=== PATIENT | male | born 1935 | race Caucasian/White ===

== ENCOUNTER 2016-10-22 10:04 | Emergency (ER) | payer OTHER, MEDICARE ==
[~2016-10-22] VITALS: Ht 177.8 cm; Wt 102.1 kg
[~2016-10-22 10:04] MED LIST: AFRIN NASAL60 SPRAY NAS; ALLOPURINOL100 M1 PO; ALTACE2.5 MG PO; ATORVASTATIN CA40 MG PO; COUMADIN 5 MG TA5 MG PO; K-DUR 20MEQ TA20 MEQ PO; LASIX20 MG PO; LASIX80 MG PO; LOPRESSOR50 MG PO; LOVENOX 8080 MG/0.8 SC
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
[2016-10-22 10:39] LABS: ABSOLUTE BASOPHIL COUNT 0 /CUMM (0.0-0.2); ABSOLUTE EOSINOPHIL COUNT 0 /CUMM (0.0-0.7); ABSOLUTE GRANULOCYTE CT 14.5 /CUMM (1.4-6.5); ABSOLUTE LYMPH COUNT 0.7 /CUMM (1.2-3.4); ABSOLUTE MONOCYTE COUNT 1.7 /CUMM (0.10-0.60); BASOPHIL % 0.2 % (0.0-2.0); EOSINOPHIL % 0.2 % (0-5); GRANULOCYTE % 85.5 % (42.2-75.2); HEMATOCRIT 48.7 % (42-52); MEAN CORPUSCULAR HGB 32.3 PG (27.0-31.0); MEAN CORPUSCULAR HGB CONC 33.5 G/DL (33.0-37.0); MEAN CORPUSCULAR VOLUME 96.4 FL (80.0-94.0); MEAN PLATELET VOLUME 7.7 FL (7.4-10.4); PLATELET COUNT 143 /CUMM (130-400); RBC DISTRIBUTION WIDTH 14.1 % (11.5-14.5); RED BLOOD CELL CT 5.05 /CUMM (4.70-6.10); WHITE BLOOD CELL COUNT 16.9 /CUMM (4.8-10.8)
[2016-10-22 10:45] LABS: PT 30.9 SEC (9.4-12.5); PTT 50 SEC (25-37)
[2016-10-22] MEDS ORDERED: FUROSEMIDE80 M1 PO (11:15)
[2016-10-22] MEDS ORDERED: SPIRONOLACTONE50 M1 PO (11:16)
--- NOTE | 2016-10-22 13:12 | RADIOLOGY REPORT ---
EXAMINATION: XR PORTABLE CHEST CLINICAL INFORMATION: Right-sided chest pain, abdominal pain. COMPARISON: Chest done on 08/26/2015. TECHNIQUE: Portable view of the chest was obtained. FINDINGS: Moderate enlargement of the cardiomediastinal silhouette is noted, similar to prior study. Postop changes of sternotomy is present, unchanged. Both lung castillo are symmetrically expanded and appear clear. Focal contour deformity is noted along the medial aspect of the right hemidiaphragm, appear unchanged. The visualized upper abdomen is unremarkable. IMPRESSION: No significant change since 08/26/2015. Persistent stable moderate enlargement of the cardiomediastinal silhouette.
--- NOTE | 2016-10-22 14:24 | ULTRASOUND REPORT ---
EXAMINATION: US ABDOMEN LIMITED CLINICAL INFORMATION: Right upper quadrant pain for 2 days. Elevated white blood cell count. Elevated bilirubin. COMPARISON: 03/24/2014 TECHNIQUE: Real-time imaging of the right upper quadrant abdominal viscera. Examination is technically limited. FINDINGS: PANCREAS: The pancreas is almost entirely obscured by bowel gas. There may be a prominence of the pancreatic duct on 2 images. LIVER: Liver parenchyma is poorly seen and diffusely increased in echogenicity typically due to hepatic steatosis. Sensitivity for focal lesions is reduced. No definite intrahepatic biliary ductal dilation. 2014 ultrasound reported abdominal ascites. None seen on this exam. GALLBLADDER: No abnormalities demonstrated. The gallbladder is physiologically distended without evidence of stones, sludge, polyps, wall thickening or pericholecystic fluid. COMMON BILE DUCT: The common bile duct is measured at 7 mm, at the upper limits of normal. This is increased in diameter compared with 2013. Given the history of elevated bilirubin further evaluation is recommended. RIGHT KIDNEY: The right kidney is poorly visualized with some diffuse cortical thinning. A 3 cm anechoic cyst with ill-defined borders is noted in the lower pole. A 6.5 cm cyst noted arising from the upper pole. The kidney measures 10.8 cm in maximum dimension. FREE FLUID: None seen on today's exam. IMPRESSION: 1. Technically limited examination. 2. Top normal caliber common bile duct has increased in diameter since 2013. Pancreatic duct also appears slightly prominent. Given the history of elevated bilirubin, further evaluation suggested. 3. Mild renal cortical thinning.
[2016-10-22 15:14] VITALS: BP 114/64
== END 2016-10-22 15:31 | disposition short-term general hospital (02) ==
LOC: ERH 10:04
PROVIDERS: Emergency Medicine
DX: K83.0 Cholangitis (principal); I95.9 Hypotension, unspecified; R07.9 Chest pain, unspecified; I48.91 Unspecified atrial fibrillation; I10 Essential (primary) hypertension; I50.9 Heart failure, unspecified
CPT/HCPCS: 81001; 87040; 93005; 93010; 96374

== ENCOUNTER 2016-12-26 15:47 | Inpatient (IN) | payer OTHER, MEDICARE ==
[~2016-12-26] VITALS: Ht 177.8 cm; Wt 115.2 kg
[~2016-12-26 15:47] MED LIST changes: +FUROSEMIDE80 M1 PO; +SPIRONOLACTONE50 M1 PO
--- NOTE | 2016-12-26 15:55 | ED GENERAL ADULT ---
See Addendum History of Present Illness General Chief Complaint: General Adult Stated Complaint: BIBA FOR DISLODGED FEEDING TUBE Source: patient, EMS Exam Limitations: poor historian Vital Signs & Intake/Output Vital Signs & Intake/Output Vital Signs Date Time Temp Pulse Resp B/P Pulse O2 O2 Flow FiO2 Ox Delivery Rate 12/27 0120 97.4 96 20 118/58 97 Nasal Cannula 12/268 97.3 95 20 128/64 98 Nasal 2.0L Cannula 12/265 94 Nasal 2.0L Cannula 12/26 2126 96.0 84 20 125/78 100 Nasal 3.0L Cannula 12/26 2050 96.0 89 26 105/61 99 Nasal 3.0L Cannula 12/26 1734 95.8 86 28 105/68 100 Nasal 3.0L Cannula 12/26 1608 Nasal 3.0L Cannula 12/26 160 95.5 86 22 102/65 94 Nasal 3.0L Cannula ED Intake and Output 12/27 0000 12/26 1200 Intake Total Output Total Balance Patient 220 lb Weight Allergies Coded Allergies: NO KNOWN ALLERGIES (12/17/12) Triage Nurses Notes Reviewed? yes Onset: Abrupt Duration: unknown duration Timing: recent history HPI: 12/26/16 4 PM 81-year-old male presents to the emergency department for dislodgment of his right cholecystostomy tube. The patient apparently had the tube placed at [place]. He was at the assisted care facility and they noticed that it was out today. He denies fever or abdominal pain at this time The onset of the symptoms were abrupt, the duration of the symptoms was unknown but suspected to be today, the severity was significant as his symptoms required him to come to the emergency department for care. He denies associated abdominal pain or fever. (SAMMY STILES DO) Reconcile Medications Acetaminophen 325 MG CAPSULE 2 CAP PO Q4H PRN PAIN/TEMP>101 (Reported) Allopurinol 100 MG TABLET 1 TAB PO DAILY GOUT (Reported) Aspirin (Ecotrin*) 81 MG TABLET.DR 1 TAB PO DAILY HEART/BLOOD (Reported) Atorvastatin Calcium 40 MG TABLET 1 TAB PO DAILY CHOLESTEROL (Reported) Bisacodyl 10 MG SUPP.RECT 1 SUP RC Q2D PRN CONSTIPATION (Reported) Furosemide (Lasix) 40 MG TABLET 1 TAB PO DAILY DIURETIC (Reported) Magnesium Hydroxide (Milk Of Magnesia) 400 MG/5 ML ORAL.SUSP 30 ML PO DAILY PRN CONSTIPATION (Reported) Metoprolol Tartrate 25 MG TABLET 0.5 TAB PO BID HEART/BP (Reported) Miconazole Nitrate (Inzo Antifungal) 2 % CREAM..G. 1 SALAZAR TOP BID BUTTOCKS ( Reported) Na Phos,M-B/Na Phos,Di-Ba (Fleet Enema) 19 GRAM-7 GRAM/118 ML ENEMA 1 E RC Q2D PRN CONSTIPATION (Reported) Nystatin (Nystop) 100,000 UNIT/GRAM POWDER 1 SALAZAR TOP BID GROIN (Reported) Pantoprazole Sodium 40 MG TABLET.DR 1 TAB PO Q12H GI (Reported) Polyethylene Glycol 3350 (Gavilax) 17 GRAM POWD.PACK 1 PAC PO DAILY GI ( Reported) Potassium Chloride (Klor-Con 10) 10 MEQ TABLET.ER 1 TAB PO DAILY SUPPLEMENT ( Reported) Sennosides (Senna) 8.6 MG TABLET 1 TAB PO QPM GI (Reported) Warfarin Sodium (Coumadin) 5 MG TABLET 1 TAB PO DAILY AFIB (Reported) (AKBAR AGOSTO,KORI) Past History Travel History Traveled to [place] past 21 day No Medical History Any Pertinent Medical History? see below for history Neurological: NONE EENT: epistaxis Cardiovascular: AFIB, CAD, diastolic CHF, hypertension, hyperlipidemia, prosthetic aortic valve replacement in 1994 in 1994 Respiratory: NONE Gastrointestinal: colon cancer s/p subtotal colectomy Hepatic: NONE Renal: NONE Musculoskeletal: gout Psychiatric: NONE Endocrine: NONE Blood Disorders: NONE Cancer(s): colon/rectal cancer Other Medical Hx: Past medical history includes colonoscopy with subtotal colectomy for cancer in 1989, dyslipidemia status post repair of ventral hernia coronary artery disease status post bypass surgery prostatic aortic valve replacement 1994 for bicuspid aortic valve atrial fibrillation cellulitis severe hypertension and shortness of breath. History of MRSA: No History of VRE: No History of CDIFF: No Surgical History Surgical History: unobtainable Psychosocial History Who do you live with Patient/Self Services at Home None What is your primary language German Family History Family History, If Any: MOTHER (family medical history is unknown as the patient is adopted). . FATHER (unknown). . Hx Contributory? No (SAMMY STILES DO) Review of Systems Review of Systems Constitutional: Denies: fever. EENTM: Reports: no symptoms. Respiratory: Denies: short of breath. Cardiovascular: Reports: no symptoms. GI: Denies: abdominal pain. Genitourinary: Reports: no symptoms. Musculoskeletal: Reports: no symptoms. Skin: Reports: no symptoms. Neurological/Psychological: Reports: no symptoms. Hematologic/Endocrine: Reports: no symptoms. Immunologic/Allergic: Reports: no symptoms. (SAMMY STILES DO) Physical Exam Physical Exam General Appearance: alert, awake, anxious, moderate distress Head: atraumatic, normal appearance Eyes: Bilateral: normal appearance, PERRL, EOMI. Ears, Nose, Throat: normal pharynx, normal ENT inspection Neck: normal inspection, supple Respiratory: decreased breath sounds Cardiovascular: irregularly irregular Peripheral Pulses: 4+ radial (R), 4+ radial (L) Gastrointestinal: non-tender, no organomegaly Back: decreased range of motion Extremities: pedal edema Neurologic/Psych: no motor/sensory deficits, awake, alert, oriented x 3 Skin: intact, normal color, rash, stasis dermatitis Core Measures ACS in differential dx? No CVA/TIA Diagnosis: No Severe Sepsis Present: No Septic Shock Present: No (SAMMY STILES DO) Progress Differential Diagnoses I considered the following diagnoses in my evaluation of the patient: [ Congestive heart failure, cholecystitis, sepsis, pneumonia, pulmonary embolism] Plan of Care: Orders Procedure Date/time Status Nothing by Mouth 12/27 B Active TROPONIN LEVEL 12/27 0700 Active PROTHROMBIN TIME 12/27 0700 Active HEPATIC FUNCTION PANEL 12/27 0700 Active CBC WITHOUT DIFFERENTIAL 12/27 0700 Active BASIC ELECTROLYTES PLUS BUN&CR 12/27 0700 Active EKG 12/27 0700 Active Pathway - chart 12/27 0122 Active House Staff 12/27 0122 Active Code Status 12/27 0122 Active CULTURE,URINE 12/27 0106 Active TROPONIN LEVEL 12/27 0052 Complete PROTHROMBIN TIME 12/27 0052 Complete EKG 12/27 0052 Active Lab Add-on Test 12/27 UNK Active Weight 12/27 UNK Active VTE Mechanical Prophylaxis 12/27 UNK Active Starr, Insertion/Removal/Asses 12/27 UNK Active PERCUT BILIARY DRAINANGE 12/27 UNK Active Turn and Reposition 12/26 2308 Active Skin Integrity Protocol 12/26 230 Active Teach/Educate 12/26 2257 Active Pain Treatment and Response 12/26 2257 Active Nutritional Intake, Monitor 12/26 2257 Active Isolation 12/26 2257 Active Patient Care Conference 12/26 2257 Active Activity/Ambulation 12/26 2257 Active Patient Data 12/26 2026 Active Admit to inpatient 12/27 2015 Active Vital Signs 12/27 2015 Active Code Status 12/27 2015 Complete Admit to inpatient 12/27 2003 Active TROPONIN LEVEL 12/26 171 Complete MAGNESIUM 12/26 171 Complete Intake & Output 12/26 1611 Active EKG 12/26 160 Active COMPREHENSIVE METABOLIC PANEL 12/26 160 Complete CBC WITHOUT DIFFERENTIAL 12/26 160 Complete Current Medications Sig/Salud Start time Last Medication Dose Stop Time Status Admin Allopurinol 100 MG DAILY 12/27 1000 AC (Zyloprim) Clotrimazole 1 SALAZAR BID 12/27 1000 AC (Lotrimin) Furosemide 40 MG DAILY 12/27 1000 AC (Lasix) Metoprolol Tartrate 12.5 MG BID 12/27 1000 AC (Lopressor) Nystatin 1 SALAZAR BID 12/27 1000 AC (Mycostatin) Omeprazole 40 MG BID 12/27 1000 UNVr (Prilosec) Polyethylene Glycol 17 GM DAILY 12/27 1000 AC (Miralax) Potassium Chloride 10 MEQ DAILY 12/27 1000 AC (K-Dur) Heparin Sodium 25,000 UNIT Q24H 12/27 0400 UNVr (Porcine) (Heparin) Sodium Chloride 500 ML Senna/Docusate Sodium 1 TAB Q12P PRN 12/27 0130 AC (Senokot S) Acetaminophen 650 MG Q6P PRN 12/27 0115 AC (Tylenol) Laboratory Tests 12/27/16 0155: Troponin I < 0.01, PT 31.1 H, INR 2.99 H 12/26/16 171: Anion Gap 9, Estimated GFR > 60, BUN/Creatinine Ratio 14.0, Glucose 106 H, Calcium 9.4, Magnesium 1.8, Total Bilirubin 1.6 H, AST 50, ALT 47, Alkaline Phosphatase 195 H, Troponin I < 0.01, Total Protein 7.5, Albumin 3.1 L, Globulin 4.4 H, Albumin/Globulin Ratio 0.7 L, CBC w Diff NO MAN DIFF REQ, RBC 3.66 L, MCV 94.6 H, MCH 31.1 H, RDW 18.2 H, MPV 7.9, Gran % 69.8, Lymphocytes % 12.1 L, Monocytes % 12.6 H, Eosinophils % 5.0, Basophils % 0.5, Absolute Granulocytes 5.3, Absolute Lymphocytes 0.9 L, Absolute Monocytes 1.0 H, Absolute Eosinophils 0.4, Absolute Basophils 0, PUBS MCHC 32.8 L Microbiology 12/27 0106 URINE ROUT: Urine Culture - ORD D/W DR DAVISON who feels patient should stay to have IR placed cholecystostomy tube tomorrow. Recent E.coli sepsis complicated by staph infection. At the same time patient with respiratory distress, b/l effusions requiring diuresis. D/W hospitalist for admission. (KORI SEGUNDO MD) Initial ED EKG: atrial fibrillation Prior EKG: unchanged (SAMMY STILES DO) Differential Diagnoses I considered the following diagnoses in my evaluation of the patient: (KORI SEGUNDO MD) Departure Departure Condition: Stable Referrals: ARIADNA DAVISON MD (PCP/Family) Departure Forms: Customer Survey General Discharge Information Comments 12/26/16 7 pm The patient was observed in the ED. He did complain of difficulty breathing. He was placed on oxygen. CT scan and chest x-ray show bilateral pleural effusions. He was admitted to the hospital for congestive heart failure. The patient was signed out to Dr. Segundo at 7 PM. PATIENT: MIKE WHITING PRESENT AGE: 81 PATIENT ACCOUNT NO: [id number] : 35 LOCATION: [facility] ORDERING PHYSICIAN: SAMMY STILES DO SERVICE DATE: 12/26/16 EXAM TYPE: CAT - CT ABD & PELVIS W/O IV CONTRAS EXAMINATION: CT ABDOMEN AND PELVIS WITHOUT CONTRAST CLINICAL INFORMATION: Dislodged cholecystotomy tube. Assess for collection. COMPARISON: Ultrasound of abdomen 10/22/2016 TECHNIQUE: Multidetector volumetric imaging was performed from the superior aspect of the liver through the pubic symphysis. Sagittal and coronal reformatted images were obtained on the technologist's workstation. No oral or intravenous contrast. DLP: 1180.15 mGy-cm FINDINGS: LUNG BASES: Calcifications of the pericardium. Calcification of the mitral valve annulus. Moderate volume bilateral pleural effusions. Bibasilar atelectasis at lung bases. LIVER, GALLBLADDER, AND BILIARY TREE: The liver is normal in size, shape, and attenuation. No focal hepatic lesion or biliary ductal dilatation is present. Multiple small gallstones are present in the gallbladder layering dependently . No bile duct dilatation. There is subtle stranding around the gallbladder due to a small amount of fluid but there is no large collection of fluid. No biloma. PANCREAS: Unremarkable. SPLEEN: Unremarkable. ADRENAL GLANDS: Unremarkable. KIDNEYS AND URETERS: Pedunculated cortical cyst at upper pole of right kidney measuring 7 cm and 1 cm. There is a pedunculated cyst at the mid lower pole measuring 3.3 cm. No renal or ureteral calculi. No hydronephrosis. BLADDER: Unremarkable. GASTROINTESTINAL TRACT: Surgical sutures at the sigmoid. Anastomosis intact. No acute change of the bowel. No bowel obstruction. No bowel wall thickening or edema. Moderate volume of stool in colon. The appendix is normal. Small bowel loops are unremarkable. ABDOMINAL WALL: Surgical clips at the anterior abdominal wall with associated mild thickening. Stranding extends into the subcutaneous tissue of the incision. No focal fluid collection or abscess. LYMPH NODES: Normal. VASCULAR: Atherosclerotic vascular wall calcifications of the vasculature throughout the abdomen and pelvis. 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 PELVIC VISCERA: Coarse calcifications in the prostate. Prostate measures 4 cm transverse. OSSEOUS STRUCTURES: Multilevel degenerative change of the spine with disc height narrowing and endplate spurs and facet joint arthrosis. There is near complete anterior wedge compression deformity of the L2 vertebrae which is chronic. IMPRESSION: 1. Bilateral pleural effusions. Bibasilar atelectasis at lung bases. 2. Gallstones in gallbladder. Small amount of stranding fluid around the gallbladder but no large fluid collection or biloma. No bile duct dilatation. 3. Postsurgical changes anterior abdominal wall. 4. Status post partial colectomy with anastomosis at the sigmoid. No acute change of the bowel. 5. Diffuse atherosclerotic vascular calcifications in abdomen. 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 DICTATED BY: RELL MUNOZ MD DATE/TIME DICTATED:12/26/161811 HAND CLERICAL VERIFIER:DENY DATE/TIME TRANSCRIBED:12/26/161811 CONFIDENTIAL, DO NOT COPY WITHOUT APPROPRIATE AUTHORIZATION. <Electronically signed in Other Vendor System> SIGNED BY: RELL MUNOZ MD 12/26/16 4409 (SAMMY STILES DO) Departure Time of Disposition: 2016 Disposition: STILL A PATIENT Clinical Impression Primary Impression: CHF (congestive heart failure) Admission Note Spoke With: ARACLEY VERONICA MD (AKBAR AGOSTO,KORI) Critical Care Note Critical Care Note Critical Care Time: non-applicable (SAMMY STILES DO)
--- NOTE | 2016-12-26 16:07 | NUR ---
KRIS FROM [facility] DUE TO ACCIDENTAL DISLODGEMENT OF BILIARY DRAIN. PT STATES HE WAS AT [place] AND HAD DRAIN PLACED ABOUT A WEEK AGO AND THEN WENT TO [place]. PT AWAKE, ALERT AND ORIENTED. PT SOB WITH CONVERSATION. ARRIVED ON 3 LITERS OF 02. DENIES PAIN OR SOB. BLE EDEMA WITH TENDERNESS ON PALPATION.
--- NOTE | 2016-12-26 16:07 | NUR ---
PT TO ROOM 7. DR STILES IN TO SEE PT
--- NOTE | 2016-12-26 16:41 | NUR ---
PT DIFFICULT VEIN STICK. 22 GUAGE IV PLACED IN RIGHT WRIST. UNSUCCESSFUL ATTEMPT TO DRAW LABS
--- NOTE | 2016-12-26 17:08 | NUR ---
EKG DONE. DR STILES NOTIFIED OF PT WITH LABORED BREATHING
--- NOTE | 2016-12-26 17:32 | NUR ---
PORTABLE CXR DONE
--- NOTE | 2016-12-26 17:45 | NUR ---
PT ON MONITOR , IN AFIB
[2016-12-26 17:49] LABS: ABSOLUTE BASOPHIL COUNT 0 /CUMM (0.0-0.2); ABSOLUTE EOSINOPHIL COUNT 0.4 /CUMM (0.0-0.7); ABSOLUTE GRANULOCYTE CT 5.3 /CUMM (1.4-6.5); ABSOLUTE LYMPH COUNT 0.9 /CUMM (1.2-3.4); BASOPHIL % 0.5 % (0.0-2.0); GRANULOCYTE % 69.8 % (42.2-75.2); HEMATOCRIT 34.7 % (42-52); MEAN CORPUSCULAR HGB 31.1 PG (27.0-31.0); MEAN CORPUSCULAR HGB CONC 32.8 G/DL (33.0-37.0); MEAN CORPUSCULAR VOLUME 94.6 FL (80.0-94.0); MEAN PLATELET VOLUME 7.9 FL (7.4-10.4); PLATELET COUNT 124 /CUMM (130-400); RBC DISTRIBUTION WIDTH 18.2 % (11.5-14.5); RED BLOOD CELL CT 3.66 /CUMM (4.70-6.10); WHITE BLOOD CELL COUNT 7.7 /CUMM (4.8-10.8)
--- NOTE | 2016-12-26 17:55 | RADIOLOGY REPORT ---
EXAMINATION: XR PORTABLE CHEST CLINICAL INFORMATION: 81-year-old male patient with shortness of breath. COMPARISON: Precocious x-ray on 10/22/2016. (Cardiomegaly). TECHNIQUE: Portable AP semierect view of the chest was obtained. FINDINGS: Reexamination now shows cardiomegaly associated with bilateral pleural effusions. As a result, lung volumes are low. The sternotomy wires are intact. IMPRESSION: Bilateral pleural effusions.
--- NOTE | 2016-12-26 18:06 | NUR ---
PT WENT AND RETURNED FROM CT SCAN
--- NOTE | 2016-12-26 18:26 | CT SCAN REPORT ---
EXAMINATION: CT ABDOMEN AND PELVIS WITHOUT CONTRAST CLINICAL INFORMATION: Dislodged cholecystotomy tube. Assess for collection. COMPARISON: Ultrasound of abdomen 10/22/2016 TECHNIQUE: Multidetector volumetric imaging was performed from the superior aspect of the liver through the pubic symphysis. Sagittal and coronal reformatted images were obtained on the technologist's workstation. No oral or intravenous contrast. DLP: 1180.15 mGy-cm FINDINGS: LUNG BASES: Calcifications of the pericardium. Calcification of the mitral valve annulus. Moderate volume bilateral pleural effusions. Bibasilar atelectasis at lung bases. LIVER, GALLBLADDER, AND BILIARY TREE: The liver is normal in size, shape, and attenuation. No focal hepatic lesion or biliary ductal dilatation is present. Multiple small gallstones are present in the gallbladder layering dependently . No bile duct dilatation. There is subtle stranding around the gallbladder due to a small amount of fluid but there is no large collection of fluid. No biloma. PANCREAS: Unremarkable. SPLEEN: Unremarkable. ADRENAL GLANDS: Unremarkable. KIDNEYS AND URETERS: Pedunculated cortical cyst at upper pole of right kidney measuring 7 cm and 1 cm. There is a pedunculated cyst at the mid lower pole measuring 3.3 cm. No renal or ureteral calculi. No hydronephrosis. BLADDER: Unremarkable. GASTROINTESTINAL TRACT: Surgical sutures at the sigmoid. Anastomosis intact. No acute change of the bowel. No bowel obstruction. No bowel wall thickening or edema. Moderate volume of stool in colon. The appendix is normal. Small bowel loops are unremarkable. ABDOMINAL WALL: Surgical clips at the anterior abdominal wall with associated mild thickening. Stranding extends into the subcutaneous tissue of the incision. No focal fluid collection or abscess. LYMPH NODES: Normal. VASCULAR: Atherosclerotic vascular wall calcifications of the vasculature throughout the abdomen and pelvis. 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 PELVIC VISCERA: Coarse calcifications in the prostate. Prostate measures 4 cm transverse. OSSEOUS STRUCTURES: Multilevel degenerative change of the spine with disc height narrowing and endplate spurs and facet joint arthrosis. There is near complete anterior wedge compression deformity of the L2 vertebrae which is chronic. IMPRESSION: 1. Bilateral pleural effusions. Bibasilar atelectasis at lung bases. 2. Gallstones in gallbladder. Small amount of stranding fluid around the gallbladder but no large fluid collection or biloma. No bile duct dilatation. 3. Postsurgical changes anterior abdominal wall. 4. Status post partial colectomy with anastomosis at the sigmoid. No acute change of the bowel. 5. Diffuse atherosclerotic vascular calcifications in abdomen. 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
[2016-12-26] MEDS ORDERED: ASPIRIN EC81 M1 PO (19:27)
[2016-12-26] MEDS ORDERED: LASIX40 M1 PO (19:28)
[2016-12-26] MEDS ORDERED: METOPROLOL TART25 M1 PO (19:30)
[2016-12-26] MEDS ORDERED: TOPROL XL25 M1 PO (19:30)
[2016-12-26] MEDS ORDERED: MILK OF MA400 MG/52 PO (19:31)
[2016-12-26] MEDS ORDERED: FLEET ENEMA133 ML RC (19:32)
[2016-12-26] MEDS ORDERED: BISACODYL10 M1 RC (19:32)
[2016-12-26] MEDS ORDERED: ACETAMINOPHEN325 M3 PO (19:33)
[2016-12-26] MEDS ORDERED: PANTOPRAZOLE SO40 M1 PO (19:34)
[2016-12-26] MEDS ORDERED: GAVILAX17 GM PO (19:35)
[2016-12-26] MEDS ORDERED: KLOR-CON 1010 ME1 PO (19:35)
[2016-12-26] MEDS ORDERED: NYSTOP60 GM TOP (19:36)
[2016-12-26] MEDS ORDERED: SENNA8.6 M3 PO (19:36)
[2016-12-26] MEDS ORDERED: [UNRECOGNIZED DRUG - OTHER] TOP (19:37)
[2016-12-26] MEDS ORDERED: ATORVASTATIN CA40 M1 PO (19:38)
--- NOTE | 2016-12-26 20:01 | NUR ---
DR WEBBER IN TO SEE PT. DR WEBBER AWARE PT IS SOB AND HAD EDEMA
--- NOTE | 2016-12-26 20:55 | NUR ---
PT GOING TO ROOM 189-2.
--- NOTE | 2016-12-26 21:25 | NUR ---
REPORT CALLED TO [place] ON TELE. BED NOT READY YET ON UNIT.
--- NOTE | 2016-12-26 21:28 | NUR ---
HOUSE STAFF AT BEDSIDE TO SEE PT. HOUSE STAFF NOTIFIED THAT BLUE TOP TUBE IN LAB IN CASE THEY WANT TO ORDER PT INR DUE TO PT BEING ON COUMADIN
--- NOTE | 2016-12-26 22:20 | NUR ---
ONE NAKIA CALLED, BED IS CLEAN AND READY
--- NOTE | 2016-12-26 22:34 | History & Physical ---
CRESCENCIO AGOSTO,[facility] 12/26/16 2233: General Information and HPI MD Statement: I have seen and personally examined MIKE WHITING and documented this H&P. The patient is a 81 year old M who presented with a patient stated chief complaint of dislodged percutaneous tube. Source of Information: patient Exam Limitations: no limitations History of Present Illness: This is a 79-year-old gentleman with a past medical history is CAD status post CABG in 1994 and stent placement in 1999, aortic stenosis status post [facility] Misael valve placement in 1994, A. fib, hypertension, CHF, and recent acute cholecystitis status post percutaneous cholecystostomy tube presents is BIBA by nursing facility for evaluation of a dislodged percutaneous choley tube. Patient reports that earlier today he realized that his cholecystostomy tube was no longer attached. He denies deliberately removing it. Of note, patient's percutaneous: Tube was initially placed in October after he had presented a [facility] with acute cholecystitis and was deemed not suitable for cholecystectomy procedure due to his cardiac risk and presentation with sepsis. Patient reports multiple episodes of dislodged tube since initial placement which resulted in going back to [facility] for reinsertion. Around December 23, patient underwent an IR reinsertion of his tube after he was reevaluated for possible cholecystectomy and it was decided that he should continue with the cholecystostomy tube instead. Patient reports that his [facility] has been going well and is currently regaining his strength to ambulate with a walking aid. Patient does not endorse any current acute complaints including dizziness, lightheadedness, focal neurological deficit, fever, chills, nausea, vomiting, cough, recent infection, sick contacts, abdominal pain, muscle pain or dysuria. Allergies/Medications Allergies: Coded Allergies: NO KNOWN ALLERGIES (12/17/12) Past History Travel History Traveled to [place] past 21 day No Medical History Neurological: NONE EENT: epistaxis Cardiovascular: AFIB, CAD, diastolic CHF, hypertension, hyperlipidemia, prosthetic aortic valve replacement in 1994 in 1994 Respiratory: NONE Gastrointestinal: colon cancer s/p subtotal colectomy BILIARY DRAIN Hepatic: NONE Renal: NONE Musculoskeletal: gout Psychiatric: NONE Endocrine: NONE Blood Disorders: NONE Cancer(s): colon/rectal cancer Other Medical Hx: Past medical history includes colonoscopy with subtotal colectomy for cancer in 1989, dyslipidemia status post repair of ventral hernia coronary artery disease status post bypass surgery prostatic aortic valve replacement 1994 for bicuspid aortic valve atrial fibrillation cellulitis severe hypertension and shortness of breath. History of MRSA: No History of VRE: No History of CDIFF: No Surgical History Surgical History: unobtainable Past Family/Social History Family History Relations & Conditions if any MOTHER (family medical history is unknown as the patient is adopted). . FATHER (unknown). . Psychosocial History Services at Home: None ETOH Use: occasional use Illicit Drug Use: denies illicit drug use Review of Systems Review of Systems Constitutional: Reports: no symptoms. EENTM: Reports: no symptoms. Cardiovascular: Reports: no symptoms. Respiratory: Reports: no symptoms. GI: Reports: no symptoms. Genitourinary: Reports: no symptoms. Musculoskeletal: Reports: no symptoms. Skin: Reports: no symptoms. Neurological/Psychological: Reports: no symptoms. Hematologic/Endocrine: Reports: no symptoms. Immunologic/Allergic: Reports: no symptoms. Exam & Diagnostic Data Last 24 Hrs of Vital Signs/I&O Vital Signs Date Time Temp Pulse Resp B/P Pulse O2 O2 Flow FiO2 Ox Delivery Rate 12/27 0120 97.4 96 20 118/58 97 Nasal Cannula 12/26 2248 97.3 95 20 128/64 98 Nasal 2.0L Cannula 12/26 2245 94 Nasal 2.0L Cannula 12/26 2127 96.0 84 20 125/78 100 Nasal 3.0L Cannula 12/26 2050 96.0 89 26 105/61 99 Nasal 3.0L Cannula 12/26 1734 95.8 86 28 105/68 100 Nasal 3.0L Cannula 12/26 1608 Nasal 3.0L Cannula 12/26 1607 95.5 86 22 102/65 94 Nasal 3.0L Cannula Intake & Output 12/27 0800 12/27 0000 12/26 1600 Intake Total Output Total Balance Patient 99.79 kg Weight Physical Exam General Appearance Alert, Oriented X3, Cooperative Skin eythematous venous skin changes b/l on lower extremities HEENT Atraumatic, PERRLA Neck Supple, No JVD, No thryomegaly Lymphatic Cervical nl Cardiovascular Normal S1, Normal S2, irregular rate Lungs mild rhonchi on lung bases b/l Abdomen Normal Bowel Sounds, Soft Neurological Normal Speech, Strength at 5/5 X4 Ext, Sensation Intact Extremities pitting edema +3 b/l LE upto thigh Assessment/Plan Assessment: This is a 81-year-old gentleman with a past medical history of CAD with CABG and stent placement, and a recent hospitalization a [facility] for acute cholecystitis with sepsis resulting in placement of percutaneous cholecystostomy tube presents to [place] ED for evaluation of a dislodged choley tube. Assessment and plan #Dislodged percutaneous cholecystostomy tube Skin/stoma area is devoid of any drainage, erythema or pus and does not look infected. Plan Will admit to general medicine floor Will contact IR for placement of tube Will hold Coumadin for now #Lower extremity swelling Possible etiology include venous insufficiency and acute decompensation of heart failure. Patient complained of shortness of breath while at the ED and chest x- ray are was remarkable for bilateral pleural effusion. These findings could be suggestive of acute decompensated heart failure as the most likely etiology of patient's lower extremity swelling. Plan Continue furosemide Hold off on echo as a recent one was done a [facility] and general. Will obtain cardiology consult #Hyponatremia Chronic. Plan Will trend BEP tomorrow morning #Status post aortic [facility] Misael valve In anticipation of IR procedure tomorrow we'll hold off Coumadin and start patient on heparin. #Intertrigo Around inguinal area and lateral abdominal folds. Plan Clotrimazole cream #History of CAD Continue metoprolol 12.5 mg #History of gout Continue allopurinol #Aortic aneurysm Less than 5 cm. Patient is hemodynamically stable. Will need outpatient serial CT follow-ups. As Ranked By This Provider Problem List: 1. Cholecystostomy tube dysfunction Core Measures/Miscellaneous Acute Coronary Syndrome ACS Diagnosis: No Cerebrovascular Accident CVA/TIA Diagnosis: No Congestive Heart Failure CHF Diagnosis: No Venous Thromboembolism VTE Risk Factors: Age > 40 No [facility] VTE prophylaxis d/t: No contraindications No VTE Pharm Prophylaxis d/t: No contraindications VTE Diagnosis: No VTE Type: NONE VTE Confirmed by (Test): NONE Severe Sepsis Severe Sepsis Present: No Septic Shock Septic Shock Present: No Miscellaneous Documentation Attending Case Discussed With: ARACELY VERONICA MD Primary Care Physician: ARIADNA DAVISON MD Patient sees these Specialists GI CARDIOLOGY Level of Patient Care: General Medicine KARIN DON 12/27/16 0210: General Information and HPI Allergies/Medications Home Med list Acetaminophen 325 MG CAPSULE 2 CAP PO Q4H PRN PAIN/TEMP>101 (Reported) Allopurinol 100 MG TABLET 1 TAB PO DAILY GOUT (Reported) Aspirin (Ecotrin*) 81 MG TABLET.DR 1 TAB PO DAILY HEART/BLOOD (Reported) Atorvastatin Calcium 40 MG TABLET 1 TAB PO DAILY CHOLESTEROL (Reported) Bisacodyl 10 MG SUPP.RECT 1 SUP RC Q2D PRN CONSTIPATION (Reported) Furosemide (Lasix) 40 MG TABLET 1 TAB PO DAILY DIURETIC (Reported) Magnesium Hydroxide (Milk Of Magnesia) 400 MG/5 ML ORAL.SUSP 30 ML PO DAILY PRN CONSTIPATION (Reported) Metoprolol Tartrate 25 MG TABLET 0.5 TAB PO BID HEART/BP (Reported) Miconazole Nitrate (Inzo Antifungal) 2 % CREAM..G. 1 SALAZAR TOP BID BUTTOCKS ( Reported) Na Phos,M-B/Na Phos,Di-Ba (Fleet Enema) 19 GRAM-7 GRAM/118 ML ENEMA 1 E RC Q2D PRN CONSTIPATION (Reported) Nystatin (Nystop) 100,000 UNIT/GRAM POWDER 1 SALAZAR TOP BID GROIN (Reported) Pantoprazole Sodium 40 MG TABLET.DR 1 TAB PO Q12H GI (Reported) Polyethylene Glycol 3350 (Gavilax) 17 GRAM POWD.PACK 1 PAC PO DAILY GI ( Reported) Potassium Chloride (Klor-Con 10) 10 MEQ TABLET.ER 1 TAB PO DAILY SUPPLEMENT ( Reported) Sennosides (Senna) 8.6 MG TABLET 1 TAB PO QPM GI (Reported) Warfarin Sodium (Coumadin) 5 MG TABLET 1 TAB PO DAILY AFIB (Reported) Resident Review Statement Resident Statement: examined this patient, discussed with tax services intern, agreed with tax services intern, amended to note Other Findings: 79-year-old man with past medical history of CAD, CABG, [facility] valve, A. fib, hypertension,CHF, with recent hospitalization 3 times at [facility] for acute cholecystitis(1 time with septic shock) and percutanesou cholecystostomy came to the [facility] for dislodged colecystostomy tube. According to the records patient colecystostomy tube was placed less than a week ago and he was [facility]. However before coming to the hospital it was discovered that the tube was dislodged. Patient also reports that he has been put on oxygen in the penitentiary however he does not report any shortness of breath, cough, nausea, abdominal pain, dizziness, fevers, chills. Patient does report of leg swelling which is chronic since October 2016. last echo at [facility] in Oct showed ef of 55%.. Vital signs on admission were stable. O2 saturation of 99% on 3 L,mild tachypnea. Physical exam was notable for bilateral basilar crackles and decreased breath sounds, severe bilateral leg edema up to the knees with chronic ischemic changes. Notable labs INR 2.99, hemoglobin 11.4, platelet 124, sodium 133, chloride 93, bili 1.6 CXR IMPRESSION: Bilateral pleural effusions. CT scan of the abdomen IMPRESSION: 1. Bilateral pleural effusions. Bibasilar atelectasis at lung bases. 2. Gallstones in gallbladder. Small amount of stranding fluid around the gallbladder but no large fluid collection or biloma. No bile duct dilatation. 3. Postsurgical changes anterior abdominal wall. 4. Status post partial colectomy with anastomosis at the sigmoid. No acute change of the bowel. 5. Diffuse atherosclerotic vascular calcifications in abdomen. 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 Assessment and plan CHF exacerbation * Admit to telemetry for 24 hours monitoring * Rule out any cardiac injury with serial troponins and EKGs x 3 * IV Lasix 40 mg daily * Daily weights,strict I's and O's and CHF diet * hold off echocardiogram * Cardiology consult wt #Dislodged cholecystotomy tube -Hold aspirin -Hold warfarin and put the patient on IV heparin -IR order for replacing the tube was already ordered please call IR for confirmation. -NPO for now #Fungal infection -Continue clotrimazole and nystatin #CAD,HTN -continue metoprolol 12.5 #gout -Continue allopurinol Full code, NPO, DVT prophylaxis is IV heparin and Alps ARACELY VERONICA 12/27/16 0621: Attending MD Review Statement Attending Statement Attending MD Statement: examined this patient, discuss w/resident/PA/CORPORATE STRATEGIST, agreed w/resident/PA/CORPORATE STRATEGIST, reviewed EMR data (avail), reviewed images, amended to note Attending Assessment/Plan: CC: Displaced percutaneous cholecystostomy tube PMH: Colon cancer S/P colectomy, HTN, HLD, CAD S/P CABG, stent, aortic wall replacement with St. Misael's wall, A. fib, HFpEF Patient was in ER October 22 for acute cholecystitis with suspected cholangitis, was sent to [facility], for ERCP, ended up having percutaneous cholecystostomy tube, symptomatically improved, but later on had to go to ER 3 times again since October for dislodgment of this percutaneous cholecystostomy tube. Patient comes here again today for dislodged tube, happened today. Vitals: Afebrile, HR 66, tachypneic, blood pressure at presentation 102/65 improved to 125/78, saturating 94% on 3 L on examination a O 2, mild respiratory distress, cannot complete sentences without SOB, neck supple, elevated JVD, mucosa moist, multiple bruises on arms, CVS: S1-S2, irregular, RS: Decreased air entry bilaterally, bibasilar crackles, abdomen: Soft, NT, ND, bowel sounds present, pitting edema bilateral lower extremity. No focal neurological deficits. Labs: Hemoglobin 11.4, WBC 7.7, sodium 133, bicarbonate 31, bilirubin 1.6, alkaline phosphatase 195, AST/ALT 50/47, INR 2.99 CXR: Bilateral pleural effusion CT abdomen and pelvis without IV contrast: 1. Bilateral pleural effusions. Bibasilar atelectasis at lung bases. 2. Gallstones in gallbladder. Small amount of stranding fluid around the gallbladder but no large fluid collection or biloma. No bile duct dilatation. 3. Postsurgical changes anterior abdominal wall. 4. Status post partial colectomy with anastomosis at the sigmoid. No acute change of the bowel. 5. Diffuse atherosclerotic vascular calcifications in abdomen. 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 A and P #1 dislodged percutaneous cholecystostomy tube: Consult IR for placement, patient does not have large fluid retention in gallbladder but does have small amount of stranding. DC warfarin, start on heparin drip for expected procedure. #2 acute on chronic diastolic heart failure: Bilateral pitting edema, elevated JVD, crackles on examination, and bilateral pleural effusion all goes in favor of worsening of heart failure. Patient may have received fluids on multiple occasions with his recent hospitalization for sepsis. Patient received 40 of IV Lasix, still dyspneic, repeat 40 mg IV in a.m. , check mag and phosphorus, serial EKG, trend cardiac enzymes, for demand ischemia with a history of extensive CAD, consult cardiology in morning, patient 's recent 2-D echo was in October at [facility] reports in the chart continue, Starr catheter, strict I's and O's, daily weights #3 continue rest of his home medications, allopurinol, aspirin, atorvastatin, metoprolol, Aldactone for HTN, HLD, CAD, A. fib #4 bowel regimen for constipation #5 outpatient follow-up for aortic aneurysm
[2016-12-26 22:48] VITALS: BP 128/64
[2016-12-27 01:20] VITALS: BP 118/58
[2016-12-27] MEDS ORDERED: COUMADIN5 M2 PO (01:22)
[2016-12-27 03:03] LABS: PT 31.1 SEC (9.4-12.5)
--- NOTE | 2016-12-27 03:34 | NUR ---
APPX 0025, PT HAD A SIX BEAT RUN OF V-TACH. MD WAS IN ROOM WITH PT AT TIME AND MADE AWARE. PT SHOWED NO S/S OF DISTRESS AND DENIED ANY CHEST PAIN. WILL CONTINUE TO MONITOR
--- NOTE | 2016-12-27 06:24 | Admission Certification ---
Admission Certification Certification Statement - As attending physician, I certify that at the time of - admission, based on clinical presentation, severity of - symptoms, need for further diagnostic testing and - therapeutic interventions, and risk of adverse outcomes - without in-hospital treatment, in my clinical assessment, - this patient requires an acute hospital stay for a minimum - of two nights or longer. I have also considered psychsocial - factors such as support system, advanced age, financial - issues, cognitive issues, and failed out-patient treatments, - past re-admission history, safety of patient, and lack of - compliance as applicable. Specific rationale supporting this admission is: Acute on chronic heart failure, dislodgment of percutaneous cholecystostomy tube
--- NOTE | 2016-12-27 06:31 | NUR ---
Physical Therapy. PT consult received and chart reviewed. Pt from [facility], reports he is assistx2 or ismael to w/c at baseline. Not appropriate for acute PT. Please d/c back to [facility] when appropriate.
--- NOTE | 2016-12-27 07:22 | PN- Housestaff ---
KACIE AGOSTO,KRISTINE 12/27/16 0722: Subjective Follow-up For: Dislodgment of cholecystostomy tube Hematuria Complaints: no complaints Tele-Events Since Last Visit: Atrial fibrillation, PVCs, 6 beat runs of VT, heart rate between 82 -95 Subjective: Patient is seen and examined at the bedside. He was not complaining of any pain in right upper quadrant. Denies nausea, vomiting, respiratory distress, constipation, diarrhea. He is having blood in the Starr catheter, but denies of any dysuria. Review of Systems Constitutional: Denies: no symptoms, see HPI, chills, diaphoresis, fever, malaise, weakness, unexplained weight loss. EENTM: Denies: no symptoms. Cardiovascular: Denies: no symptoms. Respiratory: Denies: no symptoms. Gastrointestinal: Denies: no symptoms. Genitourinary: Denies: no symptoms. Musculoskeletal: Denies: no symptoms. Skin: Denies: no symptoms. Neurological/Psychological: Denies: no symptoms. Objective Last 24 Hrs of Vital Signs/I&O Vital Signs Date Time Temp Pulse Resp B/P Pulse O2 O2 Flow FiO2 Ox Delivery Rate 12/27 1117 92/50 12/27 0938 90/50 12/27 0845 97.8 98 18 90/50 98 Nasal Cannula 12/27 0120 97.4 96 20 118/58 97 Nasal Cannula 12/27 0000 Nasal 2.0L Cannula 12/26 2248 97.3 95 20 128/64 98 Nasal 2.0L Cannula 12/26 2245 94 Nasal 2.0L Cannula 12/26 2127 96.0 84 20 125/78 100 Nasal 3.0L Cannula 12/26 2050 96.0 89 26 105/61 99 Nasal 3.0L Cannula 12/26 1734 95.8 86 28 105/68 100 Nasal 3.0L Cannula 12/26 1608 Nasal 3.0L Cannula 12/26 1607 95.5 86 22 102/65 94 Nasal 3.0L Cannula Intake & Output 12/27 1600 12/27 0800 12/27 0000 Intake Total 78 Output Total 200 Balance -122 Intake, IV 78 Output, Urine 200 Patient 99.79 kg Weight Physical Exam General Appearance: Alert, Oriented X3, Cooperative, No Acute Distress Skin: generalized ecchymosis, area of skin abrasion leading to oozing of blood HEENT: Atraumatic, PERRLA, EOMI Neck: Supple, No JVD Cardiovascular: irregular, valvular click is clear Lungs: mild bilateral basal crackles Abdomen: Soft, No Tenderness, scar of CABG in the center of the chest Neurological: Normal Speech, walk with a walker Extremities: bilateral redness and thickening of the skin on the lower legs Vascular: weak peripheral pulses Current Medications: Current Medications Sig/Salud Start time Last Medication Dose Route Stop Time Status Admin Acetaminophen 650 MG Q6P PRN 12/27 0115 AC PO Allopurinol 100 MG DAILY 12/27 1000 AC 12/27 PO 0938 Ceftriaxone Sodium 0 .STK-MED ONE 12/26 1740 DC .ROUTE Clotrimazole 1 SALAZAR BID 12/27 1000 AC 12/27 TOP 0937 Finasteride 5 MG DAILY 12/27 1015 AC 12/27 PO 1224 Furosemide 40 MG DAILY 12/27 1000 AC 12/27 IV 0937 Furosemide 0 .STK-MED ONE 12/26 2101 DC IV Furosemide 40 MG ONCE ONE 12/26 2014 DC 12/26 IV 12/26 2016 2110 Heparin Sodium 25,000 UNIT Q24H 12/27 0400 DC 12/27 (Porcine) IV 0432 Sodium Chloride 500 ML Metoprolol Tartrate 12.5 MG BID 12/27 1000 AC PO Miconazole Nitrate 1 SALAZAR BID 12/27 1000 DC VAG Nystatin 1 SALAZAR BID 12/27 1000 AC 12/27 TOP 0937 Omeprazole 40 MG DAILY AC 12/27 0700 DC PO Omeprazole 40 MG 0700,1600 12/27 0700 AC PO Polyethylene Glycol 17 GM DAILY 12/27 1000 AC PO Potassium Chloride 10 MEQ DAILY 12/27 1000 AC 12/27 PO 0938 Senna/Docusate Sodium 1 TAB Q12P PRN 12/27 0130 AC PO Warfarin Sodium 5 MG COUMADIN 1700 ONE 12/27 1700 AC PO 12/27 1701 Last 24 Hrs of Lab/Esequiel Results Last 24 Hrs of Labs/Mics: Laboratory Tests 12/27/16 1144: APTT 59 H 12/27/16 0630: Anion Gap 10, Estimated GFR > 60, BUN/Creatinine Ratio 12.0, Total Bilirubin 1.9 H, Direct Bilirubin 1.0 H, AST 45, ALT 45, Alkaline Phosphatase 167 H, Troponin I < 0.01, Total Protein 7.0, Albumin 2.7 L, PT 30.7 H, INR 2.96 H, CBC w Diff NO MAN DIFF REQ, RBC 3.61 L, MCV 94.7 H, MCH 31.0, RDW 18.1 H, MPV 8.0, Gran % 69.7, Lymphocytes % 14.7 L, Monocytes % 10.9 H, Eosinophils % 4.0, Basophils % 0.7, Absolute Granulocytes 4.0, Absolute Lymphocytes 0.9 L, Absolute Monocytes 0.6, Absolute Eosinophils 0.2, Absolute Basophils 0, PUBS MCHC 32.8 L 12/27/16 0155: Troponin I < 0.01, PT 31.1 H, INR 2.99 H 12/26/16 1717: Anion Gap 9, Estimated GFR > 60, BUN/Creatinine Ratio 14.0, Glucose 106 H, Calcium 9.4, Magnesium 1.8, Total Bilirubin 1.6 H, AST 50, ALT 47, Alkaline Phosphatase 195 H, Troponin I < 0.01, Total Protein 7.5, Albumin 3.1 L, Globulin 4.4 H, Albumin/Globulin Ratio 0.7 L, CBC w Diff NO MAN DIFF REQ, RBC 3.66 L, MCV 94.6 H, MCH 31.1 H, RDW 18.2 H, MPV 7.9, Gran % 69.8, Lymphocytes % 12.1 L, Monocytes % 12.6 H, Eosinophils % 5.0, Basophils % 0.5, Absolute Granulocytes 5.3, Absolute Lymphocytes 0.9 L, Absolute Monocytes 1.0 H, Absolute Eosinophils 0.4, Absolute Basophils 0, PUBS MCHC 32.8 L Microbiology 12/27 0106 URINE ROUT: Urine Culture - COLB Orders EKG Findings: 6 beats of V. tach Atrial fibrillation Heart rate between 80-95 Premature ventricular complex Lines/Diet/Fluids Starr Still Needed? Yes Assessment/Plan Assessment: Patient is an 81-year-old male with significant past medical history of coronary artery disease status post CABG(RCA, LCx), bicuspid aortic valve status post [facility] wall replacement(1994), status post stent in LAD(1999), atrial fibrillation on vomiting, CHF, hypertension, recent acute cholecystitis status post percutaneous cholecystostomy tube, BIBA by nursing facility for evaluation of a dislodged percutaneous choley tube. Vital signs-97.4, pulse 96, respiratory rate 20, blood pressure 118/58, SPO2 97% Plan - Hematuria secondary to traumatic insertion of the Starr catheter - Discussed with Dr. Handy Advise to continue Starr even on discharge, and continued anticoagulation Watch for bleeding flush Starr catheter with a sterile water 30 mL every 4 hourly and as needed Start the patient on tablet finasteride 5 milligrams daily Strick intake output charting CBC daily Watch for PT/INR Coronary artery disease, CABG, status post stenting, AF with controlled ventricular rate on, warfarin, bicuspid aortic wall status post replacement with [facility] valve Discussed with Dr. Davis Advised to stop the heparin drip and continue patient on warfarin 5 milligrams for today Regular monitoring of PT/INR Watch for bleeding History of cholecystitis status post cholecystostomy presented with fall of cholecystostomy tube Discussed with Dr. Regalado and according to him. CT abdomen and pelvis shows no any acute inflammation in CBD dilatation Advised to watch conservatively If patient started getting right upper quadrant pain, then we will to right upper quadrant ultrasound Multiple skin abrasion with oozing of blood Probably secondary to high PT/INR. We advised for compression Diet-started on clear liquid diet and advised if tolerated can be advanced to full liquid diet and later on heart healthy diet DVT prophylaxis-ALP S/warfarin CODE STATUS-full code Problem List: 1. Cholecystostomy tube dysfunction 2. Afib 3. Chronic diastolic CHF (congestive heart failure) 4. Bilateral cellulitis of lower leg 5. Mechanical prosthetic aortic valve replacement 6. Hyperlipidemia 7. Gout 8. CAD S/P BYPASS Pain Ratin Pain Location: Right upper quadrant Pain Goal: Remain pain free Pain Plan: Kwdy-go-xjiemnec Tomorrow's Labs & Rationales: CBC, BEP, LFT, PT, INR DVT/Prophylaxis: mechanical, pharmacological KERRIE ALVARENGA MD 12/27/16 1038: Attending Review Statement Attending Statement Attending MD Statement: examined this patient, discuss w/resident/PA/NOCTURNIST, agreed w/resident/PA/NOCTURNIST, reviewed EMR data (avail) Attending Assessment/Plan: CAD status post CABG in 1994 and stent placement in 1999, aortic stenosis status post St. Misael valve placement in 1994, A. fib, hypertension, CHF, and recent acute cholecystitis status post percutaneous cholecystostomy tube admitted for dislodging of cholecystostomy tube. Patient also with worsening bilateral LE edema with chronic venous stasis changes bilaterally R>L, +orthopnea. Feels comfortable only sitting in a chair. Vitals stable, labs reviewed. Had an episode of cate hematuria this morning. Starr catheter is in place Plan - IR for cholecystostomy tube repositioning - Check LFTs tomorrow - IV Lasix - I/O, daily weights - Cardiology consult - Continue heparin for now, will discuss with cardiology - Urology consult tomorrow - Recheck CBC tomorrow - Continue home medications
[2016-12-27 08:28] LABS: PT 30.7 SEC (9.4-12.5)
[2016-12-27 08:37] LABS: ABSOLUTE BASOPHIL COUNT 0 /CUMM (0.0-0.2); ABSOLUTE EOSINOPHIL COUNT 0.2 /CUMM (0.0-0.7); ABSOLUTE LYMPH COUNT 0.9 /CUMM (1.2-3.4); ABSOLUTE MONOCYTE COUNT 0.6 /CUMM (0.10-0.60); BASOPHIL % 0.7 % (0.0-2.0); GRANULOCYTE % 69.7 % (42.2-75.2); HEMATOCRIT 34.2 % (42-52); MEAN CORPUSCULAR HGB CONC 32.8 G/DL (33.0-37.0); MEAN CORPUSCULAR VOLUME 94.7 FL (80.0-94.0); PLATELET COUNT 129 /CUMM (130-400); RBC DISTRIBUTION WIDTH 18.1 % (11.5-14.5); RED BLOOD CELL CT 3.61 /CUMM (4.70-6.10); WHITE BLOOD CELL COUNT 5.8 /CUMM (4.8-10.8)
[2016-12-27 08:45] VITALS: BP 90/50
--- NOTE | 2016-12-27 09:36 | Event Note ---
Event Note Event Note: Discussed with Dr. Regalado about the cholecystostomy tube placement. According to him. CT abdomen and pelvis does not show any signs of acute cholecystitis or CBD dilatation, so it is better to watch for symptoms. If patient remains asymptomatic, we can send him home. If he again developed right upper quadrant pain, then he may need ultrasound and we will rethink for cholecystostomy tube.
--- NOTE | 2016-12-27 10:13 | Event Note ---
Event Note Event Note: Discussed with Dr. erickson over the phone, he advised to continue the anticoagulation, warfarin, send urine for cytology and start patient on tablet Finasteride 5mg Daily. He also advised to irrigate the bladder with 30 mL of sterile water every 4 hourly/when necessary.
--- NOTE | 2016-12-27 10:59 | Cons- Cardiology ---
General Information and HPI Consulting Request Date of Consult: 12/27/16 Requested By: ARACELY VERONICA MD Reason for Consult: Anticoagulation management. Source of Information: family, old records Exam Limitations: poor historian History of Present Illness: Mr. Bandar Lowery is an 81-year-old male with a history of hypertension, dyslipidemia, "borderline" diabetes mellitus, peripheral vascular disease, gout, and coronary/valvular/dysrhythmic heart disease who presented after being unable to find his cholecystotomy tube for at least the second time since it was initially placed at [facility] for acute cholecystitis in October of this year. He presented to the ED on 10/22/2016 with right sided chest discomfort that radiated to his epigastric region and had an elevated WBC count with left shift, elevated bilirubin, and upper normal limits for size biliary duct by abdominal ultrasound that prompted transfer to [facility] where a cholecystotomy tube was ultimately placed for what was felt to be acute cholecystitis in an unstable ("septic") patient. He has been at [facility] and had IR (interventional radiology) replace the cholecystotomy tube at least once prior to this admission. Initially, Mr. Lowery developed progressive shortness of breath and was discovered to have a bicuspid aortic valve and multivessel coronary artery disease and underwent aortic valve replacement with a St[employer] Misael mechanical prosthesis and CABG 2 with SVGs to his LCx and RCA in 1994. Anginal symptoms led to repeat cardiac catheterization and PCI/stenting of his LAD in 1999. Further cardiac symptoms led to repeat cardiac catheterization in 07/2004 that revealed the following: LM-patent, LAD-50-60% ostial stenosis followed by 3 tandem 80% mid vessel area of stenosis, large Dx with long proximal 70% stenosis , LCx-with 95% stenosis in the AV groove followed by a second 95% stenosis that received competitive flow via a patent SVG to the OM, RCA-95% ostial stenosis and probable 100% mid stenosis with occluded SVG. Allergies/Medications Allergies: Coded Allergies: NO KNOWN ALLERGIES (12/17/12) Home Med List: Acetaminophen 325 MG CAPSULE 2 CAP PO Q4H PRN PAIN/TEMP>101 (Reported) Allopurinol 100 MG TABLET 1 TAB PO DAILY GOUT (Reported) Aspirin (Ecotrin*) 81 MG TABLET.DR 1 TAB PO DAILY HEART/BLOOD (Reported) Atorvastatin Calcium 40 MG TABLET 1 TAB PO DAILY CHOLESTEROL (Reported) Bisacodyl 10 MG SUPP.RECT 1 SUP RC Q2D PRN CONSTIPATION (Reported) Furosemide (Lasix) 40 MG TABLET 1 TAB PO DAILY DIURETIC (Reported) Magnesium Hydroxide (Milk Of Magnesia) 400 MG/5 ML ORAL.SUSP 30 ML PO DAILY PRN CONSTIPATION (Reported) Metoprolol Tartrate 25 MG TABLET 0.5 TAB PO BID HEART/BP (Reported) Miconazole Nitrate (Inzo Antifungal) 2 % CREAM..G. 1 SALAZAR TOP BID BUTTOCKS ( Reported) Na Phos,M-B/Na Phos,Di-Ba (Fleet Enema) 19 GRAM-7 GRAM/118 ML ENEMA 1 E RC Q2D PRN CONSTIPATION (Reported) Nystatin (Nystop) 100,000 UNIT/GRAM POWDER 1 SALAZAR TOP BID GROIN (Reported) Pantoprazole Sodium 40 MG TABLET.DR 1 TAB PO Q12H GI (Reported) Polyethylene Glycol 3350 (Gavilax) 17 GRAM POWD.PACK 1 PAC PO DAILY GI ( Reported) Potassium Chloride (Klor-Con 10) 10 MEQ TABLET.ER 1 TAB PO DAILY SUPPLEMENT ( Reported) Sennosides (Senna) 8.6 MG TABLET 1 TAB PO QPM GI (Reported) Warfarin Sodium (Coumadin) 5 MG TABLET 1 TAB PO DAILY AFIB (Reported) Review of Systems Review of Systems: A 14 point system review was obtained and was not contributory, other than as above. Past History Travel History Traveled to [place] past 21 day No Medical History Blood Transfusion Hx: No Neurological: NONE EENT: epistaxis Cardiovascular: AFIB, CAD, diastolic CHF, hypertension, hyperlipidemia, prosthetic aortic valve replacement in 1994 in 1994 Respiratory: NONE Gastrointestinal: colon cancer s/p subtotal colectomy BILIARY DRAIN, ventral hernia s/p repair 1995. post repair Hepatic: NONE Renal: NONE Musculoskeletal: gout Psychiatric: NONE Endocrine: NONE Blood Disorders: NONE Cancer(s): colon/rectal cancer Other Medical Hx: Past medical history includes colonoscopy with subtotal colectomy for cancer in 1989, dyslipidemia status post repair of ventral hernia coronary artery disease status post bypass surgery prostatic aortic valve replacement 1994 for bicuspid aortic valve atrial fibrillation cellulitis severe hypertension and shortness of breath. Surgical History Surgical History: unobtainable Family History Relations & Conditions If Any: MOTHER (family medical history is unknown as the patient is adopted). . FATHER (unknown). . Psychosocial History Where Do You Live? Extended Care Facility Services at Home: None Smoking Status: Former Smoker ETOH Use: occasional use Illicit Drug Use: denies illicit drug use Exam & Diagnostic Data Vital Signs and I&O Vital Signs Date Time Temp Pulse Resp B/P Pulse O2 O2 Flow FiO2 Ox Delivery Rate 12/27 0938 90/50 12/27 0845 97.8 98 18 90/50 98 Nasal Cannula 12/27 0120 97.4 96 20 118/58 97 Nasal Cannula 12/27 0000 Nasal 2.0L Cannula 12/26 2248 97.3 95 20 128/64 98 Nasal 2.0L Cannula 12/26 2245 94 Nasal 2.0L Cannula 12/26 2127 96.0 84 20 125/78 100 Nasal 3.0L Cannula 12/26 2050 96.0 89 26 105/61 99 Nasal 3.0L Cannula 12/26 1734 95.8 86 28 105/68 100 Nasal 3.0L Cannula 12/26 1608 Nasal 3.0L Cannula 12/26 1607 95.5 86 22 102/65 94 Nasal 3.0L Cannula Intake & Output 12/27 1600 12/27 0800 12/27 0000 12/26 1600 12/26 0800 12/26 0000 Intake Total 78 Output Total 200 Balance -122 Intake, IV 78 Output, Urine 200 Patient 220 lb Weight Physical Exam: Chronically ill-appearing elderly male in no acute distress with nasal oxygen in place. Vital signs: See above. HEENT: Normocephalic, atraumatic, EOMI, moist mucous membranes. Neck: No JVD, no bruits. Lungs: Decreased breath sounds bilaterally. Heart: S1, S2 appropriate metallic A2 any grade 1-2/6 systolic ejection type murmur best heard near the base. No gallop or rub appreciated. PMI fifth ICS at [facility]. Abdomen: Soft, nontender, positive bowel sounds. Extremities: Trace bilateral lower extremity edema, chronic stasis changes. Labs/Esequiel Results: Laboratory Tests 12/27 12/27 0630 0155 Chemistry Sodium (137 - 145 mmol/L) 134 L Potassium (3.5 - 5.1 mmol/L) 3.9 Chloride (98 - 107 mmol/L) 95 L Carbon Dioxide (22 - 30 mmol/L) 29 Anion Gap (5 - 16) 10 BUN (9 - 20 mg/dL) 12 Creatinine (0.7 - 1.2 mg/dL) 1.0 Estimated GFR (>60 ml/min) > 60 BUN/Creatinine Ratio (7 - 25 %) 12.0 Total Bilirubin (0.2 - 1.3 mg/dL) 1.9 H Direct Bilirubin (< 0.4 mg/dL) 1.0 H AST (17 - 59 U/L) 45 ALT (21 - 72 U/L) 45 Alkaline Phosphatase (< 127 U/L) 167 H Troponin I (<0.11 ng/ml) < 0.01 < 0.01 Total Protein (6.3 - 8.2 g/dL) 7.0 Albumin (3.5 - 5.0 g/dL) 2.7 L Coagulation PT (9.4 - 12.5 SEC) 30.7 H 31.1 H INR (0.90 - 1.17) 2.96 H 2.99 H Hematology CBC w Diff NO MAN DIFF REQ WBC (4.8 - 10.8 /CUMM) 5.8 RBC (4.70 - 6.10 /CUMM) 3.61 L Hgb (14.0 - 18.0 G/DL) 11.2 L Hct (42 - 52 %) 34.2 L MCV (80.0 - 94.0 FL) 94.7 H MCH (27.0 - 31.0 PG) 31.0 RDW (11.5 - 14.5 %) 18.1 H Plt Count (130 - 400 /CUMM) 129 L MPV (7.4 - 10.4 FL) 8.0 Gran % (42.2 - 75.2 %) 69.7 Lymphocytes % (20.5 - 51.1 %) 14.7 L Monocytes % (1.7 - 9.3 %) 10.9 H Eosinophils % (0 - 5 %) 4.0 Basophils % (0.0 - 2.0 %) 0.7 Absolute Granulocytes (1.4 - 6.5 /CUMM) 4.0 Absolute Lymphocytes (1.2 - 3.4 /CUMM) 0.9 L Absolute Monocytes (0.10 - 0.60 /CUMM) 0.6 Absolute Eosinophils (0.0 - 0.7 /CUMM) 0.2 Absolute Basophils (0.0 - 0.2 /CUMM) 0 PUBS MCHC (33.0 - 37.0 G/DL) 32.8 L 12/26 1717 Chemistry Sodium (137 - 145 mmol/L) 133 L Potassium (3.5 - 5.1 mmol/L) 3.8 Chloride (98 - 107 mmol/L) 93 L Carbon Dioxide (22 - 30 mmol/L) 31 H Anion Gap (5 - 16) 9 BUN (9 - 20 mg/dL) 14 Creatinine (0.7 - 1.2 mg/dL) 1.0 Estimated GFR (>60 ml/min) > 60 BUN/Creatinine Ratio (7 - 25 %) 14.0 Glucose (65 - 99 mg/dL) 106 H Calcium (8.4 - 10.2 mg/dL) 9.4 Magnesium (1.6 - 2.3 mg/dL) 1.8 Total Bilirubin (0.2 - 1.3 mg/dL) 1.6 H AST (17 - 59 U/L) 50 ALT (21 - 72 U/L) 47 Alkaline Phosphatase (< 127 U/L) 195 H Troponin I (<0.11 ng/ml) < 0.01 Total Protein (6.3 - 8.2 g/dL) 7.5 Albumin (3.5 - 5.0 g/dL) 3.1 L Globulin (1.9 - 4.2 gm/dL) 4.4 H Albumin/Globulin Ratio (1.1 - 2.2 %) 0.7 L Hematology CBC w Diff NO MAN DIFF REQ WBC (4.8 - 10.8 /CUMM) 7.7 RBC (4.70 - 6.10 /CUMM) 3.66 L Hgb (14.0 - 18.0 G/DL) 11.4 L Hct (42 - 52 %) 34.7 L MCV (80.0 - 94.0 FL) 94.6 H MCH (27.0 - 31.0 PG) 31.1 H RDW (11.5 - 14.5 %) 18.2 H Plt Count (130 - 400 /CUMM) 124 L MPV (7.4 - 10.4 FL) 7.9 Gran % (42.2 - 75.2 %) 69.8 Lymphocytes % (20.5 - 51.1 %) 12.1 L Monocytes % (1.7 - 9.3 %) 12.6 H Eosinophils % (0 - 5 %) 5.0 Basophils % (0.0 - 2.0 %) 0.5 Absolute Granulocytes (1.4 - 6.5 /CUMM) 5.3 Absolute Lymphocytes (1.2 - 3.4 /CUMM) 0.9 L Absolute Monocytes (0.10 - 0.60 /CUMM) 1.0 H Absolute Eosinophils (0.0 - 0.7 /CUMM) 0.4 Absolute Basophils (0.0 - 0.2 /CUMM) 0 PUBS MCHC (33.0 - 37.0 G/DL) 32.8 L Diagnostic Data EKG Results (12/27/2016):Atrial fibrillation with a moderate ventricular response, LAFB, old ASMI, and nondiagnostic ST-T wave abnormalities. No acute changes when compared to previous tracing performed on 12/26/2016. CXR Results (12/26/2016): Reexamination now shows cardiomegaly associated with bilateral pleural effusions. As a result, lung volumes are low. The sternotomy wires are intact. Other Results CT abdomen/pelvis (12/26/2016): 1. Bilateral pleural effusions. Bibasilar atelectasis at lung bases. 2. Gallstones in gallbladder. Small amount of stranding fluid around the gallbladder but no large fluid collection or biloma. No bile duct dilatation. 3. Postsurgical changes anterior abdominal wall. 4. Status post partial colectomy with anastomosis at the sigmoid. No acute change of the bowel. 5. Diffuse atherosclerotic vascular calcifications in abdomen. 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 Assessment/Plan Assessment/Plan Mr. Lowery is an elderly male with a history of hypertension, dyslipidemia, "borderline" diabetes mellitus, peripheral vascular disease, gout, and coronary/valvular/dysrhythmic heart disease who presented after being unable to find his cholecystotomy tube for at least the second time since it was initially placed at [facility] for acute cholecystitis in October of this year, who we are asked to evaluate and help manage in regard to his anticoagulation. Given the fact that he has a [employer] Misael mechanical aortic valve prosthesis and chronic atrial fibrillation, his goal INR should be 3.0 with a range of 2.5-3.5. Initially, his warfarin was held given concerns he might need to have IR place yet another cholecystotomy catheter and IV heparin was initiated as a "bridge". IR does not feel the need to replace the cholecystotomy catheter at this time, but unfortunately Mr. Lowery has developed hematuria. Recommendations: * Continue on telemetry for today. * Check a PTT and hold IV heparin if level supratherapeutic for the short-term. * Consult urology regarding the hematuria and determine if bladder irrigation is indicated and whether they feel we can safely continue with anticoagulation. * Continue the rest of his cardiac medications (statin, antiplatelet, beta berna, diuretic, etc.). * Determine if he would be a suitable candidate for an JUANY inhibitor or angiotensin receptor berna. * Check glycosylated hemoglobin A1c. * Consider repeat echocardiogram since it does not appear as though he has had one performed here since 05/14/2014. * Obtain old records from [facility] regarding his recent hospitalizations there. * DVT prophylaxis being addressed by warfarin anticoagulation for his St. Misael aortic valve prosthesis and chronic atrial fibrillation. Consult Acknowledgment - Thank you for your consult request.
[2016-12-27 11:17] VITALS: BP 92/50
[2016-12-27 13:06] LABS: PTT 59 SEC (25-37)
[2016-12-27 16:00] VITALS: BP 100/64
--- NOTE | 2016-12-27 18:11 | ECHOCARDIOGRAM REPORT ---
MIKE WHITING Age: 81 : 1935 Gender: M Exam Date: 12/27/2016 14:00 Exam Location: [address] Ht (in): 70 Wt (lb): 219 BSA: 2.24 BP: 92 / 50 Ordering Physician: STEFFEN HESTER M Referring Physician: STEFFEN HESTER MD Technologist: Obed العلي [facility] Room Number: 189-2 Indications: HEART FAILURE Rhythm: Atrial fibrillation Technical Quality: Fair, Technically difficult study FINDINGS Left Ventricle Normal size left ventricle. Mild concentric left ventricular hypertrophy. No obvious regional wall motion abnormalities. Normal left ventricular ejection fraction visually estimated at 55%. Right Ventricle Normal right ventricular size and function. Right Atrium Mild to moderate right atrial dilatation. Left Atrium Mild to moderate left atrial dilatation Mitral Valve Mild mitral annular calcification. Mitral valve mildly thickened. Trace mitral regurgitation. Aortic Valve Mechanical prosthetic aortic valve, tilting disk type. Gradient recorded across the prosthetic aortic valve within the expected range. No aortic regurgitation. Tricuspid Valve Structurally normal tricuspid valve. [id number] tricuspid regurgitation. Right ventricular systolic pressure estimated to be elevated at 61 mmHg. Pulmonic Valve Pulmonic valve not well visualized, grossly normal. Trace pulmonic regurgitation. Pericardium No pericardial effusion. Great Vessels Normal size aortic root. Dilated inferior vena cava. CONCLUSIONS Normal size left ventricle. Mild concentric left ventricular hypertrophy. No obvious regional wall motion abnormalities. Normal left ventricular ejection fraction visually estimated at 55%. Normal right ventricular size and function. Mild to moderate right atrial dilatation. Mild to moderate left atrial dilatation. Trace mitral regurgitation. Gradient recorded across the prosthetic aortic valve within the expected range. [id number] tricuspid regurgitation. Right ventricular systolic pressure estimated to be elevated at 61 mmHg. Trace pulmonic regurgitation. Dilated inferior vena cava. Bennett Davis M.D. (Electronically Signed) Final Date: 27 December 2016 18:10 MEASUREMENTS (Male / Female) Normal Values 2D ECHO LV Diastolic Diameter PLAX 4.3 cm 4.2 - 5.9 / 3.9 - 5.3 cm LV Systolic Diameter PLAX 3.2 cm 2.1 - 4.0 cm LV Fractional Shortening PLAX 25.6 % 25 - 46 % LV Ejection Fraction 2D Teich 50.7 % IVS Diastolic Thickness 1.3 cm LVPW Diastolic Thickness 1.3 cm LV Relative Wall Thickness 0.6 RV Internal Dim ED PLAX 3.1 cm 1.9 - 3.8 cm LVOT Diameter 1.7 cm LA Systolic Diameter LX 4.7 cm 3.0 - 4.0 / 2.7 - 3.8 cm Ascending Aorta Diameter 3.1 cm DOPPLER AV Peak Velocity 196.0 cm/s AV Peak Gradient 15.4 mmHg AV Mean Velocity 132.0 cm/s AV Mean Gradient 8.0 mmHg AV Velocity Time Integral 31.4 cm LVOT Peak Velocity 80.8 cm/s LVOT Peak Gradient 2.6 mmHg LVOT Mean Velocity 53.3 cm/s LVOT Mean Gradient 1.0 mmHg LVOT Velocity Time Integral 16.3 cm LVOT Stroke Volume 37.0 cm AV Area Cont Eq vti 1.2 cm AV Area Cont Eq pk 0.9 cm MV Peak Velocity 168.0 cm/s MV Peak Gradient 11.3 mmHg MV Mean Velocity 92.3 cm/s MV Mean Gradient 4.0 mmHg Mitral E Point Velocity 154.0 cm/s Mitral A Point Velocity 46.1 cm/s Mitral E to A Ratio 3.3 MV PHT Velocity 182.0 cm/s MV Deceleration [place] 654.0 cm/s MV Pressure Half Time 83.5 ms MV Area PHT 2.6 cm MV Deceleration Time 225.0 ms MR Peak Velocity 433.0 cm/s MR Peak Gradient 75.0 mmHg TR Peak Velocity 357.0 cm/s TR Peak Gradient 51.0 mmHg Right Atrial Pressure 10.0 mmHg Pulmonary Artery Systolic Pressu 61.0 mmHg Right Ventricular Systolic Press 61.0 mmHg PV Peak Velocity 89.6 cm/s PV Peak Gradient 3.2 mmHg PV Mean Velocity 54.5 cm/s PV Mean Gradient 2.0 mmHg PV Velocity Time Integral 9.8 cm
--- NOTE | 2016-12-27 18:17 | NUR ---
RODAS IRRIAGTED AT THIS TIME. DARK-REGGIE RED BLOOD WITH MULTIPLE CLOTS FOUND UPON IRRIGATION. DR CHARLEEN PLASENCIA AWARE AN VISUALIZED. CBC TO BE ORDERED. WILL CTM
[2016-12-27 22:18] LABS: ABSOLUTE BASOPHIL COUNT 0.1 /CUMM (0.0-0.2); ABSOLUTE EOSINOPHIL COUNT 0.2 /CUMM (0.0-0.7); ABSOLUTE GRANULOCYTE CT 4.7 /CUMM (1.4-6.5); ABSOLUTE LYMPH COUNT 0.9 /CUMM (1.2-3.4); ABSOLUTE MONOCYTE COUNT 0.7 /CUMM (0.10-0.60); BASOPHIL % 0.8 % (0.0-2.0); EOSINOPHIL % 3.4 % (0-5); HEMATOCRIT 35.3 % (42-52); MEAN CORPUSCULAR HGB 30.9 PG (27.0-31.0); MEAN CORPUSCULAR HGB CONC 32.9 G/DL (33.0-37.0); MEAN PLATELET VOLUME 7.8 FL (7.4-10.4); PLATELET COUNT 139 /CUMM (130-400); RBC DISTRIBUTION WIDTH 17.8 % (11.5-14.5); RED BLOOD CELL CT 3.75 /CUMM (4.70-6.10); WHITE BLOOD CELL COUNT 6.6 /CUMM (4.8-10.8)
[2016-12-28 00:45] VITALS: BP 100/60
[2016-12-28 01:20] VITALS: BP 128/00
[2016-12-28 08:00] VITALS: BP 128/56
[2016-12-28 08:28] LABS: ABSOLUTE BASOPHIL COUNT 0 /CUMM (0.0-0.2); ABSOLUTE EOSINOPHIL COUNT 0.2 /CUMM (0.0-0.7); ABSOLUTE GRANULOCYTE CT 5.4 /CUMM (1.4-6.5); ABSOLUTE LYMPH COUNT 0.9 /CUMM (1.2-3.4); ABSOLUTE MONOCYTE COUNT 0.7 /CUMM (0.10-0.60); BASOPHIL % 0.5 % (0.0-2.0); EOSINOPHIL % 2.3 % (0-5); GRANULOCYTE % 75.3 % (42.2-75.2); MEAN CORPUSCULAR HGB 31.1 PG (27.0-31.0); MEAN CORPUSCULAR HGB CONC 33.1 G/DL (33.0-37.0); MEAN CORPUSCULAR VOLUME 93.7 FL (80.0-94.0); MEAN PLATELET VOLUME 7.9 FL (7.4-10.4); PLATELET COUNT 148 /CUMM (130-400); RBC DISTRIBUTION WIDTH 17.7 % (11.5-14.5); RED BLOOD CELL CT 3.73 /CUMM (4.70-6.10); WHITE BLOOD CELL COUNT 7.2 /CUMM (4.8-10.8)
[2016-12-28 08:31] LABS: PT 26.1 SEC (9.4-12.5)
--- NOTE | 2016-12-28 10:40 | PN- Att Addend ---
Attending Addendum Attending Brief Note 81m pmh CAD status post CABG in 1994 and stent placement in 1999, aortic stenosis status post St. Misael valve placement in 1994, A. fib, hypertension, CHF , and recent acute cholecystitis status post percutaneous cholecystostomy tube admitted for dislodging of cholecystostomy tube. Patient also with worsening bilateral LE edema with chronic venous stasis changes bilaterally R>L, + orthopnea. Starr catheter placed on admission, now with cate hematuria. Patient is sleepy today. His legs look much less edematous, and his lungs sound more clear. Still with chronic venous stasis changes in his legs. Hematuria is improving. Labs reviewed. AFVSS NAD, comfortable NCAT Supple RRR, systolic murmur unchanged Mild bibasilar crackles Soft, NTND Trace edema in b/l LE, chronic venous stasis changes Pulses intact A&Ox3 no focal deficits Current Medications Sig/Salud Start time Last Medication Dose Route Stop Time Status Admin Acetaminophen 650 MG Q6P PRN 12/27 0115 AC PO Allopurinol 100 MG DAILY 12/27 1000 AC 12/28 PO 1025 Clotrimazole 1 SALAZAR BID 12/27 1000 AC 12/28 TOP 1026 Finasteride 5 MG DAILY 12/27 1015 AC 12/28 PO 1025 Furosemide 40 MG DAILY 12/27 1000 AC 12/28 IV 1025 Metoprolol Tartrate 12.5 MG BID 12/27 1000 AC 12/28 PO 1025 Nystatin 1 SALAZAR BID 12/27 1000 AC 12/28 TOP 1026 Omeprazole 40 MG 0700,1600 12/27 0700 AC 12/28 PO 0838 Polyethylene Glycol 17 GM DAILY 12/27 1000 AC 12/28 PO 1025 Potassium Chloride 10 MEQ DAILY 12/27 1000 AC 12/28 PO 1025 Senna/Docusate Sodium 1 TAB Q12P PRN 12/27 0130 AC PO Warfarin Sodium 5 MG COUMADIN 1700 ONE 12/28 1700 AC PO 12/28 1701 Warfarin Sodium 5 MG COUMADIN 1700 ONE 12/27 1700 DC 12/27 PO 12/27 1701 1652 Laboratory Tests 12/28 12/27 0735 2141 Chemistry Sodium (137 - 145 mmol/L) 135 L Potassium (3.5 - 5.1 mmol/L) 4.1 Chloride (98 - 107 mmol/L) 94 L Carbon Dioxide (22 - 30 mmol/L) 31 H Anion Gap (5 - 16) 9 BUN (9 - 20 mg/dL) 11 Creatinine (0.7 - 1.2 mg/dL) 0.9 Estimated GFR (>60 ml/min) > 60 BUN/Creatinine Ratio (7 - 25 %) 12.2 Hemoglobin A1c (4.2 - 5.8 %) Pending Total Bilirubin (0.2 - 1.3 mg/dL) 2.2 H Direct Bilirubin (< 0.4 mg/dL) 1.3 H AST (17 - 59 U/L) 50 ALT (21 - 72 U/L) 49 Alkaline Phosphatase (< 127 U/L) 172 H Total Protein (6.3 - 8.2 g/dL) 7.3 Albumin (3.5 - 5.0 g/dL) 2.9 L Coagulation PT (9.4 - 12.5 SEC) 26.1 H INR (0.90 - 1.17) 2.51 H Hematology CBC w Diff NO MAN DIFF REQ NO MAN DIFF REQ WBC (4.8 - 10.8 /CUMM) 7.2 6.6 RBC (4.70 - 6.10 /CUMM) 3.73 L 3.75 L Hgb (14.0 - 18.0 G/DL) 11.6 L 11.6 L Hct (42 - 52 %) 35.0 L 35.3 L MCV (80.0 - 94.0 FL) 93.7 94.0 MCH (27.0 - 31.0 PG) 31.1 H 30.9 RDW (11.5 - 14.5 %) 17.7 H 17.8 H Plt Count (130 - 400 /CUMM) 148 139 MPV (7.4 - 10.4 FL) 7.9 7.8 Gran % (42.2 - 75.2 %) 75.3 H 71.0 Lymphocytes % (20.5 - 51.1 %) 12.1 L 14.0 L Monocytes % (1.7 - 9.3 %) 9.8 H 10.8 H Eosinophils % (0 - 5 %) 2.3 3.4 Basophils % (0.0 - 2.0 %) 0.5 0.8 Absolute Granulocytes (1.4 - 6.5 /CUMM) 5.4 4.7 Absolute Lymphocytes (1.2 - 3.4 /CUMM) 0.9 L 0.9 L Absolute Monocytes (0.10 - 0.60 /CUMM) 0.7 H 0.7 H Absolute Eosinophils (0.0 - 0.7 /CUMM) 0.2 0.2 Absolute Basophils (0.0 - 0.2 /CUMM) 0 0.1 PUBS MCHC (33.0 - 37.0 G/DL) 33.1 32.9 L 12/27 1144 Coagulation APTT (25 - 37 SEC) 59 H Vital Signs Date Time Temp Pulse Resp B/P Pulse O2 O2 Flow FiO2 Ox Delivery Rate 12/28 1025 97.2 111 22 128/56 12/28 0800 97.2 111 22 128/56 97 Nasal 2.0L Cannula 12/28 0120 128/00 12/28 0045 97.3 110 22 100/60 96 Nasal 2.0L Cannula 12/28 0000 Nasal 2.0L Cannula 12/27 1600 Nasal 2.0L Cannula 12/27 1600 96.6 90 24 100/64 94 Nasal 2.0L Cannula 12/27 1117 92/50 Intake & Output 12/28 1600 12/28 0800 12/28 0000 Intake Total 50 360 Output Total 150 300 Balance -100 60 Intake, Oral 50 360 Output, Urine 150 300 Patient 104.326 kg Weight 1. Percutaneous cholecystostomy tube dysfunction 2. Acute on chronic systolic CHF 3. Cate hematuria 4. Orthopnea 5. Chronic atrial fibrillation 6. S/p AVR 7. CAD s/p CABG 8. Cholecystitis (resolved) Plan - Continue on telemetry - Cholecystostomy tube removed, no further indication for it, per IR - Continue IV Lasix - I/O, daily weights - Follow cardiology recommendations - Heparin stopped, will restart Coumadin - Keep Starr in place, continue flushes, will continue with Starr and follow up with urology as an outpatient - Recheck CBC tomorrow to monitor for anemia and BEP to monitor electrolytes with diuresis - Continue home medications - Anticipated discharge tomorrow back to [facility]
--- NOTE | 2016-12-28 11:08 | PN- Cardiology ---
Subjective Subjective: No complaints this morning. On telemetry he remains in atrial fibrillation with a ventricular response rate around 100 bpm. Also had a few ventricular triplets observed. Objective Vital Signs and I&Os Vital Signs Date Time Temp Pulse Resp B/P Pulse O2 O2 Flow FiO2 Ox Delivery Rate 12/28 1025 97.2 111 22 128/56 12/28 0800 97.2 111 22 128/56 97 Nasal 2.0L Cannula 12/28 0120 128/00 12/28 0045 97.3 110 22 100/60 96 Nasal 2.0L Cannula 12/28 0000 Nasal 2.0L Cannula 12/27 1600 Nasal 2.0L Cannula 12/27 1600 96.6 90 24 100/64 94 Nasal 2.0L Cannula 12/27 1117 92/50 Intake & Output 12/28 1600 12/28 0800 12/28 0000 12/27 1600 12/27 0800 12/27 0000 Intake Total 50 360 152 78 Output Total 150 300 620 200 Balance -100 60 -468 -122 Intake, IV 52 78 Intake, Oral 50 360 100 Number 0 Bowel Movements Output, Urine 150 300 620 200 Patient 230 lb 220 lb Weight Physical Exam: Chronically ill-appearing elderly male in no acute distress with nasal oxygen in place. Vital signs: See above. HEENT: Normocephalic, atraumatic, EOMI, moist mucous membranes. Neck: No JVD, no bruits. Lungs: Decreased breath sounds bilaterally. Heart: S1, S2 appropriate metallic A2 any grade 1-2/6 systolic ejection type murmur best heard near the base. No gallop or rub appreciated. PMI fifth ICS at [facility]. Abdomen: Soft, nontender, positive bowel sounds. Extremities: Trace bilateral lower extremity edema, chronic stasis changes. Current Medications: Current Medications Sig/Salud Start time Last Medication Dose Route Stop Time Status Admin Acetaminophen 650 MG Q6P PRN 12/27 0115 AC PO Allopurinol 100 MG DAILY 12/27 1000 AC 12/28 PO 1025 Clotrimazole 1 SALAZAR BID 12/27 1000 AC 12/28 TOP 1026 Finasteride 5 MG DAILY 12/27 1015 AC 12/28 PO 1025 Furosemide 40 MG DAILY 12/27 1000 AC 12/28 IV 1025 Metoprolol Tartrate 12.5 MG BID 12/27 1000 AC 12/28 PO 1025 Nystatin 1 SALAZAR BID 12/27 1000 AC 12/28 TOP 1026 Omeprazole 40 MG 0700,1600 12/27 0700 AC 12/28 PO 0838 Polyethylene Glycol 17 GM DAILY 12/27 1000 AC 12/28 PO 1025 Potassium Chloride 10 MEQ DAILY 12/27 1000 AC 12/28 PO 1025 Senna/Docusate Sodium 1 TAB Q12P PRN 12/27 0130 AC PO Warfarin Sodium 5 MG COUMADIN 1700 ONE 12/28 1700 AC PO 12/28 1701 Warfarin Sodium 5 MG COUMADIN 1700 ONE 12/27 1700 DC 12/27 PO 12/27 1701 1652 Results Last 48 Hrs of Labs/Mics: Laboratory Tests 12/28/16 0735: Anion Gap 9, Estimated GFR > 60, BUN/Creatinine Ratio 12.2, Hemoglobin A1c Pending, Total Bilirubin 2.2 H, Direct Bilirubin 1.3 H, AST 50, ALT 49, Alkaline Phosphatase 172 H, Total Protein 7.3, Albumin 2.9 L, PT 26.1 H, INR 2.51 H, CBC w Diff NO MAN DIFF REQ, RBC 3.73 L, MCV 93.7, MCH 31.1 H, RDW 17.7 H, MPV 7.9, Gran % 75.3 H, Lymphocytes % 12.1 L, Monocytes % 9.8 H, Eosinophils % 2.3, Basophils % 0.5, Absolute Granulocytes 5.4, Absolute Lymphocytes 0.9 L, Absolute Monocytes 0.7 H, Absolute Eosinophils 0.2, Absolute Basophils 0, PUBS MCHC 33.1 12/27/16 2141: CBC w Diff NO MAN DIFF REQ, RBC 3.75 L, MCV 94.0, MCH 30.9, RDW 17.8 H, MPV 7.8, Gran % 71.0, Lymphocytes % 14.0 L, Monocytes % 10.8 H, Eosinophils % 3.4, Basophils % 0.8, Absolute Granulocytes 4.7, Absolute Lymphocytes 0.9 L, Absolute Monocytes 0.7 H, Absolute Eosinophils 0.2, Absolute Basophils 0.1, PUBS MCHC 32.9 L 12/27/16 1144: APTT 59 H 12/27/16 0630: Anion Gap 10, Estimated GFR > 60, BUN/Creatinine Ratio 12.0, Total Bilirubin 1.9 H, Direct Bilirubin 1.0 H, AST 45, ALT 45, Alkaline Phosphatase 167 H, Troponin I < 0.01, Total Protein 7.0, Albumin 2.7 L, PT 30.7 H, INR 2.96 H, CBC w Diff NO MAN DIFF REQ, RBC 3.61 L, MCV 94.7 H, MCH 31.0, RDW 18.1 H, MPV 8.0, Gran % 69.7, Lymphocytes % 14.7 L, Monocytes % 10.9 H, Eosinophils % 4.0, Basophils % 0.7, Absolute Granulocytes 4.0, Absolute Lymphocytes 0.9 L, Absolute Monocytes 0.6, Absolute Eosinophils 0.2, Absolute Basophils 0, PUBS MCHC 32.8 L 12/27/16 0155: Troponin I < 0.01, PT 31.1 H, INR 2.99 H 12/26/16 1717: Anion Gap 9, Estimated GFR > 60, BUN/Creatinine Ratio 14.0, Glucose 106 H, Calcium 9.4, Magnesium 1.8, Total Bilirubin 1.6 H, AST 50, ALT 47, Alkaline Phosphatase 195 H, Troponin I < 0.01, Total Protein 7.5, Albumin 3.1 L, Globulin 4.4 H, Albumin/Globulin Ratio 0.7 L, CBC w Diff NO MAN DIFF REQ, RBC 3.66 L, MCV 94.6 H, MCH 31.1 H, RDW 18.2 H, MPV 7.9, Gran % 69.8, Lymphocytes % 12.1 L, Monocytes % 12.6 H, Eosinophils % 5.0, Basophils % 0.5, Absolute Granulocytes 5.3, Absolute Lymphocytes 0.9 L, Absolute Monocytes 1.0 H, Absolute Eosinophils 0.4, Absolute Basophils 0, PUBS MCHC 32.8 L Recent Imaging Studies: Echocardiogram (12/27/2016): Normal size left ventricle. Mild concentric left ventricular hypertrophy. No obvious regional wall motion abnormalities. Normal left ventricular ejection fraction visually estimated at 55%. Normal right ventricular size and function. Mild to moderate right atrial dilatation. Mild to moderate left atrial dilatation. Trace mitral regurgitation. Gradient recorded across the prosthetic aortic valve within the expected range. [id number]-or-[id number] tricuspid regurgitation. Right ventricular systolic pressure estimated to be elevated at 61 mmHg. Trace pulmonic regurgitation. Dilated inferior vena cava. Assessment/Plan Assessment/Plan Mr. Lowery is an elderly male with a history of hypertension, dyslipidemia, "borderline" diabetes mellitus, peripheral vascular disease, gout, and coronary/valvular/dysrhythmic heart disease who presented after being unable to find his cholecystotomy tube for at least the second time since it was initially placed at [facility] for acute cholecystitis in October of this year, who we are asked to evaluate and help manage in regard to his anticoagulation. Given the fact that he has a [employer] Misael mechanical aortic valve prosthesis and chronic atrial fibrillation, his goal INR should be 3.0 with a range of 2.5-3.5. Initially, his warfarin was held given concerns he might need to have IR place yet another cholecystotomy catheter and IV heparin was initiated as a "bridge". IR did not feel the need to replace the cholecystotomy catheter, but unfortunately Mr. Lowery developed hematuria. Urology (Gabriel Handy M.D.) was contacted by the house staff and the recommendation was to continue antiplatelet and anticoagulation therapy and irrigate the bladder. Today, the urine appears dark, but not frankly bloody. His INR has been therapeutic since admission with today's INR 2.51 and warfarin is being continued with a goal INR of 3.0 and range of 2.5-3.5. The IV heparin was discontinued yesterday (12/27/2016). Recommendations: * Continue on telemetry for today, as the ventricular response to his AF has been rapid. * Continue to follow-up on urology recommendations for hematuria with Starr catheter in place on anticoagulation for mechanical aortic valve/chronic atrial fibrillation. Note H/H stable. * Continue the rest of his cardiac medications (statin, antiplatelet, beta berna, diuretic, etc.). * Determine if he would be a suitable candidate for an JUANY inhibitor or angiotensin receptor berna. * Obtain old records from [facility] regarding his recent hospitalizations there. * DVT prophylaxis being addressed by warfarin anticoagulation. Continue telemetry? Yes (AF with RVR.) DICTATED BY: CARMEN BELLE MD DATE/TIME DICTATED:12/27/16937 PHARMACOVIGILANCE SPECIALIST:STEPHANIE DATE/TIME TRANSCRIBED:12/27/16937 REPORT NUMBER:[id number] CONFIDENTIAL, DO NOT COPY WITHOUT APPROPRIATE AUTHORIZATION. Continue telemetry? Yes (AF with RVR.)
--- NOTE | 2016-12-28 15:15 | PN- Housestaff ---
Subjective Follow-up For: Dislodgment of cholecystostomy tube Hematuria Complaints: no complaints Tele-Events Since Last Visit: Atrial fibrillation, heart rate between 110-106, PVCs Subjective: Patient is seen and examined at the bedside. He was tachypneic and tachycardic. We'll repeat the chest x-ray to know the status of bilateral pleural effusion also increase the dose of IV Lasix to 40 milligrams twice a day. He denies of any pain in the right upper quadrant or lower abdomen. Bladder scan was done which shows a residual of 54 mL. There are clots in the Starr catheter, although urine was much clear than before. Review of Systems Constitutional: Reports: weakness. Denies: no symptoms. Cardiovascular: Reports: edema, orthopena, palpitations, peripheral edema. Respiratory: Reports: orthopnea, short of breath, wheezing. Gastrointestinal: Denies: abdominal pain, bloating, constipation, diarrhea, distention. Genitourinary: Reports: hematuria. Denies: discharge, dysuria, frequency. Musculoskeletal: Denies: no symptoms. Objective Last 24 Hrs of Vital Signs/I&O Vital Signs Date Time Temp Pulse Resp B/P Pulse O2 O2 Flow FiO2 Ox Delivery Rate 12/28 1025 97.2 111 22 128/56 12/28 0800 93 Nasal 2.0L Cannula 12/28 0800 97.2 111 22 128/56 97 Nasal 2.0L Cannula 12/28 0120 128/00 12/28 0045 97.3 110 22 100/60 96 Nasal 2.0L Cannula 12/28 0000 Nasal 2.0L Cannula 12/27 1600 Nasal 2.0L Cannula 12/27 1600 96.6 90 24 100/64 94 Nasal 2.0L Cannula Intake & Output 12/28 1600 12/28 0800 12/28 0000 Intake Total 50 360 Output Total 350 150 300 Balance -350 -100 60 Intake, Oral 50 360 Output, Urine 350 150 300 Patient 104.326 kg Weight Physical Exam General Appearance: Alert, Oriented X3, Cooperative, Mild Distress Skin: multiple ecchymotic patches over the both hands HEENT: Atraumatic, PERRLA, EOMI Cardiovascular: tachycardia, murmur Lungs: bilateral basilar crackles and decreased air entry Abdomen: Soft, distended Neurological: Normal Speech Extremities: bilateral peripheral edema with thickening and redness of the skin Vascular: decrease pulses Assessment/Plan Assessment: Patient is an 81-year-old male with significant past medical history of coronary artery disease status post CABG(RCA, LCx), bicuspid aortic valve status post [employer]ael wall replacement(1994), status post stent in LAD(1999), atrial fibrillation on vomiting, CHF, hypertension, recent acute cholecystitis status post percutaneous cholecystostomy tube, BIBA by nursing facility for evaluation of a dislodged percutaneous choley tube. Vital signs-97.4, pulse 96, respiratory rate 20, blood pressure 118/58, SPO2 97% Plan - Hematuria secondary to traumatic insertion of the Starr catheter - Discussed with Dr. Handy Advise to continue Starr even on discharge, and continued anticoagulation Watch for bleeding flush Starr catheter with a sterile water 30 mL every 4 hourly and as needed Start the patient on tablet finasteride 5 milligrams daily Strick intake output charting CBC daily Watch for PT/INR Coronary artery disease, CABG, status post stenting, AF with controlled ventricular rate on, warfarin, bicuspid aortic wall status post replacement with [employer] valve Discussed with Dr. Davis Advised to stop the heparin drip and continue patient on warfarin 5 milligrams for today Regular monitoring of PT/INR Watch for bleeding History of cholecystitis status post cholecystostomy presented with fall of cholecystostomy tube Discussed with Dr. Regalado and according to him. CT abdomen and pelvis shows no any acute inflammation in CBD dilatation Advised to watch conservatively If patient started getting right upper quadrant pain, then we will to right upper quadrant ultrasound Multiple skin abrasion with oozing of blood Probably secondary to high PT/INR. We advised for compression Diet-started on clear liquid diet and advised if tolerated can be advanced to full liquid diet and later on heart healthy diet DVT prophylaxis-ALP S/warfarin CODE STATUS-full code Problem List: 1. CHF (congestive heart failure) 2. Cholecystostomy tube dysfunction 3. Bilateral pleural effusion 4. Dyspnea Pain Ratin Pain Location: Not applicable Pain Goal: Remain pain free Pain Plan: [id number], avoid NSAIDs Tomorrow's Labs & Rationales: CBC, electrolyte, PT/INR DVT/Prophylaxis: mechanical, pharmacological
[2016-12-28 16:23] VITALS: BP 102/60
--- NOTE | 2016-12-28 17:10 | RADIOLOGY REPORT ---
EXAMINATION: XR CHEST CLINICAL INFORMATION: Shortness of breath. Tachycardia. COMPARISON: Chest x-ray 12/26/2016 TECHNIQUE: 2 views of the chest were obtained. FINDINGS: Exam limited by body habitus with underpenetration. Patient rotated to left. Lung volume low. Status post median sternotomy. Mild central vascular prominence accentuated by low inspiratory effort. This is similar prior chest x-ray. There are bilateral pleural effusions blunting costophrenic angle similar in volume to prior chest x-ray. Underlying basilar infiltrate or atelectasis may be present. IMPRESSION: Low lung volume with mild central pulmonary vascular prominence and bilateral pleural effusions. No change since prior study 12/26/2016.
[2016-12-29 00:17] VITALS: BP 94/66
--- NOTE | 2016-12-29 07:09 | PN- Housestaff ---
KACIE AGOSTO,KRISTINE 12/29/16 0708: Subjective Follow-up For: Dislodgment of cholecystostomy tube Hematuria Dyspnea on exertion Bilateral moderate pleural effusion Complaints: no complaints Tele-Events Since Last Visit: Atrial fibrillation with heart rate between 95-113, PVCs Subjective: Patient is seen and examined at the bedtime. He was sitting on the couch comfortably and denies of any discomfort including dyspnea, chest pain, palpitation, abdomen pain. He denies of any pain after eating the meals in right upper quadrant. He denies of any dysuria. Review of Systems Constitutional: Reports: weakness. Denies: no symptoms. EENTM: Denies: no symptoms. Cardiovascular: Reports: edema, orthopena, peripheral edema. Denies: chest pain, palpitations. Respiratory: Reports: orthopnea, short of breath. Denies: cough, hemoptysis, sputum production, stridor, wheezing. Gastrointestinal: Denies: abdominal pain, bloating, constipation, diarrhea, distention. Genitourinary: Reports: hematuria. Denies: discharge, dysuria, frequency, hesitation, nocturia. Musculoskeletal: Denies: back pain, gout, joint pain, joint swelling, muscle pain, muscle stiffness. Skin: Reports: change in skin color, erythema. Neurological/Psychological: Denies: no symptoms. Objective Last 24 Hrs of Vital Signs/I&O Vital Signs Date Time Temp Pulse Resp B/P Pulse O2 O2 Flow FiO2 Ox Delivery Rate 12/29 0053 97.0 12/29 0017 95.8 95 26 94/66 95 Nasal Cannula 12/29 0000 Nasal 2.0L Cannula 12/28 2331 87 94/72 12/28 1623 97.7 87 20 102/60 94 Nasal 2.0L Cannula 12/28 1600 Nasal 2.0L Cannula 12/28 1552 Nasal 2.0L Cannula 12/28 1025 97.2 111 22 128/56 Intake & Output 12/29 1600 12/29 0800 12/29 0000 Intake Total 480 600 Output Total 325 450 Balance 155 150 Intake, Oral 480 600 Output, Urine 325 450 Patient 104.78 kg Weight Physical Exam General Appearance: Alert, Oriented X3, Cooperative, No Acute Distress Skin: multiple ecchymotic areas, no oozing of blood. HEENT: Atraumatic, PERRLA, EOMI Cardiovascular: irregular Lungs: decrease air entry bilateraly with occasional crepts Abdomen: Soft, No Tenderness, distended Neurological: Normal Speech Extremities: peripheral edema with redness and thickening of skin Vascular: decreased Current Medications: Current Medications Sig/Salud Start time Last Medication Dose Route Stop Time Status Admin Acetaminophen 650 MG Q6P PRN 12/27 0115 AC PO Allopurinol 100 MG DAILY 12/27 1000 AC 12/28 PO 1025 Clotrimazole 1 SALAZAR BID 12/27 1000 AC 12/28 TOP 2209 Finasteride 5 MG DAILY 12/27 1015 AC 12/28 PO 1025 Furosemide 40 MG DAILY 12/29 1000 AC IV Furosemide 40 MG 7:30 AM, & 4:30 PM 12/28 1630 DC 12/28 IV 1830 Furosemide 40 MG DAILY 12/27 1000 DC 12/28 IV 1025 Metoprolol Tartrate 12.5 MG BID 12/27 1000 AC 12/28 PO 1025 Nystatin 1 SALAZAR BID 12/27 1000 AC 12/28 TOP 2209 Omeprazole 40 MG 0700,1600 12/27 0700 AC 12/29 PO 0602 Polyethylene Glycol 17 GM DAILY 12/27 1000 AC 12/28 PO 1025 Potassium Chloride 10 MEQ DAILY 12/27 1000 AC 12/28 PO 1025 Senna/Docusate Sodium 1 TAB Q12P PRN 12/27 0130 AC PO Warfarin Sodium 5 MG COUMADIN 1700 ONE 12/28 1700 DC 12/28 PO 12/28 1701 1830 Last 24 Hrs of Lab/Esequiel Results Last 24 Hrs of Labs/Mics: Laboratory Tests 12/29/16 0655: Sodium Pending, Potassium Pending, Chloride Pending, Carbon Dioxide Pending, Anion Gap Pending, BUN Pending, Creatinine Pending, BUN/Creatinine Ratio Pending , PT Pending, INR Pending, CBC w Diff Pending, WBC Pending, RBC Pending, Hgb Pending, Hct Pending, MCV Pending, MCH Pending, RDW Pending, Plt Count Pending, MPV Pending, PUBS MCHC Pending Assessment/Plan Assessment: Patient is an 81-year-old male with significant past medical history of coronary artery disease status post CABG(RCA, LCx), bicuspid aortic valve status post [employer] wall replacement(1994), status post stent in LAD(1999), atrial fibrillation on vomiting, CHF, hypertension, recent acute cholecystitis status post percutaneous cholecystostomy tube, BIBA by nursing facility for evaluation of a dislodged percutaneous choley tube. Vital signs-97.4, pulse 96, respiratory rate 20, blood pressure 118/58, SPO2 97% Plan - Hematuria secondary to traumatic insertion of the Starr catheter - Improving Discussed with Dr. Handy Advise to continue Starr even on discharge, and continued anticoagulation Watch for bleeding flush Starr catheter with a sterile water 30 mL every 4 hourly and as needed Start the patient on tablet finasteride 5 milligrams daily Strick intake output charting CBC daily Watch for PT/INR Coronary artery disease, CABG, status post stenting, AF with controlled ventricular rate on, warfarin, bicuspid aortic wall status post replacement with [employer] valve Discussed with Dr. Davis Today INR 3.1, we continue to give 5mg Warferin, with target INR 2.5 - 3.5 we will decrease the dose of IV lasix 40 mg BID to OD. Regular monitoring of PT/INR Watch for bleeding Bilateral Pleural effusion - Its probably secondary to CHF,we increased the dose of IV lasix to 40mg IV BID, but patient started to become hypotensive. We will keep him on Lasix IV 40mg OD. History of cholecystitis status post cholecystostomy presented with fall of cholecystostomy tube Discussed with Dr. Regalado and according to him. CT abdomen and pelvis shows no any acute inflammation in CBD dilatation Advised to watch conservatively If patient started getting right upper quadrant pain, then we will to right upper quadrant ultrasound Multiple skin abrasion with oozing of blood - Improved Diet-Heart healthy Diet DVT prophylaxis-ALP S/warfarin CODE STATUS-full code Problem List: 1. Bilateral pleural effusion 2. Cholecystostomy tube dysfunction 3. CHF (congestive heart failure) 4. Afib Pain Ratin Pain Location: right upper quadrant Pain Goal: Remain pain free Pain Plan: mild Tomorrow's Labs & Rationales: cbc, bep, DVT/Prophylaxis: mechanical, pharmacological KERRIE ALVARENGA MD 12/29/16 1105: Attending MD Review Statement Attending Statement Attending MD Statement: examined this patient, discuss w/resident/PA/COOLER MAN, agreed w/resident/PA/COOLER MAN, reviewed EMR data (avail) Attending Assessment/Plan: 81m pmh CAD status post CABG in 1994 and stent placement in 1999, aortic stenosis status post St. Misael valve placement in 1994, A. fib, hypertension, CHF , and recent acute cholecystitis status post percutaneous cholecystostomy tube admitted for dislodging of cholecystostomy tube. Patient also with worsening bilateral LE edema with chronic venous stasis changes bilaterally R>L, + orthopnea. Starr catheter placed on admission, now with isauro hematuria. No complaints. Legs still 1+ edema. Still with chronic venous stasis changes in his legs. Hematuria is stable. Labs reviewed. AFVSS NAD, comfortable NCAT Supple RRR, systolic murmur unchanged Mild bibasilar crackles Soft, NTND Trace edema in b/l LE, chronic venous stasis changes Pulses intact A&Ox3 no focal deficits 1. Percutaneous cholecystostomy tube dysfunction 2. Acute on chronic systolic CHF 3. Isauro hematuria 4. Orthopnea 5. Chronic atrial fibrillation 6. S/p AVR 7. CAD s/p CABG 8. Cholecystitis (resolved) Plan - Continue on telemetry - Cholecystostomy tube removed, no further indication for it, per IR - Continue IV Lasix - I/O, daily weights - Follow cardiology recommendations - Continue Coumadin, goal INR 2.5-3.5 - Keep Starr in place, continue flushes, will continue with Starr and follow up with urology as an outpatient - Recheck CBC tomorrow to monitor for anemia and BEP to monitor electrolytes with diuresis - Continue home medications - Anticipated discharge tomorrow back to SNF
[2016-12-29 08:12] LABS: ABSOLUTE BASOPHIL COUNT 0 /CUMM (0.0-0.2); ABSOLUTE EOSINOPHIL COUNT 0.3 /CUMM (0.0-0.7); ABSOLUTE GRANULOCYTE CT 5.1 /CUMM (1.4-6.5); ABSOLUTE LYMPH COUNT 1.1 /CUMM (1.2-3.4); ABSOLUTE MONOCYTE COUNT 0.8 /CUMM (0.10-0.60); BASOPHIL % 0.4 % (0.0-2.0); EOSINOPHIL % 3.9 % (0-5); GRANULOCYTE % 69.5 % (42.2-75.2); HEMATOCRIT 34.4 % (42-52); MEAN CORPUSCULAR HGB 30.8 PG (27.0-31.0); MEAN CORPUSCULAR HGB CONC 32.8 G/DL (33.0-37.0); MEAN CORPUSCULAR VOLUME 93.8 FL (80.0-94.0); MEAN PLATELET VOLUME 7.9 FL (7.4-10.4); PLATELET COUNT 160 /CUMM (130-400); RBC DISTRIBUTION WIDTH 18.3 % (11.5-14.5); RED BLOOD CELL CT 3.67 /CUMM (4.70-6.10); WHITE BLOOD CELL COUNT 7.4 /CUMM (4.8-10.8)
[2016-12-29 08:35] VITALS: BP 90/68
[2016-12-29 08:44] LABS: PT 32.6 SEC (9.4-12.5)
[2016-12-29 09:34] VITALS: BP 92/70
--- NOTE | 2016-12-29 10:25 | NUR ---
Physical Therapy - Consult received again today, as previously documented this admission, pt requires a Dorothy lift OOB to custom W/C at baseline. Pt is not appropriate for skilled PT intervention at this time. Nursing is lifting pt OOB using Alyson lift, recommend this continues until discharge.
--- NOTE | 2016-12-29 11:04 | NUR ---
PATIENT RODAS DRAINING SMALL AMOUNT OF URINE. ATTEMPTED TO IRRIGATED RODAS ORDERED. PATIENT REFUSED AND STATED NURSE ALREADY IRRIGATE IT THIS MORNING. MD CARMONA AWARE. WILL CONTINUE TO MONITOR URINARY OUTPUT.
[2016-12-29 16:31] VITALS: BP 88/70
[2016-12-30] VITALS: BP 124/68
[2016-12-30 07:54] LABS: ABSOLUTE BASOPHIL COUNT 0 /CUMM (0.0-0.2); ABSOLUTE EOSINOPHIL COUNT 0.4 /CUMM (0.0-0.7); ABSOLUTE LYMPH COUNT 1.1 /CUMM (1.2-3.4); ABSOLUTE MONOCYTE COUNT 0.8 /CUMM (0.10-0.60); BASOPHIL % 0.5 % (0.0-2.0); EOSINOPHIL % 5.9 % (0-5); GRANULOCYTE % 67.8 % (42.2-75.2); HEMATOCRIT 36.9 % (42-52); MEAN CORPUSCULAR HGB 30.9 PG (27.0-31.0); MEAN CORPUSCULAR HGB CONC 32.6 G/DL (33.0-37.0); MEAN CORPUSCULAR VOLUME 94.7 FL (80.0-94.0); MEAN PLATELET VOLUME 7.8 FL (7.4-10.4); PLATELET COUNT 184 /CUMM (130-400); WHITE BLOOD CELL COUNT 7.4 /CUMM (4.8-10.8)
[2016-12-30 08:38] LABS: PT 51.1 SEC (9.4-12.5)
--- NOTE | 2016-12-30 09:30 | PN- Housestaff ---
KACIE AGOSTO,KRISTINE 12/30/16 0929: Subjective Follow-up For: Dislodgment of cholecystostomy tube Hematuria Dyspnea on exertion Bilateral moderate pleural effusion Complaints: cough with expectoration Tele-Events Since Last Visit: Atrial fibrillation with heart rate between 77-96, episode of isolated idioventricular rhythm, episode of V. tach in the afternoon Subjective: Patient was seen and examined at the bedside. He was not having any subjective complaints. But he was dyspneic at the baseline. He also complaining of cough with expectoration. I saw the sputum which was froathy nature, probably secondary to CHF. Review of Systems Constitutional: Denies: no symptoms. Cardiovascular: Reports: orthopena, peripheral edema. Denies: chest pain, edema, palpitations. Respiratory: Reports: cough, short of breath, sputum production. Gastrointestinal: Denies: abdominal pain, bloating, constipation, diarrhea, distention. Genitourinary: Reports: hematuria. Denies: discharge, dysuria, frequency, hesitation. Musculoskeletal: Denies: no symptoms. Skin: Reports: erythema. Objective Last 24 Hrs of Vital Signs/I&O Vital Signs Date Time Temp Pulse Resp B/P Pulse O2 O2 Flow FiO2 Ox Delivery Rate 12/30 1937 19 96 Room Air 12/30 1905 18 97 Nasal 0.5L Cannula 12/30 1629 98.3 82 20 114/62 94 Nasal 1.0L Cannula 12/30 1406 Nasal 2.0L Cannula 12/30 1100 94 120/68 12/30 1059 94 120/68 12/30 0804 98.4 101 20 92 Room Air 12/30 0000 Nasal 2.0L Cannula 12/30 0000 97.3 90 22 124/68 94 Nasal 2.0L Cannula 12/29 2129 101 124/68 Intake & Output 12/30 1600 12/30 0800 12/30 0000 Intake Total 200 300 Output Total 750 250 Balance -750 200 50 Intake, IV 0 0 Intake, Oral 200 300 Number 2 Bowel Movements Output, Urine 750 250 Patient 105.971 kg Weight Physical Exam General Appearance: Alert, Oriented X3, Cooperative, Mild Distress Skin: bilateral thickening and erythema of the lower legs HEENT: Atraumatic, PERRLA, EOMI Neck: JVD is positive Lungs: bilateral decreased air entry on the basis with mild crepitus in the middle of the lung Abdomen: Soft, No Tenderness, distended Neurological: Normal Speech, he walks with a walker Extremities: edema with redness and thickening of the skin Vascular: Pulses Symmetrical Assessment/Plan Assessment: Patient is an 81-year-old male with significant past medical history of coronary artery disease status post CABG(RCA, LCx), bicuspid aortic valve status post [place] Misael wall replacement(1994), status post stent in LAD(1999), atrial fibrillation on vomiting, CHF, hypertension, recent acute cholecystitis status post percutaneous cholecystostomy tube, BIBA by nursing facility for evaluation of a dislodged percutaneous choley tube. Vital signs-temperature 98.3, pulse 82, respiratory rate 20, blood pressure 114/ 62, SPO2 94% on room air Plan - Hematuria secondary to traumatic insertion of the Starr catheter - Improving * Discussed with Dr. Handy * Advise to continue Starr even on discharge, and continued anticoagulation * Watch for bleeding * flush Starr catheter with a sterile water 30 mL every 4 hourly and as needed * We will continue tablet finasteride 5 milligrams daily * Strick intake output charting * CBC daily * Watch for PT/INR Coronary artery disease, CABG, status post stenting, AF with controlled ventricular rate on, warfarin, bicuspid aortic wall status post replacement with [place] Misael valve * We'll continue to follow cardiology recommendation * Target INR 2.5 - 3.5, as the patient is having Saint Misael valve. * Today INR is 4.94, we will withhold the warfarin for today and repeat the PT/ INR tomorrow and if it will be back in the therapeutic range, then we will add warfarin 4 milligrams * We'll continue patient on Lasix 40 milligrams IV twice a day. * Regular monitoring of PT/INR * Watch for bleeding Bilateral Pleural effusion - * Discussed with commercial lines underwriter, according to them. We will continue patient on Lasix 40 milliamp IV twice a day Hyponatremia * Na -132 * Probably secondary to use of Lasix * We'll regularly monitor it Hypomagnesemia- * Mg -1.8 * We added Tab magnesium 400 milligrams twice a day History of cholecystitis status post cholecystostomy presented with fall of cholecystostomy tube * Discussed with Dr. Regalado and according to him. CT abdomen and pelvis shows no any acute inflammation in CBD dilatation * Advised to watch conservatively * If patient started getting right upper quadrant pain, then we will to right upper quadrant ultrasound Multiple skin abrasion with oozing of blood - Improved Diet-Heart healthy Diet DVT prophylaxis-ALP S/warfarin CODE STATUS-full code Problem List: 1. Bilateral pleural effusion 2. Dyspnea 3. Cholecystostomy tube dysfunction 4. CHF (congestive heart failure) 5. Edema extremities 6. Hyperlipidemia Pain Ratin Pain Location: Not applicable Pain Goal: Remain pain free Pain Plan: Mild to moderate Tomorrow's Labs & Rationales: PT/INR/BEP/CBC/magnesium/phosphorus KERRIE ALVARENGA MD 12/30/16 1055: Attending MD Review Statement Attending Statement Attending MD Statement: examined this patient, discuss w/resident/PA/ASSISTANT RESEARCH SCIENTIST, agreed w/resident/PA/ASSISTANT RESEARCH SCIENTIST, reviewed EMR data (avail) Attending Assessment/Plan: 81m pmh CAD status post CABG in 1994 and stent placement in 1999, aortic stenosis status post St. Misael valve placement in 1994, A. fib, hypertension, CHF , and recent acute cholecystitis status post percutaneous cholecystostomy tube admitted for dislodging of cholecystostomy tube, now removed, complicated by acute on chronic systolic CHF. Patient remains dyspneic with exertion and with orthopnea. His legs are improving but not at goal. Inadequate urine output yesterday. Labs reviewed. AFVSS NAD, comfortable NCAT Supple RRR, systolic murmur unchanged Mild bibasilar crackles Soft, NTND Trace edema in b/l LE, chronic venous stasis changes Pulses intact A&Ox3 no focal deficits 1. Percutaneous cholecystostomy tube dysfunction 2. Acute on chronic systolic CHF 3. Isauro hematuria 4. Orthopnea 5. Chronic atrial fibrillation 6. S/p AVR 7. CAD s/p CABG 8. Cholecystitis (resolved) Plan - Continue on telemetry - Cholecystostomy tube removed, no further indication for it, per IR - Continue IV Lasix, increase to 60mg, monitor urine output, give second dose later today if tolerated well - I/O, daily weights - Follow cardiology recommendations - Continue Coumadin, goal INR 2.5-3.5 - Keep Starr in place, continue flushes, will continue with Starr and follow up with urology as an outpatient - Monitor electrolytes - Continue home medications
--- NOTE | 2016-12-30 09:44 | PN- Cardiology ---
Subjective Subjective: * No complaints of chest discomfort or shortness of breath. No lightheadedness or abdominal pain. * atrial fibrillation with good rate control * bilirubin is slowly rising * Normal creatinine * INR is suprtherapeutic at 4.94 Objective Vital Signs and I&Os Vital Signs Date Time Temp Pulse Resp B/P Pulse O2 O2 Flow FiO2 Ox Delivery Rate 12/30 0804 98.4 101 20 92 Room Air 12/30 0000 Nasal 2.0L Cannula 12/30 0000 97.3 90 22 124/68 94 Nasal 2.0L Cannula 12/29 2129 101 124/68 12/29 1631 97.8 90 20 88/70 96 Nasal 1.0L Cannula 12/29 1600 96 Nasal 1.0L Cannula 12/29 1144 Nasal 2.0L Cannula 12/29 0940 110 92/70 Intake & Output 12/30 1600 12/30 0800 12/30 0000 12/29 1600 12/29 0800 12/29 0000 Intake Total 200 300 480 480 600 Output Total 250 300 325 450 Balance 200 50 180 155 150 Intake, IV 0 0 Intake, Oral 200 300 480 480 600 Number 2 Bowel Movements Output, Urine 250 300 325 450 Patient 234 lb 231 lb 231 lb Weight Physical Exam: General: WD/ overweight male in NAD; alert and oriented x 3 Neck: no JVD Heart: irregularly irregular with crisp valve sounds Lungs: no crackles or wheezing Abdomen: soft, obese, NT, +ve bowel sounds : scrotal edema Extremities: 2+ bilateral leg edema Assessment/Plan Assessment/Plan * This patient appears fluid overloaded with normal creatinine. Increase lasix to 40mg IV BID and follow BUN, creatinine and potassium * INR is supratherapeutic. Hold coumadin for today and recheck tomorrow. If in the normal range tomorrow (2.5-3.0) then restart at 4mg daily. Continue telemetry? Yes
[2016-12-30 10:59] VITALS: BP 120/68
--- NOTE | 2016-12-30 12:17 | NUR ---
PT HAD A 7 SECOND RUN OF V TACH, PT ASYMPTOMATIC,A&OX3, EATING IN CHAIR. MD BOURNE NOTIFIED.
[2016-12-30 16:29] VITALS: BP 114/62
[2016-12-31 00:25] VITALS: BP 118/78
--- NOTE | 2016-12-31 08:41 | PN- Housestaff ---
HEYDI AGOSTO,SOCORRO 12/31/16 0840: Subjective Follow-up For: Dislodgment of cholecystostomy tube Hematuria Dyspnea on exertion Bilateral moderate pleural effusion Tele-Events Since Last Visit: Afib, HR 78-95, some PVCs Subjective: Patient seen and examined at bedside. No events reported and afebrile overnight. He offers no new complaints. Still coughing with sputum production but it's under control. Denies any dyspnea, chest pain, palpitations, f/c, headache, dizziness, lightheadedness, n/v/c/d. Feeling well overall. Review of Systems Constitutional: Reports: see HPI. Objective Last 24 Hrs of Vital Signs/I&O Vital Signs Date Time Temp Pulse Resp B/P Pulse O2 O2 Flow FiO2 Ox Delivery Rate 12/31 0833 98.3 100 18 90 Room Air 12/31 0025 97.8 82 18 118/78 97 Nasal Cannula 12/31 0000 Room Air 12/30 2111 89 12/30 1937 19 96 Room Air 12/30 1905 18 97 Nasal 0.5L Cannula 12/30 1629 98.3 82 20 114/62 94 Nasal 1.0L Cannula 12/30 1600 95 Nasal 1.0L Cannula 12/30 1406 Nasal 2.0L Cannula 12/30 1100 94 120/68 12/30 1059 94 120/68 Intake & Output 12/31 1600 12/31 0800 12/31 0000 Intake Total 130 250 Output Total 250 550 Balance -120 -300 Intake, IV 10 10 Intake, Oral 120 240 Number 1 1 Bowel Movements Output, Urine 250 550 Patient 106.594 kg Weight Physical Exam General Appearance: Alert, Oriented X3, Cooperative Other Physical Findings: Skin: bilateral thickening and erythema of the lower legs HEENT: Atraumatic, PERRLA, EOMI Neck: JVD is positive Lungs: bilateral decreased air entry on the basis with mild crepitus in the middle of the lung Abdomen: Soft, No Tenderness, distended Neurological: Normal Speech, he walks with a walker Extremities: edema with redness and thickening of the skin Vascular: Pulses Symmetrical Current Medications: Current Medications Sig/Salud Start time Last Medication Dose Route Stop Time Status Admin Acetaminophen 650 MG Q6P PRN 12/27 0115 AC PO Allopurinol 100 MG DAILY 12/27 1000 AC 12/30 PO 1100 Benzonatate 100 MG TID PRN 12/30 2030 AC PO Clotrimazole 1 SALAZAR BID 12/27 1000 AC 12/30 TOP 2111 Finasteride 5 MG DAILY 12/27 1015 AC 12/30 PO 1100 Furosemide 40 MG 7:30 AM, & 4:30 PM 12/30 1630 AC 12/30 IV 1658 Furosemide 60 MG DAILY 12/30 1000 DC IV Furosemide 40 MG DAILY 12/29 1000 DC 12/30 IV 0943 Magnesium Oxide 400 MG BID 12/30 2200 AC 12/30 PO 2111 Metoprolol Tartrate 12.5 MG BID 12/27 1000 AC 12/30 PO 2111 Nystatin 1 SALAZAR BID 12/27 1000 AC 12/30 TOP 2111 Omeprazole 40 MG 0700,1600 12/27 0700 AC 12/31 PO 0618 Polyethylene Glycol 17 GM DAILY 12/27 1000 AC 12/30 PO 0943 Potassium Chloride 10 MEQ DAILY 12/27 1000 AC 12/30 PO 1115 Senna/Docusate Sodium 1 TAB Q12P PRN 12/27 0130 AC PO Last 24 Hrs of Lab/Esequiel Results Last 24 Hrs of Labs/Mics: Laboratory Tests 12/31/16 0706: Anion Gap 9, Estimated GFR > 60, BUN/Creatinine Ratio 11.1, Phosphorus 2.9, Magnesium 1.8 Assessment/Plan Assessment: Patient is an 81-year-old male with significant past medical history of coronary artery disease status post CABG(RCA, LCx), bicuspid aortic valve status post Saint Misael wall replacement(1994), status post stent in LAD(1999), atrial fibrillation on vomiting, CHF, hypertension, recent acute cholecystitis status post percutaneous cholecystostomy tube, BIBA by nursing facility for evaluation of a dislodged percutaneous choley tube. Vital signs-temperature 98.3, pulse 82, respiratory rate 20, blood pressure 114/ 62, SPO2 94% on room air Plan - Hematuria secondary to traumatic insertion of the Starr catheter - Improving * Discussed with Dr. Handy * Advise to continue Starr even on discharge, and continued anticoagulation * Watch for bleeding * flush Starr catheter with a sterile water 30 mL every 4 hourly and as needed * We will continue tablet finasteride 5 milligrams daily * Strick intake output charting * CBC daily * Watch for PT/INR Coronary artery disease, CABG, status post stenting, AF with controlled ventricular rate on, warfarin, bicuspid aortic wall status post replacement with [place] Misael valve * We'll continue to follow cardiology recommendation * Target INR 2.5 - 3.5, as the patient is having Saint Misael valve. * INR continues to be supratherapuetic at 5.51 today, we will withhold the warfarin for today and repeat the PT/INR tomorrow and if it will be back in the therapeutic range, then we will add warfarin 4 milligrams * We'll continue patient on Lasix 40 milligrams IV twice a day. * Regular monitoring of PT/INR * Watch for bleeding Bilateral Pleural effusion - * Discussed with cofferdam construction supervisor, according to them. We will continue patient on Lasix 40 milliamp IV twice a day Hyponatremia * Na -131 today * Probably secondary to use of Lasix * We'll regularly monitor it Hypomagnesemia- * Mg -1.8 today * Cont magnesium 400 milligrams twice a day History of cholecystitis status post cholecystostomy presented with fall of cholecystostomy tube * Discussed with Dr. Regalado and according to him. CT abdomen and pelvis shows no any acute inflammation in CBD dilatation * Advised to watch conservatively * If patient started getting right upper quadrant pain, then we will to right upper quadrant ultrasound Multiple skin abrasion with oozing of blood - Improved Diet-Heart healthy Diet DVT prophylaxis-ALP S/warfarin Problem List: 1. Benign hypertension 2. Bicuspid aortic valve 3. CAD S/P BYPASS 4. Carcinoma of colon 5. EXACERBATION OF CHF 6. Gout 7. Hyperlipidemia 8. Mechanical prosthetic aortic valve replacement 9. Repair of ventral hernia 10. SUBTOTAL COLECTOMY 11. Cellulitis 12. Edema extremities 13. Chronic passive congestion of liver 14. Coagulopathy 15. Bilateral cellulitis of lower leg 16. DVT prophylaxis 17. Chronic diastolic CHF (congestive heart failure) 18. Afib 19. Epistaxis 20. Risk for falls 21. Hypotension 22. Cholangitis 23. CHF (congestive heart failure) 24. Cholecystostomy tube dysfunction 25. Dyspnea 26. Bilateral pleural effusion Pain Ratin Pain Location: N/A Pain Goal: Remain pain free Pain Plan: Mild to moderate Tomorrow's Labs & Rationales: PT/INR/BEP/CBC/magnesium/phosphorus MIGNON AGOSTO,[facility] 12/31/16 1246: Attending MD Review Statement Attending Statement Attending MD Statement: examined this patient, discuss w/resident/PA/DOGGER, agreed w/resident/PA/DOGGER, reviewed EMR data (avail), discussed with nursing, discussed with case mgmt, reviewed images, amended to note Attending Assessment/Plan: 81-year-old gentleman with past medical history significant for coronary artery disease status post CABG in 1994 and stent placement in 1999, aortic stenosis status post valve replacement in 1994, A. fib, hypertension, CHF and recent acute cholecystitis status post percutaneous cholecystostomy tube is being admitted on the floor for dislodging cholecystotomy tube. Patient was seen and examined on the bedside and does not complain of any shortness of breath. Labs noted. Currently he is being treated for fluid overload. Cardiology is on board. Creatinine remained stable and currently he is on Lasix 40 mg IV twice a day. Given his supratherapeutic INR Coumadin is on hold. We will continue to hold, Ghanshyam today and will recheck INR tomorrow and will do accordingly.
[2016-12-31 11:21] LABS: PT 56.9 SEC (9.4-12.5)
--- NOTE | 2016-12-31 12:48 | PN- Cardiology ---
Subjective Subjective: * No complaints. * Atrial fibrillation with good rate control. * hematuria persists with improved H/H * INR is supratherapeutic at greater than 5 Objective Vital Signs and I&Os Vital Signs Date Time Temp Pulse Resp B/P Pulse O2 O2 Flow FiO2 Ox Delivery Rate 12/31 0934 98.3 100 18 118/78 12/31 0833 98.3 100 18 90 Room Air 12/31 0025 97.8 82 18 118/78 97 Nasal Cannula 12/31 0000 Room Air 12/30 2111 89 12/30 1937 19 96 Room Air 12/30 1905 18 97 Nasal 0.5L Cannula 12/30 1629 98.3 82 20 114/62 94 Nasal 1.0L Cannula 12/30 1600 95 Nasal 1.0L Cannula 12/30 1406 Nasal 2.0L Cannula Intake & Output 12/31 1600 12/31 0800 12/31 0000 12/30 1600 12/30 0800 12/30 0000 Intake Total 130 250 200 300 Output Total 250 550 750 250 Balance -120 -300 -750 200 50 Intake, IV 10 10 0 0 Intake, Oral 120 240 200 300 Number 1 1 2 Bowel Movements Output, Urine 250 550 750 250 Patient 235 lb 234 lb Weight Physical Exam: General: WD/ overweight male in NAD; alert and oriented x 3 Neck: no JVD Heart: irregularly irregular with crisp valve sounds Lungs: no crackles or wheezing Abdomen: soft, obese, NT, +ve bowel sounds : scrotal edema Extremities: 1-2+ bilateral leg edema Assessment/Plan Assessment/Plan * This patient is still mildly fluid overloaded. Continue lasix at 40mg IV BID and follow BUN, creatinine and potassium * INR is supratherapeutic. Hold coumadin for today and and tomorrow. Recheck on Monday. If in the normal range on Monday (2.5-3.0) then restart at 4mg daily. Continue telemetry? Yes
[2016-12-31 17:23] VITALS: BP 100/60
[2017-01-01 00:14] VITALS: BP 98/62
--- NOTE | 2017-01-01 06:35 | PN- Housestaff ---
KACIE AGOSTO,KRISTINE 01/01/17 0634: Subjective Follow-up For: Acute on chronic CHF Dislodgment of cholecystostomy tube Hematuria Dyspnea on exertion Bilateral moderate pleural effusion Complaints: dry cough Tele-Events Since Last Visit: Atrial fibrillation with heart rate between 80-90, no any overnight events Subjective: Patient is seen and examined at the bedside. He was tachypneic. But, on asking, he was saying he is in the same status as he was before. He was denying of any breathing trouble. He denies chest pain, abdominal pain. He is also saying that he is having cough and bringing up some whitish sputum. Review of Systems Constitutional: Reports: malaise, weakness. Denies: no symptoms. Cardiovascular: Reports: edema, orthopena, palpitations, peripheral edema. Denies: chest pain. Respiratory: Reports: cough, short of breath, sputum production. Gastrointestinal: Denies: abdominal pain, bloating, constipation, diarrhea, distention. Genitourinary: Reports: hematuria. Neurological/Psychological: Denies: no symptoms. Objective Last 24 Hrs of Vital Signs/I&O Vital Signs Date Time Temp Pulse Resp B/P Pulse O2 O2 Flow FiO2 Ox Delivery Rate 01/01 1632 97.6 71 20 102/60 93 Room Air 01/01 1600 93 Room Air 01/01 0956 90 92/62 01/01 0851 97.6 90 20 92 Room Air 01/01 0800 95 Room Air 01/01 0014 97.9 73 16 98/62 92 Room Air 01/01 0000 96 12/31 2123 80 116/64 Intake & Output 01/01 1600 01/01 0800 01/01 0000 Intake Total 720 980 480 Output Total 450 400 Balance 270 580 480 Intake, Oral 720 980 480 Output, Urine 450 400 Patient 105.687 kg Weight Physical Exam General Appearance: Alert, Oriented X3, Cooperative, Moderate Distress Skin: areas of ecchymotic patches Cardiovascular: irregularly irregular with murmur Lungs: bilateral decreased air entry on the bases with mild crackles in the Middle of the Lung Abdomen: Soft, No Tenderness, distended Extremities: bilateral leg edema, erythema, thickening of the skin Assessment/Plan Assessment: Patient is an 81-year-old male with significant past medical history of coronary artery disease status post CABG(RCA, LCx), bicuspid aortic valve status post Saint Misael wall replacement(1994), status post stent in LAD(1999), atrial fibrillation on vomiting, CHF, hypertension, recent acute cholecystitis status post percutaneous cholecystostomy tube, BIBA by nursing facility for evaluation of a dislodged percutaneous choley tube. Vital signs-temperature 98.3, pulse 82, respiratory rate 20, blood pressure 114/ 62, SPO2 94% on room air Plan - Hematuria secondary to traumatic insertion of the Starr catheter - Improving * Discussed with Dr. Handy * Advise to continue Starr even on discharge, and continued anticoagulation * Watch for bleeding * flush Starr catheter with a sterile water 30 mL every 4 hourly and as needed * We will continue tablet finasteride 5 milligrams daily * Strick intake output charting * CBC daily * Watch for PT/INR * We will discuss with Dr. Handy tomorrow about discontinuing the foleys. Coronary artery disease, CABG, status post stenting, AF with controlled ventricular rate on, warfarin, bicuspid aortic wall status post replacement with [place] Misael valve * We'll continue to follow cardiology recommendation * Target INR 2.5 - 3.5, as the patient is having Saint Misael valve. * INR continues to be supratherapuetic at 3.71 today, we will withhold the warfarin for today and repeat the PT/INR tomorrow and if it will be back in the therapeutic range, then we will add warfarin 4 milligrams * We'll increase Lasix 60 milligrams IV twice a day. * Regular monitoring of PT/INR * Watch for bleeding Bilateral Pleural effusion - * Discussed with tugboat engineer, according to them. We will increase Lasix 60 mg IV twice a day Hyponatremia * Na -131 today * Probably secondary to use of Lasix * We'll regularly monitor it Hypomagnesemia-recovered * Mg -2 today * Cont magnesium 400 milligrams twice a day History of cholecystitis status post cholecystostomy presented with fall of cholecystostomy tube * Discussed with Dr. Regalado and according to him. CT abdomen and pelvis shows no any acute inflammation in CBD dilatation * Advised to watch conservatively * If patient started getting right upper quadrant pain, then we will to right upper quadrant ultrasound Multiple skin abrasion with oozing of blood - Improved Diet-Heart healthy Diet DVT prophylaxis-ALP S/warfarin Problem List: 1. Bilateral pleural effusion 2. Dyspnea 3. Cholecystostomy tube dysfunction 4. CHF (congestive heart failure) 5. Afib 6. Hyperlipidemia 7. Gout 8. EXACERBATION OF CHF Pain Ratin Pain Location: Not applicable Pain Goal: Remain pain free Pain Plan: Avoid NSAIDs Tomorrow's Labs & Rationales: BEP, PT/INR DVT/Prophylaxis: mechanical, pharmacological MIGNON AGOSTO,CAIN 01/01/17 1237: Attending MD Review Statement Attending Statement Attending MD Statement: examined this patient, discuss w/resident/PA/FUNDRAISING OFFICER, agreed w/resident/PA/FUNDRAISING OFFICER, reviewed EMR data (avail), discussed with nursing, discussed with case mgmt, reviewed images, amended to note Attending Assessment/Plan: 81-year-old gentleman with past medical history significant for coronary artery disease status post CABG in 1994 and stent placement in 1999, aortic stenosis status post valve replacement in 1994, A. fib ( Coumadin on hold due to elevated INR), hypertension, CHF and recent acute cholecystitis status post percutaneous cholecystostomy tube is being admitted on the floor for dislodging cholecystotomy tube. Patient was seen and examined on the bedside and does not complain of any shortness of breath. Labs noted. Currently he is being treated for fluid overload. Cardiology is on board. Creatinine remained stable and currently he is on Lasix 40 mg IV twice a day. His INR came down today but still more than 3, would continue to hold Coumadin for today, and we'll recheck it tomorrow with the goal of 2.5-3.
[2017-01-01 08:27] LABS: PT 38.5 SEC (9.4-12.5)
--- NOTE | 2017-01-01 10:29 | NUR ---
DR. VELARDE NOTFIED THAT PATIENT IS HYPOTENSIVE AND THAT METOPROLOL WAS HELD; WILL MONITOR
[2017-01-01 12:24] LABS: ABSOLUTE BASOPHIL COUNT 0 /CUMM (0.0-0.2); ABSOLUTE EOSINOPHIL COUNT 0.4 /CUMM (0.0-0.7); ABSOLUTE GRANULOCYTE CT 4.3 /CUMM (1.4-6.5); ABSOLUTE LYMPH COUNT 0.9 /CUMM (1.2-3.4); ABSOLUTE MONOCYTE COUNT 0.7 /CUMM (0.10-0.60); BASOPHIL % 0.6 % (0.0-2.0); EOSINOPHIL % 6.5 % (0-5); GRANULOCYTE % 67.1 % (42.2-75.2); HEMATOCRIT 34.4 % (42-52); MEAN CORPUSCULAR HGB 30.8 PG (27.0-31.0); MEAN CORPUSCULAR HGB CONC 32.6 G/DL (33.0-37.0); MEAN CORPUSCULAR VOLUME 94.3 FL (80.0-94.0); MEAN PLATELET VOLUME 7.6 FL (7.4-10.4); PLATELET COUNT 182 /CUMM (130-400); RBC DISTRIBUTION WIDTH 18.6 % (11.5-14.5); RED BLOOD CELL CT 3.65 /CUMM (4.70-6.10); WHITE BLOOD CELL COUNT 6.4 /CUMM (4.8-10.8)
--- NOTE | 2017-01-01 12:57 | PN- Cardiology ---
Subjective Subjective: * No complaints. * Urine has cleared. * Atrial fibrillation with good rate control. * INR is supratherapeutic at 3.71 Objective Vital Signs and I&Os Vital Signs Date Time Temp Pulse Resp B/P Pulse O2 O2 Flow FiO2 Ox Delivery Rate 01/01 0956 90 92/62 01/01 0851 97.6 90 20 92 Room Air 01/01 0800 95 Room Air 01/01 0014 97.9 73 16 98/62 92 Room Air 01/01 0000 96 12/31 2123 80 116/64 12/31 1723 88 100/60 12/31 1612 97.6 72 17 96 Room Air Intake & Output 01/01 1600 01/01 0800 01/01 0000 12/31 1600 12/31 0800 12/31 0000 Intake Total 980 480 600 130 250 Output Total 400 250 550 Balance 580 480 600 -120 -300 Intake, IV 10 10 Intake, Oral 980 480 600 120 240 Number 1 1 Bowel Movements Output, Urine 400 250 550 Patient 233 lb 235 lb Weight Physical Exam: General: WD/ overweight male in NAD; alert and oriented x 3 Heart: irregularly irregular with crisp valve sounds Lungs: no crackles or wheezing Extremities: 2+ bilateral leg edema Assessment/Plan Assessment/Plan * This patient remains fluid overloaded. Increase Lasix to 60mg IV BID and follow BUN, creatinine and potassium * INR is supratherapeutic. Hold coumadin for today. Restart coumadin tomorrow at 4mg daily. Continue telemetry? Yes
--- NOTE | 2017-01-01 16:05 | NUR ---
PT DUE 60MG IV LASIX, CURRENT BP 102/[address] BOURNE, OK TO GIVE
[2017-01-01 16:32] VITALS: BP 102/60
[2017-01-02 00:38] VITALS: BP 100/70
--- NOTE | 2017-01-02 07:56 | PN- Housestaff ---
KACIE AGOSTO,KRISTINE 01/02/17 0755: Subjective Follow-up For: Acute on chronic CHF Dislodgment of cholecystostomy tube Hematuria Dyspnea on exertion Bilateral moderate pleural effusion Complaints: no complaints Tele-Events Since Last Visit: Atrial fibrillation with heart rate between 70-80, PVCs Subjective: Patient is seen and examined at the bedside. He was not having any active complaints. Although he was seems in respiratory distress. He is still having cough, but less in the amount. Denies of any nausea, vomiting, diarrhea, constipation. Review of Systems Constitutional: Reports: weakness. Cardiovascular: Reports: edema, orthopena, palpitations, peripheral edema. Denies: chest pain. Respiratory: Reports: cough, hemoptysis, orthopnea, short of breath, sputum production. Gastrointestinal: Denies: abdominal pain, bloating, constipation, diarrhea. Genitourinary: Denies: discharge, dysuria, frequency, hematuria, hesitation. Musculoskeletal: Reports: joint pain, joint swelling. Denies: back pain, gout, muscle pain, muscle stiffness. Skin: Reports: erythema. Neurological/Psychological: Reports: anxiety. Objective Last 24 Hrs of Vital Signs/I&O Vital Signs Date Time Temp Pulse Resp B/P Pulse O2 O2 Flow FiO2 Ox Delivery Rate 01/02 1622 97.4 68 20 98/54 92 Room Air 01/02 1006 83 108/60 01/02 0815 98.1 83 20 108/60 91 Room Air 01/02 0038 97.7 90 20 100/70 93 Room Air 01/01 2200 83 100/70 Intake & Output 01/02 1600 01/02 0800 01/02 0000 Intake Total 400 100 580 Output Total 417 527 0953 Balance -400 -150 -520 Intake, Oral 400 100 580 Number 0 1 Bowel Movements Output, Urine 308 044 5175 Patient 105.233 kg Weight Physical Exam General Appearance: Alert, Oriented X3, Mild Distress Skin: multiple ecchymotic areas, thikening and pitting dependent edema, thining and erythema of both lower legs Cardiovascular: irregularly irregular Lungs: bilateral basal crepts and decrease air entry in both lower lobe of lungs Abdomen: Soft, No Tenderness, distended Neurological: Normal Speech Extremities: bilateral pedal edema, decreased edema in both upper limbs Vascular: cannt asses to thickening and edema in legs Assessment/Plan Assessment: Patient is an 81-year-old male with significant past medical history of coronary artery disease status post CABG(RCA, LCx), bicuspid aortic valve status post Saint Misael wall replacement(1994), status post stent in LAD(1999), atrial fibrillation on vomiting, CHF, hypertension, recent acute cholecystitis status post percutaneous cholecystostomy tube, BIBA by nursing facility for evaluation of a dislodged percutaneous choley tube. Vital iszjo-pxltztkrrkj-ktnbznsronb 97.4, pulse 68, respiratory rate 20, blood pressure 98/54, SPO2 92% on room air Plan - Possible Discharge tmr Hematuria secondary to traumatic insertion of the Starr catheter - Improving * Discussed with Dr. Handy * Advised to remove the Starr and watch for urination. * Patient is able to urinate by himself with in 8 hrs than, he can go home without Starr catheter. Otherwise reinsert the Starr * We will continue tablet finasteride 5 mgs daily * Strick intake output charting * CBC daily * Watch for PT/INR * We will discuss with Dr. Handy tomorrow about discontinuing the foleys. Coronary artery disease, CABG, status post stenting, AF with controlled ventricular rate on, warfarin, bicuspid aortic wall status post replacement with [place] Misael valve * We'll continue to follow cardiology recommendation * Target INR 2.5 - 3.5, as the patient is having Saint Misael valve. * INR is 3.06 today, we will give 3 milligrams of warfarin today and repeat the PT/INR tomorrow. * We'll continue Lasix 60 milligrams IV twice a day. * Regular monitoring of PT/INR * Watch for bleeding Bilateral Pleural effusion - * Discussed with blast furnace keeper helper, according to them. We will increase Lasix 60 mg IV twice a day * We also added tablet Metolazone 2.5mg PO OD * , As patient was little bit drowsy Dr. Martinez advised to do ABG, to r/o contraction alkalosis Hyponatremia * Na -132 today * Probably secondary to use of Lasix * We'll regularly monitor it Hypomagnesemia-recovered * Cont magnesium 400 milligrams twice a day History of cholecystitis status post cholecystostomy presented with fall of cholecystostomy tube * Discussed with Dr. Regalado and according to him. CT abdomen and pelvis shows no any acute inflammation in CBD dilatation * Advised to watch conservatively * If patient started getting right upper quadrant pain, then we will to right upper quadrant ultrasound Multiple skin abrasion with oozing of blood - Improved Diet-Heart healthy Diet DVT prophylaxis-ALP S/warfarin Problem List: 1. Bilateral pleural effusion 2. Dyspnea 3. Cholecystostomy tube dysfunction 4. CHF (congestive heart failure) 5. Hypotension 6. Afib 7. Mechanical prosthetic aortic valve replacement Pain Ratin Pain Location: RUQ abd Pain Goal: Remain pain free Pain Plan: mild, avoid NSAIDs Tomorrow's Labs & Rationales: bep,pt/inr KERRIE ALVARENGA MD 01/02/17 1110: Attending MD Review Statement Attending Statement Attending MD Statement: examined this patient, discuss w/resident/PA/WASHERY ENGINEER, agreed w/resident/PA/WASHERY ENGINEER, reviewed EMR data (avail) Attending Assessment/Plan: 81m pmh CAD status post CABG in 1994 and stent placement in 1999, aortic stenosis status post St. Misael valve placement in 1994, A. fib, hypertension, CHF , and recent acute cholecystitis status post percutaneous cholecystostomy tube admitted for dislodging of cholecystostomy tube, now removed, complicated by acute on chronic systolic CHF. Still with lower extremity edema. Breathing is comfortable. Inadequate diuresis over the weekend despite steadily increasing Lasix dose. Urine is now clear, hematuria has resolved. AFVSS NAD, comfortable NCAT Supple RRR, systolic murmur unchanged Mild bibasilar crackles Soft, NTND Trace edema in b/l LE, chronic venous stasis changes Pulses intact A&Ox3 no focal deficits 1. Percutaneous cholecystostomy tube dysfunction 2. Acute on chronic systolic CHF 3. Isauro hematuria 4. Orthopnea 5. Chronic atrial fibrillation 6. S/p AVR 7. CAD s/p CABG 8. Cholecystitis (resolved) Plan - Continue on telemetry - Cholecystostomy tube removed, no further indication for it, per IR - Continue Lasix 60mg IV BID. Will consider starting Metolazone, but will discuss with cardiology first - I/O, daily weights - Follow cardiology recommendations - Continue Coumadin, goal INR 2.5-3.5 - Will keep Starr catheter in place for monitoring of urine output. Will remove with voiding trial prior to discharge - Monitor electrolytes - Continue home medications
[2017-01-02 08:15] VITALS: BP 108/60
[2017-01-02 08:24] LABS: PT 31.8 SEC (9.4-12.5)
--- NOTE | 2017-01-02 08:45 | Patient Discharge Instructions ---
Discharge Instructions General Discharge Information You were seen/treated for: You wrere here for dislodgment of PEG tube, and it was not replaced as you are CT abdomen and pelvis was not showing any signs of cholecystitis, common bile duct dilatation. Secondary to the Starr insertion, you started having hematuria, which we treated by observation. You also had exacerbation of congestive heart failure. Special Instructions: Please follow-up with your PCP within a week of discharge. Please follow-up with your maintenance fitter within a week of discharge Please restrict the fluid intake to 1 to 1.5 liters in a day. Please take the medication as advised. Diet Continue normal diet: No Recommended Diet: Heart Healthy Activity Full Activity/No Limits: No Activity Self Limited: Yes Acute Coronary Syndrome Inclusion Criteria At DC or during hospital stay patient has or had the following: ACS DIAGNOSIS No Discharge Core Measures Meds if any: Prescribed or Continued at Discharge Meds if any: NOT Prescribed or Continued at Discharge Congestive Heart Failure Inclusion Criteria At DC or during hospital stay patient has or had the following: CHF DIAGNOSIS Yes Discharge Core Measures Meds if any: Prescribed or Continued at Discharge Meds if any: NOT Prescribed or Continued at Discharge Cerebrovascular accident Inclusion Criteria At DC or during hospital stay patient has or had the following: CVA/TIA Diagnosis No Discharge Core Measures Meds if any: Prescribed or Continued at Discharge Meds if any: NOT Prescribed or Continued at Discharge Venous thromboembolism Inclusion Criteria VTE Diagnosis No VTE Type NONE VTE Confirmed by (Test) NONE Discharge Core Measures - Per Current guidelines, there needs to be overlap - treatment for the first 5 days of Warfarin therapy. - If discharged on Warfarin prior to 5 days of - overlap therapy, the patient will need to be - assessed for post discharge needs including - *Post discharge parental anticoagulation - *Warfarin and/or parental anticoagulation education - *Follow up date to check INR post discharge At least 5 days overlap therapy as Inpatient No Meds if any: Prescribed or Continued at Discharge Note: Overlap Therapy is Warfarin and Anticoagulant Meds if any: NOT Prescribed or Continued at Discharge
[2017-01-02 16:22] VITALS: BP 98/54
--- NOTE | 2017-01-02 17:23 | PN- Cardiology ---
Subjective Subjective: * No complaints although patient appears more worn out today. * INR is 3.06 * urine has cleared * atrial fibrillation with controlled heart rate Objective Vital Signs and I&Os Vital Signs Date Time Temp Pulse Resp B/P Pulse O2 O2 Flow FiO2 Ox Delivery Rate 01/02 1622 97.4 68 20 98/54 92 Room Air 01/02 1006 83 108/60 01/02 0815 98.1 83 20 108/60 91 Room Air 01/02 0038 97.7 90 20 100/70 93 Room Air 01/01 2200 83 100/70 Intake & Output 01/02 1600 01/02 0800 01/02 0000 01/01 1600 01/01 0800 01/01 0000 Intake Total 100 580 720 980 480 Output Total 297 323 7020 450 400 Balance -800 -150 -520 270 580 480 Intake, Oral 100 580 720 980 480 Number 1 Bowel Movements Output, Urine 843 365 4786 450 400 Patient 232 lb 233 lb Weight Physical Exam: General: WD/ overweight male in NAD; alert and oriented x 3 Heart: irregularly irregular with crisp valve sounds Lungs: no crackles or wheezing Extremities: 2+ bilateral leg edema Assessment/Plan Assessment/Plan * This patient has some improvement in leg edema although some swelling remains. Continue Lasix at 60mg IV BID and follow BUN, creatinine and potassium. Check an ABG to assess for a contraction alkylosis. Patient seems less alert today. * Restart coumadin tomorrow at 4mg daily. Continue telemetry? Yes
--- NOTE | 2017-01-02 19:48 | NUR ---
1830 - RODAS REMOVED AT THIS TIME. PT DUE TO VOID 6-8 HRS. REPORT GIVEN TO TANJA PATEL.
[2017-01-03] VITALS (10 sets, daily range): BP systolic 86–92; BP diastolic 52–60
--- NOTE | 2017-01-03 07:43 | PN- Housestaff ---
See Addendum Subjective Follow-up For: Acute on chronic CHF Dislodgment of cholecystostomy tube Hematuria Dyspnea on exertion Bilateral moderate pleural effusio Complaints: unable to complete a sentence Tele-Events Since Last Visit: Atrial fibrillation with heart rate of 68-70, multiple PVCs. Around 10 o'clock, he had an episode of long pauses, which was 2.3 seconds. we advised to get an EKG state, stop metoprolol, keep atropine at the bedside, but the poacer pads on patient. We also advised for chest x-ray to rule out pulmonary edema and any new onset of pneumonia. Subjective: Patient is seen and examined at the bedside. He was complaining of unable to complete a sentence. He seems to be in mild respiratory distress. But according to him, this is the same as before. He denies of any nausea, vomiting, chest pain, palpitation, abdominal pain, decreased urine output, dysuria, hematuria Review of Systems Constitutional: Denies: no symptoms. Cardiovascular: Reports: edema, orthopena, peripheral edema. Denies: chest pain. Respiratory: Reports: cough, orthopnea, short of breath, sputum production. Gastrointestinal: Denies: abdominal pain, bloating, constipation, diarrhea, distention. Genitourinary: Reports: frequency. Denies: hematuria. Musculoskeletal: Denies: back pain, gout, joint swelling. Skin: Reports: erythema. Neurological/Psychological: Denies: no symptoms. Objective Last 24 Hrs of Vital Signs/I&O Vital Signs Date Time Temp Pulse Resp B/P Pulse O2 O2 Flow FiO2 Ox Delivery Rate 01/03 0931 80 90/58 01/03 0847 86/57 01/03 0800 97.6 90 22 96 Nasal 1.0L Cannula 01/03 0000 Nasal 2.0L Cannula 01/02 2333 81 124/70 01/02 1622 97.4 68 20 98/54 92 Room Air Intake & Output 01/03 1600 01/03 0800 01/03 0000 Intake Total 120 240 Output Total Balance 120 240 Intake, Oral 120 240 Number 1 2 Bowel Movements Patient 103.986 kg Weight Physical Exam General Appearance: Oriented X3, Cooperative, Mild Distress Skin: REDNESS AND THICKENING OF BILATERAL LOWER LEG SKIN, ERYTHEMA AND DRYNESS OF UPPER HAND Cardiovascular: IRREGULAR WITH MURMUR Current Medications: Current Medications Sig/Salud Start time Last Medication Dose Route Stop Time Status Admin Acetaminophen 650 MG Q6P PRN 12/27 0115 AC PO Allopurinol 100 MG DAILY 12/27 1000 AC 01/02 PO 1006 Atropine Sulfate 1 MG ONE ONE 01/03 0930 DC IV 01/03 0931 Benzonatate 100 MG TID PRN 12/30 2030 AC 01/02 PO 1006 Finasteride 5 MG DAILY 12/27 1015 AC 01/02 PO 1006 Furosemide 60 MG 7:30 AM, & 4:30 PM 01/01 1630 DC 01/03 IV 0838 Magnesium Oxide 400 MG BID 12/30 2200 AC 01/02 PO 2334 Metolazone 2.5 MG DAILY 01/02 1400 DC 01/02 PO 1813 Metoprolol Tartrate 12.5 MG BID 12/27 1000 DC 01/02 PO 2333 Omeprazole 40 MG 0700,1600 12/27 0700 AC 01/02 PO 1813 Polyethylene Glycol 17 GM DAILY 12/27 1000 AC 01/02 PO 1009 Potassium Chloride 20 MEQ ONCE ONE 01/02 1615 DC 01/02 PO 01/02 1616 1814 Potassium Chloride 10 MEQ DAILY 12/27 1000 AC 01/02 PO 1006 Senna/Docusate Sodium 1 TAB Q12P PRN 12/27 0130 AC PO Warfarin Sodium 4 MG COUMADIN 1700 ONE 01/03 1700 AC PO 01/03 1701 Warfarin Sodium 3 MG COUMADIN 1700 ONE 01/02 1700 DC 01/02 PO 01/02 1701 1814 Last 24 Hrs of Lab/Esequiel Results Last 24 Hrs of Labs/Mics: Laboratory Tests 01/03/17 0655: Anion Gap 6, Estimated GFR 34 L, BUN/Creatinine Ratio 27.4 H, Magnesium 2.0, PT 27.3 H, INR 2.62 H 01/02/17 2030: pH 7.38, pCO2 49 H, pO2 77 L, HCO3 29 H, ABG O2 Sat (Measured) 93.0 L, P-50 (Temp Corrected) N, Carboxyhemoglobin 0.6 L, O2 Concentration % 1L, Temperature 97.4, O2 Delivery Method N/C, Phlebotomy Draw Site RIGHT RADIAL Assessment/Plan Assessment: Patient is an 81-year-old male with significant past medical history of coronary artery disease status post CABG(RCA, LCx), bicuspid aortic valve status post Saint Misael wall replacement(1994), status post stent in LAD(1999), atrial fibrillation on vomiting, CHF, hypertension, recent acute cholecystitis status post percutaneous cholecystostomy tube, BIBA by nursing facility for evaluation of a dislodged percutaneous choley tube. Vital sexbw-tsrvpojcgsm-knvhnhxgwnn 97.4, pulse 68, respiratory rate 20, blood pressure 90/50, SPO2 92% on 2 liters of oxygen by nasal cannula. Plan - * Confectionery Laboratory Manager Remy, talked to the daughter, she is sick, so cannot come today. She will call tomorrow on 01/04/2017 at 12 o'clock to discussed about the goals of care. * Around 10 o'clock, he had an episode of long pauses, which was 2.3 seconds. we advised to get an EKG state, stop metoprolol, keep atropine at the bedside, but the poacer pads on patient.We also advised for chest x-ray to rule out pulmonary edema and any new onset of pneumonia. * Discussed Dr. Martinez over the phone, he suggested that it may be due to over diuresis and that's why his creatinine goes up to 1.9 from 0.8. We will stop diuresis for a while and hold metolazone/furosemide, but together. Hematuria secondary to traumatic insertion of the Starr catheter - Improving * Discussed with Dr. Handy * We removed Starr on 01/02/2017 * We will continue tablet finasteride 5 mgs daily * Strict intake output charting * CBC, BEP, magnesium, PT/INR daily Coronary artery disease, CABG, status post stenting, AF with controlled ventricular rate on, warfarin, bicuspid aortic wall status post replacement with [place] Misael valve * We'll continue to follow cardiology recommendation * Target INR 2.5 - 3.5, as the patient is having Saint Misael valve. * INR is 2.62 today, we will give 4 milligrams of warfarin today and repeat the PT/INR tomorrow. * We'll hold Lasix 60 milligrams IV twice a day and metolazone * Regular monitoring of PT/INR * Watch for bleeding Bilateral Pleural effusion - * As patient was little bit drowsy Dr. Martinez advised to do ABG, to r/o contraction alkalosis * ABG showed pH 7.38, PCO2 49, PO2 77, bicarbonate 29 * Withhold the Lasix/metolazone as his creatinine bumped up to 1.9 Hyponatremia -recovered * Na -138 today * We'll regularly monitor it Hypomagnesemia-recovered * Cont magnesium 400 milligrams twice a day History of cholecystitis status post cholecystostomy presented with fall of cholecystostomy tube * Discussed with Dr. Regalado and according to him. CT abdomen and pelvis shows no any acute inflammation in CBD dilatation * Advised to watch conservatively * If patient started getting right upper quadrant pain, then we will to right upper quadrant ultrasound Multiple skin abrasion with oozing of blood - Improved Diet-Heart healthy Diet DVT prophylaxis-ALP S/warfarin Problem List: 1. Bilateral pleural effusion 2. Dyspnea 3. Cholecystostomy tube dysfunction 4. CHF (congestive heart failure) 5. Hypotension Pain Ratin Pain Location: Not applicable Pain Goal: Remain pain free Pain Plan: mild Tomorrow's Labs & Rationales: bep,Magnesium DVT/Prophylaxis: mechanical, pharmacological
[2017-01-03 08:20] LABS: PT 27.3 SEC (9.4-12.5)
--- NOTE | 2017-01-03 10:37 | PN- Cardiology ---
Subjective Subjective: * Patient is lethargic without specific complaints. * atrial fibrillation with5 beat run of NSVT and 2.5 second pause * creatinine has acutely risen to 1.9 Objective Vital Signs and I&Os Vital Signs Date Time Temp Pulse Resp B/P Pulse O2 O2 Flow FiO2 Ox Delivery Rate 01/03 0931 80 90/58 01/03 0847 86/57 01/03 0800 97.6 90 22 96 Nasal 1.0L Cannula 01/03 0000 Nasal 2.0L Cannula 01/02 2333 81 124/70 01/02 1622 97.4 68 20 98/54 92 Room Air Intake & Output 01/03 1600 01/03 0800 01/03 0000 01/02 1600 01/02 0800 01/02 0000 Intake Total 120 240 400 100 580 Output Total 238 678 1696 Balance 120 240 -400 -150 -520 Intake, Oral 120 240 400 100 580 Number 1 2 0 1 Bowel Movements Output, Urine [phone] Patient 229 lb 232 lb Weight Physical Exam: General: WD/ overweight male in NAD; alert and oriented x 3 Heart: irregularly irregular with crisp valve sounds Lungs: no crackles or wheezing Extremities: 1-2+ bilateral leg edema Assessment/Plan Assessment/Plan * This patient has had some improvement in his leg edema although it has not completely resolved. At this point in time the patient is pre-renal from overdiuresis with an elevated creatinine and borderline blood pressure. Stop all diuretics for the time being. Continue the small dose of Metoprolol especially considering his run of NSVT. The 2.5 second pause is not significant in the setting of atrial fibrillation. * Restart coumadin today at 4mg daily. * Will review chest X-ray. Continue telemetry? Yes
--- NOTE | 2017-01-03 10:53 | RADIOLOGY REPORT ---
EXAMINATION: XR PORTABLE CHEST CLINICAL INFORMATION: Shortness of breath. COMPARISON: Chest done on 12/28/2016. TECHNIQUE: Portable AP view of the chest was obtained. FINDINGS: Low lung volume is present bilaterally. The cardiomediastinal silhouette is moderately enlarged. There is evidence of pulmonary venous congestion present. Bilateral perihilar and lower lobar airspace opacities are noted, likely represent CHF and less likely to be pneumonia. Bilateral small pleural effusions are present (right greater than left). Compared to prior study, the airspace opacities seen at both libby and lower lobes appear worsened. IMPRESSION: Findings most consistent with CHF, and less likely pneumonia, shows interval progression since 12/28/2016.
--- NOTE | 2017-01-03 16:00 | NUR ---
LATE ENTRY - PATIENT WAS VERY DROWSEY/LETHARGIC THIS AM. BP WAS RUNNING LOW 86-92/50'S, DR. HESTER AWARE. TELE REPORTED TO THIS RN THAT PATIENT HAD A 2.3 SECOND PAUSE @ 0911, BP CONTINUING TO RUN LOW 90'S/50'S, OTHERWISE PATIENT ASYMPTOMATIC. REPORTED TO DR. LARKIN & DR. HESTER. PT PLACED BACK INTO BED, PACER PADS PLACED ON PT, ATROPINE ORDERED AT BEDSIDE. LATER @ 0953 & 1123 PT HAD A 4 BEAT & A 10 BEAT RUN OF VTACH RESPECTIVELY, DR. LARKIN & DR. HESTER MADE AWARE. DIURETICS D/C'D AT THIS TIME, METROPROLOL CANCELED UNTIL HS, ELECTROLYTES WNL. CONTINUING TO MONITR PATIENT.
--- NOTE | 2017-01-03 22:18 | NUR ---
NURSING NOTE; PT STARTED ON DOBUTAMINE GTT AT 1645. INFUSING AT 31.2ML/HR. (5MCG/KG/MIN) TOLERATING WELL. AFIB 90-100. BP REMAINS LOW. 88/56-90/58. MD AWARE. EVENING DOSE LOPRESSOR WITHHELD.
--- NOTE | 2017-01-04 01:51 | RADIOLOGY REPORT ---
EXAMINATION: XR PORTABLE CHEST CLINICAL INFORMATION: Cardiac arrest. COMPARISON: Chest x-ray 01/03/2017 TECHNIQUE: Portable AP portable view of the chest was obtained. 1:05 AM FINDINGS: Endotracheal catheter measuring 8.7 cm above the karan projecting over the lower neck. This could be advanced 3 cm. Status post median sternotomy. Heart size enlarged. There is pulmonary vascular congestion with bilateral airspace disease of pulmonary edema. Likely bilateral pleural effusions as well. IMPRESSION: Pulmonary edema with congestive heart failure, bilateral pleural effusions and cardiomegaly. This critical result was discussed with Dr. Roger on 01/04/2017, 1:45 AM and it was ascertained that the content and urgency of the report was understood at the time of direct communication.
--- NOTE | 2017-01-04 01:57 | Event Note ---
Event Note Event Note: Code 3 called for Bandar Lowery at 1239 AM. Patient was being moved in bed and nurses witnessed him become unresponsive. Initial rhythm prior to arrival was ventricular tachycardia without a pulse that quickly went into ventricular fibrillation. On arrival to see patient, no pulse was appreciated and CPR was initiated. Attending physician Dr. Hannon present and ran the code. Rhythm showed ventricular fibrillation and patient was defibrillated once. Epinephrine was given at 1226. Subsequent rhythms were non-shockable and patient received epinephrine was again given at 1230. Patient was then intubated by anesthesia. NaHCO3 given at 1231 along with amiodarone. 1233 right femoral pulse appreciatd and monitor suggestive of afib with PVCs. Central line was attempted, however at 1241 again patient had no pulse. Repeat epi given at 1242. CPR continued intul 1245 when pulse was again appreciated. Due to spontaneous circulation, he was transferred to ICU for further management. Patient given 2 gm IV mag as tele monitor showed Vtac initially. Levophed hung peripherally as he was hypotensive to a MAP of 59. Patient became slightly more alert and was noted to bite the tube, thus fentanyl drip was ordered and midazolam 2mg IV once given. Starr catheter placed. Central line unable to be placed by housestaff. Surgical PA notified and attempted placement. Along with fentanyl drip, propofol drip ordered as patient was moving and continued to bite the tube. Dr. Bartlett, ore bridge operator, aware of patient's transfer to ICU. Suggested CXR, ABG, ICU bundle, CBC, coags, mag, phos , all of which are pending and to be followed. Patient discussed with Dr. Toro Martinez MD who suggested IV amiodarone drip (as amiodarone bolus given during code) along with IVF as patient may have been overdiuresed. Above plan and events discussed and agreed upon with Dr. Parvez MD. Above events discussed with AM team who will follow.
--- NOTE | 2017-01-04 03:06 | RADIOLOGY REPORT ---
EXAMINATION: XR PORTABLE CHEST CLINICAL INFORMATION: ET tube repositioning COMPARISON: Chest x-ray 01/04/2017 1:05 AM TECHNIQUE: Portable AP view of the chest was obtained. 2:40 AM FINDINGS: Endotracheal tube has been repositioned.] Position approximately 4 cm above the karan. Patient rotated to left. There is diffuse bilateral airspace disease or pulmonary edema with bilateral pleural effusions similar prior chest. Status post median sternotomy. Heart size enlarged. IMPRESSION: Endotracheal tube has been repositioned. Catheter now approximately 4 cm above the karan in good position.
--- NOTE | 2017-01-04 03:24 | NUR ---
PT INTUBTED AND ON LEVOPHED GTT. PT REMAINS RESTLESS, FENTANYL GTT STARTED AT 10MCG. PROPOFOL GTT STARTED AT 10MCG. PT REMAINS RESTLESS, UP ON THE FENTANYL AND PROPOFOL GTT. ATIVAN 2MG IV GIVEN WELL , WITH POOR RESULTS. SURGICAL KOLBY MOORE IN TO START A CENTRAL LINE.
--- NOTE | 2017-01-04 04:48 | NUR ---
LATE ENTRY AT 0022 CODE 3 CALLED ON PT. PRIOR TO CODE THIS RN AND MST WERE AT PT'S BEDSIDE CHANGING PT HE WAS INCONTINENT OF URINE, PT WAS A/O AND CONVERSING ON 1L NC, TACHYPNIC BUT DENIED FEELING SOB. PT WAS ROLLED ONTO BACK AND BEING REPOSITIONED WHEN HE BECAME UNRESPONSIVE WITH NO PULSE. CODE 3 WAS CALLED AND CHEST COMPRESSIONS STARTED BY THIS RN AT 0022. AT 0026 SHOCK DELIVERED AND 1 DOSE OF EPI ADMINISTERED. 0030 2ND DOSE OF EPI ADMINISTERED AND PT SUCCESSFULLY INTUBATED BY ANESTHESIA. 0031 SODIUM BICARB AND AMNIODARONE ADMINSTERED. 0033 FEMORAL PULSE WAS PALPATED, HR 144 ON MONITOR IN AFIB WITH PVCs. BP WAS 102/DOPPLER. CENTRAL LINE ATTEMPTED BUT UNSUCCESSFUL. AT 0041 PT FOUND TO BE PULSELESS AND CPR RESUMED. 0042 3RD DOSE OF EPI ADMINISTERED. 0045 CAROTID PULSE WAS PALPATED. 0046 PT TRANSFERED TO ICU ON [facility] TO ROOM 106. REPORT GIVEN TO TANJA YING. PT'S FAMILY WAS CONTACTED DURING THE CODE AND IT WAS CONFIRMED THAT EVERYTHING WAS TO BE DONE.
--- NOTE | 2017-01-04 04:54 | Event Note ---
See Addendum Event Note Event Note: Procedure Note Date: 01/04/17 Name of procedure: Femoral central line placement Reason: Patient is hypotensive requiring pressors General surgery was consulted by Critical Care team for need of central line placment. Patient was admitted for cholecystostomy tube falling out at home but in the interim developed congestive heart failure and has been in house for the past 9 days. Patient was stable until shortly after midnight when patient coded. After rescusitative efforts patient's pulses returned and he was transferred to the ICU. He had been hypotensive requiring pressors at which point general surgery was consulted for central line placement. Consent was obtained from family by critical care team. It was noted that the patient's INR was 2.6. After a several discussions it was determined that a central line was necessary. I called and confirmed with Dr. Ed See that he was ok with me attempting a femoral central line and he agreed to it. Procedure: Patient was laid flat in supine position. Patient was agitated and moving constantly. With his legs being held he was still too agitated and moving quite too much to attempt. After 2 doses of ativan failed to sedate adequeately a propofol gtt was started by critical care team. Patient remained aggitated but restrained by soft restraints and with someone holding his legs throughout the procedure. Patient was prepped and draped in normal sterile fashion. Using ultrasound guidance the left femoral artery was visualized but left femoral vein was not well identified. Using a needle guidance the left femoral vein was accessed but guide wire would not advance. Patient continued to flex his hips and legs and attempt to role onto his side but given his current state of health further sedation was not given. A second attempt to access the left femoral vein yielded similar results. At this point it was decided to attempt the right side. Right side groin was prepped and draped in normal sterile fashion. Using ultrasound the right femoral artery was visualized but again the right femoral vein was not well visualized. Using a needle and aspirating medial to the artery there was good blood return. A guide wire was then inserted easily. A small incision was made and introducer sheath easily penetrated into the groin. The 3-lumen catheter was attempted to be be placed over the guidewire. While holding onto the guidewire with the left hand and pushing the catheter with the right hand the patient again moved and flexed his hips. After pulling back the catheter to see where the guide wire was there was no visualization of the guidewire and was not seen sticking out of the right groin incision. At this time the procedure was stopped and Dr. Ed See was called immediately. Pressure was held over the right groin until hemostasis was obtained. Patients vital signs remained stable and there was no evidence of on the heart monitor of new arrythmias. A chest and an abdomen/pelvis xrays were ordered stat. Will follow the plan closely with Dr. Ed See.
--- NOTE | 2017-01-04 05:03 | RADIOLOGY REPORT ---
EXAMINATION: XR PORTABLE CHEST , ABDOMEN CLINICAL INFORMATION: To visualized guidewire COMPARISON: Chest x-ray 01/04/2017 TECHNIQUE: Portable AP portable view of the chest was obtained. 4:33 AM Abdomen supine FINDINGS: CHEST: EKG leads overlie the chest. There is a wire projecting over the right side the chest from the right side of neck extending vertically across the chest into the upper abdomen. Presumably this represents the guidewire within the vena cava. Status post median sternotomy. Heart size enlarged. Calcification over the left cardiac heart border. This is pericardial calcification is seen on CT abdomen pelvis 12/26/2016. There is mild pulmonary vascular prominence. Bilateral pleural effusions, right larger in volume than left. ABDOMEN: The vertically oriented guidewire extends down to the level of the right sacrum presumably in the vena cava. Multiple surgical clips and sutures over the abdomen and pelvis. No dilated bowel loop. Nonobstructive bowel pattern. There is vascular wall calcifications of the aorta and iliac arteries. IMPRESSION: There is a wire extending across the chest vertically presumably representing the guidewire extending from the neck to the lower abdomen in the vena cava. Clinically correlate.
[2017-01-04 05:10] LABS: ABSOLUTE BASOPHIL COUNT 0 /CUMM (0.0-0.2); ABSOLUTE EOSINOPHIL COUNT 0 /CUMM (0.0-0.7); ABSOLUTE GRANULOCYTE CT 12.6 /CUMM (1.4-6.5); ABSOLUTE LYMPH COUNT 0.6 /CUMM (1.2-3.4); ABSOLUTE MONOCYTE COUNT 1.1 /CUMM (0.10-0.60); BASOPHIL % 0.1 % (0.0-2.0); EOSINOPHIL % 0.2 % (0-5); HEMATOCRIT 30.7 % (42-52); MEAN CORPUSCULAR HGB 30.8 PG (27.0-31.0); MEAN CORPUSCULAR HGB CONC 31.5 G/DL (33.0-37.0); MEAN CORPUSCULAR VOLUME 97.6 FL (80.0-94.0); MEAN PLATELET VOLUME 7.7 FL (7.4-10.4); PLATELET COUNT 153 /CUMM (130-400); RBC DISTRIBUTION WIDTH 18.7 % (11.5-14.5); RED BLOOD CELL CT 3.15 /CUMM (4.70-6.10)
[2017-01-04 05:20] LABS: PT 35.7 SEC (9.4-12.5); PTT 45 SEC (25-37)
[2017-01-04 05:29] LABS: WHITE BLOOD CELL COUNT 14.3 /CUMM (4.8-10.8)
--- NOTE | 2017-01-04 06:24 | Event Note ---
Event Note Event Note: IR attending notified me this AM at 6:20 that patient will be taken as the first case of the day. Patient should have his INR corrected to <2 and IR is requesting FFP, which we have ordered. Patient's next of kin, his veronika Laboy, was notified in regards to these events. She consented to the IR procedure as well as blood products over the phone. This was verified by my resident Dr. Jamal MD.
[2017-01-04 07:05] LABS: ABSOLUTE BASOPHIL COUNT 0 /CUMM (0.0-0.2); ABSOLUTE EOSINOPHIL COUNT 0 /CUMM (0.0-0.7); ABSOLUTE GRANULOCYTE CT 16.9 /CUMM (1.4-6.5); ABSOLUTE LYMPH COUNT 0.7 /CUMM (1.2-3.4); ABSOLUTE MONOCYTE COUNT 1.4 /CUMM (0.10-0.60); BASOPHIL % 0.1 % (0.0-2.0); EOSINOPHIL % 0.3 % (0-5); GRANULOCYTE % 88.6 % (42.2-75.2); HEMATOCRIT 34.8 % (42-52); MEAN CORPUSCULAR HGB 30.9 PG (27.0-31.0); MEAN CORPUSCULAR HGB CONC 32.6 G/DL (33.0-37.0); MEAN CORPUSCULAR VOLUME 94.9 FL (80.0-94.0); MEAN PLATELET VOLUME 7.5 FL (7.4-10.4); PLATELET COUNT 192 /CUMM (130-400); RBC DISTRIBUTION WIDTH 18.4 % (11.5-14.5); RED BLOOD CELL CT 3.67 /CUMM (4.70-6.10); WHITE BLOOD CELL COUNT 19.1 /CUMM (4.8-10.8)
--- NOTE | 2017-01-04 07:19 | Cons- CRCU ---
EULAABRAM 01/04/17 0718: General Information and HPI Consulting Request Date of Consult: 01/04/17 Requested By: sptic shock NSTEMI Reason for Consult: Critical care assessment Post-cardiac arrest Source of Information: old records Exam Limitations: clinical condition History of Present Illness: 81-year-old man was BIBA from [facility] after losing his cholecystotomy tube. Patient has multiple comorbid conditions significant for hypertension, dyslipidemia, "borderline" diabetes mellitus, peripheral vascular disease, gout, and CAD and Valvular disease S/P Aortic valve replacement w/ [place] valve and CABG 2 with SVGs to his LCx and RCA in 1994. On 10/22/2016 he was diagnosed with cholecyctitis. In [facility], cholecystotomy tube was ultimately placed for what was felt to be acute cholecystitis. He had prior episode of tube dislodgement that and had IR (interventional radiology) replace the cholecystotomy tube at least once prior to this admission. His initial labs and Vital signs in the ED, 95.5, 86, 22, 102/65,94% nasal cannula 3 L. Physical exam in the emergency room was unremarkable. WBC 7.7, model been 11.4 hematocrit 34.7 platelet counts 124, sodium 133, potassium 3.8, chloride 93, bicarbonate 31, U and 14, creatinine 1 total bilirubin 1.6 AST 50, ALT 47, alkaline phosphatase 195. Ultrasound of the abdomen was obtained: Moderate volume bilateral pleural effusion, bibasilar atelectasis and lung bases. Ultrasonic examination of the liver gallbladder showed multiple small gallstones without cholecystitis or choledocholithiasis. 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 In the emergency room patient started complaining of shortness of breathing he was placed on oxygen CT scan and chest x-ray showed bilateral pleural effusion. During this admission, from December 26 to January 03, patient remained relatively stable. CT scan of the abdominal pelvis was repeated which did not show any new inflammation and considering his high risk interventional radiologist opted towards not replacing the cholecystostomy. Meanwhile patient did not showed any symptoms of aggravated infection( from - no leukocytosis) and no fever was detected. There is no lab available for and , and a January 04 patient had a white BC count of 14.3 and is 2 hours later 19.1. However patient at all times remained afebrile. Since admission to December 31 patient tends to have a stable blood pressure. Since December 31 patient's blood pressure slowly but progressively dropped. During this is a patient was seen and evaluated by cardiology on a daily basis considering his significance history of hernia artery disease and atrial fibrillation. Repeat echo was obtained which showed left ventricular ejection fraction of more than 50% without abnormal wall motion but mild to moderate RV elevated pressure (61 mmhg) and tricuspid regurgitation. Patient has significant peripheral edema. Initially he was diuresed with IV Lasix and due to increase in his creatinine to IV diuresis was stopped. On January 03 , overnight patient's had 5 beat run of NSVT and 2.5 second positive on personnel monitor. Due to his peripheral edema/fluid overload and unavailability of IV diuresis (due to increased creatinine) patient was started on dobutamine drip on January 03. On January 04 midnight, rapid response was called for Mr. Lowery after he was found unresponsive by nursing staff. His cardiac specialist initially recorded ventricular tachycardia without pulse which quickly converted to ventricular fibrillation and pulseless electrical activity. After CPR for 25 minutes (defibrillation multiple rounds of epinephrine and bicarbonate and amiodarone) his heart rates eventually converted back to atrial fibrillation and patient was transferred to ICU (estimates length of CPR 25 minutes. Patient remained hypotensive and due to his clinical condition medical team was not able to place central IV access, thus, levo fed was is started from a peripheral rounds. In the ICU chest x-ray and ABG and basic ICU labs were repeated. ABG showed pH of 7.50/PCO2 40/bicarbonate 30/and PaO2 95 intubated on 100% oxygen. Chest x- ray showed guidewire which was extending within the inferior vena cava down to the level of sacrum and mild pulmonary vascular prominence with bilateral pleural effusion (right> left). Repeat labs in the ICU showed WBC of 19.1 with 7 bands. Sodium 130, potassium 3.4, anion gap 9 Carbon dioxide 33, creatinine 1 BUN 12, total bilirubin 1.9 AST ALT normal, alkaline phosphatase 163, troponin 0.69. INR 2.69 Allergies/Medications Allergies: Coded Allergies: No Known Allergies (01/04/17) Home Med List: Acetaminophen 325 MG CAPSULE 2 CAP PO Q4H PRN PAIN/TEMP>101 (Reported) Allopurinol 100 MG TABLET 1 TAB PO DAILY GOUT (Reported) Aspirin (Ecotrin*) 81 MG TABLET.DR 1 TAB PO DAILY HEART/BLOOD (Reported) Atorvastatin Calcium 40 MG TABLET 1 TAB PO DAILY CHOLESTEROL (Reported) Bisacodyl 10 MG SUPP.RECT 1 SUP RC Q2D PRN CONSTIPATION (Reported) Furosemide (Lasix) 40 MG TABLET 1 TAB PO DAILY DIURETIC (Reported) Magnesium Hydroxide (Milk Of Magnesia) 400 MG/5 ML ORAL.SUSP 30 ML PO DAILY PRN CONSTIPATION (Reported) Metoprolol Tartrate 25 MG TABLET 0.5 TAB PO BID HEART/BP (Reported) Miconazole Nitrate (Inzo Antifungal) 2 % CREAM..G. 1 ASLAZAR TOP BID BUTTOCKS ( Reported) Na Phos,M-B/Na Phos,Di-Ba (Fleet Enema) 19 GRAM-7 GRAM/118 ML ENEMA 1 E RC Q2D PRN CONSTIPATION (Reported) Nystatin (Nystop) 100,000 UNIT/GRAM POWDER 1 SALAZAR TOP BID GROIN (Reported) Pantoprazole Sodium 40 MG TABLET.DR 1 TAB PO Q12H GI (Reported) Polyethylene Glycol 3350 (Gavilax) 17 GRAM POWD.PACK 1 PAC PO DAILY GI ( Reported) Potassium Chloride (Klor-Con 10) 10 MEQ TABLET.ER 1 TAB PO DAILY SUPPLEMENT ( Reported) Sennosides (Senna) 8.6 MG TABLET 1 TAB PO QPM GI (Reported) Warfarin Sodium (Coumadin) 5 MG TABLET 1 TAB PO DAILY AFIB (Reported) Current Medications: Current Medications Sig/Salud Start time Last Medication Dose Route Stop Time Status Admin Acetaminophen 650 MG Q6P PRN 12/27 0115 AC PO Allopurinol 100 MG DAILY 12/27 1000 AC 01/03 PO 1133 Amiodarone HCl/ 360 MG Q12H 01/04 0345 AC 01/04 Dextrose IV 1324 N/A 1 UNIT Benzonatate 100 MG TID PRN 12/30 2030 AC 01/03 PO 1133 Ceftazidime 1,000 MG Q8H 01/04 1000 DC 01/04 IV 0953 Dobutamine HCl 250 MG Q8H 01/03 1445 DC 01/03 Dextrose/Water 250 ML IV 1645 Fentanyl Citrate 1,000 MCG Q13H 01/04 1245 AC Dextrose/Water 250 ML IV Fentanyl Citrate 1,000 MCG Q24H 01/04 0115 DC 01/04 Dextrose/Water 250 ML IV 0152 Finasteride 5 MG DAILY 12/27 1015 AC 01/03 PO 1133 Heparin Sodium 0 .STK-MED ONE 01/04 0958 DC (Porcine) IV Lidocaine 0 .STK-MED ONE 01/04 0958 DC .ROUTE Lorazepam 2 MG ONCE ONE 01/04 1045 DC 01/04 IV 01/04 1046 1045 Lorazepam 0 .STK-MED ONE 01/04 1042 DC .ROUTE Lorazepam 2 MG ONCE ONE 01/04 1000 DC 01/04 IV 01/04 1001 0958 Lorazepam 1 MG ONCE ONE 01/04 0830 DC 01/04 IV 01/04 0831 0835 Lorazepam 2 MG ONCE ONE 01/04 0300 DC 01/04 IV 01/04 0301 0256 Magnesium Oxide 400 MG BID 12/30 2200 AC 01/03 PO 2119 Magnesium Sulfate 1 GM Q2H 01/04 0100 DC Dextrose/Water 100 ML IV 01/04 0459 Metoprolol Tartrate 12.5 MG BID 01/03 2200 AC PO Midazolam HCl 2 MG ONCE ONE 01/04 0130 DC 01/04 IV 01/04 0131 0126 Non-Formulary 0 SEE ADMIN CRITERIA 01/04 0300 CAN Medication ANY Norepinephrine 4 MG Q3H 01/04 1245 AC Sodium Chloride 250 ML IV Norepinephrine 4 MG Q24H 01/04 0100 DC 01/04 Sodium Chloride 250 ML IV 1003 Norepinephrine 4 MG .STK-MED ONE 01/04 0053 DC IV 01/04 0054 Omeprazole 40 MG 0700,1600 12/27 0700 DC 01/03 PO 1622 Pantoprazole Sodium 40 MG DAILY 01/04 1000 AC 01/04 IV 1322 Polyethylene Glycol 17 GM DAILY 12/27 1000 AC 01/02 PO 1009 Potassium Chloride 20 MEQ ONCE ONE 01/04 1215 DC 01/04 IV 01/04 1216 1221 Potassium Chloride 10 MEQ DAILY 12/27 1000 AC 01/03 PO 1133 Propofol 1,000 MG Q24H 01/04 0315 AC 01/04 N/A 100 ML IV 0330 Propofol 1,000 MG .STK-MED ONE 01/04 0259 DC IV 01/04 0300 Senna/Docusate Sodium 1 TAB Q12P PRN 12/27 0130 AC PO Sodium Chloride 1,000 ML ONCE ONE 01/04 1000 AC 01/04 IV 01/04 1759 1000 Sodium Chloride 500 ML ONCE ONE 01/04 0900 DC 01/04 IV 01/04 0959 0900 Sodium Chloride 500 ML BOLUS ONE 01/04 0900 DC IV 01/04 0959 Sodium Chloride 1,000 ML Q13H 01/04 0345 AC IV Vancomycin HCl 1,500 MG ONCE ONE 01/04 1215 DC 01/04 Dextrose/Water 250 ML IV 01/04 1314 1322 Vancomycin HCl 1,500 MG Q12H 01/04 1000 DC Dextrose/Water 250 ML IV Vasopressin 40 UNITS Q16H 01/04 0800 AC 01/04 Sodium Chloride 100 ML IV 0807 Warfarin Sodium 4 MG COUMADIN 1700 ONE 01/03 1700 DC 01/03 PO 01/03 1701 1622 Review of Systems Review of Systems Constitutional: Reports: see HPI. EENTM: Reports: see HPI. Cardiovascular: Reports: edema. Respiratory: Reports: see HPI. Comments Patient is intubated Volume-controlled assist mode Breathing over the vent machine and slightly agitated and biting down to He is on levo fed and vasopressin for blood pressure Fentanyl and propofol drip for sedation Past History Travel History Traveled to [place] past 21 day No Medical History Blood Transfusion Hx: No Neurological: NONE EENT: epistaxis Cardiovascular: AFIB, CAD, diastolic CHF, hypertension, hyperlipidemia, prosthetic aortic valve replacement in 1994 in 1994 Respiratory: NONE Gastrointestinal: colon cancer s/p subtotal colectomy BILIARY DRAIN ventral hernia s/p repair 1995. post repair Hepatic: NONE Renal: NONE Musculoskeletal: gout Psychiatric: NONE Endocrine: NONE Blood Disorders: NONE Cancer(s): colon/rectal cancer Other Medical Hx: Past medical history includes colonoscopy with subtotal colectomy for cancer in 1989, dyslipidemia status post repair of ventral hernia coronary artery disease status post bypass surgery prostatic aortic valve replacement 1994 for bicuspid aortic valve atrial fibrillation cellulitis severe hypertension and shortness of breath. Surgical History Surgical History: CABG, colon resection, knee replacement Family History Relations & Conditions If Any: MOTHER (family medical history is unknown as the patient is adopted). . FATHER (unknown). . Psychosocial History Where Do You Live? Extended Care Facility Services at Home: None Smoking Status: Former Smoker ETOH Use: occasional use Illicit Drug Use: denies illicit drug use Functional Ability ADLs Unknown: dressing, eating, toileting, bathing. IADLs Unknown: shopping, housework, finances, food prep, telephone, transportation, medication admin. ECHO Results (as available) Date of last Echo 12/27/16 EF% 50 Exam & Diagnostic Data Last 24 Hrs of Vital Signs/I&O Vital Signs Date Time Temp Pulse Resp B/P Pulse O2 O2 Flow FiO2 Ox Delivery Rate 01/04 1324 89 98/66 01/04 1207 100 01/04 1003 98 118/81 01/04 0835 100 01/04 0800 98.9 104 19 98/0 91 Ventilator 100% 01/04 0749 94 98/0 01/04 0644 103 18 90/64 01/04 0624 100 01/04 0428 100 01/04 0400 95 Ventilator 100% 01/04 0221 111 19 108/80 01/04 0115 100 01/04 0000 93 Nasal 1.0L Cannula 01/03 2252 97.7 103 18 92/56 90 Nasal Cannula 01/03 2120 88 90/58 01/03 2031 97 90/58 01/03 1935 97 88/56 01/03 1811 106 88/56 01/03 1736 98 88/52 01/03 1710 92/52 01/03 1645 81 88/52 01/03 1645 85 88/52 01/03 1600 93 Nasal 1.0L Cannula 01/03 1551 97.9 74 18 88/60 93 Nasal Cannula Intake & Output 01/04 1600 01/04 0800 01/04 0000 Intake Total 293 707 Output Total 0 175 Balance 293 532 Intake, IV 293 187 Intake, Oral 520 Number 0 Bowel Movements Output, Urine 0 175 Patient 245 lb 330 lb Weight Physical Exam General Appearance: sedated, intubated, severe distress, obese Head: intubated, no JVD Eyes: Bilateral: PERRL. Ears, Nose, Throat: normal pharynx, normal ENT inspection Neck: normal inspection Respiratory: decreased breath sounds, rhonchi Cardiovascular: edema, irregularly irregular Peripheral Pulses: 2+ brachial (R), 2+ brachial (L), 2+ radial (R), 2+ radial (L), 2+ femoral (R), 2+ femoral (L), 2+ popliteal (R), 2+ popliteal (L) Gastrointestinal: soft, non-tender, No cholecyctostomy Rectal: deferred Back: normal inspection Extremities: pedal edema Neurologic/Psych: sedated Reflexes: 2+: knee (R), knee (L). Skin: intact, normal color Last 48 Hrs of Labs/Esequiel: Laboratory Tests 01/04/17 1300: Troponin I 0.72 *H 01/04/17 0939: PT 28.0 H, INR 2.69 H 01/04/17 0630: Anion Gap 9, Estimated GFR > 60, Glucose 141 H, Calcium 8.6, Phosphorus 3.0, Magnesium 1.9, Total Bilirubin 1.9 H, Direct Bilirubin 1.2 H, AST 57, ALT 47, Alkaline Phosphatase 163 H, Troponin I 0.69 *H, Total Protein 6.3, Albumin 2.4 L, CBC w Diff MAN DIFF ORDERED, RBC 3.67 L, MCV 94.9 H, MCH 30.9, RDW 18.4 H, MPV 7.5, Gran % 88.6 H, Lymphocytes % 3.9 L, Monocytes % 7.1, Eosinophils % 0.3, Basophils % 0.1, Absolute Granulocytes 16.9 H, Segmented Neutrophils 87 H , Band Neutrophils 7 H, Absolute Lymphocytes 0.7 L, Lymphocytes 3 L, Monocytes 3, Absolute Monocytes 1.4 H, Absolute Eosinophils 0, Absolute Basophils 0, Platelet Estimate ADEQUATE, Hypochromic-Microcytic 1+, Anisocytosis 1+, PUBS MCHC 32.6 L 01/04/17 0600: Sodium Cancelled, Potassium Cancelled, Chloride Cancelled, Carbon Dioxide Cancelled, Anion Gap Cancelled, BUN Cancelled, Creatinine Cancelled, BUN/ Creatinine Ratio Cancelled, Magnesium Cancelled 01/04/17 0420: Sodium Cancelled, Potassium Cancelled, Chloride Cancelled, Carbon Dioxide Cancelled, Anion Gap Cancelled, BUN Cancelled, Creatinine Cancelled, Estimated GFR Cancelled, BUN/Creatinine Ratio Cancelled, Lactic Acid Cancelled, Calcium Cancelled, Phosphorus Cancelled, Magnesium Cancelled, Total Bilirubin Cancelled, Direct Bilirubin Cancelled, AST Cancelled, ALT Cancelled, Alkaline Phosphatase Cancelled, Troponin I Cancelled, Total Protein Cancelled, Albumin Cancelled, PT 35.7 H, INR 3.44 H, APTT 45 H, CBC w Diff NO MAN DIFF REQ, RBC 3.15 L, MCV 97.6 H, MCH 30.8, RDW 18.7 H, MPV 7.7, Gran % 88.0 H, Lymphocytes % 3.9 L, Monocytes % 7.8, Eosinophils % 0.2, Basophils % 0.1, Absolute Granulocytes 12.6 H, Absolute Lymphocytes 0.6 L, Absolute Monocytes 1.1 H, Absolute Eosinophils 0, Absolute Basophils 0, PUBS MCHC 31.5 L, Hepatitis A IgM Ab Cancelled, Hep Bs Antigen Cancelled, Hep B Core IgM Ab Conf Cancelled, Hepatitis C Antibody Cancelled, HIV 1&2 Antibody Cancelled 01/04/17 0305: pH 7.50 H, pCO2 40, pO2 95, HCO3 30 H, ABG O2 Sat (Measured) 97.0, P-50 (Temp Corrected) Y, Carboxyhemoglobin 0.6 L, O2 Concentration % 100%, Temperature 97.3, Respiration Rate 18, O2 Delivery Method ESPRIT, Vent Mode AC, Expiratory Pressure 5, Tidal Volume 550, Phlebotomy Draw Site RIGHT RADIAL 01/04/17 0303: PT Cancelled, INR Cancelled, APTT Cancelled 01/03/17 0655: Anion Gap 6, Estimated GFR 34 L, BUN/Creatinine Ratio 27.4 H, Magnesium 2.0, PT 27.3 H, INR 2.62 H 01/02/17 2030: pH 7.38, pCO2 49 H, pO2 77 L, HCO3 29 H, ABG O2 Sat (Measured) 93.0 L, P-50 (Temp Corrected) N, Carboxyhemoglobin 0.6 L, O2 Concentration % 1L, Temperature 97.4, O2 Delivery Method N/C, Phlebotomy Draw Site RIGHT RADIAL Diagnostic Data CXR Results There is mild pulmonary vascular prominence. Bilateral pleural effusions, right larger in volume than left. ABDOMEN: The vertically oriented guidewire extends down to the level of the right sacrum presumably in the vena cava. Assessment/Plan Impression/Plan: Assessment 81-year-old gentleman with multiple comorbidities was admitted for septic shock. Data SOFA 12 Total bili 1.9 LFT normal alkaline phosphatase elevated 163 WBC: 19.1 List of active problems Respiratory: Post cardiac arrest intubated sedated;VCAC. Recent chest x-ray showed mild pulmonary vascular congestion. Due to his low blood pressure and low urine output patient received multiple doses of IV boluses and patient seems to be agitated and and biting the ET tube. However latest ABG from this morning was relatively normal with pH of 7.50 and bicarbonate of 30 and PCO2 of 40. * Mild respiratory alkalosis possibly due to agitation and overventilation * Repeat ABG and and adjust ventilator settings * Aspiration percausion * IV protonix * Head elevation * Obtain daily chest x-ray Infectious disease #1 septic shock with possible source of gallbladder. However repeat CT scan at these admissions did not show any inflammation of the gallbladder. Ultrasound documented gallstones without cholecystitis and choledocholithiasis. Elevated total bili and alkaline phosphatase which was a slightly increased compared to initial presentation. Patient have low blood pressure and needs vasopressor and levo fed for maintain blood pressure. Another cause to consider is worsening congestive heart failure, for which patient already started on dobutamine drip prior to his transfer to ICU. Patient has elevated troponin sequence of low blood pressure due to cardiac arrest or as a consequence of septic shock or NSTEMI. * Admit to ICU * Restrict ins and outs * Place central IV access and is started levophed and vasopressin; titrate for MAP>65mmhg * Send blood culture; urine culture * With consideration of cholecystitis and healthcare contact patient was given 1 dose of vancomycin and ceftazidime. However GI consult and was not impressed by the presentation and did not believe that this is an obvious septic shock. Patient went through a considerable amount of stress, cardiac arrest and multiple injection of epinephrine, which could have triggered the sudden increase in his WBC count. Total bilirubin was initially elevated at 1.6. Elevation in troponin is justifiable in the setting of recent pulseless electrical activity and cardiac arrest and severe hypotension vs NSTEMI. * If patient spikes fever start vancomycin 1000 mg every 12 hours * The patient spikes fever start ceftazidime 1000 mg every 8 hours * Continue IV hydration with normal saline 125 MR per hour * Titrate fluids for CVP has 10-12 * In case of worsening respiratory status obtained ABG and chest x-ray Cardiac Elevated troponin: First troponin 0.69 and second troponin 0.72 . Possibly secondary to prolonged cardiac arrest and CPRand low blood pressure vs NSTEMI Vs end organ damage in the setting of se[tic shock (hypotension). * Rule out acute coronary syndrome; trending troponin * Patient is not a candidate for cardiac catheterization. IV heparin ?? * Metoprolol 12.5 mg by mouth twice a day * Preload dependent; maintain MAP above 65 History of A. fib: Warfarin was held and INR was corrected with fresh frozen plasma for INR procedure. * No anticoagulation at the moment * Amiodarone drip * Metoprolol 12.5 mg 3 times a day for rate control Post cardiac arrest secondary to V. tach * CODE STATUS was changed to DNR/DNI * Amiodarone drip for ventricular tachycardia * Recent echo on December 27 no need for repeat echo * Cardiology daily recommendations is appreciated Elevated RV pressure of 61 mmhg * possibly in the setting of CHF and COPD and OHS/FRANCIE overlap syndrome. Hematology Leukocytosis: Significant leukocytosis and bands of 7 most considerable diagnosis is sepsis and septic shock. however, other reasonable causes for this finding could be acute distress and multiple doses of epinephrine injection. * Follow panculture results * Patient received 1 dose of ceftazidime and vancomycin * For now follow off antibiotics * If patient spikes fever restart ceftaz and Vanco with the aforementioned regimen Normochromic normocytic anemia-no source of blood loss. Stable Metabolic Mild respiratory acidosis possibly due to insufficient sedation and agitation. * Repeat ABG and adjust ventilator Anuria: Prerenal versus renal versus post renal. Latest abdominopelvic CT scan did not show any hydronephrosis or obstruction. Age and had pulseless electrical activity with severe profound hypotension which requires 2 pressors, either of which potentially could have caused ATN. * Urine analysis * Urine Lyte and FeNA%>>> Pre vs renal causes * Maintain IV hydration with normal saline 125 in the upper outer * Considering maintaining CVP of 10-12 IV bolus fluids to reach the goal of 0.5 mL per KG per hour urine output * In case of persistence anuria-oligoria consider nephrology consult Alimantory- NPO; consider tube feeds after 24 hours of hospitalization; and TPN after 7 days of ICU admission Neurology-patient is sedated and intubated; on fentanyl drip; in case of overbreathing the ventilator due to agitation/pain. Please consider Ativan drip for further sedation due to propofol [employer] lowering effect. DNR/DNI DVT prophylaxis: alps Pain-Fentanyl drip Problem List: 1. Mechanical prosthetic aortic valve replacement 2. CAD S/P BYPASS 3. Bicuspid aortic valve 4. CHF (congestive heart failure) 5. Coagulopathy 6. Septic shock 7. Bilateral pleural effusion 8. Hypotension 9. Afib Consult Acknowledgment - Thank you for your consult request. MONO CHURCHILL MD 01/04/17 1863: Assessment/Plan Other Findings/Comments: Mono Shea M.D. have examined this patient, reviewed available EMR data, personally reviewed images, discussed with resident/PA/INDEPENDENT FREIGHT AGENT, discussed management plan with housestaff and nursing staff, discussed managment plan all of healthcare providers, discussed management plan with patient and/or family, agreed with resident/PA/IN[employer]ENDENT [employer]IGHT AGENT. The past history and parts of the chart have been autopopulated. Imprssion 81 year old man * s/p cardiac arrest - vtach as underlying rhythm * shock - septic vs cardiogenic * hx AVR on coumadin * hx cholecystitis * s/p retrieval of guidewire (central line) Plan - vasopressors to maintain MAP >65 - s/p retrieval of guidwire by IR - ID consultation is appreciated, will follow recommendations - f/u cardiology input - monitor hemodynamics - monitor ins/outs, electrolytes Extensive discussion held with family. DNR/DNI status at this time. If patient does not show signs of improvement, consideration for comfort measures will be entertained (we discussed this as an option). DVT prophylaxis at all times (elevated INR on coumadin, now held for procedure and retrieval of guidewire) TTS 60 min Consult Acknowledgment - Thank you for your consult request.
--- NOTE | 2017-01-04 07:22 | PN- Cardiology ---
Subjective Subjective: * Patient is intubated following a cardiac arrest last evening with VT and V. Fib arrest in the setting of a low potassium level. * Guidewire lost in IVC during attempt to place a central line * Increased WBC Objective Vital Signs and I&Os Vital Signs Date Time Temp Pulse Resp B/P Pulse O2 O2 Flow FiO2 Ox Delivery Rate 01/04 0644 103 18 90/64 01/04 0624 100 01/04 0428 100 01/04 0400 95 Ventilator 100% 01/04 0221 111 19 108/80 01/04 0115 100 01/04 0000 93 Nasal 1.0L Cannula 01/03 2252 97.7 103 18 92/56 90 Nasal Cannula 01/03 2120 88 90/58 01/03 2031 97 90/58 01/03 1935 97 88/56 01/03 1811 106 88/56 01/03 1736 98 88/52 01/03 1710 92/52 01/03 1645 81 88/52 01/03 1645 85 88/52 01/03 1600 93 Nasal 1.0L Cannula 01/03 1551 97.9 74 18 88/60 93 Nasal Cannula 01/03 0931 80 90/58 01/03 0847 86/57 01/03 0800 96 Nasal 2.0L Cannula 01/03 0800 97.6 90 22 96 Nasal 1.0L Cannula Intake & Output 01/04 0800 01/04 0000 01/03 1600 01/03 0800 01/03 0000 01/02 1600 Intake Total 293 707 800 120 240 400 Output Total 0 175 800 Balance 293 532 800 120 240 -400 Intake, IV 293 187 Intake, Oral 520 800 120 240 400 Number 0 1 1 2 0 Bowel Movements Output, Urine 0 175 800 Patient 330 lb 229 lb Weight Physical Exam: General: WD/ overweight male in NAD; alert and oriented x 3 Heart: irregularly irregular with crisp valve sounds Lungs: no crackles or wheezing Extremities: 1+ bilateral leg edema Assessment/Plan Assessment/Plan * This patient has had some improvement in his leg edema. Stop diuresis. * Reverse anticoagulation with FFP in anticipation of guidewire retreval by interventional radiology. * Begin Amiodarone at 400mg PO BID; if necessary down an NG tube * Replete potassium to 4.0 * NS at 125cc/hr to maintain a systolic BP of 100mmHg. * Increased WBC. Begin Ceftriaxone. Continue telemetry? Yes
[2017-01-04 08:00] VITALS: BP 98/0
--- NOTE | 2017-01-04 08:00 | NUR ---
Patient is sedated on a fentanyl gtt that has been increased to 25mcg, and propofol has been titrated to off due to hypotension. SAS-3, Patient is able to move all extremities however not to command. Soft restraints x's [address]. Pupils are reactive however left appears slightly sluggish. Afib on tele monitor with PVC's, HR= 90-100's. Amio gtt has been started per order and is infusing at 33.3mls/hr or 1mg/min. SBP: 90-100's, 98/0 with doppler. Levo gtt is maxed at 20mcg and a vasopressin drip was started at 6mls/hr. Pulses are + with doppler. Pt is intubated with a #8 to the left at 22cm, scant blood tinged secretions are noted orally and to the ETT r/t trauma from intubation. Lungs are clear and diminished. Current vent settings: AC 18/550/100/5. Abdomen is distended and soft with + bowel sounds. NPO. Starr in place with dark francisco output approx 5mls/hr. Skin is fragile, thin, and dry with multiple skin tears to the BUE- dressings were changed. A pressure bag remains in place to the left groin r/t attempts to place a TLC. INR remains elevated and pt is due to receive FFP. Plan is for IR procedure to remove guidewire and place an TLC which is scheduled around 1000. Dr. Lozoya made aware of low urine output and ? if pt to receive any IVF. No s/s of pain are currently noted. Call placed to family and they were updated on POC. Georgie to be in to speak with housestaff to discuss goals of care around 1200. Will continue to closely monitor patient.
--- NOTE | 2017-01-04 08:29 | Transfer of Care Summary ---
Hospital Course Course Hospital Course: Patient is an 81-year-old male with significant past medical history of coronary artery disease status post CABG(RCA, LCx), bicuspid aortic valve status post Saint Misael wall replacement(1994), status post stent in LAD(1999), atrial fibrillation on vomiting, CHF, hypertension, recent acute cholecystitis status post percutaneous cholecystostomy tube, BIBA by nursing facility for evaluation of a dislodged percutaneous choley tube. Discussed with Dr. Regalado and according to him. CT abdomen and pelvis shows no any acute inflammation in CBD dilatation. Advised to watch conservatively.If patient started getting right upper quadrant pain, then we will to right upper quadrant ultrasound. He had hematuria secondary to traumatic insertion of the Orantes catheter - Improving, we removed orantes on 01/02/2017. We are regularly monitoring I/O and watching for hematuria. He is having Complications: Coded on 01/04/2017 and transfered to ICU. Assessment/Plan: Plan - * On 01/03/2017 he was complaining of unable to complete a sentence. He seems to be in mild respiratory distress. But according to him, this is the same as before. He denies of any nausea, vomiting, chest pain, palpitation, abdominal pain, decreased urine output, dysuria, hematuria. * [employer] Remy, talked to the daughter, She will come on 01/04/2017 at 12 o' clock to discussed about the goals of care. * Around 10 o'clock,01/03/2017, he had an episode of long pauses, which was 2.3 seconds. we advised to get an EKG state, stop metoprolol, keep atropine at the bedside, put pacer pads on patient.We also advised for chest x-ray which showed increased amount of plu edema. * Discussed Dr. Martinez over the phone, he suggested that it may be due to over diuresis and that's why his creatinine goes up to 1.9 from 0.8. We stopped diuresis for a while and hold metolazone/furosemide. We continued metoprolol and started patient on Dobutamine drip. Hematuria secondary to traumatic insertion of the Orantes catheter - Improving * Strict intake output charting * Watch for hematuria * Orantes catheter removed on 01/03/2017 * continue tablet finasteride 5 mgs daily * CBC, BEP, magnesium, PT/INR daily Coronary artery disease, CABG, status post stenting, AF with controlled ventricular rate on, warfarin, bicuspid aortic wall status post replacement with [employer] Misael valve * We'll continue to follow cardiology recommendation * Target INR 2.5 - 3.5, as the patient is having Saint Misael valve. * INR is 2.62 on 01/03/2017, we gave 4 milligrams of warfarin and repeat the PT/ INR regularly. * Regular monitoring of PT/INR * Watch for bleeding Bilateral Pleural effusion - * As patient was little bit drowsy Dr. Martinez advised to do ABG, to r/o contraction alkalosis on 01/02/2017 * ABG showed pH 7.38, PCO2 49, PO2 77, bicarbonate 29 * Withhold the Lasix/metolazone as his creatinine bumped up to 1.9 Hyponatremia -recovered * Na -138 on 01/03/2017 * We'll regularly monitor it Hypomagnesemia-recovered * Cont magnesium 400 milligrams twice a day History of cholecystitis status post cholecystostomy presented with fall of cholecystostomy tube * Discussed with Dr. Regalado and according to him. CT abdomen and pelvis shows no any acute inflammation in CBD dilatation * Advised to watch conservatively * If patient started getting right upper quadrant pain, then we will to right upper quadrant ultrasound Multiple skin abrasion with oozing of blood - Improved Diet - Heart healthy diet Dvt PPX- warfarin Code status -full code Code status -full code
--- NOTE | 2017-01-04 12:00 | NUR ---
Patient was transferred to IR for a guidewire removal and TLC placement at approx 1000 accompanied by this RN, and Dr. Lozoya. He was transported on the ventilator by respiratory. Vitals remained stable during procedure- He was given ativan per order for increased restlessness and fentanyl gtt was increased per order to 75mcg. A L. groin TLC was placed by the radiologist and a pressure dressing was applied followed by a sand bag due to increased bleeding- last INR 2.69. Vitals remained stable during procedure and amio, vasopressin, and levo continue to infuse. Patient was started on NS @ 125 and recived a 500mls bolus. Dr. Bartlett was in to assess patient prior to IR procedure and POC was discussed. Pt was transported back to ICU and placed on a specialty mattress. Will continue to closely monitor patient.
--- NOTE | 2017-01-04 12:31 | Cons- Infect Disease ---
General Information and HPI Consulting Request Date of Consult: 01/04/17 Requested By: ARACELY VERONICA MD Reason for Consult: Status post cardiac arrest/rule out sepsis Exam Limitations: clinical condition History of Present Illness: This is an 81-year-old man with a history of coronary artery disease, status post CABG and stent placement, aortic stenosis, status post aortic valve replacement over 20 years prior to admission, atrial fibrillation, maintained on Coumadin, hypertension and CHF, status post cholecystostomy tube placement at [place] 2 months prior to admission for cholecystitis after not felt to be a surgical candidate, requiring several replacements of the tube because of dislodgment, admitted on December 26 after he was sent to the emergency room because the tube had again become dislodged. On admission he was afebrile. Laboratory data revealed a white blood cell count of 8000, BUN/creatinine 14 and 1.0, bilirubin 1.6, alk phosphatase 195, INR 2.99. Chest x-ray revealed bilateral pleural effusions. CT of the abdomen and pelvis revealed gallstones with a small amount of stranding fluid around the gallbladder, with no biliary ductal dilatation. He was given a dose of Ceftriaxone in the emergency room and was then followed off antibiotics. Since admission he has been mildly dyspneic, for which he was given increasing doses of Lasix, and was noted to have hematuria from the Starr catheter, which was recently removed. On January 03 he was noted to be more lethargic, with several runs of V. tach and 2.5 sec pauses, with an acute increase in his creatinine to 1.9. Overnight he sustained a cardiac arrest, requiring CPR, intubation and transfer to the ICU, with initiation of pressors for hypotension. A right femoral triple lumen catheter was attempted but unsuccessful, and the guidewire was unable to be retrieved. He was brought down to IR this morning for removal of the guidewire and placement of a triple-lumen catheter in the right groin. He has remained afebrile since admission. His white blood cell count has been normal until this morning, prompting concern for sepsis. Allergies/Medications Allergies: Coded Allergies: NO KNOWN ALLERGIES (12/17/12) Home Med List: Acetaminophen 325 MG CAPSULE 2 CAP PO Q4H PRN PAIN/TEMP>101 (Reported) Allopurinol 100 MG TABLET 1 TAB PO DAILY GOUT (Reported) Aspirin (Ecotrin*) 81 MG TABLET.DR 1 TAB PO DAILY HEART/BLOOD (Reported) Atorvastatin Calcium 40 MG TABLET 1 TAB PO DAILY CHOLESTEROL (Reported) Bisacodyl 10 MG SUPP.RECT 1 SUP RC Q2D PRN CONSTIPATION (Reported) Furosemide (Lasix) 40 MG TABLET 1 TAB PO DAILY DIURETIC (Reported) Magnesium Hydroxide (Milk Of Magnesia) 400 MG/5 ML ORAL.SUSP 30 ML PO DAILY PRN CONSTIPATION (Reported) Metoprolol Tartrate 25 MG TABLET 0.5 TAB PO BID HEART/BP (Reported) Miconazole Nitrate (Inzo Antifungal) 2 % CREAM..G. 1 SALAZAR TOP BID BUTTOCKS ( Reported) Na Phos,M-B/Na Phos,Di-Ba (Fleet Enema) 19 GRAM-7 GRAM/118 ML ENEMA 1 E RC Q2D PRN CONSTIPATION (Reported) Nystatin (Nystop) 100,000 UNIT/GRAM POWDER 1 SALAZAR TOP BID GROIN (Reported) Pantoprazole Sodium 40 MG TABLET.DR 1 TAB PO Q12H GI (Reported) Polyethylene Glycol 3350 (Gavilax) 17 GRAM POWD.PACK 1 PAC PO DAILY GI ( Reported) Potassium Chloride (Klor-Con 10) 10 MEQ TABLET.ER 1 TAB PO DAILY SUPPLEMENT ( Reported) Sennosides (Senna) 8.6 MG TABLET 1 TAB PO QPM GI (Reported) Warfarin Sodium (Coumadin) 5 MG TABLET 1 TAB PO DAILY AFIB (Reported) Past History Travel History Traveled to [place] past 21 day No Medical History Blood Transfusion Hx: No Neurological: NONE EENT: epistaxis Cardiovascular: AFIB, CAD, diastolic CHF, hypertension, hyperlipidemia, prosthetic aortic valve replacement in 1994 in 1994 Respiratory: NONE Hepatic: cholecystitis (s/p cholecystostomy tube) Renal: NONE Musculoskeletal: gout Psychiatric: NONE Endocrine: NONE Blood Disorders: NONE Cancer(s): colon/rectal cancer History of MRSA: No History of VRE: No History of CDIFF: No Isolation History: Standard Surgical History Surgical History: CABG, colon resection (subtotal colectomy), hernia repair- ventral, St. Misael's aortic valve replacement for bicuspid aortic valve Family History Relations & Conditions If Any: MOTHER (family medical history is unknown as the patient is adopted). . FATHER (unknown). . Psychosocial History Where Do You Live? Extended Care Facility Services at Home: None Smoking Status: Former Smoker ETOH Use: occasional use Illicit Drug Use: denies illicit drug use Review of Systems Comments Unobtainable Exam & Diagnostic Data Last 24 Hrs of Vital Signs/I&O Vital Signs Date Time Temp Pulse Resp B/P Pulse O2 O2 Flow FiO2 Ox Delivery Rate 01/04 1207 100 01/04 1003 98 118/81 01/04 0835 100 01/04 0800 98.9 104 19 98/0 91 Ventilator 100% 01/04 0749 94 98/0 01/04 0644 103 18 90/64 01/04 0624 100 01/04 0428 100 01/04 0400 95 Ventilator 100% 01/04 0221 111 19 108/80 01/04 0115 100 01/04 0000 93 Nasal 1.0L Cannula 01/03 2252 97.7 103 18 92/56 90 Nasal Cannula 01/03 2120 88 90/58 01/03 2031 97 90/58 01/03 1935 97 88/56 01/03 1811 106 88/56 01/03 1736 98 88/52 01/03 1710 92/52 01/03 1645 81 88/52 01/03 1645 85 88/52 01/03 1600 93 Nasal 1.0L Cannula 01/03 1551 97.9 74 18 88/60 93 Nasal Cannula Intake & Output 01/04 1600 01/04 0800 01/04 0000 Intake Total 293 707 Output Total 0 175 Balance 293 532 Intake, IV 293 187 Intake, Oral 520 Number 0 Bowel Movements Output, Urine 0 175 Patient 330 lb Weight Physical Exam Other Physical Findings: He is unresponsive on the ventilator, on 2 pressors. He is afebrile. Skin reveals multiple ecchymoses with skin discoloration and scattered lesions. HEENT exam is negative. Neck is supple with no adenopathy. Lungs bilateral rhonchi. Heart irregular rhythm with no murmur. Abdomen is soft, nontender with positive bowel sounds. Back no CVA tenderness. Extremities venous stasis changes both lower extremities; right femoral triple-lumen catheter in place. Neuro unable to evaluate. Starr catheter in place with scant hematuria Last 24 Hours of Lab Results: Laboratory Tests 01/04 01/04 0939 0630 Chemistry Sodium (137 - 145 mmol/L) 130 L Potassium (3.5 - 5.1 mmol/L) 3.4 L Chloride (98 - 107 mmol/L) 88 L Carbon Dioxide (22 - 30 mmol/L) 33 H Anion Gap (5 - 16) 9 BUN (9 - 20 mg/dL) 12 Creatinine (0.7 - 1.2 mg/dL) 1.0 Estimated GFR (>60 ml/min) > 60 Glucose (65 - 99 mg/dL) 141 H Calcium (8.4 - 10.2 mg/dL) 8.6 Phosphorus (2.5 - 4.5 mg/dL) 3.0 Magnesium (1.6 - 2.3 mg/dL) 1.9 Total Bilirubin (0.2 - 1.3 mg/dL) 1.9 H Direct Bilirubin (< 0.4 mg/dL) 1.2 H AST (17 - 59 U/L) 57 ALT (21 - 72 U/L) 47 Alkaline Phosphatase (< 127 U/L) 163 H Troponin I (<0.11 ng/ml) 0.69 *H Total Protein (6.3 - 8.2 g/dL) 6.3 Albumin (3.5 - 5.0 g/dL) 2.4 L Coagulation PT (9.4 - 12.5 SEC) 28.0 H INR (0.90 - 1.17) 2.69 H Hematology CBC w Diff MAN DIFF ORDERED WBC (4.8 - 10.8 /CUMM) 19.1 H RBC (4.70 - 6.10 /CUMM) 3.67 L Hgb (14.0 - 18.0 G/DL) 11.3 L Hct (42 - 52 %) 34.8 L MCV (80.0 - 94.0 FL) 94.9 H MCH (27.0 - 31.0 PG) 30.9 RDW (11.5 - 14.5 %) 18.4 H Plt Count (130 - 400 /CUMM) 192 MPV (7.4 - 10.4 FL) 7.5 Gran % (42.2 - 75.2 %) 88.6 H Lymphocytes % (20.5 - 51.1 %) 3.9 L Monocytes % (1.7 - 9.3 %) 7.1 Eosinophils % (0 - 5 %) 0.3 Basophils % (0.0 - 2.0 %) 0.1 Absolute Granulocytes (1.4 - 6.5 /CUMM) 16.9 H Segmented Neutrophils (42.2 - 75.2 %) 87 H Band Neutrophils (0.0 - 5.0 %) 7 H Absolute Lymphocytes (1.2 - 3.4 /CUMM) 0.7 L Lymphocytes (20.5 - 51.1 %) 3 L Monocytes (1.7 - 9.3 %) 3 Absolute Monocytes (0.10 - 0.60 /CUMM) 1.4 H Absolute Eosinophils (0.0 - 0.7 /CUMM) 0 Absolute Basophils (0.0 - 0.2 /CUMM) 0 Platelet Estimate (ADEQUATE) ADEQUATE Hypochromic-Microcytic 1+ Anisocytosis 1+ PUBS MCHC (33.0 - 37.0 G/DL) 32.6 L 01/04 01/04 0420 0305 Blood Gas pH (7.35 - 7.45 PH) 7.50 H pCO2 (35 - 45 TORR) 40 pO2 (80 - 100 TORR) 95 HCO3 (21 - 28 MEQ/L) 30 H ABG O2 Sat (Measured) (>96.0 %) 97.0 P-50 (Temp Corrected) Y Carboxyhemoglobin (1.5 - 5.0 %) 0.6 L O2 Concentration % 100% Temperature (97.0 - 100.0 FARH) 97.3 Respiration Rate (BPM) 18 O2 Delivery Method ESPRIT Vent Mode AC Expiratory Pressure (CMH2O/P) 5 Tidal Volume (CC) 550 Chemistry Sodium Cancelled Potassium Cancelled Chloride Cancelled Carbon Dioxide Cancelled Anion Gap Cancelled BUN Cancelled Creatinine Cancelled Estimated GFR Cancelled BUN/Creatinine Ratio Cancelled Lactic Acid Cancelled Calcium Cancelled Phosphorus Cancelled Magnesium Cancelled Total Bilirubin Cancelled Direct Bilirubin Cancelled AST Cancelled ALT Cancelled Alkaline Phosphatase Cancelled Troponin I Cancelled Total Protein Cancelled Albumin Cancelled Coagulation PT (9.4 - 12.5 SEC) 35.7 H INR (0.90 - 1.17) 3.44 H APTT (25 - 37 SEC) 45 H Hematology CBC w Diff NO MAN DIFF REQ WBC (4.8 - 10.8 /CUMM) 14.3 H RBC (4.70 - 6.10 /CUMM) 3.15 L Hgb (14.0 - 18.0 G/DL) 9.7 L Hct (42 - 52 %) 30.7 L MCV (80.0 - 94.0 FL) 97.6 H MCH (27.0 - 31.0 PG) 30.8 RDW (11.5 - 14.5 %) 18.7 H Plt Count (130 - 400 /CUMM) 153 MPV (7.4 - 10.4 FL) 7.7 Gran % (42.2 - 75.2 %) 88.0 H Lymphocytes % (20.5 - 51.1 %) 3.9 L Monocytes % (1.7 - 9.3 %) 7.8 Eosinophils % (0 - 5 %) 0.2 Basophils % (0.0 - 2.0 %) 0.1 Absolute Granulocytes (1.4 - 6.5 /CUMM) 12.6 H Absolute Lymphocytes (1.2 - 3.4 /CUMM) 0.6 L Absolute Monocytes (0.10 - 0.60 /CUMM) 1.1 H Absolute Eosinophils (0.0 - 0.7 /CUMM) 0 Absolute Basophils (0.0 - 0.2 /CUMM) 0 PUBS MCHC (33.0 - 37.0 G/DL) 31.5 L Miscellaneous Phlebotomy Draw Site RIGHT RADIAL Serology Hepatitis A IgM Ab Cancelled Hep Bs Antigen Cancelled Hep B Core IgM Ab Conf Cancelled Hepatitis C Antibody Cancelled HIV 1&2 Antibody Cancelled 01/04 0303 Coagulation PT Cancelled INR Cancelled APTT Cancelled Last 24 Hours of Esequiel Results: Blood cultures January 04 pending Diagnostic Data Recent Imaging Findings: Abdominal x-ray January 04 reveals a wire extending across the chest vertically extending from the neck to the lower abdomen in the vena cava; no dilated bowel loops Chest x-ray January 04 reveals mild pulmonary vascular prominence with bilateral pleural effusions; wire projecting over the right side of the chest into the upper abdomen as noted on the abdominal film CT of the abdomen and pelvis December 26 revealed gallstones with a small amount of stranding fluid around the gallbladder, with no biliary ductal dilatation. Assessment/Plan Assessment/Plan Impression: This is an 81-year-old man with an extensive cardiac history, including coronary artery disease, status post CABG, atrial fibrillation, for which he is on Coumadin and status post aortic valve replacement, status post placement of a cholecystostomy tube 2 months prior to admission for cholecystitis, with frequent dislodgments, the most recent leading to his current admission on December 26, found on admission to be afebrile with a normal white blood cell count but with mildly elevated liver enzymes, with the decision made not to replace the cholecystostomy, treated for CHF over the past week now status post cardiac arrest with hypotension, requiring pressors, and an increased white blood cell count. I suspect a cardiac etiology to his cardiac arrest, with sepsis possible but appearing less likely. Possible sources of sepsis include a the biliary tree, with the persistently elevated bilirubin and alkaline phosphatase, pneumonia, secondary to his cardiac arrest, and the urinary tract, with the recent Starr catheter, which was removed 2 days ago, and has now been replaced. His prognosis is poor and may affect decisions regarding further evaluation. Suggestion: 1. Would obtain sputum and urine cultures 2. Could obtain a right upper quadrant ultrasound 3. Will need to replace the right femoral line in the next few days if aggressive care is to be continued 4. Vancomycin 1.5 g IV 1 and Ceftazidime 1 g IV 1 pending cultures Consult Acknowledgment - Thank you for your consult request.
--- NOTE | 2017-01-04 13:14 | Event Note ---
Event Note Event Note: Patient underwent an uneventful removal of disloged guide wire followed by placement of right femoral line. Guidewire sent to lab. Will closely monitor the patient for any bleeding.
--- NOTE | 2017-01-04 15:11 | ULTRASOUND REPORT ---
EXAMINATION: US ABDOMEN COMPLETE CLINICAL INFORMATION: Possible septic shock. Assess for cholecystitis. COMPARISON: Abdominal x-ray earlier 01/04/[address] scan of the abdomen and pelvis 12/26/2016. TECHNIQUE: Real-time imaging of the abdominal viscera. Imaging is suboptimal due to technical factors. The patient was unable to cooperate with positioning. FINDINGS: PANCREAS: The visualized pancreatic head and body are normal in appearance. The remainder of the pancreas is obscured from visualization by the overlying bowel gas. ABDOMINAL AORTA: Poorly visualized. INFERIOR VENA CAVA: Poorly visualized. LIVER: The liver is not enlarged. It has a lobular contour. There is a small amount of ascites around the liver. The intrahepatic ducts are not dilated. GALLBLADDER: The gallbladder is moderately well distended. No dependent or mobile echogenic calculi are demonstrated. The gallbladder wall measures 0.3 cm, which may be related to the ascites. COMMON BILE DUCT: Normal in caliber measuring 0.3 cm in diameter. RIGHT KIDNEY: There is no hydronephrosis. There are no renal calculi. There is an exophytic cyst at the upper pole of the right kidney which measures 6.8 x 7.3 x 5.4 cm. The kidney measures 11.3 cm in maximum dimension. LEFT KIDNEY AND SPLEEN: Not visualized, due to inability to move the patient. FREE FLUID: There is mild ascites. IMPRESSION: 1. There is no ultrasonic evidence for acute cholecystitis, but the study is suboptimal as described above. 2. The liver has a nodular contour and there is trace ascites. 3. There is a large cyst at the upper pole of the right kidney.
[2017-01-04 16:00] VITALS: BP 102/0
[2017-01-04 16:45] LABS: ABSOLUTE BASOPHIL COUNT 0 /CUMM (0.0-0.2); ABSOLUTE EOSINOPHIL COUNT 0 /CUMM (0.0-0.7); ABSOLUTE GRANULOCYTE CT 13.6 /CUMM (1.4-6.5); ABSOLUTE LYMPH COUNT 0.9 /CUMM (1.2-3.4); ABSOLUTE MONOCYTE COUNT 1.2 /CUMM (0.10-0.60); BASOPHIL % 0 % (0.0-2.0); EOSINOPHIL % 0 % (0-5); HEMATOCRIT 32.2 % (42-52); MEAN CORPUSCULAR HGB 30.8 PG (27.0-31.0); MEAN CORPUSCULAR HGB CONC 32.8 G/DL (33.0-37.0); MEAN PLATELET VOLUME 7.5 FL (7.4-10.4); PLATELET COUNT 132 /CUMM (130-400); RBC DISTRIBUTION WIDTH 18.2 % (11.5-14.5); RED BLOOD CELL CT 3.43 /CUMM (4.70-6.10); WHITE BLOOD CELL COUNT 15.7 /CUMM (4.8-10.8)
[2017-01-04 16:50] LABS: GRANULOCYTE % 86.8 % (42.2-75.2)
--- NOTE | 2017-01-04 17:00 | NUR ---
Patient remains sedated on a fentanyl gtt at 75mcg. He is able to move all extremties but not to command. Pupils are 3mm and reactive- left slightly sluggish. Soft bilateral wrist restraints in place. SAS-3. Afib w/ PVC's on tele monitor, HR= 80-90's. amio gtt now infusing at 0.5mg/min or 16.7mls. Levo continues to infuse at a max rate of 20mcg and vasopressin at 6mls/hr. SBP: 90-100 by autocuff and is slightly higher with the doppler- see flow sheet. Pulses are positive with the doppler. Remains intubated with a #8 to the left at 22cm, Vent settings currently AC 18/550/60/5. O2 sats stable at 100% Lungs clear and diminished at the bases with scant amounts of blood tinged secretions noted orally and to the ETT. OGT was placed and a CXR was done- awaiting results for confirmation. Scant amounts of greenout is now noted. Abdomen is distended and soft with + bowel sounds. He was INC of stool earlier this AM which was noted to be Guiac positive however it was unclear if this was related to some bloody drainage that may have leaked on the pad from the TLC attempts. Dr. Lozoya aware. Starr in place draining dark francisco urine approx 10mls/hr. Normal saline boluses have been given and Dr. Hernández is aware of the low urine output. SKin remains thin and fragile with multiple skin tears to the BUE. Denuded areas noted to the abd folds. Pressure dressing in place to the TLC site- sand bags have been removed. NS infusing at 125mls/hr. No s/s of pain are currently noted and vitals remain stable at this time. Pts niece in to speak with family this afternoon and code status was changed to a DNR/DNI. Repeat labs drawn and pending. Will continue to closely monitor patient.
--- NOTE | 2017-01-04 17:02 | ULTRASOUND REPORT ---
EXAMINATION: INTRAVASCULAR FOREIGN BODY RETRIEVAL (GUIDEWIRE) UNDER SONOGRAPHIC AND FLUOROSCOPIC GUIDANCE, CENTRAL LINE PLACEMENT UNDER FLUOROSCOPIC GUIDANCE CLINICAL INFORMATION: 81-year-old male status post cardiac arrest with loss of guidewire into the venous system. Poor peripheral venous access. COMPARISON: Portable chest x-ray and abdomen films obtained earlier today at 04:10. BEAUTY COUNSELOR: El Davison M.D. ACCESS: Right common femoral vein DESCRIPTION: Informed consent was obtained from the patient's niece, Cayla Reed (MANNY) prior to the procedure. During this process, which occurred via telephone, the procedure and potential alternatives were explained along with the intended outcome and benefits. The risks of the procedure including the possibility of an unsuccessful procedure, as well as the risk of not doing the procedure were discussed. The patient's niece was given the opportunity to ask questions regarding the procedure and appeared competent to make medical decisions. A signed consent form which documented this discussion was placed in the medical record. The patient's prior imaging studies were reviewed. The patient was brought to the interventional radiology suite and a final timeout procedure was performed. The patient was placed on the procedure table in the supine position. The patient is was monitored by his ICU team. IV fentanyl and Ativan were administered during the procedure for patient agitation. Spot films were obtained demonstrating the presence of a guidewire in the venous system from the upper right internal jugular vein at the level of the mastoid tip extending through the superior vena cava, right heart, and IVC with its tip in the mid right common iliac vein. A sonographic survey was performed for assessment of venous access. The right common femoral vein was confirmed to be patent. A sonographic image was sent to PACS for documentation. . The right groin was sterilely prepped and draped. Maximum sterile barrier technique was maintained throughout the procedure. Following administration of local anesthesia with 1% lidocaine, a puncture was performed of the right common femoral vein vein under direct sonographic visualization using a micro-stick system. A 0.035 inch Glidewire was introduced into the inferior vena cava. Serial dilatations were performed over the wire. A 9 [place] Bright tip sheath was introduced into the right common iliac vein under fluoroscopic guidance. An Ensnare 18-30 mm diameter complex helical snare was then introduced through the sheath. The snare was opened and utilized to capture the inferior straight end of the guidewire which was then pulled through the sheath in toto. The guidewire was inspected and confirmed to be intact measuring 60 cm in length with a 1 cm J floppy tip on the superior tip and and a straight floppy tip inferiorly. The guidewire was submitted to pathology for documentation. The sheath was removed over a Glidewire and exchanged for a 7 [place], 15 cm length triple-lumen catheter which was positioned with its tip in the right common femoral vein. This catheter hub was secured to the skin with 2-0 silk suture. Claves were placed on the catheter ports and flushed with normal saline. A sterile pressure dressing was applied. A Biopatch will be placed around the catheter in the ICU at a later time to allow maintenance of hemostatic pressure. The patient tolerated the procedure well. There was no evidence of complications. FLUOROSCOPY TIME: 6.3minutes IMPRESSION: 1. Successful snare capture and removal of the 60 cm length guidewire from the patient's venous system via the right common femoral vein. 2. Placement of a 7 [place] triple-lumen via the right common femoral vein.
--- NOTE | 2017-01-04 17:15 | RADIOLOGY REPORT ---
EXAMINATION: XR PORTABLE CHEST CLINICAL INFORMATION: Post orogastric tube placement. Confirm position COMPARISON: Earlier same day TECHNIQUE: Portable frontal view of the chest was obtained. FINDINGS: The study is markedly limited. Multiple devices overlie the patient. The endotracheal tube tip is approximately 5 cm above the karan. There is an enteric tube present. I cannot confirm tube position. There is rotation to the left. The mediastinum libby and vasculature are obscured. There is aeration of the upper lungs. The lungs are overpenetrated. Bone detail is obscured. IMPRESSION: Nondiagnostic study. There is an enteric tube present but the tip is not well demonstrated. There is hypoinflation and there is abnormal density in the lower chest. Consider a repeat study
--- NOTE | 2017-01-04 19:19 | RADIOLOGY REPORT ---
EXAMINATION: XR PORTABLE CHEST CLINICAL INFORMATION: Tube placement. Confirm OG tube placement COMPARISON: Film earlier the same day TECHNIQUE: Portable AP view of the chest was obtained. FINDINGS: The study is markedly limited. The study is centered over the region of the diaphragm. There is rotation and multiple devices overlie the patient. There is a portion of the endotracheal tube demonstrated. Multiple devices overlie the patient. Evidence of sternotomy. The enteric tube is demonstrated into the proximal stomach. The port is likely just beyond the GE junction. Bibasilar pleural and parenchymal disease. IMPRESSION: Limited study. The OG tube extends into the proximal stomach
[2017-01-05] VITALS: BP 102/59
[2017-01-05 05:36] LABS: ABSOLUTE BASOPHIL COUNT 0.1 /CUMM (0.0-0.2); ABSOLUTE EOSINOPHIL COUNT 0 /CUMM (0.0-0.7); ABSOLUTE GRANULOCYTE CT 12.1 /CUMM (1.4-6.5); ABSOLUTE MONOCYTE COUNT 1.1 /CUMM (0.10-0.60); BASOPHIL % 0.4 % (0.0-2.0); EOSINOPHIL % 0.3 % (0-5); GRANULOCYTE % 84.2 % (42.2-75.2); HEMATOCRIT 31.5 % (42-52); MEAN CORPUSCULAR HGB 30.6 PG (27.0-31.0); MEAN CORPUSCULAR HGB CONC 32.7 G/DL (33.0-37.0); MEAN CORPUSCULAR VOLUME 93.5 FL (80.0-94.0); MEAN PLATELET VOLUME 7.7 FL (7.4-10.4); PLATELET COUNT 128 /CUMM (130-400); RBC DISTRIBUTION WIDTH 18.5 % (11.5-14.5); RED BLOOD CELL CT 3.37 /CUMM (4.70-6.10); WHITE BLOOD CELL COUNT 14.3 /CUMM (4.8-10.8)
--- NOTE | 2017-01-05 07:01 | RADIOLOGY REPORT ---
EXAMINATION: XR PORTABLE CHEST CLINICAL INFORMATION: ET tube placement. COMPARISON: Chest x-ray 01/04/2017 TECHNIQUE: Portable AP portable view of the chest was obtained. 6:33 AM FINDINGS: Endotracheal tube catheter about 5 cm above the karan good position. There is a nasogastric tube present but cannot see the tip due to body habitus and underpenetration over the lower chest upper abdomen. Status post median sternotomy. There is persistent pulmonary vascular congestion and haziness at lung bases bilateral pleural effusions and likely underlying consolidation atelectasis IMPRESSION: 1. Endotracheal tube catheter tip in good position about 5 cm above karan. 2. Nasogastric tube tip cannot be confirmed. Overpenetrated radiograph of the lower chest upper abdomen would be helpful for further assessment. 3. Congestive heart failure with bilateral pleural effusions and likely bibasilar infiltrate/atelectasis.
--- NOTE | 2017-01-05 07:30 | NUR ---
REC'D PT IN BED @1999. INTUBATED & VENTED ON AC MODE RT FELICE <FIO2 TO 40%. PT'S POX HOOVING IN THE LOW 90-94%, LS DIMINISHED THROUGHOUT THE LOBES. AFIB W/PVC ON THE MONITOR W/HR 90-100'S. SBP 90-100'S CORRALTING TO BOTH CUFFS. ON LEVO @20MCG/MIN, AMIO GTT 0.5MG/MIN & VASOPRESSIN @0.04U/HR. SEDATED ON FENT GTT @100MCG. SAS 2-3. FC INSITU BUT POOR U/O ZEKE COLOR DR. BECKER & DR. CHO AWARE OF THE POOR U/O , NO CHANGES ON THE IVF NS @125ML/HR. OGT CONFIRMED BY 2ND XRAY & CAN USE IT. PER DR. BECKER TO GIVE LOPRESSOR & MAG OXIDE PO THRU THE OGT, HELD FOR 1HR & AFTERWARDS TO LWS OF GREENISH BILE. ON TOTAL CARE BED. BUE BRUISED & SWOLLEN ELEVATED ON PILLOWS. DOPPLER PEDAL PULSES PRESENT. DURING T&P OR ANY STIMULUS PT GETS RESTELSS, HR >100'S, RR> 30'S & DESATS IN MID 80'S. USED 100% TEMP X3. CHANGED DRSG TO R TLC STILL OOZING BLOOD. CONT TO MONITOR THROUGHOUT THE NIGHT. 0730 [facility].
--- NOTE | 2017-01-05 09:12 | PN- Resident CRCU ---
Subjective HPI/CRCU Issues: Patient seen and examined this morning. He is lying in bed in no acute distress. Remains intubated . Responsive to painful stimuli. Remains on Vasopressin drip with goal map of about 65 mm mercury, fentanyl, Levophed and amiodarone drip, low urine output. Will discuss with cardiology, on stopping amiodarone drip. Has remained afebrile, will follow ABGs. CXR done this AM, Endotracheal tube catheter tip in good position about 5 cm above karan. Potassium and phosphate low, replaced. 24 Hour Events: no Acute overnight events. Objective Vital Signs & I&O Last 8 Hrs of Vitals and I&O: Laboratory Tests 01/05/17 0515: Anion Gap 5, Estimated GFR 53 L, Glucose 156 H, Calcium 8.4, Phosphorus 2.3 L , Magnesium 2.0, Total Bilirubin 2.3 H, AST 51, ALT 44, Troponin I 0.38 *H, Albumin 2.3 L, CBC w Diff NO MAN DIFF REQ, RBC 3.37 L, MCV 93.5, MCH 30.6, RDW 18.5 H, MPV 7.7, Gran % 84.2 H, Lymphocytes % 7.2 L, Monocytes % 7.9, Eosinophils % 0.3, Basophils % 0.4, Absolute Granulocytes 12.1 H, Absolute Lymphocytes 1.0 L, Absolute Monocytes 1.1 H, Absolute Eosinophils 0, Absolute Basophils 0.1, PUBS MCHC 32.7 L 01/04/17 1840: Troponin I 0.60 *H 01/04/17 1815: Ur Random Creatinine 128.3, Ur Random Sodium 16 L, Ur Random Potassium 100.4, Fraction Sodium Excret 0.1 01/04/17 1615: Anion Gap 11, Estimated GFR 58 L, Glucose 188 H, Calcium 8.1 L, Phosphorus 2.7, Magnesium 2.0, Total Bilirubin 2.1 H, AST 55, ALT 44, Albumin 2.4 L, CBC w Diff NO MAN DIFF REQ, RBC 3.43 L, MCV 94.0, MCH 30.8, RDW 18.2 H, MPV 7.5, Gran % 86.8 H, Lymphocytes % 5.6 L, Monocytes % 7.6, Eosinophils % 0, Basophils % 0 L, Absolute Granulocytes 13.6 H, Absolute Lymphocytes 0.9 L, Absolute Monocytes 1.2 H, Absolute Eosinophils 0, Absolute Basophils 0, PUBS MCHC 32.8 L 01/04/17 1300: Troponin I 0.72 *H Vital Signs Date Time Temp Pulse Resp B/P Pulse O2 O2 Flow FiO2 Ox Delivery Rate 01/05 0916 96 115/78 01/05 0745 50 01/05 0619 50 01/05 0615 40 01/05 0540 89 100/73 01/05 0400 92 Ventilator 40% 01/05 0317 40 01/05 0200 89 97/62 01/05 0046 40 01/05 0045 104 119/75 01/05 0000 98.7 96 18 102/59 93 Ventilator 40% 01/05 0000 93 Ventilator 40% 01/04 2357 81 102/59 01/04 2330 96 103/62 01/04 2230 94 102/64 01/04 2151 40 01/04 2000 93 Ventilator 40% 01/04 1836 40 01/04 1709 60 01/04 1615 80 01/04 1600 97.9 86 18 102/0 100 Ventilator 80% 01/04 1600 100 Ventilator 80% 01/04 1515 80 106/69 01/04 1450 80 01/04 1324 89 98/66 01/04 1207 100 01/04 1200 100 Ventilator 100% Intake & Output 01/05 1600 01/05 0800 01/05 0000 Intake Total 1748 2320 Output Total 100 125 Balance 1648 2195 Intake, IV 1748 2290 Intake, Other 30 Number 0 0 Bowel Movements Output, 0 50 Gastric Drainage Output, Urine 100 75 Patient 105.489 kg 105.489 kg Weight Intake & Output 01/05 1600 Intake Total Output Total Balance Patient 105.489 kg Weight Exam General Appearance: well developed/nourished, sedated, intubated Head: atraumatic Respiratory: normal breath sounds Cardiovascular: regular rate/rhythm Gastrointestinal: normal bowel sounds Extremities: normal inspection, no edema Current Medications: Current Medications Sig/Salud Start time Last Medication Dose Route Stop Time Status Admin Acetaminophen 650 MG Q6P PRN 12/27 0115 AC PO Allopurinol 100 MG DAILY 12/27 1000 AC 01/03 PO 1133 Amiodarone HCl/ 360 MG Q12H 01/04 0345 AC 01/04 Dextrose IV 2357 N/A 1 UNIT Benzonatate 100 MG TID PRN 12/30 2030 AC 01/03 PO 1133 Ceftazidime 1,000 MG Q8H 01/04 1000 DC 01/04 IV 0953 Fentanyl Citrate 1,000 MCG Q13H 01/04 1245 AC 01/05 Dextrose/Water 250 ML IV 0258 Fentanyl Citrate 1,000 MCG Q24H 01/04 0115 DC 01/04 Dextrose/Water 250 ML IV 0152 Finasteride 5 MG DAILY 12/27 1015 AC 01/03 PO 1133 Lorazepam 2 MG ONCE ONE 01/04 1045 DC 01/04 IV 01/04 1046 1045 Lorazepam 0 .STK-MED ONE 01/04 1042 DC .ROUTE Magnesium Oxide 400 MG BID 12/30 2200 AC 01/04 PO 2330 Metoprolol Tartrate 12.5 MG BID 01/03 2200 AC 01/04 PO 2330 Norepinephrine 4 MG Q3H 01/04 1245 AC 01/05 Sodium Chloride 250 ML IV 0916 Norepinephrine 4 MG .STK-MED ONE 01/04 1138 DC IV 01/04 1139 Norepinephrine 4 MG Q24H 01/04 0100 DC 01/04 Sodium Chloride 250 ML IV 1003 Pantoprazole Sodium 40 MG DAILY 01/04 1000 AC 01/05 IV 0919 Polyethylene Glycol 17 GM DAILY 12/27 1000 AC 01/02 PO 1009 Potassium Chloride 20 MEQ ONCE ONE 01/04 1900 DC 01/04 IV 01/04 1901 1909 Potassium Chloride 20 MEQ ONCE ONE 01/04 1215 DC 01/04 IV 01/04 1216 1221 Potassium Chloride 10 MEQ DAILY 12/27 1000 AC 01/03 PO 1133 Potassium Phosphate 15 mMol ONE ONE 01/05 1030 AC Dextrose/Water 250 ML IV 01/05 1433 Propofol 1,000 MG Q24H 01/04 0315 DC 01/04 N/A 100 ML IV 0330 Senna/Docusate Sodium 1 TAB Q12P PRN 12/27 0130 AC PO Sodium Chloride 1,000 ML BOLUS ONE 01/04 1445 CAN IV 01/04 1544 Sodium Chloride 500 ML BOLUS ONE 01/04 1445 DC 01/04 IV 01/04 1544 1444 Sodium Chloride 1,000 ML ONCE ONE 01/04 1445 CAN IV 01/05 0404 Sodium Chloride 1,000 ML Q13H 01/04 1445 AC 01/05 IV 0919 Sodium Chloride 1,000 ML ONCE ONE 01/04 1000 DC 01/04 IV 01/04 1759 1000 Sodium Chloride 1,000 ML Q13H 01/04 0345 DC IV Vancomycin HCl 1,500 MG ONCE ONE 01/04 1215 DC 01/04 Dextrose/Water 250 ML IV 01/04 1314 1322 Vancomycin HCl 1,500 MG Q12H 01/04 1000 DC Dextrose/Water 250 ML IV Vasopressin 40 UNITS Q16H 01/04 0800 AC 01/04 Sodium Chloride 100 ML IV 2357 Vecuronium [place] 10 MG .STK-MED ONE 01/04 1051 DC IV 01/04 1052 Antibiotics Antibiotics? none CXR Findings: 1. Endotracheal tube catheter tip in good position about 5 cm above karan. 2. Nasogastric tube tip cannot be confirmed. Overpenetrated radiograph of the lower chest upper abdomen would be helpful for further assessment. 3. Congestive heart failure with bilateral pleural effusions and likely bibasilar infiltrate/atelectasis. US Findings: Abdominal ultrasound IMPRESSION: 1. There is no ultrasonic evidence for acute cholecystitis, but the study is suboptimal as described above. 2. The liver has a nodular contour and there is trace ascites. 3. There is a large cyst at the upper pole of the right kidney. Impression/Plan Impression/Problem List Impression: Assessment 81-year-old gentleman with multiple comorbidities was admitted for septic shock. Data SOFA 12 Total bili 1.9 LFT normal alkaline phosphatase elevated 163 WBC: 19.1 List of active problems Respiratory: Post cardiac arrest intubated sedated;VCAC. Recent chest x-ray showed mild pulmonary vascular congestion. Due to his low blood pressure and low urine output patient received multiple doses of IV boluses and patient seems to be agitated and and biting the ET tube. However latest ABG from this morning was relatively normal with pH of 7.50 and bicarbonate of 30 and PCO2 of 40. * Mild respiratory alkalosis possibly due to agitation and overventilation * Repeat ABG and and adjust ventilator settings * Aspiration percausion * IV protonix * Head elevation * Obtain daily chest x-ray Infectious disease #1 septic shock with possible source of gallbladder. However repeat CT scan at these admissions did not show any inflammation of the gallbladder. Ultrasound documented gallstones without cholecystitis and choledocholithiasis. Elevated total bili and alkaline phosphatase which was a slightly increased compared to initial presentation. Patient have low blood pressure and needs vasopressor and levo fed for maintain blood pressure. Another cause to consider is worsening congestive heart failure, for which patient already started on dobutamine drip prior to his transfer to ICU. Patient has elevated troponin sequence of low blood pressure due to cardiac arrest or as a consequence of septic shock or NSTEMI. * Admit to ICU * Restrict ins and outs * Place central IV access and is started levophed and vasopressin; titrate for MAP>65mmhg * Send blood culture; urine culture * With consideration of cholecystitis and healthcare contact patient was given 1 dose of vancomycin and ceftazidime. However GI consult and was not impressed by the presentation and did not believe that this is an obvious septic shock. Patient went through a considerable amount of stress, cardiac arrest and multiple injection of epinephrine, which could have triggered the sudden increase in his WBC count. Total bilirubin was initially elevated at 1.6. Elevation in troponin is justifiable in the setting of recent pulseless electrical activity and cardiac arrest and severe hypotension vs NSTEMI. * If patient spikes fever start vancomycin 1000 mg every 12 hours * The patient spikes fever start ceftazidime 1000 mg every 8 hours * Continue IV hydration with normal saline 125 MR per hour * Titrate fluids for CVP has 10-12 * In case of worsening respiratory status obtained ABG and chest x-ray Cardiac Elevated troponin: First troponin 0.69 and second troponin 0.72 . Possibly secondary to prolonged cardiac arrest and CPRand low blood pressure vs NSTEMI Vs end organ damage in the setting of se[tic shock (hypotension). * Rule out acute coronary syndrome; trending troponin * Patient is not a candidate for cardiac catheterization. IV heparin ?? * Metoprolol 12.5 mg by mouth twice a day * Preload dependent; maintain MAP above 65 History of A. fib: Warfarin was held and INR was corrected with fresh frozen plasma for INR procedure. * No anticoagulation at the moment * Amiodarone drip * Metoprolol 12.5 mg 3 times a day for rate control Post cardiac arrest secondary to V. tach * CODE STATUS was changed to DNR/DNI * Amiodarone drip for ventricular tachycardia * Recent echo on December 27 no need for repeat echo * Cardiology daily recommendations is appreciated Elevated RV pressure of 61 mmhg * possibly in the setting of CHF and COPD and OHS/FRANCIE overlap syndrome. Hematology Leukocytosis: Significant leukocytosis and bands of 7 most considerable diagnosis is sepsis and septic shock. however, other reasonable causes for this finding could be acute distress and multiple doses of epinephrine injection. * Follow panculture results * Patient received 1 dose of ceftazidime and vancomycin * For now follow off antibiotics * If patient spikes fever restart ceftaz and Vanco with the aforementioned regimen Normochromic normocytic anemia-no source of blood loss. Stable Metabolic Mild respiratory acidosis possibly due to insufficient sedation and agitation. * Repeat ABG and adjust ventilator Anuria: Prerenal versus renal versus post renal. Latest abdominopelvic CT scan did not show any hydronephrosis or obstruction. Age and had pulseless electrical activity with severe profound hypotension which requires 2 pressors, either of which potentially could have caused ATN. * Urine analysis * Urine Lyte and FeNA%>>> Pre vs renal causes * Maintain IV hydration with normal saline 125 in the upper outer * Considering maintaining CVP of 10-12 IV bolus fluids to reach the goal of 0.5 mL per KG per hour urine output * In case of persistence anuria-oligoria consider nephrology consult Alimantory- NPO; consider tube feeds after 24 hours of hospitalization; and TPN after 7 days of ICU admission Neurology-patient is sedated and intubated; on fentanyl drip; in case of overbreathing the ventilator due to agitation/pain. Please consider Ativan drip for further sedation due to propofol [employer] lowering effect. DNR/DNI DVT prophylaxis: alps Pain-Fentanyl drip Problem List: 1. Bilateral pleural effusion 2. History of cardiac arrest Pain Ratin Tomorrow's Labs & Rationales: icu bundle cbc Plan DVT/Prophylaxis: mechanical, pharmacological
--- NOTE | 2017-01-05 10:00 | NUR ---
Patient is sedated on a fentanyl gtt infusing at 100mcg/hr, SAS-3, is easily arousable to verbal stimuli and will respond to his name. Can move all extremities but does not follow commands. Pupils are 3mm and reactive. Soft bilateral wrist restraints are in place. Afib on tele monitor, HR= 80-100's. SBP: 100-110's and pedal pulses + with doppler, Left radial is diminished. Levo is infusing at a max rate of 20mcg, vasopressin at 6mls/hr and Amio @ 0.5mg/min. Remains intubated with a #8 which was retaped to the right at 22cm, Vent settings currently AC: 18/550/50/5. Lungs clear and diminished at the bases. Scant amounts of nolen blood tinged sputum is noted. OGT in place and was flushed and then clamped- scant blood tinged outout noted. Abdomen is soft and non tender with + bowel sounds. Starr in place draining dark francisco colored urine approx 10-20mls/hr. Skin is thin, fragile, and eccymotic. BUE are weeping with mulptiple skin tears and dressings were changed. +1 generalized edema. ELIZABETH +2 red, and warm. House staff made aware. L groin TLC in place and the dressing was changed this morning due to increased bleeding to site. A pressure dressing was applied. NS infusing at 125mls/hr. No s/s of pain are currently noted. Will continue to closely monitor order.
--- NOTE | 2017-01-05 10:25 | PN- Infect Dx ---
Subjective Subjective: He remains afebrile. His blood pressure has improved on Levophed and Vasopressin Objective Last 24 Hrs of Vital Signs/I&O Vital Signs Date Time Temp Pulse Resp B/P Pulse O2 O2 Flow FiO2 Ox Delivery Rate 01/05 0916 96 115/78 01/05 0745 50 01/05 0619 50 01/05 0615 40 01/05 0540 89 100/73 01/05 0400 92 Ventilator 40% 01/05 0317 40 01/05 0200 89 97/62 01/05 0046 40 01/05 0045 104 119/75 01/05 0000 98.7 96 18 102/59 93 Ventilator 40% 01/05 0000 93 Ventilator 40% 01/04 2357 81 102/59 01/04 2330 96 103/62 01/04 2230 94 102/64 01/04 2151 40 01/04 2000 93 Ventilator 40% 01/04 1836 40 01/04 1709 60 01/04 1615 80 01/04 1600 97.9 86 18 102/0 100 Ventilator 80% 01/04 1600 100 Ventilator 80% 01/04 1515 80 106/69 01/04 1450 80 01/04 1324 89 98/66 01/04 1207 100 01/04 1200 100 Ventilator 100% Intake & Output 01/05 1600 01/05 0800 01/05 0000 Intake Total 1748 2320 Output Total 100 125 Balance 1648 2195 Intake, IV 1748 2290 Intake, Other 30 Number 0 0 Bowel Movements Output, 0 50 Gastric Drainage Output, Urine 100 75 Patient 233 lb 233 lb Weight Physical Exam Other Physical Findings: He is a sedated but responsive on the ventilator Lungs are clear Heart regular rhythm with no murmur Abdomen soft, questionable tenderness on palpation of the right upper quadrant, with positive bowel sounds in place Extremities right femoral triple-lumen catheter with no inflammation at the site Starr catheter in place with poor urine output Results Last 24 Hours of Lab Results: Laboratory Tests 01/05 01/04 01/04 0515 1840 1815 Chemistry Sodium (137 - 145 mmol/L) 130 L Potassium (3.5 - 5.1 mmol/L) 3.6 Chloride (98 - 107 mmol/L) 94 L Carbon Dioxide (22 - 30 mmol/L) 31 H Anion Gap (5 - 16) 5 BUN (9 - 20 mg/dL) 14 Creatinine (0.7 - 1.2 mg/dL) 1.3 H Estimated GFR (>60 ml/min) 53 L Glucose (65 - 99 mg/dL) 156 H Calcium (8.4 - 10.2 mg/dL) 8.4 Phosphorus (2.5 - 4.5 mg/dL) 2.3 L Magnesium (1.6 - 2.3 mg/dL) 2.0 Total Bilirubin (0.2 - 1.3 mg/dL) 2.3 H AST (17 - 59 U/L) 51 ALT (21 - 72 U/L) 44 Troponin I (<0.11 ng/ml) 0.38 *H 0.60 *H Albumin (3.5 - 5.0 g/dL) 2.3 L Hematology CBC w Diff NO MAN DIFF REQ WBC (4.8 - 10.8 /CUMM) 14.3 H RBC (4.70 - 6.10 /CUMM) 3.37 L Hgb (14.0 - 18.0 G/DL) 10.3 L Hct (42 - 52 %) 31.5 L MCV (80.0 - 94.0 FL) 93.5 MCH (27.0 - 31.0 PG) 30.6 RDW (11.5 - 14.5 %) 18.5 H Plt Count (130 - 400 /CUMM) 128 L MPV (7.4 - 10.4 FL) 7.7 Gran % (42.2 - 75.2 %) 84.2 H Lymphocytes % (20.5 - 51.1 %) 7.2 L Monocytes % (1.7 - 9.3 %) 7.9 Eosinophils % (0 - 5 %) 0.3 Basophils % (0.0 - 2.0 %) 0.4 Absolute Granulocytes (1.4 - 6.5 /CUMM) 12.1 H Absolute Lymphocytes (1.2 - 3.4 /CUMM) 1.0 L Absolute Monocytes (0.10 - 0.60 /CUMM) 1.1 H Absolute Eosinophils (0.0 - 0.7 /CUMM) 0 Absolute Basophils (0.0 - 0.2 /CUMM) 0.1 PUBS MCHC (33.0 - 37.0 G/DL) 32.7 L Urines Ur Random Creatinine (mg/dL) 128.3 Ur Random Sodium (30 - 90 mmol/L) 16 L Ur Random Potassium (mmol/L) 100.4 Fraction Sodium Excret (<1% %) 0.1 01/04 01/04 1615 1300 Chemistry Sodium (137 - 145 mmol/L) 130 L Potassium (3.5 - 5.1 mmol/L) 3.7 Chloride (98 - 107 mmol/L) 90 L Carbon Dioxide (22 - 30 mmol/L) 28 Anion Gap (5 - 16) 11 BUN (9 - 20 mg/dL) 12 Creatinine (0.7 - 1.2 mg/dL) 1.2 Estimated GFR (>60 ml/min) 58 L Glucose (65 - 99 mg/dL) 188 H Calcium (8.4 - 10.2 mg/dL) 8.1 L Phosphorus (2.5 - 4.5 mg/dL) 2.7 Magnesium (1.6 - 2.3 mg/dL) 2.0 Total Bilirubin (0.2 - 1.3 mg/dL) 2.1 H AST (17 - 59 U/L) 55 ALT (21 - 72 U/L) 44 Troponin I (<0.11 ng/ml) 0.72 *H Albumin (3.5 - 5.0 g/dL) 2.4 L Hematology CBC w Diff NO MAN DIFF REQ WBC (4.8 - 10.8 /CUMM) 15.7 H RBC (4.70 - 6.10 /CUMM) 3.43 L Hgb (14.0 - 18.0 G/DL) 10.6 L Hct (42 - 52 %) 32.2 L MCV (80.0 - 94.0 FL) 94.0 MCH (27.0 - 31.0 PG) 30.8 RDW (11.5 - 14.5 %) 18.2 H Plt Count (130 - 400 /CUMM) 132 MPV (7.4 - 10.4 FL) 7.5 Gran % (42.2 - 75.2 %) 86.8 H Lymphocytes % (20.5 - 51.1 %) 5.6 L Monocytes % (1.7 - 9.3 %) 7.6 Eosinophils % (0 - 5 %) 0 Basophils % (0.0 - 2.0 %) 0 L Absolute Granulocytes (1.4 - 6.5 /CUMM) 13.6 H Absolute Lymphocytes (1.2 - 3.4 /CUMM) 0.9 L Absolute Monocytes (0.10 - 0.60 /CUMM) 1.2 H Absolute Eosinophils (0.0 - 0.7 /CUMM) 0 Absolute Basophils (0.0 - 0.2 /CUMM) 0 PUBS MCHC (33.0 - 37.0 G/DL) 32.8 L Last 24 Hours of Esequiel Results: Blood cultures January 04 negative Recent Imaging Studies: Chest x-ray January 05 persistent pulmonary vascular congestion and haziness at the lung bases Right upper quadrant ultrasound January 04 reveals a moderately well distended gallbladder with no calculi demonstrated and with no ultrasonic evidence for acute cholecystitis Assessment/Plan Impression: Condition has improved with blood pressure increased, on pressors, with oxygenation improved and with patient more responsive. He remains afebrile with white blood cell count decreasing status post 1 dose each of Vancomycin and Ceftazidime yesterday with blood cultures negative and with no sputum or urine culture obtained. The right upper quadrant ultrasound shows no evidence for biliary inflammation status post an episode of cholecystitis 2 months prior to admission with cholecystostomy tube placement until this admission. As he has no obvious focus of infection feel that he can be followed off antibiotics at this time. His troponin was mildly elevated yesterday but is decreasing. Suggestion: 1. Would pursue placement of a PICC or IJ/subclavian triple-lumen catheter so that the right femoral triple lumen catheter can be removed 2. Follow off antibiotics
--- NOTE | 2017-01-05 11:35 | PN- CRCU ---
Subjective HPI/Critical Care Issues: pt seen and examined arousable on fentanyl ros unobtainble intubated levophed, vasopressin Objective Current Medications: Current Medications Sig/Salud Start time Last Medication Dose Route Stop Time Status Admin Acetaminophen 650 MG Q6P PRN 12/27 0115 AC PO Allopurinol 100 MG DAILY 12/27 1000 AC 01/05 PO 1040 Amiodarone HCl/ 360 MG Q12H 01/04 0345 AC 01/04 Dextrose IV 2357 N/A 1 UNIT Benzonatate 100 MG TID PRN 12/30 2030 AC 01/03 PO 1133 Fentanyl Citrate 1,000 MCG Q13H 01/04 1245 AC 01/05 Dextrose/Water 250 ML IV 0258 Fentanyl Citrate 1,000 MCG Q24H 01/04 0115 DC 01/04 Dextrose/Water 250 ML IV 0152 Finasteride 5 MG DAILY 12/27 1015 AC 01/03 PO 1133 Magnesium Oxide 400 MG BID 12/30 2200 AC 01/05 PO 1040 Metoprolol Tartrate 12.5 MG BID 01/03 2200 AC 01/04 PO 2330 Norepinephrine 4 MG Q3H 01/04 1245 AC 01/05 Sodium Chloride 250 ML IV 0916 Norepinephrine 4 MG .STK-MED ONE 01/04 1138 DC IV 01/04 1139 Norepinephrine 4 MG Q24H 01/04 0100 DC 01/04 Sodium Chloride 250 ML IV 1003 Pantoprazole Sodium 40 MG DAILY 01/04 1000 AC 01/05 IV 0919 Polyethylene Glycol 17 GM DAILY 12/27 1000 AC 01/05 PO 1040 Potassium Chloride 10 MEQ ONCE ONE 01/05 1030 DC 01/05 IV 01/05 1031 1033 Potassium Chloride 20 MEQ ONCE ONE 01/04 1900 DC 01/04 IV 01/04 1901 1909 Potassium Chloride 20 MEQ ONCE ONE 01/04 1215 DC 01/04 IV 01/04 1216 1221 Potassium Chloride 10 MEQ DAILY 12/27 1000 AC 01/03 PO 1133 Potassium Phosphate 15 mMol ONE ONE 01/05 1030 AC Dextrose/Water 250 ML IV 01/05 1433 Propofol 1,000 MG Q24H 01/04 0315 DC 01/04 N/A 100 ML IV 0330 Senna/Docusate Sodium 1 TAB Q12P PRN 12/27 0130 AC PO Sodium Chloride 1,000 ML BOLUS ONE 01/04 1445 CAN IV 01/04 1544 Sodium Chloride 500 ML BOLUS ONE 01/04 1445 DC 01/04 IV 01/04 1544 1444 Sodium Chloride 1,000 ML ONCE ONE 01/04 1445 CAN IV 01/05 0404 Sodium Chloride 1,000 ML Q13H 01/04 1445 AC 01/05 IV 0919 Sodium Chloride 1,000 ML ONCE ONE 01/04 1000 DC 01/04 IV 01/04 1759 1000 Sodium Chloride 1,000 ML Q13H 01/04 0345 DC IV Vancomycin HCl 1,500 MG ONCE ONE 01/04 1215 DC 01/04 Dextrose/Water 250 ML IV 01/04 1314 1322 Vasopressin 40 UNITS Q16H 01/04 0800 AC 01/04 Sodium Chloride 100 ML IV 2357 Vital Signs & I&O Last 24 Hrs of Vitals and I&O: Vital Signs Date Time Temp Pulse Resp B/P Pulse O2 O2 Flow FiO2 Ox Delivery Rate 01/05 1050 50 01/05 0916 96 115/78 01/05 0745 50 01/05 0619 50 01/05 0615 40 01/05 0540 89 100/73 01/05 0400 92 Ventilator 40% 01/05 0317 40 01/05 0200 89 97/62 01/05 0046 40 01/05 0045 104 119/75 01/05 0000 98.7 96 18 102/59 93 Ventilator 40% 01/05 0000 93 Ventilator 40% 01/04 2357 81 102/59 01/04 2330 96 103/62 01/04 2230 94 102/64 01/04 2151 40 01/04 2000 93 Ventilator 40% 01/04 1836 40 01/04 1709 60 01/04 1615 80 01/04 1600 97.9 86 18 102/0 100 Ventilator 80% 01/04 1600 100 Ventilator 80% 01/04 1515 80 106/69 01/04 1450 80 01/04 1324 89 98/66 01/04 1207 100 01/04 1200 100 Ventilator 100% Intake & Output 01/05 1600 01/05 0800 01/05 0000 Intake Total 1748 2320 Output Total 100 125 Balance 1648 2195 Intake, IV 1748 2290 Intake, Other 30 Number 0 0 Bowel Movements Output, 0 50 Gastric Drainage Output, Urine 100 75 Patient 233 lb 233 lb Weight Exam Other Physical Findings: gen arousable, sedated however heent ett cvs s1, s2 lungs transmitted abd soft bs+ ext femoral tlc Results Last 24 Hrs of Lab Results: Laboratory Tests 01/05/17 0515: Anion Gap 5, Estimated GFR 53 L, Glucose 156 H, Calcium 8.4, Phosphorus 2.3 L , Magnesium 2.0, Total Bilirubin 2.3 H, AST 51, ALT 44, Troponin I 0.38 *H, Albumin 2.3 L, CBC w Diff NO MAN DIFF REQ, RBC 3.37 L, MCV 93.5, MCH 30.6, RDW 18.5 H, MPV 7.7, Gran % 84.2 H, Lymphocytes % 7.2 L, Monocytes % 7.9, Eosinophils % 0.3, Basophils % 0.4, Absolute Granulocytes 12.1 H, Absolute Lymphocytes 1.0 L, Absolute Monocytes 1.1 H, Absolute Eosinophils 0, Absolute Basophils 0.1, PUBS MCHC 32.7 L 01/04/17 1840: Troponin I 0.60 *H 01/04/17 1815: Ur Random Creatinine 128.3, Ur Random Sodium 16 L, Ur Random Potassium 100.4, Fraction Sodium Excret 0.1 01/04/17 1615: Anion Gap 11, Estimated GFR 58 L, Glucose 188 H, Calcium 8.1 L, Phosphorus 2.7, Magnesium 2.0, Total Bilirubin 2.1 H, AST 55, ALT 44, Albumin 2.4 L, CBC w Diff NO MAN DIFF REQ, RBC 3.43 L, MCV 94.0, MCH 30.8, RDW 18.2 H, MPV 7.5, Gran % 86.8 H, Lymphocytes % 5.6 L, Monocytes % 7.6, Eosinophils % 0, Basophils % 0 L, Absolute Granulocytes 13.6 H, Absolute Lymphocytes 0.9 L, Absolute Monocytes 1.2 H, Absolute Eosinophils 0, Absolute Basophils 0, PUBS MCHC 32.8 L 01/04/17 1300: Troponin I 0.72 *H Impression/Plan Impression/Plan Impression/Plan: Impression 81 year old man * s/p cardiac arrest - vtach as underlying rhythm * shock - septic vs cardiogenic * hx AVR on coumadin * hx cholecystitis * s/p retrieval of guidewire (central line) Plan - vasopressors to maintain MAP >65, dc vasopressin first - s/p retrieval of guidwire by IR - ID consultation is appreciated, will follow recommendations - f/u cardiology input - monitor hemodynamics - monitor ins/outs, electrolytes Extensive discussion held with family. DNR/DNI status at this time. If patient does not show signs of improvement, consideration for comfort measures will be entertained (we discussed this as an option). DVT prophylaxis at all times (elevated INR on coumadin) TTS 40 min
[2017-01-05 12:00] VITALS: BP 104/60
--- NOTE | 2017-01-05 13:00 | NUR ---
Attempted to d/c vasopressin however BL dropped to the high 70's and heart rate increased to the 100's and oaccasionally up to the 130's. Dr. Lozoya notified and vasopressin was retstarted. Dr. Bartlett also made aware- See flow sheet for details. BP now ranging from 90-100's once vasopressin restarted. Attempted to d/c vasopressin however BP dropped to the high 70's and heart rate increased to 110's and up to the 130's at times. Dr. Lozoya notified and vasopressin was restarted- Please see flow sheet for details. Dr. Bartlett also notified.
--- NOTE | 2017-01-05 14:17 | ULTRASOUND REPORT ---
EXAMINATION: US DUPLEX UPPER EXTREMITY VEINS, LEFT CLINICAL INFORMATION: Left upper extremity edema. Left upper extremity swelling. Left upper extremity discoloration. Clinical concern regarding venous thrombosis COMPARISON: None. TECHNIQUE: Doppler spectral analysis and color mapping was performed of the left upper extremity. Compression and augmentation maneuvers were performed where feasible. The study was performed portably in the intensive care unit. The patient has dressings over the forearm limiting acoustical access FINDINGS: The left brachial, basilic, and cephalic veins from the antecubital region to the shoulder were visualized and compressible. The axillary and subclavian veins were visualized and compressible where feasible. The lower aspect of the jugular vein was visualized and compressible. The central portion of the brachiocephalic vein were examined. There is color saturation of the venous system of the upper extremity. IMPRESSION: No evidence for left upper extremity vein thrombosis.
--- NOTE | 2017-01-05 14:19 | ULTRASOUND REPORT ---
EXAMINATION: US DUPLEX UPPER EXTREMITY ARTERY/GRAFT LIMITED, LEFT CLINICAL INFORMATION: Swelling of the upper extremity with difficulty obtaining pulse. COMPARISON: None TECHNIQUE: A portable duplex ultrasound of the arterial system of the left upper extremity was performed. Peak systolic velocities were measured. FINDINGS: The subclavian, axillary, the brachial arteries are patent. There is a small focus of plaque in the brachial artery. Peak systolic velocities end waveforms are unremarkable. There is no suggestion of a a high-grade stenosis. The radial and ulnar arteries not evaluated. IMPRESSION: Patent subclavian, axillary and brachial arteries. No suggestion of a high-grade inflow arterial stenosis. The arteries of the forearm were not evaluated.
[2017-01-05 14:21] LABS: PT 24.1 SEC (9.4-12.5)
--- NOTE | 2017-01-05 14:53 | PN- Cardiology ---
Subjective Subjective: * Patient is intubated and sedated. * unable to wean pressors at this point in time. 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 Objective Vital Signs and I&Os Vital Signs Date Time Temp Pulse Resp B/P Pulse O2 O2 Flow FiO2 Ox Delivery Rate 01/05 1357 50 01/05 1254 101 103/70 01/05 1213 106 92/64 01/05 1200 94 Ventilator 50% 01/05 1200 99.2 90 18 104/60 94 Ventilator 50% 01/05 1050 50 01/05 0916 96 115/78 01/05 0800 94 Ventilator 50% 01/05 0745 50 01/05 0619 50 01/05 0615 40 01/05 0540 89 100/73 01/05 0400 92 Ventilator 40% 01/05 0317 40 01/05 0200 89 97/62 01/05 0046 40 01/05 0045 104 119/75 01/05 0000 98.7 96 18 102/59 93 Ventilator 40% 01/05 0000 93 Ventilator 40% 01/04 2357 81 102/59 01/04 2330 96 103/62 01/04 2230 94 102/64 01/04 2151 40 01/04 2000 93 Ventilator 40% 01/04 1836 40 01/04 1709 60 01/04 1615 80 01/04 1600 97.9 86 18 102/0 100 Ventilator 80% 01/04 1600 100 Ventilator 80% 01/04 1515 80 106/69 01/04 1450 80 Intake & Output 01/05 1600 01/05 0800 01/05 0000 01/04 1600 01/04 0800 01/04 0000 Intake Total 1748 2320 2710 293 707 Output Total 100 125 50 0 175 Balance 1648 2195 2660 293 532 Intake, IV 1748 2290 2710 293 187 Intake, Oral 520 Intake, Other 30 Number 0 0 1 0 Bowel Movements Output, 0 50 Gastric Drainage Output, Urine 100 75 50 0 175 Patient 233 lb 233 lb 245 lb 330 lb Weight Physical Exam: General: WD/ overweight male in NAD; intubated and sedated Heart: irregularly irregular with crisp valve sounds Lungs: no crackles or wheezing Extremities: 1+ bilateral leg edema Assessment/Plan Assessment/Plan * This patient has had some improvement in his leg edema. There is evidence of pulmonary edema on his chest X-ray. In consideration of his low BP I would not diurese at this time. * Replete potassium to 4-4.5. Continue amiodarone drip. * NS at 125cc/hr to maintain a systolic BP of 100mmHg. Wean off vasopressin as tolerated by BP. * Increased WBC. Antibiotics as per ID's recommendations. * repeat an echocardiogram today to assess his EF and RV pressures. * We will consider a PE despite his anticoagulation since his pO2 is low and his cardiac output it poor if his RV pressures are high on echo. He is already anticoagulated. No further workup for this at this point in time. Continue telemetry? Yes
[2017-01-05 16:00] VITALS: BP 110/82
[2017-01-06] VITALS: BP 100/70
[2017-01-06 04:59] LABS: ABSOLUTE BASOPHIL COUNT 0 /CUMM (0.0-0.2); ABSOLUTE EOSINOPHIL COUNT 0.3 /CUMM (0.0-0.7); ABSOLUTE GRANULOCYTE CT 10.1 /CUMM (1.4-6.5); ABSOLUTE LYMPH COUNT 0.9 /CUMM (1.2-3.4); ABSOLUTE MONOCYTE COUNT 1.3 /CUMM (0.10-0.60); BASOPHIL % 0.4 % (0.0-2.0); EOSINOPHIL % 2.2 % (0-5); HEMATOCRIT 30.5 % (42-52); MEAN CORPUSCULAR HGB 30.8 PG (27.0-31.0); MEAN CORPUSCULAR HGB CONC 32.8 G/DL (33.0-37.0); MEAN CORPUSCULAR VOLUME 94.1 FL (80.0-94.0); MEAN PLATELET VOLUME 7.9 FL (7.4-10.4); PLATELET COUNT 122 /CUMM (130-400); RBC DISTRIBUTION WIDTH 18.4 % (11.5-14.5); RED BLOOD CELL CT 3.24 /CUMM (4.70-6.10); WHITE BLOOD CELL COUNT 12.6 /CUMM (4.8-10.8)
--- NOTE | 2017-01-06 07:04 | RADIOLOGY REPORT ---
EXAMINATION: XR PORTABLE CHEST CLINICAL INFORMATION: ET tube placement COMPARISON: Chest x-ray 01/05/2017, 6:33 AM TECHNIQUE: Portable AP view of the chest was obtained. 6:13 AM FINDINGS: Persistent congestive heart failure with pulmonary vascular congestion pulmonary edema and bilateral pleural effusions. Endotracheal tube catheter in good position about 4.5 cm above the karan. Nasogastric tube in stomach. IMPRESSION: 1. Endotracheal tube in good position about 4.5 cm above karan. 2. Persistent pulmonary edema and congestive heart failure
--- NOTE | 2017-01-06 07:40 | PN- Resident CRCU ---
Subjective HPI/CRCU Issues: Patient seen and examined this morning. He is lying in bed in no acute distress. Remains intubated Responsive to painful stimuli. Off of Vasopressin drip. Remains on fentanyl, Levophed and amiodarone drip, cont to have low urine output. Will discuss with cardiology, on stopping amiodarone drip. Has remained afebrile, will follow ABGs. CXR done this AM, Endotracheal tube catheter tip in good position about 4.5 cm above karan. Potassium and phosphate low, replaced. 24 Hour Events: no acute over night events. Objective Vital Signs & I&O Last 8 Hrs of Vitals and I&O: Laboratory Tests 01/06/17 0836: pH 7.36, pCO2 46 H, pO2 76 L, HCO3 26, ABG O2 Sat (Measured) 93.0 L, P-50 ( Temp Corrected) N, Carboxyhemoglobin 1.3 L, O2 Concentration % 45, Temperature 98.5, Respiration Rate 12, O2 Delivery Method VENT, Vent Mode VC-AC, Expiratory Pressure 5, Tidal Volume 500, Phlebotomy Draw Site RIGHT RADIAL 01/06/17 0415: Anion Gap 4 L, Estimated GFR 53 L, Glucose 132 H, Calcium 8.2 L, Phosphorus 3.3, Magnesium 2.0, Total Bilirubin 2.4 H, AST 42, ALT 40, Albumin 2.1 L, PT 23.0 H, INR 2.21 H, CBC w Diff NO MAN DIFF REQ, RBC 3.24 L, MCV 94.1 H, MCH 30.8, RDW 18.4 H, MPV 7.9, Gran % 80.0 H, Lymphocytes % 7.3 L, Monocytes % 10.1 H, Eosinophils % 2.2, Basophils % 0.4, Absolute Granulocytes 10.1 H, Absolute Lymphocytes 0.9 L, Absolute Monocytes 1.3 H, Absolute Eosinophils 0.3 , Absolute Basophils 0, PUBS MCHC 32.8 L 01/05/17 1705: pH 7.48 H, pCO2 34 L, pO2 82, HCO3 25, ABG O2 Sat (Measured) 95.0 L, P-50 ( Temp Corrected) N, Carboxyhemoglobin 0.7 L, O2 Concentration % 50%, Temperature 98.7, Respiration Rate 12, O2 Delivery Method ESPRIT VENT, Vent Mode AC, Expiratory Pressure 5, Tidal Volume 500, Phlebotomy Draw Site RIGHT RADIAL 01/05/17 1300: PT 24.1 H, INR 2.31 H 01/05/17 1155: pH 7.53 H, pCO2 25 L, pO2 62 L, HCO3 21, ABG O2 Sat (Measured) 95.0 L, P-50 (Temp Corrected) N, O2 Concentration % 50%, Respiration Rate 18, O2 Delivery Method VENT, Vent Mode AC, Expiratory Pressure 5, Tidal Volume 550, Pressure Support 0, Phlebotomy Draw Site LEFT RADIAL Vital Signs Date Time Temp Pulse Resp B/P Pulse O2 O2 Flow FiO2 Ox Delivery Rate 01/06 1034 50 01/06 0800 92 Ventilator 50% 01/06 0800 98.5 99 10 90/60 92 Ventilator 50% 01/06 0747 50 01/06 0530 50 01/06 0504 100 86/58 01/06 0400 94 Ventilator 50% 01/06 0319 50 01/06 0214 114 90/69 01/06 0017 50 01/06 0000 98.8 110 12 100/70 93 Ventilator 50% 01/06 0000 93 Ventilator 50% 01/05 2243 50 01/05 2230 98.8 106 12 110/74 01/05 2226 98.8 106 12 110/74 01/05 2225 98.8 105 12 110/74 01/05 2000 92 Ventilator 50% 01/05 1941 97.8 103 12 107/80 01/05 1930 50 01/05 1635 98.7 110 18 91/63 01/05 1610 50 01/05 1600 93 Ventilator 50% 01/05 1600 98.7 110 18 110/82 93 Ventilator 50% 01/05 1357 50 01/05 1254 101 103/70 01/05 1213 106 92/64 01/05 1200 94 Ventilator 50% 01/05 1200 99.2 90 18 104/60 94 Ventilator 50% 01/05 1050 50 Intake & Output 01/06 1600 01/06 0800 01/06 0000 Intake Total 1662 2030.2 Output Total 180 160 Balance 1482 1871.2 Intake, IV 1662030.2 Intake, Oral 0 Number 0 Bowel Movements Output, 50 Gastric Drainage Output, Urine 130 160 Exam General Appearance: well developed/nourished, sedated, intubated Head: atraumatic, normal appearance Neck: normal inspection Respiratory: no respiratory distress, decreased breath sounds Cardiovascular: regular rate/rhythm Gastrointestinal: normal bowel sounds, soft, non-tender Extremities: normal inspection, b/l upper ext edema and redness Current Medications: Current Medications Sig/Salud Start time Last Medication Dose Route Stop Time Status Admin Acetaminophen 650 MG Q6P PRN 12/27 0115 AC PO Allopurinol 100 MG DAILY 12/27 1000 AC 01/06 PO 0759 Amiodarone HCl/ 360 MG Q12H 01/04 0345 AC 01/05 Dextrose IV 2230 N/A 1 UNIT Benzonatate 100 MG TID PRN 12/30 2030 AC 01/03 PO 1133 Fentanyl Citrate 1,000 MCG Q8H 01/05 1430 AC 01/06 Dextrose/Water 250 ML IV 0838 Fentanyl Citrate 1,000 MCG Q13H 01/04 1245 DC 01/05 Dextrose/Water 250 ML IV 0258 Finasteride 5 MG DAILY 12/27 1015 AC 01/03 PO 1133 Magnesium Oxide 400 MG BID 12/30 2200 AC 01/06 PO 0759 Metoprolol Tartrate 12.5 MG BID 01/03 2200 AC 01/04 PO 2330 Norepinephrine 4 MG .STK-MED ONE 01/05 1246 DC IV 01/05 1247 Norepinephrine 4 MG Q3H 01/04 1245 AC 01/06 Sodium Chloride 250 ML IV 0932 Pantoprazole Sodium 40 MG DAILY 01/04 1000 AC 01/06 IV 0759 Polyethylene Glycol 17 GM DAILY 12/27 1000 AC 01/06 PO 0759 Potassium Chloride 20 MEQ ONCE ONE 01/06 0745 DC 01/06 IV 01/06 0746 0759 Potassium Chloride 10 MEQ DAILY 12/27 1000 AC 01/03 PO 1133 Potassium Phosphate 15 mMol ONE ONE 01/06 0900 AC 01/06 Dextrose/Water 250 ML IV 01/06 1303 0928 Potassium Phosphate 15 mMol ONE ONE 01/05 1030 DC 01/05 Dextrose/Water 250 ML IV 01/05 1433 1200 Senna/Docusate Sodium 1 TAB Q12P PRN 12/27 0130 AC PO Sodium Chloride 1,000 ML Q13H 01/04 1445 AC 01/06 IV 0606 Vasopressin 40 UNITS Q16H 01/04 0800 DC 01/05 Sodium Chloride 100 ML IV 1938 Antibiotics Antibiotics? none Impression/Plan Impression/Problem List Impression: 81-year-old man was BIBA from [facility] after losing his cholecystotomy tube. Patient has multiple comorbid conditions significant for hypertension, dyslipidemia, "borderline" diabetes mellitus, peripheral vascular disease, gout, and CAD and Valvular disease S/P Aortic valve replacement w/ St. Misael valve and CABG 2 with SVGs to his LCx and RCA We are currently monitoring him for following conditions: Respiratory: Post cardiac arrest intubated sedated;VCAC. Recent chest x-ray showed mild pulmonary vascular congestion. Due to his low blood pressure and low urine output patient received multiple doses of IV boluses and patient seems to be agitated and and biting the ET tube. However latest ABG from this morning was relatively normal with pH of 7.50 and bicarbonate of 30 and PCO2 of 40. * Mild respiratory alkalosis possibly due to agitation and overventilation, repeat ABGs improved. * Aspiration percausion * IV protonix * Head elevation * Obtain daily chest x-ray Infectious disease: Upon presentation septic shock with possible source of gallbladder. However repeat CT scan at these admissions did not show any inflammation of the gallbladder. Ultrasound documented gallstones without cholecystitis and choledocholithiasis. Elevated total bili and alkaline phosphatase which was a slightly increased compared to initial presentation. Patient have low blood pressure and needs vasopressor and levo fed for maintain blood pressure. Another cause to consider is worsening congestive heart failure, for which patient already started on dobutamine drip prior to his transfer to ICU. Increased trops inititially, trended down. * Restrict ins and outs * Right femoral in place, Off of Vasopressin drip. Remains on fentanyl, Levophed and amiodarone drip, cont to have low urine output. Will discuss with cardiology, on stopping amiodarone drip. * blood culture NGTD; urine culture NGTD * With consideration of cholecystitis and healthcare contact patient was given 1 dose of vancomycin and ceftazidime initially. Currently watching off of antibiotics as no source of infection identified, patient has been afebrile, white count stable. * Continue IV hydration with normal saline 125 MR per hour Cardiac Elevated troponin: Resolved. First troponin 0.69 and second troponin 0.72>> trended down . Possibly secondary to prolonged cardiac arrest and CPR. History of A. fib/ Post cardiac arrest secondary to V. tach: Warfarin was held and INR was corrected with fresh frozen plasma for removal of lodged guidewire. * No anticoagulation at the moment, * patient remains on Amiodarone drip for vent tach, * Metoprolol 12.5 mg 3 times a day for rate control * ECHO pending * Cardio on board, will follow [facility] Hematology Leukocytosis: elevated WBC upon presentation with bands of 7 most considerable diagnosis is sepsis and septic shock. however, other reasonable causes for this finding could be acute distress and multiple doses of epinephrine injection. * Panculture NGTD * Patient received 1 dose of ceftazidime and vancomycin * For now follow off antibiotics Normochromic normocytic anemia-no source of blood loss. Stable Metabolic Mild respiratory acidosis possibly due to insufficient sedation and agitation. * Improved. * Daily ABG and adjust ventilator Anuria: Prerenal versus renal versus post renal. Latest abdominopelvic CT scan did not show any hydronephrosis or obstruction. Age and had pulseless electrical activity with severe profound hypotension which required 2 pressors, either of which potentially could have caused ATN. * Maintain IV hydration with normal saline 125 in the upper outer * Considering maintaining CVP of 10-12 IV bolus fluids to reach the goal of 0.5 mL per KG per hour urine output * In case of persistence anuria-oligoria consider nephrology consult Alimantory- NPO; consider tube feeds after 24 hours of hospitalization; and TPN after 7 days of ICU admission Neurology-patient is sedated and intubated; on fentanyl drip; in case of overbreathing the ventilator due to agitation/pain. DNR/DNI DVT prophylaxis: alps Pain-Fentanyl drip Problem List: 1. Afib 2. History of cardiac arrest Pain Ratin Tomorrow's Labs & Rationales: ICU bundle for lytes monitoring CBC for H&H monitoring Plan DVT/Prophylaxis: mechanical, pharmacological
[2017-01-06 08:00] VITALS: BP 90/60
--- NOTE | 2017-01-06 11:03 | PN- Infect Dx ---
Subjective Subjective: Afebrile. His blood pressure is improved on decreasing Levophed Objective Last 24 Hrs of Vital Signs/I&O Vital Signs Date Time Temp Pulse Resp B/P Pulse O2 O2 Flow FiO2 Ox Delivery Rate 01/06 1034 50 01/06 0800 92 Ventilator 50% 01/06 0800 98.5 99 10 90/60 92 Ventilator 50% 01/06 0747 50 01/06 0530 50 01/06 0504 100 86/58 01/06 0400 94 Ventilator 50% 01/06 0319 50 01/06 0214 114 90/69 01/06 0017 50 01/06 0000 98.8 110 12 100/70 93 Ventilator 50% 01/06 0000 93 Ventilator 50% 01/05 2243 50 01/05 2230 98.8 106 12 110/74 01/05 2226 98.8 106 12 110/74 01/05 2225 98.8 105 12 110/74 01/05 2000 92 Ventilator 50% 01/05 1941 97.8 103 12 107/80 01/05 1930 50 01/05 1635 98.7 110 18 91/63 01/05 1610 50 01/05 1600 93 Ventilator 50% 01/05 1600 98.7 110 18 110/82 93 Ventilator 50% 01/05 1357 50 01/05 1254 101 103/70 01/05 1213 106 92/64 01/05 1200 94 Ventilator 50% 01/05 1200 99.2 90 18 104/60 94 Ventilator 50% Intake & Output 01/06 1600 01/06 0800 01/06 0000 Intake Total 1662 2031.2 Output Total 180 160 Balance 1482 1871.2 Intake, IV 1662 2031.2 Intake, Oral 0 Number 0 Bowel Movements Output, 50 Gastric Drainage Output, Urine 130 160 Physical Exam Other Physical Findings: He is responsive to his name, though remains sedated on the ventilator Lungs are clear Heart irregular rhythm with no murmur Abdomen is soft, nontender with positive bowel sounds Extremities chronic changes to both lower extremities; right femoral triple- lumen catheter remains in place Starr catheter remains in place Results Last 24 Hours of Lab Results: Laboratory Tests 01/06 01/06 0836 0415 Blood Gas pH (7.35 - 7.45 PH) 7.36 pCO2 (35 - 45 TORR) 46 H pO2 (80 - 100 TORR) 76 L HCO3 (21 - 28 MEQ/L) 26 ABG O2 Sat (Measured) (>96.0 %) 93.0 L P-50 (Temp Corrected) N Carboxyhemoglobin (1.5 - 5.0 %) 1.3 L O2 Concentration % 45 Temperature (97.0 - 100.0 FARH) 98.5 Respiration Rate (BPM) 12 O2 Delivery Method VENT Vent Mode VC-AC Expiratory Pressure (CMH2O/P) 5 Tidal Volume (CC) 500 Chemistry Sodium (137 - 145 mmol/L) 129 L Potassium (3.5 - 5.1 mmol/L) 3.4 L Chloride (98 - 107 mmol/L) 96 L Carbon Dioxide (22 - 30 mmol/L) 29 Anion Gap (5 - 16) 4 L BUN (9 - 20 mg/dL) 16 Creatinine (0.7 - 1.2 mg/dL) 1.3 H Estimated GFR (>60 ml/min) 53 L Glucose (65 - 99 mg/dL) 132 H Calcium (8.4 - 10.2 mg/dL) 8.2 L Phosphorus (2.5 - 4.5 mg/dL) 3.3 Magnesium (1.6 - 2.3 mg/dL) 2.0 Total Bilirubin (0.2 - 1.3 mg/dL) 2.4 H AST (17 - 59 U/L) 42 ALT (21 - 72 U/L) 40 Albumin (3.5 - 5.0 g/dL) 2.1 L Coagulation PT (9.4 - 12.5 SEC) 23.0 H INR (0.90 - 1.17) 2.21 H Hematology CBC w Diff NO MAN DIFF REQ WBC (4.8 - 10.8 /CUMM) 12.6 H RBC (4.70 - 6.10 /CUMM) 3.24 L Hgb (14.0 - 18.0 G/DL) 10.0 L Hct (42 - 52 %) 30.5 L MCV (80.0 - 94.0 FL) 94.1 H MCH (27.0 - 31.0 PG) 30.8 RDW (11.5 - 14.5 %) 18.4 H Plt Count (130 - 400 /CUMM) 122 L MPV (7.4 - 10.4 FL) 7.9 Gran % (42.2 - 75.2 %) 80.0 H Lymphocytes % (20.5 - 51.1 %) 7.3 L Monocytes % (1.7 - 9.3 %) 10.1 H Eosinophils % (0 - 5 %) 2.2 Basophils % (0.0 - 2.0 %) 0.4 Absolute Granulocytes (1.4 - 6.5 /CUMM) 10.1 H Absolute Lymphocytes (1.2 - 3.4 /CUMM) 0.9 L Absolute Monocytes (0.10 - 0.60 /CUMM) 1.3 H Absolute Eosinophils (0.0 - 0.7 /CUMM) 0.3 Absolute Basophils (0.0 - 0.2 /CUMM) 0 PUBS MCHC (33.0 - 37.0 G/DL) 32.8 L Miscellaneous Phlebotomy Draw Site RIGHT RADIAL 01/05 01/05 01/05 1705 1300 1155 Blood Gas pH (7.35 - 7.45 PH) 7.48 H 7.53 H pCO2 (35 - 45 TORR) 34 L 25 L pO2 (80 - 100 TORR) 82 62 L HCO3 (21 - 28 MEQ/L) 25 21 ABG O2 Sat (Measured) (>96.0 %) 95.0 L 95.0 L P-50 (Temp Corrected) N N Carboxyhemoglobin (1.5 - 5.0 %) 0.7 L O2 Concentration % 50% 50% Temperature (97.0 - 100.0 FARH) 98.7 Respiration Rate (BPM) 12 18 O2 Delivery Method ESPRIT VENT VENT Vent Mode AC AC Expiratory Pressure (CMH2O/P) 5 5 Tidal Volume (CC) 500 550 Pressure Support (CMH2O/P) 0 Coagulation PT (9.4 - 12.5 SEC) 24.1 H INR (0.90 - 1.17) 2.31 H Miscellaneous Phlebotomy Draw Site RIGHT RADIAL LEFT RADIAL Last 24 Hours of Esequiel Results: Blood cultures January 04 negative Recent Imaging Studies: Venous Doppler of the left upper extremity negative Arterial Doppler of the left upper extremity no suggestion of a high grade inflow arterial stenosis Chest x-ray January 06 persistent pulmonary edema and congestive heart failure Assessment/Plan Impression: He continues to improve with decreasing need for pressors and continued improvement in his oxygenation and mental status. He remains afebrile with white blood cell count decreasing off antibiotics with blood cultures remaining negative. The right upper quadrant ultrasound shows no evidence for acute cholecystitis status post an episode of cholecystitis 2 months prior to admission with cholecystostomy tube placement until this admission, but it was a suboptimal study. His bilirubin remains elevated and he may warrant further evaluation of his biliary tree if it persists. Suggestion: 1. Would pursue placement of a PICC so that the right femoral line can be removed 2. Consider GI input if bilirubin remains elevated 3. Continue to follow off antibiotics
--- NOTE | 2017-01-06 15:33 | PN- CRCU ---
Subjective HPI/Critical Care Issues: Patient seen and examined this morning. He remains intubated and responsive to painful stimuli. He is sedated and is now on Levothroid. Vasopressin has been stopped. His respiratory alkalosis is corrected with ventilator setting changes as noted. The review of systems otherwise unobtainable due to his intubated status and sedation. Objective Current Medications: Current Medications Sig/Salud Start time Last Medication Dose Route Stop Time Status Admin Acetaminophen 650 MG Q6P PRN 12/27 0115 AC PO Allopurinol 100 MG DAILY 12/27 1000 AC 01/06 PO 0759 Amiodarone HCl/ 360 MG Q12H 01/04 0345 AC 01/06 Dextrose IV 1448 N/A 1 UNIT Benzonatate 100 MG TID PRN 12/30 2030 AC 01/03 PO 1133 Fentanyl Citrate 1,000 MCG Q8H 01/05 1430 AC 01/06 Dextrose/Water 250 ML IV 1447 Finasteride 5 MG DAILY 12/27 1015 AC 01/03 PO 1133 Magnesium Oxide 400 MG BID 12/30 2200 AC 01/06 PO 0759 Metoprolol Tartrate 12.5 MG BID 01/03 2200 AC 01/04 PO 2330 Norepinephrine 4 MG Q3H 01/04 1245 AC 01/06 Sodium Chloride 250 ML IV 1447 Pantoprazole Sodium 40 MG DAILY 01/04 1000 AC 01/06 IV 0759 Polyethylene Glycol 17 GM DAILY 12/27 1000 AC 01/06 PO 0759 Potassium Chloride 20 MEQ ONCE ONE 01/06 0745 DC 01/06 IV 01/06 0746 0759 Potassium Chloride 10 MEQ DAILY 12/27 1000 AC 01/03 PO 1133 Potassium Phosphate 15 mMol ONE ONE 01/06 0900 DC 01/06 Dextrose/Water 250 ML IV 01/06 1303 0928 Senna/Docusate Sodium 1 TAB Q12P PRN 12/27 0130 AC PO Sodium Chloride 1,000 ML Q13H 01/04 1445 AC 01/06 IV 0606 Vasopressin 40 UNITS Q16H 01/04 0800 DC 01/05 Sodium Chloride 100 ML IV 1938 Vital Signs & I&O Last 24 Hrs of Vitals and I&O: Vital Signs Date Time Temp Pulse Resp B/P Pulse O2 O2 Flow FiO2 Ox Delivery Rate 01/06 1311 50 01/06 1200 95 Ventilator 50% 01/06 1034 50 01/06 0800 92 Ventilator 50% 01/06 0800 98.5 99 10 90/60 92 Ventilator 50% 01/06 0747 50 01/06 0530 50 01/06 0504 100 86/58 01/06 0400 94 Ventilator 50% 01/06 0319 50 01/06 0214 114 90/69 01/06 0017 50 01/06 0000 98.8 110 12 100/70 93 Ventilator 50% 01/06 0000 93 Ventilator 50% 01/05 2243 50 01/05 2230 98.8 106 12 110/74 01/05 2226 98.8 106 12 110/74 01/05 2225 98.8 105 12 110/74 01/05 2000 92 Ventilator 50% 01/05 1941 97.8 103 12 107/80 01/05 1930 50 01/05 1635 98.7 110 18 91/63 01/05 1610 50 01/05 1600 93 Ventilator 50% 01/05 1600 98.7 110 18 110/82 93 Ventilator 50% Intake & Output 01/06 1600 01/06 0800 01/06 0000 Intake Total 1336.3 1662 2031.2 Output Total 250 180 160 Balance 1086.3 1482 1871.2 Intake, IV 1236.3 1662 2031.2 Intake, Oral 0 0 Intake, Tube 100 Irrigant Number 0 Bowel Movements Output, 100 50 Gastric Drainage Output, Urine 150 130 160 Exam Other Physical Findings: gen arousable, sedated however heent ett cvs s1, s2 lungs transmitted abd soft bs+ ext femoral tlc Results Last 24 Hrs of Lab Results: Laboratory Tests 01/06/17 0836: pH 7.36, pCO2 46 H, pO2 76 L, HCO3 26, ABG O2 Sat (Measured) 93.0 L, P-50 ( Temp Corrected) N, Carboxyhemoglobin 1.3 L, O2 Concentration % 45, Temperature 98.5, Respiration Rate 12, O2 Delivery Method VENT, Vent Mode VC-AC, Expiratory Pressure 5, Tidal Volume 500, Phlebotomy Draw Site RIGHT RADIAL 01/06/17 0415: Anion Gap 4 L, Estimated GFR 53 L, Glucose 132 H, Calcium 8.2 L, Phosphorus 3.3, Magnesium 2.0, Total Bilirubin 2.4 H, AST 42, ALT 40, Albumin 2.1 L, PT 23.0 H, INR 2.21 H, CBC w Diff NO MAN DIFF REQ, RBC 3.24 L, MCV 94.1 H, MCH 30.8, RDW 18.4 H, MPV 7.9, Gran % 80.0 H, Lymphocytes % 7.3 L, Monocytes % 10.1 H, Eosinophils % 2.2, Basophils % 0.4, Absolute Granulocytes 10.1 H, Absolute Lymphocytes 0.9 L, Absolute Monocytes 1.3 H, Absolute Eosinophils 0.3 , Absolute Basophils 0, PUBS MCHC 32.8 L 01/05/17 1705: pH 7.48 H, pCO2 34 L, pO2 82, HCO3 25, ABG O2 Sat (Measured) 95.0 L, P-50 ( Temp Corrected) N, Carboxyhemoglobin 0.7 L, O2 Concentration % 50%, Temperature 98.7, Respiration Rate 12, O2 Delivery Method ESPRIT VENT, Vent Mode AC, Expiratory Pressure 5, Tidal Volume 500, Phlebotomy Draw Site RIGHT RADIAL Impression/Plan Impression/Plan Impression/Plan: Impression 81 year old man * s/p cardiac arrest - vtach as underlying rhythm * shock - septic vs cardiogenic * hx AVR on coumadin * hx cholecystitis * s/p retrieval of guidewire (central line) Plan - vasopressors to maintain MAP >65, now on levophed, vasopressin stopped - plan for PICC line with removal of femoral catheter - s/p retrieval of guidwire by IR - ID consultation is appreciated, will follow recommendations - f/u cardiology input - monitor hemodynamics - monitor ins/outs, electrolytes - if bilirubin remains elevated, will consider GI input Extensive discussion held with family. DNR/DNI status at this time. If patient does not show signs of improvement, consideration for comfort measures will be entertained (we discussed this as an option). DVT prophylaxis at all times (elevated INR on coumadin) TTS 35 min
--- NOTE | 2017-01-06 15:39 | RADIOLOGY REPORT ---
EXAMINATION: XR PORTABLE CHEST CLINICAL INFORMATION: Status post PICC placement. COMPARISON: Portable chest x-ray performed earlier the same day. TECHNIQUE: Portable portable upright 70 degree view of the chest was obtained. FINDINGS: Right-sided PICC line is identified with its tip likely in the right atrium but difficult to visualize on this radiograph. Endotracheal and enteric tubes are again noted. The tip of the enteric tube is not visualized. Endotracheal tube appears unchanged. Lung volumes are diminished with patchy bilateral opacities largely unchanged right side greater than left. IMPRESSION: Findings as noted, the tip of the PICC line is likely in the right atrium however not well visualized on this exam. Other findings as noted.
[2017-01-06 16:00] VITALS: BP 97/60
--- NOTE | 2017-01-06 17:02 | ECHOCARDIOGRAM REPORT ---
MIKE WHITING Age: 81 : 1935 Gender: M Exam Date: 01/05/2017 17:45 Exam Location: [facility] Ht (in): 70 Wt (lb): 232 BSA: 2.31 BP: 103 / 70 Ordering Physician: DEIDRA REYNA MD Referring Physician: Toro Martinez MD, PhD Technologist: Светлана Joyce [facility] Room Number: 106 Indications: RESPIRATORY FAILURE Rhythm: Atrial fibrillation Technical Quality: technically limited/Definity contrast used FINDINGS Left Ventricle Small left ventricular size with mild left ventricular hypertrophy. Normal systolic function with no obvious regional wall motion abnormalities. The ejection fraction is visually estimated at 60%. Right Ventricle The right ventricle is normal in size and function. Right Atrium The right atrium is mildly enlarged. Left Atrium The left atrium is markedly enlarged. The interatrial septum is intact. Mitral Valve The mitral valve is normal in structure and function. There is no mitral regurgitation. Aortic Valve Tilting disc (St. Misael) aortic valve without significant sclerosis or stenosis. There is no aortic regurgitation. Tricuspid Valve The tricuspid valve is normal in structure and function. There is mild to moderate tricuspid regurgitation. Pulmonary artery systolic pressure is severely elevated to 66mmHg. Pulmonic Valve Structurally normal pulmonic valve. There is no pulmonic regurgitation. Pericardium A pleural verses pericardial effusion with thrombus is noted. Great Vessels Normal aortic root dimension. The aortic arch and great vessels are well seen and are normal. CONCLUSIONS 1. Small and possibly underfilled left ventricle. 2. Normal EF of 60%. 3. Mild right atrial and severe left atrial enlargement. 4. Mild to moderate tricuspid regurgitation. 5. Normally seated and functioning tilting disc aortic valve. 6. Severe pulmonary hypertension. 7. Pleural verses pericardial effusion with suspected thrombus. A SALUD or CT is recommended to discern between a pericardial or pleural effusion. Toro Martinez M.D. (Electronically Signed) Final Date: 06 January 2017 17:01 MEASUREMENTS (Male / Female) Normal Values 2D ECHO LV Diastolic Diameter PLAX 3.2 cm 4.2 - 5.9 / 3.9 - 5.3 cm LV Systolic Diameter PLAX 2.0 cm 2.1 - 4.0 cm LV Fractional Shortening PLAX 37.5 % 25 - 46 % LV Ejection Fraction 2D Teich 68.9 % IVS Diastolic Thickness 1.2 cm LVPW Diastolic Thickness 1.2 cm LV Relative Wall Thickness 0.8 RV Internal Dim ED PLAX 3.0 cm 1.9 - 3.8 cm Aortic Root Diameter 3.2 cm LA Systolic Diameter LX 5.2 cm 3.0 - 4.0 / 2.7 - 3.8 cm LA Volume 56.6 cm 18 - 58 / 22 - 52 cm LA Volume Index 24.5 cm/m 16 - 28 cm/m Ascending Aorta Diameter 2.4 cm DOPPLER AV Peak Velocity 238.0 cm/s AV Peak Gradient 22.7 mmHg AV Mean Velocity 165.0 cm/s AV Mean Gradient 12.0 mmHg AV Velocity Time Integral 36.9 cm LVOT Peak Velocity 94.0 cm/s LVOT Peak Gradient 3.5 mmHg LVOT Mean Velocity 65.6 cm/s LVOT Mean Gradient 2.0 mmHg LVOT Velocity Time Integral 14.2 cm MV Peak Velocity 178.0 cm/s MV Peak Gradient 12.7 mmHg MV Mean Velocity 78.6 cm/s MV Mean Gradient 4.0 mmHg Mitral E Point Velocity 145.0 cm/s MV PHT Velocity 184.0 cm/s MV Deceleration [place] 1056.0 cm/s MV Pressure Half Time 52.3 ms MV Area PHT 4.2 cm MV Deceleration Time 206.0 ms TR Peak Velocity 391.0 cm/s TR Peak Gradient 61.2 mmHg Right Atrial Pressure 5.0 mmHg Pulmonary Artery Systolic Pressu 66.2 mmHg Right Ventricular Systolic Press 66.2 mmHg PV Peak Velocity 91.0 cm/s PV Peak Gradient 3.3 mmHg PV Mean Velocity 55.0 cm/s PV Mean Gradient 2.0 mmHg PV Velocity Time Integral 11.8 cm LV E' Lateral Velocity 9.8 cm/s Mitral E to LV E' Lateral Ratio 14.8 LV E' Septal Velocity 10.3 cm/s Mitral E to LV E' Septal Ratio 14.1
--- NOTE | 2017-01-06 17:37 | RADIOLOGY REPORT ---
EXAMINATION: XR PORTABLE CHEST CLINICAL INFORMATION: Status post PICC placement. Interval retraction of the right upper extremity PICC. COMPARISON: Portable chest x-ray 01/06/2017 at 3:12 PM. TECHNIQUE: Portable AP view of the chest was obtained. FINDINGS: Allowing for differences in technique, patient positioning and aeration of the lungs, single AP view of the chest demonstrates no significant interval changes in the appearance of the chest. The right upper extremity PICC appears to terminate within the right atrium although the tip of the catheter is not well seen on this examination. Remaining support devices including the endotracheal tube as well as the enteric catheter appear unchanged in course and position. Redemonstrated is cardiomegaly. There are persistent patchy and hazy airspace opacities within the bilateral lung bases as well as persistent bilateral pleural effusions, right greater than left. No pneumothoraces are identified. IMPRESSION: No significant interval changes in the appearance of the chest. The right upper extremity PICC appears to lie within the right atrium although the distal tip of the catheter is not well seen on this exam.
--- NOTE | 2017-01-06 17:59 | PN- Cardiology ---
Subjective Subjective: * Patient is intubated and sedated. * unable to wean pressors off at this point in time. * atrial fibrillation with occasional ventricular ectopy * cardiac enzymes trended down * creatinine 1.3 with potassium 3.4 * wbc elevated to 12.6 * INR is therapeutic at 2.21 Objective Vital Signs and I&Os Vital Signs Date Time Temp Pulse Resp B/P Pulse O2 O2 Flow FiO2 Ox Delivery Rate 01/06 1600 94 Ventilator 50% 01/06 1600 97.1 106 12 97/60 94 Ventilator 50% 01/06 1551 50 01/06 1311 50 01/06 1200 95 Ventilator 50% 01/06 1034 50 01/06 0800 92 Ventilator 50% 01/06 0800 98.5 99 10 90/60 92 Ventilator 50% 01/06 0747 50 01/06 0530 50 01/06 0504 100 86/58 01/06 0400 94 Ventilator 50% 01/06 0319 50 01/06 0214 114 90/69 01/06 0017 50 01/06 0000 98.8 110 12 100/70 93 Ventilator 50% 01/06 0000 93 Ventilator 50% 01/05 2243 50 01/05 2230 98.8 106 12 110/74 01/05 2226 98.8 106 12 110/74 01/05 2225 98.8 105 12 110/74 01/05 2000 92 Ventilator 50% 01/05 1941 97.8 103 12 107/80 01/05 1930 50 Intake & Output 01/06 1600 01/06 0800 01/06 0000 01/05 1600 01/05 0800 01/05 0000 Intake Total 1336.3 1662 2031.2 1770 1748 2320 Output Total 250 180 160 110 100 125 Balance 1086.3 1482 1871.2 1660 1648 2195 Intake, IV 1236.3 1662 2031.2 1710 1748 2290 Intake, Oral 0 0 Intake, Other 30 Intake, Tube 100 60 Irrigant Number 0 0 0 Bowel Movements Output, 100 50 10 0 50 Gastric Drainage Output, Urine 150 130 160 100 100 75 Patient 233 lb 233 lb Weight Physical Exam: General: WD/ overweight male in NAD; intubated and sedated Heart: irregularly irregular with crisp valve sounds Lungs: no crackles or wheezing Extremities: 1+ bilateral leg edema Assessment/Plan Assessment/Plan * This patient has had some improvement in his leg edema. There is evidence of pulmonary edema on his chest X-ray along with pleural effusions. In consideration of his low BP and small, possibly underfilled left ventricle, I would not diurese at this time. His echo shows a likely pleural effusion but a pericardial effusion cannot be excluded. There appears to be debris consistent with thrombus in this effusion. Obtain a CT of the chest without contrast to discern between a pericardial verses pleural effusion. * Replete potassium to 4-4.5. * Continue amiodarone. He can receive this orally at 400mg PO BID. * NS at 125cc/hr to maintain a systolic BP of 100mmHg. Wean off Levophed as tolerated by BP. * Increased WBC. Antibiotics as per ID's recommendations. Continue telemetry? Yes
--- NOTE | 2017-01-06 19:37 | CT SCAN REPORT ---
EXAMINATION: CT CHEST WITHOUT CONTRAST CLINICAL INFORMATION: Presumptive diagnosis, evaluate for cardiac vent rupture, question pericardial fluid hematoma. COMPARISON: Multiple prior chest x-rays most recent earlier same day at 5:[address] 12/26/2016 which includes the lower chest. TECHNIQUE: Multidetector volumetric CT imaging of the chest was done. Axial MIP volume rendering provided. Sagittal and coronal reformatted images were obtained. DLP: 866 mGy-cm FINDINGS: LINES AND TUBES: PICC line in SVC. Endotracheal tube present approximately 5 cm above the karan. NG tube in stomach. LUNGS AND PLEURAL SPACES: There are large bilateral pleural effusions with concomitant atelectasis of the lower lobes and a portion of the lingula. This is increased compared with the most recent CT 12/26/2016 and is unchanged compared with the chest x-ray allowing for differences in imaging techniques utilized. Scattered patchy opacities throughout the visualized lungs bilaterally, nonspecific etiology, some of this may reflect subsegmental atelectasis. CARDIOVASCULAR: There are pericardial calcifications and arterial calcifications. Pulmonary vessels unremarkable. Lymph nodes are unremarkable. Esophagus decompressed with NG tube in place. Thoracic Inlet: Unremarkable. Soft Tissues: Generalized edema. OSSEOUS STRUCTURES: Multilevel spondylosis of the dorsal spine sternotomy wires in place. UPPER ABDOMEN: Unremarkable. IMPRESSION: Large bilateral effusion with compressive atelectasis. Patchy bilateral opacities nonspecific. Some or all of this could reflect atelectasis. Pneumonia cannot be excluded. PICC line in SVC.
[2017-01-07] VITALS: BP 92/56
[2017-01-07 05:00] LABS: ABSOLUTE BASOPHIL COUNT 0 /CUMM (0.0-0.2); ABSOLUTE EOSINOPHIL COUNT 0.3 /CUMM (0.0-0.7); ABSOLUTE GRANULOCYTE CT 10.4 /CUMM (1.4-6.5); ABSOLUTE LYMPH COUNT 1.1 /CUMM (1.2-3.4); ABSOLUTE MONOCYTE COUNT 1.4 /CUMM (0.10-0.60); BASOPHIL % 0 % (0.0-2.0); EOSINOPHIL % 2.1 % (0-5); GRANULOCYTE % 79.5 % (42.2-75.2); HEMATOCRIT 31.8 % (42-52); MEAN CORPUSCULAR HGB 30.6 PG (27.0-31.0); MEAN CORPUSCULAR HGB CONC 32.6 G/DL (33.0-37.0); MEAN CORPUSCULAR VOLUME 93.8 FL (80.0-94.0); MEAN PLATELET VOLUME 8.1 FL (7.4-10.4); PLATELET COUNT 135 /CUMM (130-400); RBC DISTRIBUTION WIDTH 18.2 % (11.5-14.5); RED BLOOD CELL CT 3.39 /CUMM (4.70-6.10); WHITE BLOOD CELL COUNT 13.1 /CUMM (4.8-10.8)
[2017-01-07 05:02] LABS: PT 25.9 SEC (9.4-12.5)
--- NOTE | 2017-01-07 07:24 | RADIOLOGY REPORT ---
EXAMINATION: XR PORTABLE CHEST CLINICAL INFORMATION: ET tube placement on mechanical ventilation. COMPARISON: 01/06/2017. TECHNIQUE: Portable AP 90 degrees upright view of the chest was obtained. FINDINGS: The study is technically limited. The right costophrenic angle is not included and penetration is limited likely secondary to technical factors and body habitus. ET tube tip terminates just below the thoracic inlet without change. The right extremity PICC is not well evaluated. The lung volumes are markedly decreased with bilateral pleural effusions. There is worsening consolidation in the mid and lower right lung and persistent consolidation in the mid and lower left lung. Median sternotomy wires are demonstrated. The heart remains enlarged. Pericardial calcification or ventricular calcification is identified. IMPRESSION: Bilateral pleural effusions and edema and consolidation. There has been apparent worsening compared to prior although some of these changes may relate to the shallow inspiration and technical factors. Limited evaluation of tubes and lines as above.
[2017-01-07 08:00] VITALS: BP 102/70
--- NOTE | 2017-01-07 08:00 | NUR ---
Patient is sedated on a fentanyl gtt infusing at 50mcg/hr. He is easily arousable to verbal stimuli, SAS-3, can follow commands and move all extremities. Pupils 3mm and brisk. He can shake head yes and no appropriately to questions. Soft bilateral wrist restraints in place. Afib on tele monitor with pvc's, HR= 80-110's. SBP: 90-110's levo gtt infusing at 10mcg/min. pulses +. Remains intubated with a #8 to the right at 22cm. Lungs clear and diminished at the bases. Scant amounts of blood tinged secretions are noted when suctioning through the ETT. Vent settings currently: AC 12/500/55/5. O[address] and is clamped at this time, ? starting tube feeds. Abdomen is distended and soft with + bowel sounds. Starr is draining clear francisco colored urine with approx 10-150mls/hr. Skin tears noted to BUE and are weeping. +2 edema is noted, +3-4 scrotal edema and scromtum was elevated- +1 generalized. No areas of pressure injury are currently noted. Dressing to right groin from previous TLC sight was changed- folds are excorated and denuded. OPAL PICC line in place and is WNL. NS infusing at 125mls/hr. Patient is able to deny pain and vitals are stable. Will continue to closely monitor patient.
--- NOTE | 2017-01-07 08:35 | PN- Resident CRCU ---
Subjective HPI/CRCU Issues: Patient was visited and examined today. intubated and sedated. Nonverbal but communicative. Following verbal command. does not express pain or discomfort. MAP 71, on one pressor (Levo). Afib with controlled rate . Levophed for BP support. Fentanyl drip for sedation. Fluid balance pat 24h: luid balance in total: worsening leukocytosis 13.1 from 12.9. Na 132 and K is 4. INR is therapeutic at 2.49. Objective Vital Signs & I&O Last 8 Hrs of Vitals and I&O: reviwed MAP 71 BP 96/61 Exam General Appearance: awake, sedated, intubated, obese Head: atraumatic, lips and face were examined for pressure ulcer: negative Ears, Nose, Throat: normal pharynx Neck: normal inspection, supple, full range of motion Respiratory: normal breath sounds, chest non-tender Cardiovascular: edema, irregularly irregular Gastrointestinal: soft, non-tender Extremities: pedal edema Skin: intact Back: normal inspection PICC Site: right arm Date In: 01/06/17 Need for Catheter pressors, poor access Starr Site: uretheral Date In: 01/06/17 Still Needed? Yes IV Drips IV Drips: levophed and fentanyl Current Medications: Current Medications Sig/Salud Start time Last Medication Dose Route Stop Time Status Admin Acetaminophen 650 MG Q6P PRN 12/27 0115 AC PO Allopurinol 100 MG DAILY 12/27 1000 AC 01/06 PO 0759 Amiodarone HCl 400 MG Q12H 01/06 1900 AC 01/07 PO 0644 Amiodarone HCl/ 360 MG Q12H 01/04 0345 DC 01/06 Dextrose IV 1448 N/A 1 UNIT Benzonatate 100 MG TID PRN 12/30 2030 AC 01/03 PO 1133 Fentanyl Citrate 1,000 MCG Q8H 01/05 1430 AC 01/07 Dextrose/Water 250 ML IV 0541 Finasteride 5 MG DAILY 12/27 1015 AC 01/03 PO 1133 Hydrocortisone 100 MG ONCE ONE 01/06 1615 CAN Sodium Succinate IV 01/06 1616 Magnesium Oxide 400 MG BID 12/30 2200 AC 01/06 PO 2114 Metoprolol Tartrate 12.5 MG BID 01/03 2200 AC 01/06 PO 2116 Norepinephrine 4 MG Q3H 01/04 1245 AC 01/07 Sodium Chloride 250 ML IV 0645 Pantoprazole Sodium 40 MG DAILY 01/04 1000 AC 01/06 IV 0759 Polyethylene Glycol 17 GM DAILY 12/27 1000 AC 01/06 PO 0759 Potassium Chloride 10 MEQ DAILY 12/27 1000 AC 01/03 PO 1133 Potassium Phosphate 15 mMol ONE ONE 01/06 0900 DC 01/06 Dextrose/Water 250 ML IV 01/06 1303 0928 Senna/Docusate Sodium 1 TAB Q12P PRN 12/27 0130 AC PO Sodium Chloride 250 ML BOLUS ONE 01/06 1615 CAN IV 01/06 1714 Sodium Chloride 1,000 ML Q13H 01/04 1445 AC 01/07 IV 0645 Vasopressin 40 UNITS Q16H 01/06 1615 DC Sodium Chloride 100 ML IV Vasopressin 40 UNITS Q16H 01/04 0800 DC 01/05 Sodium Chloride 100 ML IV 1938 Antibiotics Antibiotics? none CXR Findings: Bilateral pleural effusions and edema and consolidation. There has been apparent worsening compared to prior although some of these changes may relate to the shallow inspiration and technical factors. Impression/Plan Impression/Problem List Impression: 81 years old was admitted for hypotensio and shock possibly cadigenic and cardiac arrest post-prolonged cardiac arrest and traumatic/long resccusitation. Plan Cardiogenic shock intubated and sedated:MAP of 71 on levophed. Improved mentation. Patient seems to be ready for weaning trial. * Continue Levophed and titrate for MAP of 65mmhg * Titrate fentanyl down * remaiend vented; CXR was new for consolidation and stable B/L pleural effuison * ABG is pending Inefctious disease- worseinng leukocytosis with out evidence/ source of infection. New/ worsening consolidation on CXR. There is possibility of VAC. * Watch off Abx and repear CXR in the am * In case spikked fever, send blood Cx and Sputum Cx * In case became febrile start vanco nd ceftaz Cardio- Afib. INR is therapeutic and HR is controled. Was started on Amiodarone PO. * Continue amio Metabolic- Na and k and Mg and phosphorus are in normal range. * Maybe starting tube feeding within 1 week of admission to ICU * Fluid balance: 5463 I/450 Os Neuro-alert, follows verbal command. Problem List: 1. Bilateral pleural effusion 2. History of cardiac arrest 3. CHF (congestive heart failure) 4. Afib Pain Ratin Tomorrow's Labs & Rationales: icu bundle CBC Plan DVT/Prophylaxis: mechanical, pharmacological
--- NOTE | 2017-01-07 10:12 | PN- CRCU ---
Subjective HPI/Critical Care Issues: Doing better today more awake. On 50 mics of fentanyl. Intubated and sedated. Review of symptoms could not be obtained Afebrile Blood pressure is relatively improved on atrial fibrillation with levo fed On assist control of 12 555% FiO2 Fentanyl has been down to 50 mics now adequately sedated His amiodarone has been stopped Continues to be on normal saline at 1 75 mL an hour Urine output is improving Other significant data Levo fed on 20 mics Patanol 50 other drips reviewed Was significant data creatinine is improved to 1.2 BUN is now 16 White count 13.1 hemoglobin 10.4 INR was 2.49 ABG done yesterday 7.36/46/ on 45% Other blood work reviewed as noted in the computer bilirubin is up to 3.3 which has been chronically elevated Chest x-ray bilateral pleural effusion consolidation edema slight worsening on both sides tubes in place CT of the chest reviewed which showed large bilateral pleural effusion with compressive atelectasis patchy bilateral opacities which appears to be nonspecific PICC line in place Echocardiogram done on the showed normal ejection fraction small left ventricle St. Misael's aortic valve noted severe pulmonary hypertension CT scan of the chest did not reveal any pericardial effusion Objective Current Medications: Current Medications Sig/Salud Start time Last Medication Dose Route Stop Time Status Admin Acetaminophen 650 MG Q6P PRN 12/27 0115 AC PO Allopurinol 100 MG DAILY 12/27 1000 AC 01/06 PO 0759 Amiodarone HCl 400 MG Q12H 01/06 1900 AC 01/07 PO 0644 Amiodarone HCl/ 360 MG Q12H 01/04 0345 DC 01/06 Dextrose IV 1448 N/A 1 UNIT Benzonatate 100 MG TID PRN 12/30 2030 AC 01/03 PO 1133 Fentanyl Citrate 1,000 MCG Q8H 01/05 1430 AC 01/07 Dextrose/Water 250 ML IV 0541 Finasteride 5 MG DAILY 12/27 1015 AC 01/03 PO 1133 Hydrocortisone 100 MG ONCE ONE 01/06 1615 CAN Sodium Succinate IV 01/06 1616 Magnesium Oxide 400 MG BID 12/30 2200 AC 01/06 PO 2114 Metoprolol Tartrate 12.5 MG BID 01/03 2200 AC 01/06 PO 2116 Norepinephrine 4 MG Q3H 01/04 1245 AC 01/07 Sodium Chloride 250 ML IV 0645 Pantoprazole Sodium 40 MG DAILY 01/04 1000 AC 01/06 IV 0759 Polyethylene Glycol 17 GM DAILY 12/27 1000 AC 01/06 PO 0759 Potassium Chloride 10 MEQ DAILY 12/27 1000 AC 01/03 PO 1133 Potassium Phosphate 15 mMol ONE ONE 01/06 0900 DC 01/06 Dextrose/Water 250 ML IV 01/06 1303 0928 Senna/Docusate Sodium 1 TAB Q12P PRN 12/27 0130 AC PO Sodium Chloride 250 ML BOLUS ONE 01/06 1615 CAN IV 01/06 1714 Sodium Chloride 1,000 ML Q13H 01/04 1445 AC 01/07 IV 0645 Vasopressin 40 UNITS Q16H 01/06 1615 DC Sodium Chloride 100 ML IV Vasopressin 40 UNITS Q16H 01/04 0800 DC 01/05 Sodium Chloride 100 ML IV 1938 Laboratory Tests 01/07 01/06 0405 0836 Blood Gas pH (7.35 - 7.45 PH) 7.36 pCO2 (35 - 45 TORR) 46 H pO2 (80 - 100 TORR) 76 L HCO3 (21 - 28 MEQ/L) 26 ABG O2 Sat (Measured) (>96.0 %) 93.0 L P-50 (Temp Corrected) N Carboxyhemoglobin (1.5 - 5.0 %) 1.3 L O2 Concentration % 45 Temperature (97.0 - 100.0 FARH) 98.5 Respiration Rate (BPM) 12 O2 Delivery Method VENT Vent Mode VC-AC Expiratory Pressure (CMH2O/P) 5 Tidal Volume (CC) 500 Chemistry Sodium (137 - 145 mmol/L) 132 L Potassium (3.5 - 5.1 mmol/L) 4.0 Chloride (98 - 107 mmol/L) 98 Carbon Dioxide (22 - 30 mmol/L) 27 Anion Gap (5 - 16) 6 BUN (9 - 20 mg/dL) 16 Creatinine (0.7 - 1.2 mg/dL) 1.2 Estimated GFR (>60 ml/min) 58 L Glucose (65 - 99 mg/dL) 116 H Calcium (8.4 - 10.2 mg/dL) 8.4 Phosphorus (2.5 - 4.5 mg/dL) 4.0 Magnesium (1.6 - 2.3 mg/dL) 2.0 Total Bilirubin (0.2 - 1.3 mg/dL) 3.3 H AST (17 - 59 U/L) 51 ALT (21 - 72 U/L) 51 Albumin (3.5 - 5.0 g/dL) 2.3 L Coagulation PT (9.4 - 12.5 SEC) 25.9 H INR (0.90 - 1.17) 2.49 H Hematology CBC w Diff NO MAN DIFF REQ WBC (4.8 - 10.8 /CUMM) 13.1 H RBC (4.70 - 6.10 /CUMM) 3.39 L Hgb (14.0 - 18.0 G/DL) 10.4 L Hct (42 - 52 %) 31.8 L MCV (80.0 - 94.0 FL) 93.8 MCH (27.0 - 31.0 PG) 30.6 RDW (11.5 - 14.5 %) 18.2 H Plt Count (130 - 400 /CUMM) 135 MPV (7.4 - 10.4 FL) 8.1 Gran % (42.2 - 75.2 %) 79.5 H Lymphocytes % (20.5 - 51.1 %) 8.1 L Monocytes % (1.7 - 9.3 %) 10.3 H Eosinophils % (0 - 5 %) 2.1 Basophils % (0.0 - 2.0 %) 0 L Absolute Granulocytes (1.4 - 6.5 /CUMM) 10.4 H Absolute Lymphocytes (1.2 - 3.4 /CUMM) 1.1 L Absolute Monocytes (0.10 - 0.60 /CUMM) 1.4 H Absolute Eosinophils (0.0 - 0.7 /CUMM) 0.3 Absolute Basophils (0.0 - 0.2 /CUMM) 0 PUBS MCHC (33.0 - 37.0 G/DL) 32.6 L Miscellaneous Phlebotomy Draw Site RIGHT RADIAL 01/06 01/05 8842 0886 Blood Gas pH (7.35 - 7.45 PH) 7.48 H pCO2 (35 - 45 TORR) 34 L pO2 (80 - 100 TORR) 82 HCO3 (21 - 28 MEQ/L) 25 ABG O2 Sat (Measured) (>96.0 %) 95.0 L P-50 (Temp Corrected) N Carboxyhemoglobin (1.5 - 5.0 %) 0.7 L O2 Concentration % 50% Temperature (97.0 - 100.0 FARH) 98.7 Respiration Rate (BPM) 12 O2 Delivery Method ESPRIT VENT Vent Mode AC Expiratory Pressure (CMH2O/P) 5 Tidal Volume (CC) 500 Chemistry Sodium (137 - 145 mmol/L) 129 L Potassium (3.5 - 5.1 mmol/L) 3.4 L Chloride (98 - 107 mmol/L) 96 L Carbon Dioxide (22 - 30 mmol/L) 29 Anion Gap (5 - 16) 4 L BUN (9 - 20 mg/dL) 16 Creatinine (0.7 - 1.2 mg/dL) 1.3 H Estimated GFR (>60 ml/min) 53 L Glucose (65 - 99 mg/dL) 132 H Calcium (8.4 - 10.2 mg/dL) 8.2 L Phosphorus (2.5 - 4.5 mg/dL) 3.3 Magnesium (1.6 - 2.3 mg/dL) 2.0 Total Bilirubin (0.2 - 1.3 mg/dL) 2.4 H AST (17 - 59 U/L) 42 ALT (21 - 72 U/L) 40 Albumin (3.5 - 5.0 g/dL) 2.1 L Coagulation PT (9.4 - 12.5 SEC) 23.0 H INR (0.90 - 1.17) 2.21 H Hematology CBC w Diff NO MAN DIFF REQ WBC (4.8 - 10.8 /CUMM) 12.6 H RBC (4.70 - 6.10 /CUMM) 3.24 L Hgb (14.0 - 18.0 G/DL) 10.0 L Hct (42 - 52 %) 30.5 L MCV (80.0 - 94.0 FL) 94.1 H MCH (27.0 - 31.0 PG) 30.8 RDW (11.5 - 14.5 %) 18.4 H Plt Count (130 - 400 /CUMM) 122 L MPV (7.4 - 10.4 FL) 7.9 Gran % (42.2 - 75.2 %) 80.0 H Lymphocytes % (20.5 - 51.1 %) 7.3 L Monocytes % (1.7 - 9.3 %) 10.1 H Eosinophils % (0 - 5 %) 2.2 Basophils % (0.0 - 2.0 %) 0.4 Absolute Granulocytes (1.4 - 6.5 /CUMM) 10.1 H Absolute Lymphocytes (1.2 - 3.4 /CUMM) 0.9 L Absolute Monocytes (0.10 - 0.60 /CUMM) 1.3 H Absolute Eosinophils (0.0 - 0.7 /CUMM) 0.3 Absolute Basophils (0.0 - 0.2 /CUMM) 0 PUBS MCHC (33.0 - 37.0 G/DL) 32.8 L Miscellaneous Phlebotomy Draw Site RIGHT RADIAL 01/05 01/05 1300 1155 Blood Gas pH (7.35 - 7.45 PH) 7.53 H pCO2 (35 - 45 TORR) 25 L pO2 (80 - 100 TORR) 62 L HCO3 (21 - 28 MEQ/L) 21 ABG O2 Sat (Measured) (>96.0 %) 95.0 L P-50 (Temp Corrected) N O2 Concentration % 50% Respiration Rate (BPM) 18 O2 Delivery Method VENT Vent Mode AC Expiratory Pressure (CMH2O/P) 5 Tidal Volume (CC) 550 Pressure Support (CMH2O/P) 0 Coagulation PT (9.4 - 12.5 SEC) 24.1 H INR (0.90 - 1.17) 2.31 H Miscellaneous Phlebotomy Draw Site LEFT RADIAL Vital Signs & I&O Last 24 Hrs of Vitals and I&O: Vital Signs Date Time Temp Pulse Resp B/P Pulse O2 O2 Flow FiO2 Ox Delivery Rate 01/07 0800 97.3 99 13 102/70 96 Ventilator 55% 01/07 0800 96 Ventilator 55% 01/07 0645 107 126/72 01/07 0644 99 111/69 01/07 0544 55 01/07 0400 91 Ventilator 55% 01/07 0310 85 90/64 01/07 0309 55 01/07 0123 55 01/07 0000 97.9 98 12 92/56 95 Ventilator 55% 01/07 0000 95 Ventilator 55% 01/06 2312 55 01/066 107 100/67 01/06 2114 93 85/69 01/06 2103 97 92/60 01/07 2000 96 Ventilator 55% 01/06 1955 107 96/57 01/06 1900 55 01/06 1600 94 Ventilator 50% 01/06 1600 97.1 106 12 97/60 94 Ventilator 50% 01/06 1551 50 01/06 1311 50 01/06 1200 95 Ventilator 50% 01/06 1034 50 Intake & Output 01/07 1600 01/07 0800 01/07 0000 Intake Total 1380 1884 Output Total 140 160 Balance 1240 1724 Intake, IV 1380 1764 Intake, Oral 0 0 Intake, Tube 120 Irrigant Number 0 0 Bowel Movements Output, 0 50 Gastric Drainage Output, Urine 140 110 Impression/Plan Impression/Plan Impression/Plan: General Appearance: awake, sedated, intubated, obese Head: atraumatic, lips and face were examined for pressure ulcer: negative Ears, Nose, Throat: normal pharynx Neck: normal inspection, supple, full range of motion Respiratory: normal breath sounds, chest non-tender Cardiovascular: edema, irregularly irregular Gastrointestinal: soft, non-tender Extremities: pedal edema Skin: intact Back: normal inspection PICC Starr IMPRESSION This is an elderly gentleman who had had a cholecystotomy tube with multiple comorbidities with hypertension dyslipidemia diabetes peripheral vascular disease gout coronary artery disease 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 tach * Significant anemia * Patient now off all antibiotics per infectious disease RECOMMENDATION * Continue mechanical ventilator * Change intravenous fluids to D5 normal saline at 60 mL an hour * Wean levo fed * Reduce fentanyl * Pressure support trial for half hour twice a day * Continue amiodarone and other medications * Continue his magnesium and probably his dose can be reduced to 400 mg daily from tomorrow * Start low-dose tube feeding at 20 mL an hour with Jevity discontinue benzonatate, finasteride and other unnecessary medications continue stool softeners * If he stable in the future attempt to diurese him gently with 40 mg Lasix 1 * Repeat chest x-ray later and if his effusions persist he may need to be tapped * Continue anticoagulation ask cardiology to see what his INR should be Patient continues to be critically ill total time spent 40 minutes
--- NOTE | 2017-01-07 12:11 | PN- Infect Dx ---
Subjective Subjective: Afebrile. His blood pressureis stable on Levophed. Objective Last 24 Hrs of Vital Signs/I&O Vital Signs Date Time Temp Pulse Resp B/P Pulse O2 O2 Flow FiO2 Ox Delivery Rate 01/07 0855 55 01/07 0800 97.3 99 13 102/70 96 Ventilator 55% 01/07 0800 96 Ventilator 55% 01/07 0645 107 126/72 01/07 0644 99 111/69 01/07 0544 55 01/07 0400 91 Ventilator 55% 01/07 0310 85 90/64 01/07 0309 55 01/07 0123 55 01/07 0000 97.9 98 12 92/56 95 Ventilator 55% 01/07 0000 95 Ventilator 55% 01/06 2312 55 01/06 2116 107 100/67 01/06 2114 93 85/69 01/06 2103 97 92/60 01/06 2000 96 Ventilator 55% 01/06 1955 107 96/57 01/06 1900 55 01/06 1600 94 Ventilator 50% 01/06 1600 97.1 106 12 97/60 94 Ventilator 50% 01/06 1551 50 01/06 1311 50 01/06 1200 95 Ventilator 50% Intake & Output 01/07 1600 01/07 0800 01/07 0000 Intake Total 1380 1884 Output Total 140 160 Balance 1240 1724 Intake, IV 1380 1764 Intake, Oral 0 0 Intake, Tube 120 Irrigant Number 0 0 Bowel Movements Output, 0 50 Gastric Drainage Output, Urine 140 110 Physical Exam Other Physical Findings: He responds to voice and pain but does not follow commands on sedation Lungs are clear Heart irregular rhythm with no murmur Abdomen is distended, nontender with positive bowel sounds Extremities diffuse ecchymoses with chronic changes to both lower extremities, with 1+ edema; PICC in the right upper extremity in place Starr catheter remains in place Results Last 24 Hours of Lab Results: Laboratory Tests 01/07 01/07 0920 0405 Blood Gas pH (7.35 - 7.45 PH) 7.31 L pCO2 (35 - 45 TORR) 48 H pO2 (80 - 100 TORR) 90 HCO3 (21 - 28 MEQ/L) 23 ABG O2 Sat (Measured) (>96.0 %) 95.0 L Carboxyhemoglobin (1.5 - 5.0 %) 1.4 L O2 Concentration % 55% Respiration Rate (BPM) 12 O2 Delivery Method VENT Vent Mode AC Expiratory Pressure (CMH2O/P) 5 Tidal Volume (CC) 550 Chemistry Sodium (137 - 145 mmol/L) 132 L Potassium (3.5 - 5.1 mmol/L) 4.0 Chloride (98 - 107 mmol/L) 98 Carbon Dioxide (22 - 30 mmol/L) 27 Anion Gap (5 - 16) 6 BUN (9 - 20 mg/dL) 16 Creatinine (0.7 - 1.2 mg/dL) 1.2 Estimated GFR (>60 ml/min) 58 L Glucose (65 - 99 mg/dL) 116 H Calcium (8.4 - 10.2 mg/dL) 8.4 Phosphorus (2.5 - 4.5 mg/dL) 4.0 Magnesium (1.6 - 2.3 mg/dL) 2.0 Total Bilirubin (0.2 - 1.3 mg/dL) 3.3 H AST (17 - 59 U/L) 51 ALT (21 - 72 U/L) 51 Albumin (3.5 - 5.0 g/dL) 2.3 L Coagulation PT (9.4 - 12.5 SEC) 25.9 H INR (0.90 - 1.17) 2.49 H Hematology CBC w Diff NO MAN DIFF REQ WBC (4.8 - 10.8 /CUMM) 13.1 H RBC (4.70 - 6.10 /CUMM) 3.39 L Hgb (14.0 - 18.0 G/DL) 10.4 L Hct (42 - 52 %) 31.8 L MCV (80.0 - 94.0 FL) 93.8 MCH (27.0 - 31.0 PG) 30.6 RDW (11.5 - 14.5 %) 18.2 H Plt Count (130 - 400 /CUMM) 135 MPV (7.4 - 10.4 FL) 8.1 Gran % (42.2 - 75.2 %) 79.5 H Lymphocytes % (20.5 - 51.1 %) 8.1 L Monocytes % (1.7 - 9.3 %) 10.3 H Eosinophils % (0 - 5 %) 2.1 Basophils % (0.0 - 2.0 %) 0 L Absolute Granulocytes (1.4 - 6.5 /CUMM) 10.4 H Absolute Lymphocytes (1.2 - 3.4 /CUMM) 1.1 L Absolute Monocytes (0.10 - 0.60 /CUMM) 1.4 H Absolute Eosinophils (0.0 - 0.7 /CUMM) 0.3 Absolute Basophils (0.0 - 0.2 /CUMM) 0 PUBS MCHC (33.0 - 37.0 G/DL) 32.6 L Miscellaneous Phlebotomy Draw Site LEFT RADIAL Last 24 Hours of Esequiel Results: Blood cultures 2 January 04 remain negative Recent Imaging Studies: CT of the chest January 06 reveals large bilateral pleural effusions with concomitant atelectasis of the lower lobes and a portion of the lingula, with scattered patchy opacities throughout both lungs possibly reflecting subsegmental atelectasis Assessment/Plan Impression: Stable though still requiring pressors and with increasing oxygen requirements, possibly secondary to fluid overload, suggested by his significant input compared to his output and his recent CT scan findings. He remains afebrile with mild leukocytosis off antibiotics with blood cultures remaining negative. His bilirubin is increased from yesterday, suggesting the possibility of an ongoing biliary process status post inadvertent removal prior to this admission of his cholecystostomy tube, placed 2 months prior to admission for cholecystitis. Of note a recent right upper quadrant ultrasound did not suggest acute cholecystitis. Suggestion: 1. Consider GI input regarding need for further evaluation of the biliary tree 2. Continue to follow off antibiotics
--- NOTE | 2017-01-07 13:57 | RADIOLOGY REPORT ---
EXAMINATION: XR PORTABLE CHEST CLINICAL INFORMATION: Pleural effusion and consolidation. COMPARISON: Chest portable 01/08/2016 at 6:54 AM. TECHNIQUE: Portable AP semierect view of the chest was obtained. FINDINGS: Consistently the right lateral chest has been out the [id number]. There is bilateral decreased lung volume. There is haziness throughout the right lung suggestive of effusion. Mild haziness throughout the left lung base is noted. Pulmonary vascularity is bilaterally increased probably from CHF. There is cardiomegaly present. Endotracheal tube terminates 3 cm above the karan. A right PICC line tip is in mid SVC. There appears to be a enteric tube which is below the karan. The distal tip is not seen. No gross bony abnormality. IMPRESSION: Suboptimal exam. Suspect bibasilar pleural effusions slightly greater on the right. There is cardiomegaly with CHF as well. The PICC line and endotracheal tube are in good position. The tip of enteric tube lies in the mid chest. The distal end is not visualized.
--- NOTE | 2017-01-07 15:11 | PN- Cardiology ---
Subjective Subjective: The patient remains intubated. Blood pressure is under control on levodopa. Amiodarone has been changed to be oral. He is not currently having any significant arrhythmias. Urine output is improving. Objective Vital Signs and I&Os Vital Signs Date Time Temp Pulse Resp B/P Pulse O2 O2 Flow FiO2 Ox Delivery Rate 01/07 1429 55 01/07 1200 94 Ventilator 55% 01/07 1156 55 01/07 0855 55 01/07 0800 97.3 99 13 102/70 96 Ventilator 55% 01/07 0800 96 Ventilator 55% 01/07 0645 107 126/72 01/07 0644 99 111/69 01/07 0544 55 01/07 0400 91 Ventilator 55% 01/07 0310 85 90/64 01/07 0309 55 01/07 0123 55 01/07 0000 97.9 98 12 92/56 95 Ventilator 55% 01/07 0000 95 Ventilator 55% 01/06 2312 55 01/06 2116 107 100/67 01/06 2114 93 85/69 01/06 2103 97 92/60 01/06 2000 96 Ventilator 55% 01/06 1955 107 96/57 01/06 1900 55 01/06 1600 94 Ventilator 50% 01/06 1600 97.1 106 12 97/60 94 Ventilator 50% 01/06 1551 50 Intake & Output 01/07 1600 01/07 0800 01/07 0000 01/06 1600 01/06 0800 01/06 0000 Intake Total 1350 1380 1884 1336.3 1662 3915.2 Output Total 150 140 160 250 180 320 Balance 1200 1240 1724 1086.3 1482 3595.2 Intake, IV 1230 1380 1764 1236.3 1662 3795.2 Intake, Oral 0 0 0 0 0 Intake, Tube 120 120 100 120 Irrigant Number 0 0 0 0 Bowel Movements Output, 0 50 100 50 50 Gastric Drainage Output, Urine 150 140 110 150 130 270 Patient 233 lb Weight Physical Exam: Gen: NAD HEENT: normal Lungs: clear to auscultation, normal resp. effort Heart: Irregular, crisp valve sounds, 1/6 systolic murmur Abdomen: Soft, nontender, no masses Extremities: No clubbing, cyanosis, or edema. Neuro: Alert and oriented x 3, cranial nerves intact Current Medications: Current Medications Sig/Salud Start time Last Medication Dose Route Stop Time Status Admin Acetaminophen 650 MG Q6P PRN 12/27 0115 AC PO Allopurinol 100 MG DAILY 12/27 1000 AC 01/07 PO 1056 Amiodarone HCl 400 MG Q12H 01/06 1900 AC 01/07 PO 0644 Amiodarone HCl/ 360 MG Q12H 01/04 0345 DC 01/06 Dextrose IV 1448 N/A 1 UNIT Benzonatate 100 MG TID PRN 12/30 2030 DC 01/03 PO 1133 Dextrose/Sodium 1,000 ML Q16H 01/07 1100 AC 01/07 Chloride IV 1145 Fentanyl Citrate 1,000 MCG Q8H 01/05 1430 AC 01/07 Dextrose/Water 250 ML IV 0541 Finasteride 5 MG DAILY 12/27 1015 AC 01/03 PO 1133 Hydrocortisone 100 MG ONCE ONE 01/06 1615 CAN Sodium Succinate IV 01/06 1616 Magnesium Oxide 400 MG BID 12/30 2200 DC 01/07 PO 1056 Metoprolol Tartrate 12.5 MG BID 01/03 2200 [place] 01/06 PO 2116 Norepinephrine 4 MG Q8H 01/07 1430 AC Sodium Chloride 250 ML IV Norepinephrine 4 MG Q3H 01/04 1245 [place] 01/07 Sodium Chloride 250 ML IV 0645 Pantoprazole Sodium 40 MG DAILY 01/04 1000 AC 01/07 IV 1056 Polyethylene Glycol 17 GM DAILY 12/27 1000 AC 01/07 PO 1055 Potassium Chloride 10 MEQ DAILY 12/27 1000 AC 01/03 PO 1133 Senna/Docusate Sodium 1 TAB Q12P PRN 12/27 0130 AC PO Sodium Chloride 250 ML BOLUS ONE 01/06 1615 CAN IV 01/06 1714 Sodium Chloride 1,000 ML Q13H 01/04 1445 [place] 01/07 IV 0645 Vasopressin 40 UNITS Q16H 01/06 1615 DC Sodium Chloride 100 ML IV Results Last 48 Hrs of Labs/Mics: Laboratory Tests 01/07/17 0920: pH 7.31 L, pCO2 48 H, pO2 90, HCO3 23, ABG O2 Sat (Measured) 95.0 L, Carboxyhemoglobin 1.4 L, O2 Concentration % 55%, Respiration Rate 12, O2 Delivery Method VENT, Vent Mode AC, Expiratory Pressure 5, Tidal Volume 550, Phlebotomy Draw Site LEFT RADIAL 01/07/17 0405: Anion Gap 6, Estimated GFR 58 L, Glucose 116 H, Calcium 8.4, Phosphorus 4.0, Magnesium 2.0, Total Bilirubin 3.3 H, AST 51, ALT 51, Albumin 2.3 L, PT 25.9 H, INR 2.49 H, CBC w Diff NO MAN DIFF REQ, RBC 3.39 L, MCV 93.8, MCH 30.6, RDW 18.2 H, MPV 8.1, Gran % 79.5 H, Lymphocytes % 8.1 L, Monocytes % 10.3 H, Eosinophils % 2.1, Basophils % 0 L, Absolute Granulocytes 10.4 H, Absolute Lymphocytes 1.1 L, Absolute Monocytes 1.4 H, Absolute Eosinophils 0.3, Absolute Basophils 0, PUBS MCHC 32.6 L 01/06/17 0836: pH 7.36, pCO2 46 H, pO2 76 L, HCO3 26, ABG O2 Sat (Measured) 93.0 L, P-50 ( Temp Corrected) N, Carboxyhemoglobin 1.3 L, O2 Concentration % 45, Temperature 98.5, Respiration Rate 12, O2 Delivery Method VENT, Vent Mode VC-AC, Expiratory Pressure 5, Tidal Volume 500, Phlebotomy Draw Site RIGHT RADIAL 01/06/17 0415: Anion Gap 4 L, Estimated GFR 53 L, Glucose 132 H, Calcium 8.2 L, Phosphorus 3.3, Magnesium 2.0, Total Bilirubin 2.4 H, AST 42, ALT 40, Albumin 2.1 L, PT 23.0 H, INR 2.21 H, CBC w Diff NO MAN DIFF REQ, RBC 3.24 L, MCV 94.1 H, MCH 30.8, RDW 18.4 H, MPV 7.9, Gran % 80.0 H, Lymphocytes % 7.3 L, Monocytes % 10.1 H, Eosinophils % 2.2, Basophils % 0.4, Absolute Granulocytes 10.1 H, Absolute Lymphocytes 0.9 L, Absolute Monocytes 1.3 H, Absolute Eosinophils 0.3 , Absolute Basophils 0, PUBS MCHC 32.8 L 01/05/17 1705: pH 7.48 H, pCO2 34 L, pO2 82, HCO3 25, ABG O2 Sat (Measured) 95.0 L, P-50 ( Temp Corrected) N, Carboxyhemoglobin 0.7 L, O2 Concentration % 50%, Temperature 98.7, Respiration Rate 12, O2 Delivery Method ESPRIT VENT, Vent Mode AC, Expiratory Pressure 5, Tidal Volume 500, Phlebotomy Draw Site RIGHT RADIAL Recent Imaging Studies: Chest x-ray: Suspect bibasilar pleural effusions slightly greater on the right. There is cardiomegaly with CHF as well. The PICC line and endotracheal tube are in good position. The tip of enteric tube lies in the mid chest. The distal end is not visualized. CT scan of the chest: Large bilateral effusion with compressive atelectasis. Patchy bilateral opacities nonspecific. Some or all of this could reflect atelectasis. Pneumonia cannot be excluded. PICC line in SVC. Assessment/Plan Assessment/Plan Assessment: 1. Diabetes mellitus 2. Hypertension 3. Coronary artery disease, status post CABG 4. Mechanical aortic valve 5. Status post cardiac arrest Plan: * Wean levophed if possible, maintaining adequate blood pressure * Continue amiodarone via NG tube * Agree with giving Lasix 40 mg IV times one if blood pressure is adequate * Ventilatory support as per pulmonary Continue telemetry? Yes
[2017-01-07 16:00] VITALS: BP 98/0
--- NOTE | 2017-01-07 19:00 | NUR ---
Patient remains sedated on a fentanyl gtt now infusing at 75mcg/hr, able to follow commands and shake head yes and no appropriately. Afib on tele monitor, HR= 90-110's, SBP: 80-90's and levo gtt now infusing at 12mcg- BP dropped to as low at 78 systolically once IVF were changed from NS to DNS @ 60. Dr. Diggs made aware. See flow sheet for titration. Tube feeds have been started per order and Jevity 1.5 is infusing at 10mls/hr for eight hours with 150ml water flushes every 8 hours. Pt received a dose of IV lasix per order and per Dr. Troy dose to be given despite BP being borderline. Pt continues to deny pain. Will continue to closely monitor patient.
--- NOTE | 2017-01-07 20:35 | NUR ---
PT AWAKE ON RESPIRATOR, [place] TO COMMAND, WEEPING EDEMA ON ARMS, SCROTUM EDEMATOUS ELEVATED, SOFT RESTRAINTS TO WRISTS TUBE FEEDING VIA OGT
[2017-01-08] VITALS: BP 113/73
[2017-01-08 05:23] LABS: ABSOLUTE BASOPHIL COUNT 0 /CUMM (0.0-0.2); ABSOLUTE EOSINOPHIL COUNT 0.1 /CUMM (0.0-0.7); ABSOLUTE GRANULOCYTE CT 9.3 /CUMM (1.4-6.5); ABSOLUTE LYMPH COUNT 0.8 /CUMM (1.2-3.4); ABSOLUTE MONOCYTE COUNT 1.5 /CUMM (0.10-0.60); BASOPHIL % 0.3 % (0.0-2.0); EOSINOPHIL % 1.1 % (0-5); GRANULOCYTE % 79.1 % (42.2-75.2); HEMATOCRIT 30.1 % (42-52); MEAN CORPUSCULAR HGB 30.5 PG (27.0-31.0); MEAN CORPUSCULAR HGB CONC 32.7 G/DL (33.0-37.0); MEAN CORPUSCULAR VOLUME 93.4 FL (80.0-94.0); MEAN PLATELET VOLUME 7.8 FL (7.4-10.4); PLATELET COUNT 163 /CUMM (130-400); RED BLOOD CELL CT 3.23 /CUMM (4.70-6.10); WHITE BLOOD CELL COUNT 11.7 /CUMM (4.8-10.8)
[2017-01-08 05:29] LABS: PT 28.1 SEC (9.4-12.5)
[2017-01-08 08:00] VITALS: BP 100/68
--- NOTE | 2017-01-08 08:18 | PN- Resident CRCU ---
Subjective HPI/CRCU Issues: Patient seen and examined this morning. Remains intubated, sedated, on fentanyl drip and levophed via PICC line. Right femoral line was removed yesterday orantes in place. Continues to be in A. fib, currently on amiodarone 400 mg twice a day Received dose of Lasix again today, far. Patient, patient would need thoracentesis once INR improves. Afebrile, systolic blood pressure 90-100. 24 Hour Events: Afib Objective Vital Signs & I&O Last 8 Hrs of Vitals and I&O: Laboratory Tests 01/08/17 0615: pH 7.41, pCO2 35, pO2 68 L, HCO3 21, ABG O2 Sat (Measured) 93.0 L, P-50 (Temp Corrected) N, Carboxyhemoglobin 1.7, O2 Concentration % .45, Respiration Rate 16 , O2 Delivery Method VENT, Vent Mode A/C, Expiratory Pressure 5, Tidal Volume 500, Phlebotomy Draw Site LEFT RADIAL 01/08/17 0430: Anion Gap 6, Estimated GFR > 60, Glucose 147 H, Calcium 8.1 L, Phosphorus 2.7, Magnesium 1.9, Total Bilirubin 4.6 H, AST 38, ALT 40, Albumin 2.0 L, PT 28.1 H, INR 2.70 H, CBC w Diff NO MAN DIFF REQ, RBC 3.23 L, MCV 93.4, MCH 30.5, RDW 18.0 H, MPV 7.8, Gran % 79.1 H, Lymphocytes % 6.6 L, Monocytes % 12.9 H, Eosinophils % 1.1, Basophils % 0.3, Absolute Granulocytes 9.3 H, Absolute Lymphocytes 0.8 L, Absolute Monocytes 1.5 H, Absolute Eosinophils 0.1, Absolute Basophils 0, PUBS MCHC 32.7 L Microbiology 01/07 1900 LOWER RESP: Respiratory Culture - RES STAPH AUREUS 01/07 1900 LOWER RESP: Gram Stain - RES Vital Signs Date Time Temp Pulse Resp B/P Pulse O2 O2 Flow FiO2 Ox Delivery Rate 01/08 1605 40 01/08 1600 97.6 98 20 96/62 96 Ventilator 45% 01/08 1428 103 103/71 01/08 1417 45 01/08 1214 45 01/08 1000 108 110/70 01/08 0829 45 01/08 0800 93 Ventilator 45% 01/08 0800 97.0 110 16 100/68 92 Ventilator 01/08 0707 105 91/62 01/08 0707 102 92/60 01/08 0622 45 01/08 0400 92 Ventilator 45% 01/08 0301 45 01/08 0033 45 01/08 0000 90 Ventilator 45% 01/08 0000 98.7 115 16 113/73 90 Ventilator 45% 01/07 2245 45 01/07 2131 103 96/71 01/07 2000 93 Ventilator 45% 01/07 1915 45 01/07 1849 107 90/65 Intake & Output 01/08 1600 01/08 0800 01/08 0000 Intake Total 1565 1460 1217 Output Total 600 200 455 Balance 965 1260 762 Intake, IV 1195 1110 1012 Intake, Tube 120 200 85 Feeding Intake, Tube 250 150 120 Irrigant Output, Urine 600 200 455 Intake & Output 01/08 1600 Intake Total 1565 Output Total 600 Balance 965 Intake, IV 1195 Intake, Tube 120 Feeding Intake, Tube 250 Irrigant Output, Urine 600 Exam General Appearance: well developed/nourished, sedated, intubated Respiratory: decreased breath sounds b/l Cardiovascular: regular rate/rhythm Gastrointestinal: normal bowel sounds, soft, non-tender Extremities: normal inspection Current Medications: Current Medications Sig/Salud Start time Last Medication Dose Route Stop Time Status Admin Acetaminophen 650 MG Q6P PRN 12/27 0115 AC PO Allopurinol 100 MG DAILY 12/27 1000 AC 01/08 PO 1008 Amiodarone HCl 400 MG Q12H 01/06 1900 AC 01/08 PO 0707 Dextrose/Sodium 1,000 ML Q16H 01/07 1100 AC 01/08 Chloride IV 0702 Fentanyl Citrate 1,000 MCG Q13H 01/08 1600 AC Dextrose/Water 250 ML IV Fentanyl Citrate 1,000 MCG Q8H 01/05 1430 DC 01/07 Dextrose/Water 250 ML IV 2132 Finasteride 5 MG DAILY 12/27 1015 AC 01/08 PO 1008 Furosemide 40 MG ONCE ONE 01/08 1145 DC 01/08 IV 01/08 1146 1227 Furosemide 40 MG ONCE ONE 01/07 1800 DC 01/07 IV 01/07 1801 1853 Norepinephrine 4 MG Q4H 01/08 0500 AC 01/08 Sodium Chloride 250 ML IV 1428 Norepinephrine 4 MG Q8H 01/07 1430 DC 01/07 Sodium Chloride 250 ML IV 2131 Pantoprazole Sodium 40 MG DAILY 01/04 1000 AC 01/08 IV 1008 Polyethylene Glycol 17 GM DAILY 12/27 1000 AC 01/08 PO 1008 Potassium Chloride 20 MEQ ONCE ONE 01/08 0700 DC 01/08 IV 01/08 0701 0926 Potassium Chloride 10 MEQ DAILY 12/27 1000 DC 01/03 PO 1133 Potassium Phosphate 15 mMol ONE ONE 01/08 0830 DC 01/08 Dextrose/Water 250 ML IV 01/08 1233 1011 Senna/Docusate Sodium 1 TAB Q12P PRN 12/27 0130 AC PO Impression/Plan Impression/Problem List Impression: 81-year-old man was BIBA from [facility] after losing his cholecystotomy tube. Patient has multiple comorbid conditions significant for hypertension, dyslipidemia, "borderline" diabetes mellitus, peripheral vascular disease, gout, and CAD and Valvular disease S/P Aortic valve replacement w/ [place] valve and CABG 2 with SVGs to his LCx and RCA We are currently monitoring him for following conditions: Respiratory: Post cardiac arrest intubated sedated;VCAC. Recent chest x-ray showed mild pulmonary vascular congestion. Due to his low blood pressure and low urine output patient received multiple doses of IV boluses and patient seems to be agitated and and biting the ET tube. However latest ABG from this morning was relatively normal with pH of 7.50 and bicarbonate of 30 and PCO2 of 40. * Mild respiratory alkalosis possibly due to agitation and overventilation, repeat ABGs improved. * Aspiration percausion * IV protonix * Head elevation * Obtain daily chest x-ray Infectious disease: Upon presentation septic shock with possible source of gallbladder. However repeat CT scan at these admissions did not show any inflammation of the gallbladder. Ultrasound documented gallstones without cholecystitis and choledocholithiasis. Elevated total bili and alkaline phosphatase which was a slightly increased compared to initial presentation. Patient have low blood pressure and needs vasopressor and levo fed for maintain blood pressure. Another cause to consider is worsening congestive heart failure, for which patient already started on dobutamine drip prior to his transfer to ICU. Increased trops inititially, trended down. * Restrict ins and outs * PICC line in place , Right femoral removed, Off of Vasopressin,and amiodarone drip drip. Remains on fentanyl and Levophed , cont to have low urine output. * blood culture NGTD; urine culture NGTD * With consideration of cholecystitis and healthcare contact patient was given 1 dose of vancomycin and ceftazidime initially. Currently watching off of antibiotics as no source of infection identified, patient has been afebrile, white count stable. * Continue IV hydration with normal saline 125 MR per hour Cardiac Elevated troponin: Resolved. First troponin 0.69 and second troponin 0.72>> trended down . Possibly secondary to prolonged cardiac arrest and CPR. History of A. fib/ Post cardiac arrest secondary to V. tach: Warfarin was held and INR was corrected with fresh frozen plasma for removal of lodged guidewire. * No anticoagulation at the moment, * Amiodarone 400mg BID * Metoprolol 12.5 mg 3 times a day for rate control * ECHO-EF>60% * Cardio on board, will follow [facility] Hematology Leukocytosis: elevated WBC upon presentation with bands of 7 most considerable diagnosis is sepsis and septic shock. however, other reasonable causes for this finding could be acute distress and multiple doses of epinephrine injection. * Panculture NGTD * Patient received 1 dose of ceftazidime and vancomycin * For now follow off antibiotics Normochromic normocytic anemia-no source of blood loss. Stable Metabolic Mild respiratory acidosis possibly due to insufficient sedation and agitation. * Improved. * Daily ABG and adjust ventilator Anuria: Prerenal versus renal versus post renal. Latest abdominopelvic CT scan did not show any hydronephrosis or obstruction. Age and had pulseless electrical activity with severe profound hypotension which required 2 pressors, either of which potentially could have caused ATN. * Maintain IV hydration with normal saline 125 in the upper outer * Considering maintaining CVP of 10-12 IV bolus fluids to reach the goal of 0.5 mL per KG per hour urine output * In case of persistence anuria-oligoria consider nephrology consult Alimantory- NPO; consider tube feeds after 24 hours of hospitalization; and TPN after 7 days of ICU admission Neurology-patient is sedated and intubated; on fentanyl drip; in case of overbreathing the ventilator due to agitation/pain. DNR/DNI DVT prophylaxis: alps, Hold warfarin. Start IV heparin once INR is less than 2.5. Pain-Fentanyl drip Problem List: 1. History of cardiac arrest 2. Septic shock 3. Bilateral pleural effusion Pain Ratin Tomorrow's Labs & Rationales: icu bundle cbc Plan DVT/Prophylaxis: mechanical, pharmacological
--- NOTE | 2017-01-08 08:52 | RADIOLOGY REPORT ---
EXAMINATION: XR PORTABLE CHEST CLINICAL INFORMATION: Pleural effusion, intubated. COMPARISON: Multiple prior studies most recently 01/07/2017 TECHNIQUE: Portable AP view of the chest was obtained. Study is limited by shallow inspiration and the body habitus. FINDINGS: ET tube tip terminates 4.8 cm above the karan. Median sternotomy wires are demonstrated. Enteric tube tip is not clearly seen. The right PICC tip is also not clearly seen. The cardiac silhouette is enlarged. The lung volumes are significantly decreased. The right upper lobe airspace opacity is similar to prior. Right pleural effusion is seen slightly smaller than prior. The diffuse haziness in the mid to lower right lung is slightly improved which may in part relate to change in position of the patient's known pleural effusion. Improving aeration is seen in the left upper lung. Left retrocardiac consolidation persists. IMPRESSION: Low lung volumes. Slight improved aeration of the bilateral lungs since prior. Multifocal consolidation and pleural effusions persist.
--- NOTE | 2017-01-08 10:30 | NUR ---
OGT NOTED TO HAVE BEEN PULLED SLIGHTLY OUT. TUBE FEED PUT ON HOLD. OGT REPLACED. DR CROW NOTIFIED. STAT CXRY ORDERED. NO S/S OF RESPIRATORY DISTRESS AT THIS TIME.
--- NOTE | 2017-01-08 10:46 | PN- CRCU ---
Subjective HPI/Critical Care Issues: Continues to be intubated and sedated Afebrile Continues to be in atrial fibrillation On assist control 500 with FiO2 50% Continues to be on low-dose levo fed fentanyl D5 normal saline via PICC line. Patient has become persistently more hypotensive overnight requiring slightly increased dose of norepinephrine No other history could be obtained as he is intubated and sedated SIGNIFICANT DATA patient continues on amiodarone chest x-ray done this morning showed low lung volumes with his multifocal consolidation and bilateral pleural effusions other data include creatinine improving to 1.1 potassium down to 3.4 anion gap was normal his total bilirubin continues to be elevated at 4.6 alkaline phosphatase is elevated white count 11.7 hemoglobin 9.9 which is lower than yesterday INR was 2.70 on anticoagulation ABG done this morning 741/35/[address] which was done 2 days ago showed bilateral significant effusions abdominal CT scan done on the showed gallstones in the gallbladder small amount of stranding postsurgical changes. Objective Current Medications: Current Medications Sig/Salud Start time Last Medication Dose Route Stop Time Status Admin Acetaminophen 650 MG Q6P PRN 12/27 0115 AC PO Allopurinol 100 MG DAILY 12/27 1000 AC 01/08 PO 1008 Amiodarone HCl 400 MG Q12H 01/06 1900 AC 01/08 PO 0707 Benzonatate 100 MG TID PRN 12/30 2030 DC 01/03 PO 1133 Dextrose/Sodium 1,000 ML Q16H 01/07 1100 AC 01/08 Chloride IV 0702 Fentanyl Citrate 1,000 MCG Q8H 01/05 1430 AC 01/07 Dextrose/Water 250 ML IV 2132 Finasteride 5 MG DAILY 12/27 1015 AC 01/08 PO 1008 Furosemide 40 MG ONCE ONE 01/07 1800 DC 01/07 IV 01/07 1801 1853 Magnesium Oxide 400 MG BID 12/30 2200 DC 01/07 PO 1056 Metoprolol Tartrate 12.5 MG BID 01/03 220 DC 01/06 PO 2116 Norepinephrine 4 MG Q4H 01/08 0500 AC 01/08 Sodium Chloride 250 ML IV 0707 Norepinephrine 4 MG Q8H 01/07 1430 DC 01/07 Sodium Chloride 250 ML IV 2131 Norepinephrine 4 MG .STK-MED ONE 01/07 1341 DC IV 01/07 1342 Norepinephrine 4 MG Q3H 01/04 1245 DC 01/07 Sodium Chloride 250 ML IV 0645 Pantoprazole Sodium 40 MG DAILY 01/04 1000 AC 01/08 IV 1008 Polyethylene Glycol 17 GM DAILY 12/27 1000 AC 01/08 PO 1008 Potassium Chloride 20 MEQ ONCE ONE 01/08 0700 DC 01/08 IV 01/08 0701 0926 Potassium Chloride 10 MEQ DAILY 12/27 1000 DC 01/03 PO 1133 Potassium Phosphate 15 mMol ONE ONE 01/08 0830 AC 01/08 Dextrose/Water 250 ML IV 01/08 1233 1011 Senna/Docusate Sodium 1 TAB Q12P PRN 12/27 0130 AC PO Sodium Chloride 1,000 ML Q13H 01/04 1445 DC 01/07 IV 0645 Vital Signs & I&O Last 24 Hrs of Vitals and I&O: Vital Signs Date Time Temp Pulse Resp B/P Pulse O2 O2 Flow FiO2 Ox Delivery Rate 01/08 0829 45 01/08 0707 105 91/62 01/08 0707 102 92/60 01/08 0622 45 01/08 0400 92 Ventilator 45% 01/08 0301 45 01/08 0033 45 01/08 0000 90 Ventilator 45% 01/08 0000 98.7 115 16 113/73 90 Ventilator 45% 01/07 2245 45 01/07 2131 103 96/71 01/07 2000 93 Ventilator 45% 01/07 1915 45 01/07 1849 107 90/65 01/07 1615 50 01/07 1600 97.4 105 16 98/0 99 Ventilator 55% 01/07 1600 96 Ventilator 55% 01/07 1500 103 96/0 01/07 1429 55 01/07 1200 94 Ventilator 55% 01/07 1156 55 Intake & Output 01/08 1600 01/08 0800 01/08 0000 Intake Total 1460 1217 Output Total 200 455 Balance 1260 762 Intake, IV 1110 1012 Intake, Tube 200 85 Feeding Intake, Tube 150 120 Irrigant Output, Urine 200 455 Impression/Plan Impression/Plan Impression/Plan: General Appearance: awake, sedated, intubated, obese Head: atraumatic, lips and face were examined for pressure ulcer: negative Ears, Nose, Throat: normal pharynx Neck: normal inspection, supple, full range of motion Respiratory: normal breath sounds, chest non-tender Cardiovascular: edema, irregularly irregular Gastrointestinal: soft, non-tender Extremities: pedal edema Skin: intact Back: normal inspection PICC Starr IMPRESSION This is an elderly gentleman who had had a cholecystotomy tube with multiple comorbidities with hypertension dyslipidemia diabetes peripheral vascular disease gout coronary artery disease 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, CABG now has * Postcardiac arrest intubated with respiratory failure with slow improvement * Acute hypercarbic and hypoxemic respiratory failure due to fluid overload with bilateral large pleural effusions * Recent cholecystotomy tube with no significant inflammation around the gallbladder in the recent imaging infectious disease is following him, with elevated bili * Elevated troponin with recent normal ejection fraction with a very small ventricles suggestive of significant diastolic heart disease now in shock prob related to cardiogenic, with no sig evidence of sepsis and pt is off abx per ID * Atrial fibrillation status post cardiac arrest with probable V. tach * Significant anemia RECOMMENDATION * Continue mechanical ventilator * Cont tube feeding and reduce IVF slowly * Wean levofed * Reduce fentanyl * Pressure support trials dailly * Continue amiodarone * Continue his magnesium reduce dose to qd * Cont stool softners * Give one dose of lasix 40 mg today * WOuld need thoracentesis and ask cardio and transition to heparin once inr is less than 2.4 with out bolus in anticipation of thoracentesis * Rpt sputum and urine culture and blood culture if pt becomes febrile Patient continues to be critically ill total time spent 40 minutes
--- NOTE | 2017-01-08 11:28 | RADIOLOGY REPORT ---
EXAMINATION: PORTABLE CHEST 1 VIEW CLINICAL INFORMATION: might have aspirated: patient is on tube feeds and nurse is concerned he may have aspirated COMPARISON: 01/08/2017. TECHNIQUE: Portable frontal view of the chest was obtained. FINDINGS: Endotracheal tube tip approximately 4 cm above the karan. Gastric tube is present but the distal tip is not well assessed on the study. Lungs are hypoexpanded but better expanded from earlier today. Blunting of both costophrenic angles with associated basilar consolidation/atelectasis is similar to the study from earlier today. No obvious pneumothorax on this semierect film. Right arm PICC line tip near the cavoatrial junction. Cardiac silhouette is enlarged. Patient is status post sternotomy and CABG. No acute bony abnormality seen. IMPRESSION: Intubated. Blunting of both costophrenic angles suggesting small layering bilateral effusions with associated bibasilar consolidation/atelectasis. Slightly better expanded from earlier this morning.
--- NOTE | 2017-01-08 13:59 | RADIOLOGY REPORT ---
EXAMINATION: PORTABLE CHEST 1 VIEW CLINICAL INFORMATION: REPLACEMENT OF NG TUBE. COMPARISON: Film earlier today. TECHNIQUE: Portable frontal view of the chest was obtained. FINDINGS: Examination was tailored to evaluate the left upper quadrant of the abdomen and lower lung bases. Nasogastric tube appears to be in place with the tip in the region of the fundus. The side-port is below the gastroesophageal junction. Prominent pericardial calcification is again noted. Patient is status post sternotomy. IMPRESSION: Nasogastric tube tip appears to be within the fundal portion of the stomach.
--- NOTE | 2017-01-08 15:43 | PN- Cardiology ---
Subjective Subjective: The patient remains intubated. He remains on levophed for BP support. He is sedated with fentanyl. Renal function is improved. He is noted to be hypokalemic. Objective Vital Signs and I&Os Vital Signs Date Time Temp Pulse Resp B/P Pulse O2 O2 Flow FiO2 Ox Delivery Rate 01/08 1428 103 103/71 01/08 1417 45 01/08 1214 45 01/08 1000 108 110/70 01/08 0829 45 01/08 0800 93 Ventilator 45% 01/08 0800 97.0 110 16 100/68 92 Ventilator 01/08 0707 105 91/62 01/08 0707 102 92/60 01/08 0622 45 01/08 0400 92 Ventilator 45% 01/08 0301 45 01/08 0033 45 01/08 0000 90 Ventilator 45% 01/08 0000 98.7 115 16 113/73 90 Ventilator 45% 01/07 2245 45 01/07 2131 103 96/71 01/07 2000 93 Ventilator 45% 01/07 1915 45 01/07 1849 107 90/65 01/07 1615 50 01/07 1600 97.4 105 16 98/0 99 Ventilator 55% 01/07 1600 96 Ventilator 55% Intake & Output 01/08 1600 01/08 0800 01/08 0000 01/07 1600 01/07 0800 01/07 0000 Intake Total 1460 1217 1350 1380 1884 Output Total 200 455 150 140 160 Balance 0471 915 3947 1240 1724 Intake, IV 1110 1012 1230 1380 1764 Intake, Oral 0 0 Intake, Tube 200 85 Feeding Intake, Tube 150 120 120 120 Irrigant Number 0 0 Bowel Movements Output, 0 50 Gastric Drainage Output, Urine 200 455 150 140 110 Patient 233 lb Weight Physical Exam: Gen: NAD HEENT: normal Lungs: clear to auscultation, normal resp. effort Heart: Irregular, crisp valve sounds, 1/6 systolic murmur Abdomen: Soft, nontender, no masses Extremities: No clubbing, cyanosis, or edema. Neuro: Alert and oriented x 3, cranial nerves intact Current Medications: Current Medications Sig/Salud Start time Last Medication Dose Route Stop Time Status Admin Acetaminophen 650 MG Q6P PRN 12/27 0115 AC PO Allopurinol 100 MG DAILY 12/27 1000 AC 01/08 PO 1008 Amiodarone HCl 400 MG Q12H 01/06 1900 AC 01/08 PO 0707 Dextrose/Sodium 1,000 ML Q16H 01/07 1100 AC 01/08 Chloride IV 0702 Fentanyl Citrate 1,000 MCG Q13H 01/08 1600 AC Dextrose/Water 250 ML IV Fentanyl Citrate 1,000 MCG Q8H 01/05 1430 DC 01/07 Dextrose/Water 250 ML IV 2132 Finasteride 5 MG DAILY 12/27 1015 AC 01/08 PO 1008 Furosemide 40 MG ONCE ONE 01/08 1145 DC 01/08 IV 01/08 1146 1227 Furosemide 40 MG ONCE ONE 01/07 1800 DC 01/07 IV 01/07 1801 1853 Norepinephrine 4 MG Q4H 01/08 0500 AC 01/08 Sodium Chloride 250 ML IV 1428 Norepinephrine 4 MG Q8H 01/07 1430 DC 01/07 Sodium Chloride 250 ML IV 2131 Pantoprazole Sodium 40 MG DAILY 01/04 1000 AC 01/08 IV 1008 Polyethylene Glycol 17 GM DAILY 12/27 1000 AC 01/08 PO 1008 Potassium Chloride 20 MEQ ONCE ONE 01/08 0700 DC 01/08 IV 01/08 0701 0926 Potassium Chloride 10 MEQ DAILY 12/27 1000 DC 01/03 PO 1133 Potassium Phosphate 15 mMol ONE ONE 01/08 0830 DC 01/08 Dextrose/Water 250 ML IV 01/08 1233 1011 Senna/Docusate Sodium 1 TAB Q12P PRN 12/27 0130 AC PO Results Last 48 Hrs of Labs/Mics: Laboratory Tests 01/08/17 0615: pH 7.41, pCO2 35, pO2 68 L, HCO3 21, ABG O2 Sat (Measured) 93.0 L, P-50 (Temp Corrected) N, Carboxyhemoglobin 1.7, O2 Concentration % .45, Respiration Rate 16 , O2 Delivery Method VENT, Vent Mode A/C, Expiratory Pressure 5, Tidal Volume 500, Phlebotomy Draw Site LEFT RADIAL 01/08/17 0430: Anion Gap 6, Estimated GFR > 60, Glucose 147 H, Calcium 8.1 L, Phosphorus 2.7, Magnesium 1.9, Total Bilirubin 4.6 H, AST 38, ALT 40, Albumin 2.0 L, PT 28.1 H, INR 2.70 H, CBC w Diff NO MAN DIFF REQ, RBC 3.23 L, MCV 93.4, MCH 30.5, RDW 18.0 H, MPV 7.8, Gran % 79.1 H, Lymphocytes % 6.6 L, Monocytes % 12.9 H, Eosinophils % 1.1, Basophils % 0.3, Absolute Granulocytes 9.3 H, Absolute Lymphocytes 0.8 L, Absolute Monocytes 1.5 H, Absolute Eosinophils 0.1, Absolute Basophils 0, PUBS MCHC 32.7 L 01/07/17 0920: pH 7.31 L, pCO2 48 H, pO2 90, HCO3 23, ABG O2 Sat (Measured) 95.0 L, Carboxyhemoglobin 1.4 L, O2 Concentration % 55%, Respiration Rate 12, O2 Delivery Method VENT, Vent Mode AC, Expiratory Pressure 5, Tidal Volume 550, Phlebotomy Draw Site LEFT RADIAL 01/07/17 0405: Anion Gap 6, Estimated GFR 58 L, Glucose 116 H, Calcium 8.4, Phosphorus 4.0, Magnesium 2.0, Total Bilirubin 3.3 H, AST 51, ALT 51, Albumin 2.3 L, PT 25.9 H, INR 2.49 H, CBC w Diff NO MAN DIFF REQ, RBC 3.39 L, MCV 93.8, MCH 30.6, RDW 18.2 H, MPV 8.1, Gran % 79.5 H, Lymphocytes % 8.1 L, Monocytes % 10.3 H, Eosinophils % 2.1, Basophils % 0 L, Absolute Granulocytes 10.4 H, Absolute Lymphocytes 1.1 L, Absolute Monocytes 1.4 H, Absolute Eosinophils 0.3, Absolute Basophils 0, PUBS MCHC 32.6 L Recent Imaging Studies: Chest x-ray: Nasogastric tube tip appears to be within the fundal portion of the stomach. Assessment/Plan Assessment/Plan Assessment: 1. Diabetes mellitus 2. Hypertension 3. Coronary artery disease, status post CABG 4. Mechanical aortic valve 5. Status post cardiac arrest 6. Pleural effusion Plan: * Wean levophed if possible, maintaining adequate blood pressure * Continue amiodarone via NG tube * lasix 40 mg IV 1 given today * Ventilatory support as per pulmonary * Thoracentesis planned once INR decreases * Hold warfarin. Start IV heparin once INR is less than 2.5. Continue telemetry? Yes
[2017-01-08 16:00] VITALS: BP 96/62
--- NOTE | 2017-01-08 17:00 | NUR ---
Patient is sedated on a fentanyl gtt infusing at 75mcg/hr, SAS-3, easily arousable to verbal stimuli, can follow commands and shake head yes and no appropriately when asked questions. Afib on tele monitor, HR= 90-110, on amiodarone via ogt. SBP: 90-100's and levo gtt is infusing at 16mcg, + pulses with doppler. Remains intubated with a #8 to the right at 22cm- Lungs clear and diminished with scant rhonchi in the upper lobes. Vent settings currently: AC 16/500/40/5. Scant amounts of nolen thick secretions noted when suctioning. OGT was replaced earlier this morning and CXR was done for confirmation- Tube feeds have been restarted @ 40mls/hr- Jevity 1.5 with 150mls water flushes every 8 hours. Abdomen is soft non tender with + bowel sounds. Small BM noted. Starr in place draining clear yellow urine- IV lasix given. +2 generalized edema, +4 scrotal edema. BUE are weeping serosangenous draingage- multiple skin tears are also noted. A puncture wound is also noted to the right groin where a tlc previously was- OPAL PICC in place and site is WNL- dressing was changed today. D5NS infusing at 60mls/hr. Patient denies pain at this time and vitals are currently stable. Will continue to closely monitor patient.
[2017-01-09 00:01] VITALS: BP 95/65
--- NOTE | 2017-01-09 00:14 | NUR ---
PT INTUBATED ON RESPIRATOR SUCTIONING BLOOD TINGED SPUTUM. SEDATED BUT EASILY AWAKENED. [place] TO COMMAND. WEEPING EDEMA, MULTIBLE SKIN TEARS. TUBE FEEDING AT GOAL AT 60 ML/H WITH H20 FLUSH Q SHIFT, SMALL AMT RESIDUAL OBTAINED. BS+ NO STOOL.
[2017-01-09 05:04] LABS: ABSOLUTE BASOPHIL COUNT 0 /CUMM (0.0-0.2); ABSOLUTE EOSINOPHIL COUNT 0.3 /CUMM (0.0-0.7); ABSOLUTE GRANULOCYTE CT 8.1 /CUMM (1.4-6.5); ABSOLUTE LYMPH COUNT 0.8 /CUMM (1.2-3.4); ABSOLUTE MONOCYTE COUNT 1.2 /CUMM (0.10-0.60); BASOPHIL % 0.2 % (0.0-2.0); GRANULOCYTE % 77.6 % (42.2-75.2); MEAN CORPUSCULAR HGB 30.5 PG (27.0-31.0); MEAN CORPUSCULAR HGB CONC 32.6 G/DL (33.0-37.0); MEAN CORPUSCULAR VOLUME 93.7 FL (80.0-94.0); MEAN PLATELET VOLUME 7.5 FL (7.4-10.4); PLATELET COUNT 171 /CUMM (130-400); RBC DISTRIBUTION WIDTH 18.5 % (11.5-14.5); WHITE BLOOD CELL COUNT 10.4 /CUMM (4.8-10.8)
--- NOTE | 2017-01-09 07:17 | PN- Resident CRCU ---
Subjective HPI/CRCU Issues: Patient seen and examined this morning. He was lying in bed in no acute distress, arousable, remains intubated. Remains on Levophed, fentanyl through PICC line. Patient did have his fever spike last night, the white count is improving, bilirubin has increased from 4.6-4.9, LDH high, reticulocyte count high, haptoglobin pending unsure if it is hemolytic on a picture because H&H has been low but stable Sputum has grown MRSA, patient to get CT chest for any evidence of pneumonia. We'll follow ID recommendation is to start the patient on vancomycin. Objective Vital Signs & I&O Last 8 Hrs of Vitals and I&O: Laboratory Tests 01/09/17 0500: Haptoglobin Pending 01/09/17 0415: Anion Gap 5, Estimated GFR > 60, Glucose 157 H, Calcium 8.4, Phosphorus 2.0 L, Magnesium 1.8, Total Bilirubin 4.9 H, Direct Bilirubin 3.5 H, AST 42, ALT 40, Alkaline Phosphatase 158 H, Lactate Dehydrogenase 652 H, Albumin 1.9 L, Lipase 44, PT 24.0 H, INR 2.30 H, CBC w Diff NO MAN DIFF REQ, RBC 3.20 L, MCV 93.7, MCH 30.5, RDW 18.5 H, MPV 7.5, Gran % 77.6 H, Lymphocytes % 7.4 L, Monocytes % 11.8 H, Eosinophils % 3.0, Basophils % 0.2, Absolute Granulocytes 8.1 H, Absolute Lymphocytes 0.8 L, Absolute Monocytes 1.2 H, Absolute Eosinophils 0.3, Absolute Basophils 0, PUBS MCHC 32.6 L, Retic Count 4.00 H Vital Signs Date Time Temp Pulse Resp B/P Pulse O2 O2 Flow FiO2 Ox Delivery Rate 01/09 1200 97 Ventilator 40% 01/09 1110 40 01/09 1100 104/0 01/09 0816 40 01/09 0800 99.3 93 16 90/70 97 Ventilator 40% 01/09 0800 97 Ventilator 40% 01/09 0623 40 01/09 0602 115 118/79 01/09 0525 119 96/57 01/09 0343 96 Ventilator 40% 01/09 0317 40 01/09 0108 104 104/71 01/09 0031 40 01/09 0001 99 Ventilator 40% 01/09 0001 100.4 94 16 95/65 99 Ventilator 40% 01/08 2311 93 96/66 01/08 2256 40 01/08 2000 96 Ventilator 40% 01/08 1955 40 01/08 1908 105 92/60 01/08 1830 103 102/67 01/08 1605 40 01/08 1600 97.6 98 20 96/62 96 Ventilator 45% 01/08 1600 93 Ventilator 45% 01/08 1428 103 103/71 01/08 1417 45 Intake & Output 01/09 1600 01/09 0800 01/09 0000 Intake Total 1692 1580 Output Total 335 615 Balance 1357 965 Intake, IV 1062 1110 Intake, Tube 480 320 Feeding Intake, Tube 150 150 Irrigant Output, Urine 335 615 Exam General Appearance: well developed/nourished Head: atraumatic, normal appearance Respiratory: normal breath sounds Cardiovascular: regular rate/rhythm Gastrointestinal: normal bowel sounds Extremities: normal inspection Current Medications: Current Medications Sig/Salud Start time Last Medication Dose Route Stop Time Status Admin Acetaminophen 650 MG Q6P PRN 12/27 0115 AC PO Allopurinol 100 MG DAILY 12/27 1000 AC 01/09 PO 0816 Amiodarone HCl 400 MG Q12H 01/06 1900 AC 01/09 PO 0602 Bisacodyl 10 MG ONCE ONE 01/09 1230 DC 01/09 CT 01/09 1231 1246 Dextrose/Sodium 1,000 ML Q16H 01/07 1100 AC 01/08 Chloride IV 2310 Fentanyl Citrate 1,000 MCG Q13H 01/08 1600 AC 01/09 Dextrose/Water 250 ML IV 0908 Fentanyl Citrate 1,000 MCG Q8H 01/05 1430 DC 01/07 Dextrose/Water 250 ML IV 2132 Finasteride 5 MG DAILY 12/27 1015 AC 01/08 PO 1008 Magnesium Oxide 400 MG ONE ONE 01/09 0745 DC 01/09 PO 01/09 0746 0816 Norepinephrine 4 MG Q4H 01/08 0500 AC 01/09 Sodium Chloride 250 ML IV 1100 Pantoprazole Sodium 40 MG DAILY 01/04 1000 AC 01/09 IV 0817 Polyethylene Glycol 17 GM DAILY 12/27 1000 AC 01/09 PO 0814 Potassium Chloride 80 MEQ ONCE ONE 01/09 0800 DC 01/09 PO 01/09 0801 1027 Potassium Chloride 80 MEQ ONCE ONE 01/09 0745 CAN PO 01/09 0746 Potassium Phosphate 15 mMol ONE ONE 01/09 0745 DC 01/09 Dextrose/Water 250 ML IV 01/09 1148 1027 Senna/Docusate Sodium 1 TAB Q12P PRN 12/27 0130 AC PO Impression/Plan Impression/Problem List Impression: 81-year-old man was BIBA from [facility] after losing his cholecystotomy tube. Patient has multiple comorbid conditions significant for hypertension, dyslipidemia, "borderline" diabetes mellitus, peripheral vascular disease, gout, and CAD and Valvular disease S/P Aortic valve replacement w/ St. Misael valve and CABG 2 with SVGs to his LCx and RCA We are currently monitoring him for following conditions: Respiratory: Post cardiac arrest intubated sedated; chest x-ray showed evidence of bilateral pleural effusion, for which he was given Lasix yesterday, sputum positive for MRSA, had a fever spike, white count stable, patient to get a CT chest today to see there is any evidence of aspiration pneumonia. * We'll watch off antibiotics for now until ID recommendations * Aspiration percausion * IV protonix * Head elevation * Obtain daily chest x-ray Infectious disease: Upon presentation septic shock with possible source of gallbladder. However repeat CT scan at these admissions did not show any inflammation of the gallbladder. Ultrasound documented gallstones without cholecystitis and choledocholithiasis. Elevated total bili and alkaline phosphatase which was a slightly increased compared to initial presentation. Patient have low blood pressure and needs vasopressor and levo fed for maintain blood pressure. Another cause to consider is worsening congestive heart failure, for which patient already started on dobutamine drip prior to his transfer to ICU. Increased trops inititially, trended down. * Restrict ins and outs * PICC line in place , Right femoral removed, Off of Vasopressin,and amiodarone drip drip. Remains on fentanyl and Levophed , improved urine output. * Sputum culture grew MRSA, blood culture NGTD; urine culture NGTD * With consideration of cholecystitis and healthcare contact patient was given 1 dose of vancomycin and ceftazidime initially. Currently watching off of antibiotics. * Continue IV hydration with normal saline 125 MR per hour Cardiac Elevated troponin: Resolved. First troponin 0.69 and second troponin 0.72>> trended down . Possibly secondary to prolonged cardiac arrest and CPR. History of A. fib/ Post cardiac arrest secondary to V. tach: Warfarin was held and INR was corrected with fresh frozen plasma for removal of lodged guidewire. * No anticoagulation at the moment, * Amiodarone 400mg BID * Metoprolol 12.5 mg 3 times a day for rate control * ECHO-EF>60% * Cardio on board, will follow recs * To be started on IV heparin and INR less than 2.5, cardiology on board. Hematology Leukocytosis: elevated WBC upon presentation with bands of 7 most considerable diagnosis is sepsis and septic shock. however, other reasonable causes for this finding could be acute distress and multiple doses of epinephrine injection. * Panculture NGTD * Patient received 1 dose of ceftazidime and vancomycin * For now follow off antibiotics Normochromic normocytic anemia-no source of blood loss. Stable Metabolic Mild respiratory acidosis possibly due to insufficient sedation and agitation. * Improved. * Daily ABG and adjust ventilator Anuria: Resolved. Prerenal versus renal versus post renal. Latest abdominopelvic CT scan did not show any hydronephrosis or obstruction. Age and had pulseless electrical activity with severe profound hypotension which required 2 pressors, either of which potentially could have caused ATN. * Maintain IV hydration with normal saline 125 in the upper outer * Considering maintaining CVP of 10-12 IV bolus fluids to reach the goal of 0.5 mL per KG per hour urine output Alimantory- NPO; consider tube feeds after 24 hours of hospitalization; and TPN after 7 days of ICU admission Neurology-patient is sedated and intubated; on fentanyl drip; in case of overbreathing the ventilator due to agitation/pain. DNR/DNI DVT prophylaxis: alps, Hold warfarin. Start IV heparin once INR is less than 2.5. Pain-Fentanyl drip Problem List: 1. History of cardiac arrest 2. Bilateral pleural effusion Pain Ratin Tomorrow's Labs & Rationales: ICU bundle cbc Plan DVT/Prophylaxis: mechanical, pharmacological
[2017-01-09 08:00] VITALS: BP 90/70
--- NOTE | 2017-01-09 08:49 | RADIOLOGY REPORT ---
EXAMINATION: XR PORTABLE CHEST CLINICAL INFORMATION: Intubation. Presumptive diagnosis of pleural effusion. COMPARISON: Chest x-ray dated 01/08/2017, 01/07/2017 and multiple prior chest x-rays. TECHNIQUE: Portable AP semierect view of the chest was obtained. FINDINGS: An endotracheal tube is in place with tip approximately 6 cm above the karan. Enteric tube is seen coursing into the left upper quadrant with tip not visualized. The patient is status post median sternotomy and CABG surgery. Cardiomediastinal silhouette is enlarged, unchanged. Compared to 01/08/2017, progressive fluffy alveolar opacities are seen diffusely throughout both lungs with relative sparing of the lung apices, consistent with progressive pulmonary edema. Small bilateral pleural effusions are seen, extending into the right minor fissure. No pneumothorax is noted. Included bony structures are grossly intact. IMPRESSION: 1. Endotracheal tube tip 6 cm above the karan. 2. Enteric tube tip not visualized but seen extending into the left upper quadrant. 3. Progressive pulmonary edema with bilateral small pleural effusions.
--- NOTE | 2017-01-09 10:00 | NUR ---
Patient is sedated on a fentanyl gtt infusing at 75mcg, SAS 3, easily arousable to verbal stimuli, can move all extremities and follow commands. Soft bilateral wrist restraints in place. Afib on tele monitor, HR= 90-100's. SBP: 90's and a levo gtt is infusing at 10mcg/min. + pulses with doppler. BP did drop to 82/0 when IVF were placed on hold however he stablizied after restarting. Remains intubated with a #8 to the right at 22cm, lungs rhonchorous and diminished. Vent settings currently AC: 16/500/40/5. O2 sats 97%. Scant amounts of thick nolen/doug colored secretions noted when suctioning. Abdomen is distended and soft with +2 edema noted. Suppository to be given after CT scan abdomen/pelvis and chest which is scheduled for 1115. Jevity 1.5 is infusing at a goal rate of 60mls/hr with 150 ml water flushes every [address] draining clear yellow urine. Skin is eccymotic and thin- multiple skin tears are noted to the bilateral upper extremtities and are draining a heavy amount of serosangenous drainage. Heavy drainage pads applied. +2 generalized edema, +4 scrotal edema. A puncture from a previous TLC site is noted and is also draining serosangenous fluid. OPAL PICC line in place and is WNL. D5NS infusing at 60mls/hr. Pt is able to deny pain. Will continue to closely monitor patient.
--- NOTE | 2017-01-09 11:02 | PN- Infect Dx ---
Subjective Subjective: MAXIMUM TEMPERATURE 100.4. He remains on Levophed. Objective Last 24 Hrs of Vital Signs/I&O Vital Signs Date Time Temp Pulse Resp B/P Pulse O2 O2 Flow FiO2 Ox Delivery Rate 01/09 0816 40 01/09 0800 99.3 93 16 90/70 97 Ventilator 40% 01/09 0623 40 01/09 0602 115 118/79 01/09 0525 119 96/57 01/09 0343 96 Ventilator 40% 01/09 0317 40 01/09 0108 104 104/71 01/09 0031 40 01/09 0001 99 Ventilator 40% 01/09 0001 100.4 94 16 95/65 99 Ventilator 40% 01/08 2311 93 96/66 01/08 2256 40 01/08 2000 96 Ventilator 40% 01/08 1955 40 01/08 1908 105 92/60 01/08 1830 103 102/67 01/08 1605 40 01/08 1600 97.6 98 20 96/62 96 Ventilator 45% 01/08 1600 93 Ventilator 45% 01/08 1428 103 103/71 01/08 1417 45 01/08 1214 45 01/08 1200 96 Ventilator 45% Intake & Output 01/09 1600 01/09 0800 01/09 0000 Intake Total 1692 1580 Output Total 335 615 Balance 1357 965 Intake, IV 1062 1110 Intake, Tube 480 320 Feeding Intake, Tube 150 150 Irrigant Output, Urine 335 615 Physical Exam Other Physical Findings: He is minimally responsive presently, on sedation, but was apparently more alert and responsive earlier today Lungs scattered rhonchi bilaterally Heart irregular rhythm with no murmur Abdomen distended, no obvious tenderness, positive bowel sounds Extremities 1+ edema all extremities; PICC in the right upper extremity with no inflammation at the site Starr catheter remains in place Results Last 24 Hours of Lab Results: Laboratory Tests 01/09 0415 Chemistry Sodium (137 - 145 mmol/L) 133 L Potassium (3.5 - 5.1 mmol/L) 3.0 L Chloride (98 - 107 mmol/L) 101 Carbon Dioxide (22 - 30 mmol/L) 27 Anion Gap (5 - 16) 5 BUN (9 - 20 mg/dL) 16 Creatinine (0.7 - 1.2 mg/dL) 1.1 Estimated GFR (>60 ml/min) > 60 Glucose (65 - 99 mg/dL) 157 H Calcium (8.4 - 10.2 mg/dL) 8.4 Phosphorus (2.5 - 4.5 mg/dL) 2.0 L Magnesium (1.6 - 2.3 mg/dL) 1.8 Total Bilirubin (0.2 - 1.3 mg/dL) 4.9 H AST (17 - 59 U/L) 42 ALT (21 - 72 U/L) 40 Albumin (3.5 - 5.0 g/dL) 1.9 L Coagulation PT (9.4 - 12.5 SEC) 24.0 H INR (0.90 - 1.17) 2.30 H Hematology CBC w Diff NO MAN DIFF REQ WBC (4.8 - 10.8 /CUMM) 10.4 RBC (4.70 - 6.10 /CUMM) 3.20 L Hgb (14.0 - 18.0 G/DL) 9.8 L Hct (42 - 52 %) 30.0 L MCV (80.0 - 94.0 FL) 93.7 MCH (27.0 - 31.0 PG) 30.5 RDW (11.5 - 14.5 %) 18.5 H Plt Count (130 - 400 /CUMM) 171 MPV (7.4 - 10.4 FL) 7.5 Gran % (42.2 - 75.2 %) 77.6 H Lymphocytes % (20.5 - 51.1 %) 7.4 L Monocytes % (1.7 - 9.3 %) 11.8 H Eosinophils % (0 - 5 %) 3.0 Basophils % (0.0 - 2.0 %) 0.2 Absolute Granulocytes (1.4 - 6.5 /CUMM) 8.1 H Absolute Lymphocytes (1.2 - 3.4 /CUMM) 0.8 L Absolute Monocytes (0.10 - 0.60 /CUMM) 1.2 H Absolute Eosinophils (0.0 - 0.7 /CUMM) 0.3 Absolute Basophils (0.0 - 0.2 /CUMM) 0 PUBS MCHC (33.0 - 37.0 G/DL) 32.6 L Last 24 Hours of Esequiel Results: Sputum culture January 07 positive for MRSA Recent Imaging Studies: Chest x-ray January 09 progressive pulmonary edema with bilateral small pleural effusions Assessment/Plan Impression: Stable though still requiring pressors, with decreasing oxygen requirements, though with bilateral densities on chest x-ray, possibly secondary to fluid or pneumonia, with MRSA isolated from the sputum culture, possibly representing colonization. He did have a low-grade fever overnight but white blood cell count has normalized and his recent CT scan of the chest was more suggestive of atelectasis than pneumonia. Of concern is his increasing bilirubin, suggesting an ongoing biliary process status post inadvertent removal, prior to admission, of a cholecystostomy tube placed 2 months prior to admission for cholecystitis. GI input and further imaging for this has been recommended. Suggestion: 1. Would obtain a CT of the abdomen and pelvis with IV contrast (would include the chest to reevaluate the lungs in view of his recent sputum culture) 2. GI input regarding his biliary tree 3. Continue to follow off antibiotics pending above
--- NOTE | 2017-01-09 11:08 | PN- CRCU ---
Subjective HPI/Critical Care Issues: pt seen and examined mechanical ventilation ros unobtainable plan for imaging of abd/pelvis and chest Objective Current Medications: Current Medications Sig/Salud Start time Last Medication Dose Route Stop Time Status Admin Acetaminophen 650 MG Q6P PRN 12/27 0115 AC PO Allopurinol 100 MG DAILY 12/27 1000 AC 01/09 PO 0816 Amiodarone HCl 400 MG Q12H 01/06 1900 AC 01/09 PO 0602 Dextrose/Sodium 1,000 ML Q16H 01/07 1100 AC 01/08 Chloride IV 2310 Fentanyl Citrate 1,000 MCG Q13H 01/08 1600 AC 01/09 Dextrose/Water 250 ML IV 0908 Fentanyl Citrate 1,000 MCG Q8H 01/05 1430 DC 01/07 Dextrose/Water 250 ML IV 2132 Finasteride 5 MG DAILY 12/27 1015 AC 01/08 PO 1008 Furosemide 40 MG ONCE ONE 01/08 1145 DC 01/08 IV 01/08 1146 1227 Magnesium Oxide 400 MG ONE ONE 01/09 0745 DC 01/09 PO 01/09 0746 0816 Norepinephrine 4 MG Q4H 01/08 0500 AC 01/09 Sodium Chloride 250 ML IV 0525 Pantoprazole Sodium 40 MG DAILY 01/04 1000 AC 01/09 IV 0817 Polyethylene Glycol 17 GM DAILY 12/27 1000 AC 01/09 PO 0814 Potassium Chloride 80 MEQ ONCE ONE 01/09 0800 DC 01/09 PO 01/09 0801 1027 Potassium Chloride 80 MEQ ONCE ONE 01/09 0745 CAN PO 01/09 0746 Potassium Phosphate 15 mMol ONE ONE 01/09 0745 AC 01/09 Dextrose/Water 250 ML IV 01/09 1148 1027 Potassium Phosphate 15 mMol ONE ONE 01/08 0830 DC 01/08 Dextrose/Water 250 ML IV 01/08 1233 1011 Senna/Docusate Sodium 1 TAB Q12P PRN 12/27 0130 AC PO Vital Signs & I&O Last 24 Hrs of Vitals and I&O: Vital Signs Date Time Temp Pulse Resp B/P Pulse O2 O2 Flow FiO2 Ox Delivery Rate 01/09 0816 40 01/09 0800 99.3 93 16 90/70 97 Ventilator 40% 01/09 0623 40 01/09 0602 115 118/79 01/09 0525 119 96/57 01/09 0343 96 Ventilator 40% 01/09 0317 40 01/09 0108 104 104/71 01/09 0031 40 01/09 0001 99 Ventilator 40% 01/09 0001 100.4 94 16 95/65 99 Ventilator 40% 01/08 2311 93 96/66 01/08 2256 40 01/08 2000 96 Ventilator 40% 01/08 1955 40 01/08 1908 105 92/60 01/08 1830 103 102/67 01/08 1605 40 01/08 1600 97.6 98 20 96/62 96 Ventilator 45% 01/08 1600 93 Ventilator 45% 01/08 1428 103 103/71 01/08 1417 45 01/08 1214 45 01/08 1200 96 Ventilator 45% Intake & Output 01/09 1600 01/09 0800 01/09 0000 Intake Total 1692 1580 Output Total 335 615 Balance 1357 965 Intake, IV 1062 1110 Intake, Tube 480 320 Feeding Intake, Tube 150 150 Irrigant Output, Urine 335 615 Exam Other Physical Findings: gen awake and alert heent proline cvs s1, s2 lungs ctab anteriorly abd obese, somewhat hard ext without edema Results Last 24 Hrs of Lab Results: Laboratory Tests 01/09/17 0415: Anion Gap 5, Estimated GFR > 60, Glucose 157 H, Calcium 8.4, Phosphorus 2.0 L, Magnesium 1.8, Total Bilirubin 4.9 H, AST 42, ALT 40, Albumin 1.9 L, PT 24.0 H, INR 2.30 H, CBC w Diff NO MAN DIFF REQ, RBC 3.20 L, MCV 93.7, MCH 30.5, RDW 18.5 H, MPV 7.5, Gran % 77.6 H, Lymphocytes % 7.4 L, Monocytes % 11.8 H, Eosinophils % 3.0, Basophils % 0.2, Absolute Granulocytes 8.1 H, Absolute Lymphocytes 0.8 L, Absolute Monocytes 1.2 H, Absolute Eosinophils 0.3, Absolute Basophils 0, PUBS MCHC 32.6 L Impression/Plan Impression/Plan Impression/Plan: Impression 81 year old man * s/p cardiac arrest - vtach as underlying rhythm * shock - septic vs cardiogenic * hx AVR on coumadin * hx cholecystitis * s/p retrieval of guidewire (central line) Plan - ID consultation is appreciated, will follow recommendations - f/u cardiology input - monitor hemodynamics - monitor ins/outs, electrolytes - bilirubin remains elevated, will obtain GI consultation - imaging of chest/abd/pelvis Extensive discussion held with family. DNR/DNI status at this time. If patient does not show signs of improvement, consideration for comfort measures will be entertained (we discussed this as an option). DVT prophylaxis at all times (elevated INR on coumadin) TTS 35 min
--- NOTE | 2017-01-09 12:31 | CT SCAN REPORT ---
EXAMINATION: CT CHEST WITH CONTRAST CT ABDOMEN AND PELVIS WITH CONTRAST CLINICAL INFORMATION: Elevated bilirubin COMPARISON: Chest CT 01/06/2017. Abdominal CT 12/26/2016. TECHNIQUE: Multidetector volumetric imaging was performed through the chest, abdomen and pelvis following the administration of 94 mL of Optiray 320 intravenous contrast. Sagittal and coronal reformatted images were obtained on the technologist's workstation. Axial MIP volume rendering provided. DLP: 1960 mGy-cm. FINDINGS: CHEST: Lungs: The endotracheal tube terminates approximately 6.5 cm above the karan. This appears similar to prior. There are moderate bilateral pleural effusions. Bilateral compressive atelectasis affecting the lower lobes. Patchy bilateral airspace opacities are also noted throughout the aerated lungs. This is similar to previous. No pneumothorax. Mediastinum: The heart is mildly prominent. Pericardial calcifications are present, similar to prior. Diffuse coronary artery calcifications. No pericardial effusion. No mediastinal lymphadenopathy. Tortuous course of the aorta which is diffusely calcified. Chest Wall/Axilla: No lymphadenopathy. No chest wall mass. Anasarca. ABDOMEN/PELVIS: Liver, Gallbladder, Biliary Tree: The liver is normal in size, shape, and attenuation. No focal hepatic lesion or biliary ductal dilatation is present. A small volume of ascites is increased from previous. The gallbladder is normally distended. Layering stone/sludge seen in the gallbladder lumen dependently. This is similar to prior. No gallbladder wall thickening. No adjacent fluid collection. Pancreas: Unremarkable. Spleen: Unremarkable. Adrenal Glands: Unremarkable. Kidneys and Ureters: The kidneys are normal in size, shape, and attenuation. No hydronephrosis, hydroureter or calculi seen. No perinephric stranding. Redemonstration of right renal cysts. Bladder: Decompressed with a Starr catheter in place. Gastrointestinal Tract: Enteric tube terminates in the stomach which is otherwise unremarkable. Small duodenal diverticulum originates from the third portion of the duodenum. No bowel obstruction. No bowel wall thickening or inflammatory change. Distal colonic anastomosis noted. No free air. Abdominal Wall: No hernia is seen. Anterior abdominal wall surgical material is noted, unchanged. This is in an area of soft tissue thickening. This is unchanged. Moderate anasarca is increased from prior. Diffuse mild to moderate musculature fatty atrophy. Lymphovascular Structures: Lymph nodes: Normal. Vascular: Diffuse atherosclerotic calcifications. Mild ectasia of the infrarenal abdominal aorta is unchanged. Pelvic Viscera: Prostate calcifications. The seminal vesicles are unremarkable. OSSEOUS STRUCTURES: No suspicious sclerotic or lytic bone lesions are identified. L2 vertebral body compression deformity is unchanged. Mild degenerative changes of the hips. IMPRESSION: 1. Similar appearance of the lungs with moderate bilateral pleural effusions and lower lobe compressive atelectasis. Patchy airspace opacities may represent pneumonia. Endotracheal tube terminating 6.5 cm above the karan. 2. Small volume ascites, increased from previous. Increasing anasarca. No biliary ductal dilatation. 3. Layering gallstones/sludge within the gallbladder lumen, similar to previous.
--- NOTE | 2017-01-09 13:07 | NUR ---
Patient placed on contact precaustions for + NRSA in [facility] staff notified as well as Dr. Baig. At [address] scan accompanied by this RN. Vitals remained stable during procedure.
[2017-01-09 16:00] VITALS: BP 97/64
--- NOTE | 2017-01-09 16:54 | Cons- Gastroenterology ---
General Information and HPI Consulting Request Date of Consult: 01/09/17 Requested By: JAIDA CHURCHILL MD Reason for Consult: Called today to assess multifactorial elevated LFTs, hospital day #14 Source of Information: old records Exam Limitations: unable to give history, not alert/orientated, clinical condition, confusion History of Present Illness: 81 old male, ASHD, CABG x 2 (L Cx & RCA 1994) and stent, post [facility] AVR 1994, afib on Coumadin, HTN/CHF/remote sigmoid CA resected 1990 lymph node negative/recent cholecystitis at [facility], 2 months prior to his 12/26/16: admission. The patient had percutaneous cholecystostomy tube re-placed by [facility] 11/03/16, with multiple dislodgments. *Prior to this, 10/24/16: EUS at [facility]- no CBD stones. 10/26/16: [facility]- with cholecystitis. *10/01: Percutaneous cholecystostomy by [facility]. The patient was admitted to [place] 12/26/16, brought in from [facility] with dislodged percutaneous cholecystostomy. He was afebrile on admission, with WBC 8K, BUN/Cr 14/1.0, TBil 1.6, alk phos 199, INR 2.99 (on A/C tx). Adission chest x-ray showed bilateral pleural effusions. *CT AP showed known gallstones and small amount of pericholecystic fluid, without dilated ducts. He received 1 dose of IV Ceftriaxone in the ER, and later 1 dose of IV Vanco for MRSA sputum. He was diuresed for CHF and also had some hematuria due to his Starr catheter. 2016: Vtach and 2.5 second pauses, with Cr 1.9, followed by cardiac arrest, CPR, intubation, and transferred to the ICU with initiation of pressors, as he was hypotensive. 01/04/17: peak troponin 0.72. He had an unsuccessful attempt at placement of a right femoral triple lumen, which had to be retrieved by IR. His total bilirubin has fluctuated. It started to rise recently.*According to my discussion with Dr. Churchill, the patient's family is now having second thoughts about continuing aggressive care. Technically, the patient is DNR/DNI, but they are considering readdressing goals of care. (*The patient's POA is his niece, Cayla Valente, ). The patient is currently off antibiotics. 01/04/2017: BC x 2- negative. The history is limited, but there is no EtOH abuse. The patient remains on a ventilator. He is receiving Jevity TF 1.5 @ 60 cc/hr plus H2O flushes. The patient is currently on a ventilator and unable to answer any questions.*According to his current medication list, his only potential hepatotoxic agent is Amiodarone. *The patient was just put back on pressors (Levophed), towards the end of the consult. 01/08/17: ABG (FiO2 45/AC 16/TV 500/PEEP 5)- 7.41/35/68/93/HCO3 21/CO HB 1.7 01/09/17: WBC 10.4, H/H and 9.8/30, normal MCV, PLT 171, PT 24, INR 2.30, glu 157, Na 133, K 3.0, HCO3 27, albumin 1.9 (no recent TP), TBil 4.9, DBil 3.5, alk phos 158, AST 42, ALT 40. 01/04/17: EKG- A fib @ 90, QS inferiorly, PRWP,NSST abnormalities anteriorlaterally. 01/04/17: US-COMPLETE ABDOMEN- 1. There is no ultrasonic evidence for acute cholecystitis, but the study is suboptimal as described above. GB wall 3 mm (? from ascites) 2. The liver has a nodular contour and there is trace ascites. 3. There is a large cyst at the upper pole of the right kidney. 01/06/17: CT CHEST WITHOUT CONTRAST- Large bilateral effusion with compressive atelectasis. Patchy bilateral opacities nonspecific. Some or all of this could reflect atelectasis. Pneumonia cannot be excluded. PICC line in SVC. 01/09/17: CT ABD & PELVIS W IV CONTRAST; CT CHEST W IV CONTRAST- 1. Similar appearance of the lungs with moderate bilateral pleural effusions and lower lobe compressive atelectasis. Patchy airspace opacities may represent pneumonia. Endotracheal tube terminating 6.5 cm above the karan. 2. Small volume ascites, increased from previous. Increasing anasarca. No biliary ductal dilatation. 3. Layering gallstones/sludge within the gallbladder lumen, similar to previous. 01/09/17: XR PORTABLE CHEST- 1. Endotracheal tube tip 6 cm above the karan. 2. Enteric tube tip not visualized but seen extending into the left upper quadrant. 3. Progressive pulmonary edema with bilateral small pleural effusions. Allergies/Medications Allergies: Coded Allergies: No Known Allergies (01/04/17) Home Med List: Acetaminophen 325 MG CAPSULE 2 CAP PO Q4H PRN PAIN/TEMP>101 (Reported) Allopurinol 100 MG TABLET 1 TAB PO DAILY GOUT (Reported) Aspirin (Ecotrin*) 81 MG TABLET.DR 1 TAB PO DAILY HEART/BLOOD (Reported) Atorvastatin Calcium 40 MG TABLET 1 TAB PO DAILY CHOLESTEROL (Reported) Bisacodyl 10 MG SUPP.RECT 1 SUP RC Q2D PRN CONSTIPATION (Reported) Furosemide (Lasix) 40 MG TABLET 1 TAB PO DAILY DIURETIC (Reported) Magnesium Hydroxide (Milk Of Magnesia) 400 MG/5 ML ORAL.SUSP 30 ML PO DAILY PRN CONSTIPATION (Reported) Metoprolol Tartrate 25 MG TABLET 0.5 TAB PO BID HEART/BP (Reported) Miconazole Nitrate (Inzo Antifungal) 2 % CREAM..G. 1 SALAZAR TOP BID BUTTOCKS ( Reported) Na Phos,M-B/Na Phos,Di-Ba (Fleet Enema) 19 GRAM-7 GRAM/118 ML ENEMA 1 E RC Q2D PRN CONSTIPATION (Reported) Nystatin (Nystop) 100,000 UNIT/GRAM POWDER 1 SALAZAR TOP BID GROIN (Reported) Pantoprazole Sodium 40 MG TABLET.DR 1 TAB PO Q12H GI (Reported) Polyethylene Glycol 3350 (Gavilax) 17 GRAM POWD.PACK 1 PAC PO DAILY GI ( Reported) Potassium Chloride (Klor-Con 10) 10 MEQ TABLET.ER 1 TAB PO DAILY SUPPLEMENT ( Reported) Sennosides (Senna) 8.6 MG TABLET 1 TAB PO QPM GI (Reported) Warfarin Sodium (Coumadin) 5 MG TABLET 1 TAB PO DAILY AFIB (Reported) Current Medications: Current Medications Sig/Salud Start time Last Medication Dose Route Stop Time Status Admin Acetaminophen 650 MG Q6P PRN 12/27 0115 AC PO Allopurinol 100 MG DAILY 12/27 1000 AC 01/09 PO 0816 Amiodarone HCl 400 MG Q12H 01/06 1900 AC 01/09 PO 0602 Bisacodyl 10 MG ONCE ONE 01/09 1230 DC 01/09 NJ 01/09 1231 1246 Dextrose/Sodium 1,000 ML Q16H 01/07 1100 AC 01/08 Chloride IV 2310 Fentanyl Citrate 1,000 MCG Q13H 01/08 1600 AC 01/09 Dextrose/Water 250 ML IV 0908 Finasteride 5 MG DAILY 12/27 1015 AC 01/08 PO 1008 Magnesium Oxide 400 MG ONE ONE 01/09 0745 DC 01/09 PO 01/09 0746 0816 Norepinephrine 4 MG Q4H 01/08 0500 AC 01/09 Sodium Chloride 250 ML IV 1100 Pantoprazole Sodium 40 MG DAILY 01/04 1000 AC 01/09 IV 0817 Polyethylene Glycol 17 GM DAILY 12/27 1000 AC 01/09 PO 0814 Potassium Chloride 80 MEQ ONCE ONE 01/09 0800 DC 01/09 PO 01/09 0801 1027 Potassium Chloride 80 MEQ ONCE ONE 01/09 0745 CAN PO 01/09 0746 Potassium Phosphate 15 mMol ONE ONE 01/09 0745 DC 01/09 Dextrose/Water 250 ML IV 01/09 1148 1027 Senna/Docusate Sodium 1 TAB Q12P PRN 12/27 0130 AC PO Past History Travel History Traveled to [place] past 21 day No Medical History Blood Transfusion Hx: No Neurological: NONE EENT: epistaxis Cardiovascular: AFIB, CAD, diastolic CHF, hypertension, hyperlipidemia, prosthetic aortic valve replacement in 1994 in 1994 Respiratory: NONE Hepatic: cholecystitis (s/p cholecystostomy tube [facility]) Renal: renal cysts Musculoskeletal: gout Psychiatric: NONE Endocrine: NONE Blood Disorders: NONE Cancer(s): colon/rectal cancer Surgical History Surgical History: CABG, colon resection, knee replacement Family History Relations & Conditions If Any: MOTHER (family medical history is unknown as the patient is adopted). . FATHER (unknown). . Psychosocial History Where Do You Live? Extended Care Facility Who Do You Live With? SNF Services at Home: SNF Primary Language: Zambian Smoking Status: Former Smoker ETOH Use: occasional use Illicit Drug Use: denies illicit drug use Living Will? DNR/DNI per chart Power of News Production Assistant/HCP? yes Name of POA/HCP: Cayla Valente Other Social History: Single. No children. Ex-smoker. Mild EtOH. No drugs. No other history available. Functional Ability ADLs Unknown: dressing, eating, toileting, bathing. Ambulation: unknown IADLs Unknown: shopping, housework, finances, food prep, telephone, transportation, medication admin. Employment History Employment: unknown ECHO Results (as available) Date of last Echo 01/05/17 EF% 60 Review of Systems Review of Systems: Full 14 point ROS currently unobtainable from patient. Review of Systems All Other Systems: Reviewed and Negative (unobtainable) Exam & Diagnostic Data Vital Signs and I&O Vital Signs Date Time Temp Pulse Resp B/P Pulse O2 O2 Flow FiO2 Ox Delivery Rate 01/09 1435 40 01/09 1200 97 Ventilator 40% 01/09 1110 40 01/09 1100 104/0 01/09 0816 40 01/09 0800 99.3 93 16 90/70 97 Ventilator 40% 01/09 0800 97 Ventilator 40% 01/09 0623 40 01/09 0602 115 118/79 01/09 0525 119 96/57 01/09 0343 96 Ventilator 40% 01/09 0317 40 01/09 0108 104 104/71 01/09 0031 40 01/09 0001 99 Ventilator 40% 01/09 0001 100.4 94 16 95/65 99 Ventilator 40% 01/08 2311 93 96/66 01/08 2256 40 01/08 2000 96 Ventilator 40% 01/08 1955 40 01/08 1908 105 92/60 01/08 1830 103 102/67 Intake & Output 01/09 1600 01/09 0400 01/08 1600 01/08 0400 01/07 1600 01/07 0400 Intake Total 3347 1580 3025 1217 2730 1884 Output Total 535 615 800 455 290 160 Balance 2812 965 2225 762 2440 1724 Intake, IV 2057 1110 2305 1012 2610 1764 Intake, Oral 0 0 Intake, Tube 750 320 320 85 Feeding Intake, Tube 540 150 400 120 120 120 Irrigant Number 1 0 0 Bowel Movements Output, 0 50 Gastric Drainage Output, Urine 535 615 800 455 290 110 Patient 233 lb Weight Physical Exam: Well-developed, slightly malnourished obese male, in no apparent distress. Sclera icteric. Conjunctiva pink. Oropharynx- intubated. There is no adenopathy, thyromegaly, or JVD. No definite peripheral stigmata of inflammatory bowel disease or chronic liver disease on exam. N o spiders on the anterior chest wall. No gynecomastia. No CVA tenderness. Lungs: Bibasilar crackles with decreased breath sounds at the bases bilaterally. Heart exam: irregularly irregular rate rhythm S1 and S2, with I/ systolic murmur. CABG scar. Abdominal exam: normal bowel sounds, soft belly, obese, currently nontender (*No definite Gonsalves sign, but sedated), without guarding or rebound. No definite mass or organomegaly. No fluid shift. No pulsatile mass. Digital rectal exam: API (deferred at present). Extremities: without cyanosis or clubbing. 1+ peripheral edema. Old tattoos. No palpable cords. Mild DJD. No palmar erythema. No Dupuytren's contractures. Distal pulses 1+ bilaterally. DTRs 1+ bilaterally. Alert and oriented x 3. No tremor. No asterixis. Results Pertinent Lab Results: Laboratory Tests 01/09 01/09 01/08 0500 0415 0615 Blood Gas pH (7.35 - 7.45 PH) 7.41 pCO2 (35 - 45 TORR) 35 pO2 (80 - 100 TORR) 68 L HCO3 (21 - 28 MEQ/L) 21 ABG O2 Sat (Measured) (>96.0 %) 93.0 L P-50 (Temp Corrected) N Carboxyhemoglobin (1.5 - 5.0 %) 1.7 O2 Concentration % .45 Respiration Rate (BPM) 16 O2 Delivery Method VENT Vent Mode A/C Expiratory Pressure (CMH2O/P) 5 Tidal Volume (CC) 500 Chemistry Sodium (137 - 145 mmol/L) 133 L Potassium (3.5 - 5.1 mmol/L) 3.0 L Chloride (98 - 107 mmol/L) 101 Carbon Dioxide (22 - 30 mmol/L) 27 Anion Gap (5 - 16) 5 BUN (9 - 20 mg/dL) 16 Creatinine (0.7 - 1.2 mg/dL) 1.1 Estimated GFR (>60 ml/min) > 60 Glucose (65 - 99 mg/dL) 157 H Calcium (8.4 - 10.2 mg/dL) 8.4 Phosphorus (2.5 - 4.5 mg/dL) 2.0 L Magnesium (1.6 - 2.3 mg/dL) 1.8 Total Bilirubin (0.2 - 1.3 mg/dL) 4.9 H Direct Bilirubin (< 0.4 mg/dL) 3.5 H AST (17 - 59 U/L) 42 ALT (21 - 72 U/L) 40 Alkaline Phosphatase (< 127 U/L) 158 H Lactate Dehydrogenase (313 - 618 U/L) 652 H Albumin (3.5 - 5.0 g/dL) 1.9 L Lipase (23 - 300 U/L) 44 Coagulation PT (9.4 - 12.5 SEC) 24.0 H INR (0.90 - 1.17) 2.30 H Hematology CBC w Diff NO MAN DIFF REQ WBC (4.8 - 10.8 /CUMM) 10.4 RBC (4.70 - 6.10 /CUMM) 3.20 L Hgb (14.0 - 18.0 G/DL) 9.8 L Hct (42 - 52 %) 30.0 L MCV (80.0 - 94.0 FL) 93.7 MCH (27.0 - 31.0 PG) 30.5 RDW (11.5 - 14.5 %) 18.5 H Plt Count (130 - 400 /CUMM) 171 MPV (7.4 - 10.4 FL) 7.5 Gran % (42.2 - 75.2 %) 77.6 H Lymphocytes % (20.5 - 51.1 %) 7.4 L Monocytes % (1.7 - 9.3 %) 11.8 H Eosinophils % (0 - 5 %) 3.0 Basophils % (0.0 - 2.0 %) 0.2 Absolute Granulocytes (1.4 - 6.5 /CUMM) 8.1 H Absolute Lymphocytes (1.2 - 3.4 /CUMM) 0.8 L Absolute Monocytes (0.10 - 0.60 /CUMM) 1.2 H Absolute Eosinophils (0.0 - 0.7 /CUMM) 0.3 Absolute Basophils (0.0 - 0.2 /CUMM) 0 PUBS MCHC (33.0 - 37.0 G/DL) 32.6 L Retic Count (0.5 - 2.0 %) 4.00 H Haptoglobin Pending Miscellaneous Phlebotomy Draw Site LEFT RADIAL 01/08 01/07 0430 0920 Blood Gas pH (7.35 - 7.45 PH) 7.31 L pCO2 (35 - 45 TORR) 48 H pO2 (80 - 100 TORR) 90 HCO3 (21 - 28 MEQ/L) 23 ABG O2 Sat (Measured) (>96.0 %) 95.0 L Carboxyhemoglobin (1.5 - 5.0 %) 1.4 L O2 Concentration % 55% Respiration Rate (BPM) 12 O2 Delivery Method VENT Vent Mode AC Expiratory Pressure (CMH2O/P) 5 Tidal Volume (CC) 550 Chemistry Sodium (137 - 145 mmol/L) 130 L Potassium (3.5 - 5.1 mmol/L) 3.4 L Chloride (98 - 107 mmol/L) 100 Carbon Dioxide (22 - 30 mmol/L) 25 Anion Gap (5 - 16) 6 BUN (9 - 20 mg/dL) 18 Creatinine (0.7 - 1.2 mg/dL) 1.1 Estimated GFR (>60 ml/min) > 60 Glucose (65 - 99 mg/dL) 147 H Calcium (8.4 - 10.2 mg/dL) 8.1 L Phosphorus (2.5 - 4.5 mg/dL) 2.7 Magnesium (1.6 - 2.3 mg/dL) 1.9 Total Bilirubin (0.2 - 1.3 mg/dL) 4.6 H AST (17 - 59 U/L) 38 ALT (21 - 72 U/L) 40 Albumin (3.5 - 5.0 g/dL) 2.0 L Coagulation PT (9.4 - 12.5 SEC) 28.1 H INR (0.90 - 1.17) 2.70 H Hematology CBC w Diff NO MAN DIFF REQ WBC (4.8 - 10.8 /CUMM) 11.7 H RBC (4.70 - 6.10 /CUMM) 3.23 L Hgb (14.0 - 18.0 G/DL) 9.9 L Hct (42 - 52 %) 30.1 L MCV (80.0 - 94.0 FL) 93.4 MCH (27.0 - 31.0 PG) 30.5 RDW (11.5 - 14.5 %) 18.0 H Plt Count (130 - 400 /CUMM) 163 MPV (7.4 - 10.4 FL) 7.8 Gran % (42.2 - 75.2 %) 79.1 H Lymphocytes % (20.5 - 51.1 %) 6.6 L Monocytes % (1.7 - 9.3 %) 12.9 H Eosinophils % (0 - 5 %) 1.1 Basophils % (0.0 - 2.0 %) 0.3 Absolute Granulocytes (1.4 - 6.5 /CUMM) 9.3 H Absolute Lymphocytes (1.2 - 3.4 /CUMM) 0.8 L Absolute Monocytes (0.10 - 0.60 /CUMM) 1.5 H Absolute Eosinophils (0.0 - 0.7 /CUMM) 0.1 Absolute Basophils (0.0 - 0.2 /CUMM) 0 PUBS MCHC (33.0 - 37.0 G/DL) 32.7 L Miscellaneous Phlebotomy Draw Site LEFT RADIAL 01/07 0405 Chemistry Sodium (137 - 145 mmol/L) 132 L Potassium (3.5 - 5.1 mmol/L) 4.0 Chloride (98 - 107 mmol/L) 98 Carbon Dioxide (22 - 30 mmol/L) 27 Anion Gap (5 - 16) 6 BUN (9 - 20 mg/dL) 16 Creatinine (0.7 - 1.2 mg/dL) 1.2 Estimated GFR (>60 ml/min) 58 L Glucose (65 - 99 mg/dL) 116 H Calcium (8.4 - 10.2 mg/dL) 8.4 Phosphorus (2.5 - 4.5 mg/dL) 4.0 Magnesium (1.6 - 2.3 mg/dL) 2.0 Total Bilirubin (0.2 - 1.3 mg/dL) 3.3 H AST (17 - 59 U/L) 51 ALT (21 - 72 U/L) 51 Albumin (3.5 - 5.0 g/dL) 2.3 L Coagulation PT (9.4 - 12.5 SEC) 25.9 H INR (0.90 - 1.17) 2.49 H Hematology CBC w Diff NO MAN DIFF REQ WBC (4.8 - 10.8 /CUMM) 13.1 H RBC (4.70 - 6.10 /CUMM) 3.39 L Hgb (14.0 - 18.0 G/DL) 10.4 L Hct (42 - 52 %) 31.8 L MCV (80.0 - 94.0 FL) 93.8 MCH (27.0 - 31.0 PG) 30.6 RDW (11.5 - 14.5 %) 18.2 H Plt Count (130 - 400 /CUMM) 135 MPV (7.4 - 10.4 FL) 8.1 Gran % (42.2 - 75.2 %) 79.5 H Lymphocytes % (20.5 - 51.1 %) 8.1 L Monocytes % (1.7 - 9.3 %) 10.3 H Eosinophils % (0 - 5 %) 2.1 Basophils % (0.0 - 2.0 %) 0 L Absolute Granulocytes (1.4 - 6.5 /CUMM) 10.4 H Absolute Lymphocytes (1.2 - 3.4 /CUMM) 1.1 L Absolute Monocytes (0.10 - 0.60 /CUMM) 1.4 H Absolute Eosinophils (0.0 - 0.7 /CUMM) 0.3 Absolute Basophils (0.0 - 0.2 /CUMM) 0 PUBS MCHC (33.0 - 37.0 G/DL) 32.6 L Imaging/Other Studies: 01/04/17: EKG- A fib @ 90, QS inferiorly, PRWP,NSST abnormalities anteriorlaterally. 01/04/17: US-COMPLETE ABDOMEN- 1. There is no ultrasonic evidence for acute cholecystitis, but the study is suboptimal as described above. GB wall 3 mm (? from ascites) 2. The liver has a nodular contour and there is trace ascites. 3. There is a large cyst at the upper pole of the right kidney. 01/06/17: CT CHEST WITHOUT CONTRAST- Large bilateral effusion with compressive atelectasis. Patchy bilateral opacities nonspecific. Some or all of this could reflect atelectasis. Pneumonia cannot be excluded. PICC line in SVC. 01/09/17: CT ABD & PELVIS W IV CONTRAST; CT CHEST W IV CONTRAST- 1. Similar appearance of the lungs with moderate bilateral pleural effusions and lower lobe compressive atelectasis. Patchy airspace opacities may represent pneumonia. Endotracheal tube terminating 6.5 cm above the karan. 2. Small volume ascites, increased from previous. Increasing anasarca. No biliary ductal dilatation. 3. Layering gallstones/sludge within the gallbladder lumen, similar to previous. 01/09/17: XR PORTABLE CHEST- 1. Endotracheal tube tip 6 cm above the karan. 2. Enteric tube tip not visualized but seen extending into the left upper quadrant. 3. Progressive pulmonary edema with bilateral small pleural effusions. Assessment/Plan Assessment/Recommendations: (*Extensive records reviewed). 81 old male, ASHD, CABG x 2 (L Cx & RCA 1994) and stent, post [facility] AVR 1994, afib on Coumadin, HTN/CHF/remote sigmoid CA resected 1990 lymph node negative/recent cholecystitis at [facility], 2 months prior to his 12/26/16: admission. The patient had percutaneous cholecystostomy tube re-placed by [facility] 11/03/16, with multiple dislodgments. *Prior to this, 10/24/16: EUS at [facility]- no CBD stones. 10/26/16: HIDA- with cholecystitis. *10/01: Percutaneous cholecystostomy by [facility]. The patient was admitted to [place] 12/26/16, brought in from [facility] with dislodged percutaneous cholecystostomy. He was afebrile on admission, with WBC 8K, BUN/Cr 14/1.0, TBil 1.6, alk phos 199, INR 2.99 (on A/C tx). Adission chest x-ray showed bilateral pleural effusions. *CT AP showed known gallstones and small amount of pericholecystic fluid, without dilated ducts. He received 1 dose of IV Ceftriaxone in the ER, and later 1 dose of IV Vanco for MRSA sputum. He was diuresed for CHF and also had some hematuria due to his Starr catheter. 2016: Vtach and 2.5 second pauses, with Cr 1.9, followed by cardiac arrest, CPR, intubation, and transferred to the ICU with initiation of pressors, as he was hypotensive. 01/04/17: peak troponin 0.72. He had an unsuccessful attempt at placement of a right femoral triple lumen, which had to be retrieved by IR. His total bilirubin has fluctuated. It started to rise recently.*According to my discussion with Dr. Churchill, the patient's family is now having second thoughts about continuing aggressive care. Technically, the patient is DNR/DNI, but they are considering readdressing goals of care. (*The patient's POA is his niece, Cayla Valente, ). The patient is currently off antibiotics. 01/04/2017: BC x 2- negative. The history is limited, but there is no EtOH abuse. The patient remains on a ventilator. He is receiving Jevity TF 1.5 @ 60 cc/hr plus H2O flushes. The patient is currently on a ventilator and unable to answer any questions.*According to his current medication list, his only potential hepatotoxic agent is Amiodarone. *The patient was just put back on pressors (Levophed), towards the end of the consult. 01/08/17: ABG (FiO2 45/AC 16/TV 500/PEEP 5)- 7.41/35/68/93/HCO3 21/CO HB 1.7 01/09/17: WBC 10.4, H/H and 9.8/30, normal MCV, PLT 171, PT 24, INR 2.30, glu 157, Na 133, K 3.0, HCO3 27, albumin 1.9 (no recent TP), TBil 4.9, DBil 3.5, alk phos 158, AST 42, ALT 40. 01/04/17: EKG- A fib @ 90, QS inferiorly, PRWP,NSST abnormalities anteriorlaterally. 01/04/17: US-COMPLETE ABDOMEN- 1. There is no ultrasonic evidence for acute cholecystitis, but the study is suboptimal as described above. GB wall 3 mm (? from ascites) 2. The liver has a nodular contour and there is trace ascites. 3. There is a large cyst at the upper pole of the right kidney. 01/06/17: CT CHEST WITHOUT CONTRAST- Large bilateral effusion with compressive atelectasis. Patchy bilateral opacities nonspecific. Some or all of this could reflect atelectasis. Pneumonia cannot be excluded. PICC line in SVC. 01/09/17: CT ABD & PELVIS W IV CONTRAST; CT CHEST W IV CONTRAST- 1. Similar appearance of the lungs with moderate bilateral pleural effusions and lower lobe compressive atelectasis. Patchy airspace opacities may represent pneumonia. Endotracheal tube terminating 6.5 cm above the karan. 2. Small volume ascites, increased from previous. Increasing anasarca. No biliary ductal dilatation. 3. Layering gallstones/sludge within the gallbladder lumen, similar to previous. 01/09/17: XR PORTABLE CHEST- 1. Endotracheal tube tip 6 cm above the karan. 2. Enteric tube tip not visualized but seen extending into the left upper quadrant. 3. Progressive pulmonary edema with bilateral small pleural effusions. *The patient's LFTs are cholestatic in nature. This could be multifactorial. 10/24/16: [facility] EUS- clean CBD. The patient had cholecystitis at [facility], documented by 10/26/16: HIDA scan. He did require cholecystostomy tube by IR , which had dislodged multiple times. The patient is currently off antibiotics, per ID. Despite the rise in bilirubin, which is mostly direct, the patient has no dilated ducts on repeat CT of 01/09/2017. He will not be able to undergo MRCP, as there will be respiratory variation on the ventilator. The patient's only hepatotoxic agent at the moment his Amiodarone. Some of the cholestasis could be from malnutrition. Some of his cholestasis could be from non-biliary sepsis, as well, with bilateral pleural effusions, & atelectasis versus infiltrate. He has a benign abdominal exam, but is somewhat sedated. Clinically, I do not think he has cholangitis, although he is intermittently hypotensive. SUGGEST: *Repeat bedside RUQ sono (*preliminary report with normal CBD). Antibiotics on hold, per ID. Pressors & vent per ICU. Advise follow-up with IR, to reconsider percutaneous cholecystostomy tube replacement. If this is replaced, can inject dye into this to see if CBD drains. *Again the CBD was patent on the above [facility] EUS & CT without dilated ducts. Another more risky alternative would be ERCP to clear the CBD, which has already been cleared by EUS anyway. Follow-up LFTs. Replete K+. Will defer continuing Amiodarone to cardiology. Continue to hold statin for now, although this should give more of a transaminitis. I have limited history regarding the patient's remote colon cancer, and with the other above numerous issues, this is probably a moot point at present. The above was discussed with the medical housestaff & with Dr. Churchill, who is in the process of re-discussing the goals of care with the patient's family (his POA/niece, Cayla Valente, ). The patient currently is DNR/DNI, despite being previously intubated. Dr. Churchill will stay in contact with me if further biliary input is needed. 1 hour of ICU care was spent on the patient. Problem List: 1. Elevated LFTs 2. Cholelithiasis 3. Cholecystitis 4. Malnutrition 5. Hypotension 6. History of colon cancer Copies To: LANEY AGOSTO,ARIADNA; YECENIA AGOSTO,RAZ Cagle; CHAYA AGOSTO PhD,JACKI Lund; ZHAO AGOSTO,JAIDA Consult Acknowledgment - Thank you for your consult request.
--- NOTE | 2017-01-09 17:27 | ULTRASOUND REPORT ---
EXAMINATION: ABDOMINAL ULTRASOUND LIMITED CLINICAL INFORMATION: Septic shock. COMPARISON: Same day chest CT. TECHNIQUE: Real-time imaging of the right upper quadrant abdominal viscera. FINDINGS: PANCREAS: The visualized pancreatic head and body are normal in appearance. The remainder of the pancreas is obscured from visualization by the overlying bowel gas. LIVER: The liver is of normal size and echogenicity without focal lesions nor intrahepatic biliary ductal dilation. GALLBLADDER: Normal. The gallbladder is physiologically distended without evidence of stones, sludge, polyps, wall thickening or pericholecystic fluid. COMMON BILE DUCT: Normal in caliber measuring 0.6 cm in diameter. RIGHT KIDNEY: Normal. No hydronephrosis. No renal calculi or focal parenchymal lesions. The kidney measures 9.7 cm in maximum dimension. FREE FLUID: There is a moderate right pleural effusion. There is a [id number] amount of free fluid within the abdomen. IMPRESSION: Moderate pleural effusion. [id number] amount of ascites.
--- NOTE | 2017-01-09 18:04 | PN- Cardiology ---
Subjective Subjective: * Patient is intubated and sedated. * Low normal BP on Levophed. Not yet able to wean off this medication. * atrial fibrillation with occasional ventricular ectopy * Large pleural effusion noted * creatinine 1.1 with potassium 3.0 * wbc elevated to 10.4 * INR is therapeutic at 2.3 Objective Vital Signs and I&Os Vital Signs Date Time Temp Pulse Resp B/P Pulse O2 O2 Flow FiO2 Ox Delivery Rate 01/09 1615 35 01/09 1435 40 01/09 1200 97 Ventilator 40% 01/09 1110 40 01/09 1100 104/0 01/09 0816 40 01/09 0800 99.3 93 16 90/70 97 Ventilator 40% 01/09 0800 97 Ventilator 40% 01/09 0623 40 01/09 0602 115 118/79 01/09 0525 119 96/57 01/09 0343 96 Ventilator 40% 01/09 0317 40 01/09 0108 104 104/71 01/09 0031 40 01/09 0001 99 Ventilator 40% 01/09 0001 100.4 94 16 95/65 99 Ventilator 40% 01/08 2311 93 96/66 01/08 2256 40 01/08 2000 96 Ventilator 40% 01/08 1955 40 01/08 1908 105 92/60 01/08 1830 103 102/67 Intake & Output 01/09 1600 01/09 0800 01/09 0000 01/08 1600 01/08 0800 01/08 0000 Intake Total 1655 1692 1580 1565 1460 1217 Output Total 200 335 615 600 200 455 Balance 1455 1357 958 212 2022 762 Intake, IV 995 1062 1110 1195 1110 1012 Intake, Tube 270 480 320 120 200 85 Feeding Intake, Tube 390 150 150 250 150 120 Irrigant Number 1 Bowel Movements Output, Urine 200 335 615 600 200 455 Physical Exam: General: WD/ overweight male in NAD; intubated and sedated Heart: irregularly irregular with crisp valve sounds Lungs: no crackles or wheezing Extremities: 1+ bilateral leg edema Assessment/Plan Assessment/Plan * This patient has improved leg edema although bilateral pleural effusions and some degree of ascites is noted. It is reasonable to hold coumadin and begin IV heparin when INR drops below 2.0. This patient will likely benefit from thorocentesis when his INR has come down. There was no evidence for a pericardial effusion on his chest CT. * Replete potassium to 4-4.5. * Change Amiodarone to 200mg PO once daily. * Wean off Levophed as tolerated by BP. Continue telemetry? Yes
[2017-01-10] VITALS: BP 140/90
--- NOTE | 2017-01-10 01:16 | NUR ---
PT INTUBATED AT 35% FIO2, SATURATION 96%. PT OPENS HIS EYES SPONTANEOUSLY, BUT HE DOES NOT FOLLOW COMMAND. ON FENTANYL GTT AT 75MCG. AFIB 100'S, MANUAL BP 140/90. OGT IN PLACE, JEVITY 1.2 AT 60ML/H. ABDOMEN DISTENDED, HYPOACTIVE BS. RODAS IN PLACE, ADEQUATE UO AT THIS TIME. LEVOPHED AT 10MCG. STARTED ON HEPARIN GTT AT 26ML/H. MONITORED FOR ADVERSE BLEEDING.
[2017-01-10 06:14] LABS: ABSOLUTE BASOPHIL COUNT 0 /CUMM (0.0-0.2); ABSOLUTE EOSINOPHIL COUNT 0.4 /CUMM (0.0-0.7); ABSOLUTE GRANULOCYTE CT 7.8 /CUMM (1.4-6.5); ABSOLUTE LYMPH COUNT 0.8 /CUMM (1.2-3.4); BASOPHIL % 0.3 % (0.0-2.0); EOSINOPHIL % 3.9 % (0-5); HEMATOCRIT 27.9 % (42-52); MEAN CORPUSCULAR HGB 30.8 PG (27.0-31.0); MEAN CORPUSCULAR HGB CONC 32.6 G/DL (33.0-37.0); MEAN CORPUSCULAR VOLUME 94.3 FL (80.0-94.0); MEAN PLATELET VOLUME 7.6 FL (7.4-10.4); PLATELET COUNT 171 /CUMM (130-400); RED BLOOD CELL CT 2.96 /CUMM (4.70-6.10); WHITE BLOOD CELL COUNT 10.1 /CUMM (4.8-10.8)
[2017-01-10 06:21] LABS: PT 23.9 SEC (9.4-12.5); PTT 88 SEC (25-37)
--- NOTE | 2017-01-10 07:18 | PN- Resident CRCU ---
Subjective HPI/CRCU Issues: Patient seen and examined this morning. He was lying in bed in no acute distress, arousable, remains intubated. Remains on Levophed, fentanyl through PICC line. Overall fluid overloaded, chest x-ray this morning shows stable pleural effusion unchanged from yesterday, urine output good, 1 dose of IV 40 mg Lasix given. No fever spike last night, the white count is improving, bilirubin has increased from 4.6-4.9, LDH high, reticulocyte count high, haptoglobin pending unsure if it is hemolytic on a picture because H&H has been low but stable Sputum has grown MRSA, CT chest did not show any evidence of pneumonia. Currently holding off on vancomycin. She was seen by school social worker yesterday, recommendation of possible need of placement of cholecystostomy tube, pending goals of care discussion with the family. Objective Vital Signs & I&O Last 8 Hrs of Vitals and I&O: Laboratory Tests 01/10/17 0605: pH 7.40, pCO2 40, pO2 62 L, HCO3 24, ABG O2 Sat (Measured) 91.0 L, P-50 (Temp Corrected) N, Carboxyhemoglobin 2.0, O2 Concentration % 35%, Respiration Rate 16 , O2 Delivery Method VENT, Vent Mode AC, Expiratory Pressure 5, Tidal Volume 500 , Pressure Support 0, Phlebotomy Draw Site LEFT RADIAL 01/10/17 0600: APTT Cancelled 01/10/17 0557: Anion Gap 7, Estimated GFR > 60, Glucose 158 H, Calcium 8.1 L, Phosphorus 2.0 L, Magnesium 1.6, Total Bilirubin 4.9 H, Direct Bilirubin 3.6 H, AST 75 H, ALT 54, Alkaline Phosphatase 175 H, Total Protein 5.5 L, Albumin 1.9 L, PT 23.9 H, INR 2.29 H, APTT 88 H, CBC w Diff NO MAN DIFF REQ, RBC 2.96 L, MCV 94.3 H, MCH 30.8, RDW 19.0 H, MPV 7.6, Gran % 77.0 H, Lymphocytes % 8.4 L, Monocytes % 10.4 H, Eosinophils % 3.9, Basophils % 0.3, Absolute Granulocytes 7.8 H, Absolute Lymphocytes 0.8 L, Absolute Monocytes 1.0 H, Absolute Eosinophils 0.4, Absolute Basophils 0, PUBS MCHC 32.6 L Vital Signs Date Time Temp Pulse Resp B/P Pulse O2 O2 Flow FiO2 Ox Delivery Rate 01/10 0911 108 102/0 01/10 0811 35 01/10 0609 35 01/10 0533 102 16 99/67 01/10 0400 96 Ventilator 35% 01/10 0258 35 01/10 0029 35 01/10 0000 96 Ventilator 35% 01/10 0000 97.6 108 19 140/90 96 Ventilator 35% 01/09 2246 35 01/09 2000 96 Ventilator 35% 01/09 1905 35 01/09 1700 96.7 114 16 103/73 01/09 1615 35 01/09 1600 96 Ventilator 35% 01/09 1600 96.7 104 16 97/64 96 Ventilator 35% 01/09 1435 40 01/09 1200 97 Ventilator 40% 01/09 1110 40 01/09 1100 104/0 Intake & Output 01/10 1600 01/10 0800 01/10 0000 Intake Total 1908 1652 Output Total 195 220 Balance 1713 1432 Intake, IV 1128 932 Intake, Other 300 Intake, Tube 480 420 Feeding Intake, Tube 300 Irrigant Number 1 Bowel Movements Output, Urine 195 220 Exam General Appearance: well developed/nourished Respiratory: normal breath sounds Cardiovascular: regular rate/rhythm Gastrointestinal: normal bowel sounds Extremities: b/l 4+edema upto groin Current Medications: Current Medications Sig/Salud Start time Last Medication Dose Route Stop Time Status Admin Acetaminophen 650 MG Q6P PRN 12/27 0115 AC PO Allopurinol 100 MG DAILY 12/27 1000 AC 01/10 PO 0910 Amiodarone HCl 200 MG DAILY 01/10 1000 AC 01/10 PO 0911 Amiodarone HCl 400 MG Q12H 01/06 1900 DC 01/09 PO 0602 Bisacodyl 10 MG ONCE ONE 01/09 1230 DC 01/09 W[place] 01/09 1231 1246 Dextrose/Sodium 1,000 ML Q16H 01/07 1100 AC 01/10 Chloride IV 0330 Fentanyl Citrate 1,000 MCG Q13H 01/08 1600 AC 01/10 Dextrose/Water 250 ML IV 0657 Finasteride 5 MG DAILY 12/27 1015 AC 01/08 PO 1008 Furosemide 40 MG ONCE ONE 01/10 0900 DC IV 01/10 0901 Heparin Sodium/ 25,000 UNIT Q24H 01/09 2200 AC 01/09 Dextrose IV 2347 Dextrose/Water 500 ML Heparin Sodium/ 25,000 UNIT Q24H 01/09 1830 CAN Dextrose IV Dextrose/Water 500 ML Magnesium Oxide 400 MG ONE ONE 01/10 0900 DC PO 01/10 0901 Magnesium Oxide 400 MG ONE ONE 01/10 0730 DC 01/10 PO 01/10 0731 0910 Magnesium Sulfate 1 GM Q2H 01/10 0730 DC Dextrose/Water 100 ML IV 01/10 1129 Norepinephrine 4 MG Q4H 01/08 0500 AC 01/10 Sodium Chloride 250 ML IV 0533 Pantoprazole Sodium 40 MG DAILY 01/04 1000 AC 01/10 IV 0909 Phosphate 250 MG PC AND AT BEDTIME 01/10 0900 AC 01/10 PO 0911 Polyethylene Glycol 17 GM DAILY 12/27 1000 AC 01/10 PO 0912 Potassium Chloride 20 MEQ ONCE ONE 01/10 0900 CAN PO 01/10 0901 Potassium Chloride 20 MEQ ONCE ONE 01/10 0730 DC 01/10 PO 01/10 0731 0909 Potassium Phosphate 15 mMol ONE ONE 01/09 0745 DC 01/09 Dextrose/Water 250 ML IV 01/09 1148 1027 Senna/Docusate Sodium 1 TAB Q12P PRN 12/27 0130 AC PO CXR Findings: 1. Endotracheal tube in satisfactory position at 5 cm above the karan. 2. Pulmonary edema, pleural effusions and bibasilar opacities/atelectasis are similar in appearance compared to 01/09/2017. Impression/Plan Impression/Problem List Impression: 81-year-old man was BIB[facility] from [facility] after losing his cholecystotomy tube. Patient has multiple comorbid conditions significant for hypertension, dyslipidemia, "borderline" diabetes mellitus, peripheral vascular disease, gout, and CAD and Valvular disease S/P Aortic valve replacement w/ [place] valve and CABG 2 with SVGs to his LCx and RCA We are currently monitoring him for following conditions: Respiratory: bilateral pleural effusion: Post cardiac arrest intubated sedated; chest x-ray showed evidence of bilateral pleural effusion, for which he was given Lasix, sputum positive for MRSA, no repeat fever spike, white count stable, CT chest did not reveal any evidence of aspiration pneumonia. * We'll watch off antibiotics as per ID recommendations * Aspiration percausion * IV protonix * Head elevation * Obtain daily chest x-ray * Started on IV heparin as per cardio recs for possible thoracentesis, but awaiting goals of care discussion with the family. Infectious disease: Upon presentation septic shock with possible source of gallbladder. However repeat CT scan at these admissions did not show any inflammation of the gallbladder. Ultrasound documented gallstones without cholecystitis and choledocholithiasis. Elevated total bili and alkaline phosphatase which was a slightly increased compared to initial presentation. * Restrict ins and outs * PICC line in place , Right femoral removed, Off of Vasopressin,and amiodarone drip drip. Remains on fentanyl and Levophed , improved urine output. * Sputum culture grew MRSA, blood culture NGTD; urine culture NGTD * With consideration of cholecystitis and healthcare contact patient was given 1 dose of vancomycin and ceftazidime initially. Currently watching off of antibiotics * Seen by school social worker yesterday, recommendation of possible need of placement of cholecystostomy tube, pending goals of care discussion with the family. * Continue IV hydration with normal saline 125 MR per hour Cardiac Elevated troponin: Resolved. First troponin 0.69 and second troponin 0.72>> trended down . Possibly secondary to prolonged cardiac arrest and CPR. History of A. fib/ Post cardiac arrest secondary to V. tach: Warfarin was held and INR was corrected with fresh frozen plasma for removal of lodged guidewire. * No anticoagulation at the moment, * Amiodarone 200mg BID * Metoprolol 12.5 mg 3 times a day for rate control * ECHO-EF>60% * Cardio on board, will follow recs * Started on IV heparin as per cardio recs. Hematology Leukocytosis: Resolved. elevated WBC upon presentation with bands of 7 most considerable diagnosis is sepsis and septic shock. however, other reasonable causes for this finding could be acute distress and multiple doses of epinephrine injection. * Panculture NGTD * Patient received 1 dose of ceftazidime and vancomycin * For now follow off antibiotics Normochromic normocytic anemia-no source of blood loss. Stable Metabolic Mild respiratory acidosis possibly due to insufficient sedation and agitation. * Improved. * Daily ABG and adjust ventilator Anuria: Resolved. Prerenal versus renal versus post renal. Latest abdominopelvic CT scan did not show any hydronephrosis or obstruction. Age and had pulseless electrical activity with severe profound hypotension which required 2 pressors, either of which potentially could have caused ATN. * Maintain IV hydration with normal saline 125 in the upper outer * Considering maintaining CVP of 10-12 IV bolus fluids to reach the goal of 0.5 mL per KG per hour urine output Alimantory- NPO; consider tube feeds after 24 hours of hospitalization; and TPN after 7 days of ICU admission Neurology-patient is sedated and intubated; on fentanyl drip. DNR/DNI DVT prophylaxis: alps, Hold warfarin. On IV heparin. Pain-Fentanyl drip Problem List: 1. Edema extremities 2. Afib 3. Septic shock 4. History of cardiac arrest 5. Bilateral pleural effusion Pain Ratin Tomorrow's Labs & Rationales: ICU bundle cbc Plan DVT/Prophylaxis: mechanical, pharmacological
[2017-01-10 08:00] VITALS: BP 106/68
--- NOTE | 2017-01-10 08:47 | RADIOLOGY REPORT ---
EXAMINATION: XR PORTABLE CHEST CLINICAL INFORMATION: Pleural effusion. Intubation. COMPARISON: CXR from 01/09/2017 TECHNIQUE: Portable AP view of the chest was obtained. FINDINGS: The endotracheal tube is located 5 cm above the karan. The endotracheal tube extends below the diaphragm and beyond the [id number]. The right arm peripherally inserted catheter terminates in the distal superior vena cava. Again noted is a moderately enlarged cardiac silhouette and congested, indistinct pulmonary vessels. Hazy opacity in each hemithorax likely represents a combination of pulmonary edema and layering pleural effusions. No pneumothorax, pneumomediastinum or other significant interval change. IMPRESSION: 1. Endotracheal tube in satisfactory position at 5 cm above the karan. 2. Pulmonary edema, pleural effusions and bibasilar opacities/atelectasis are similar in appearance compared to 01/09/2017.
--- NOTE | 2017-01-10 10:00 | NUR ---
Patient is sedated on a fentanyl gtt infusing at 50mcg/hr- He is easily arousable to verbal stimuli and can follow simple commands. Soft bilateral wrist restraints in place. Afib on tele monitor, HR= 90-120's, SBP: 90-100's and levo gtt is infusing at 10mcg- Pulses + with doppler- Heparin gtt currently infusing at 26.0 mls/hr or 8.67 units- next PTT due at 1800. Remains intubated with a #8 that was retapped to the left at 22cm, lungs diminished. O2 sats 94-98%. A scant amount of secretions are noted to the ETT nolen with occasional blood tinged. Vent settings: AC 16/500/35/5. OGT in place and tube feeds are infusing at a goal rate of 60mls/hr with 150ml water flushes every 8 hours. 10mls of a residual noted at 0800- Starr in place draining clear francisco urine. Pt to receive IV lasix per order. Bilateral upper extremities edematous with multiple skin tears and punctures draining a heavy amount of serosanegous fluid which is requiring dressing changes with heavy drainage pads every 4 hours. +3 Generalized edema and +4 scrotal edema is noted. Eccymotic areas to his bilateral flank are noted ? is related to CPR with an elevated INR. No areas of pressure injury are noted. OPAL PICC in place and site is WNL. D5Ns infusing at 60mls/hr. Patient currently denies pain and vitals are stable. Pts niece and POA FELICE to be in later this evening to discuss goals of care. At this time patient to remain a DNR/DNI with no aggressive interventions. Will continue to closely monitor patient.
--- NOTE | 2017-01-10 10:20 | Event Note ---
Event Note Event Note: Brief : Goals of care discussion. Situation : Dr Bartlett had a long discussion with Cayla (his niece) over the phone today morning about Mr Rangel wishes and the level of aggressiveness the entire family thinks he would have wanted for himself.The niece who is the power of ruffling hemmer automatic agrees that we will not approach any invasive diagnostic, imaging or surgical procedure and this would also be in par with what would have wished for himself.We will contine current medical management. Plan : Please continue current medical management. Please donot approach any aggressive measures namely invasive diagnostic, imaging or surgical procedure inculding if not all. Patient continues to remain DNR/DNI. Karolyn alongwith and other family members to have family meeting with housestaff latter today evening.
--- NOTE | 2017-01-10 11:16 | PN- Infect Dx ---
Subjective Subjective: Afebrile. He remains on Levophed for maintenance of his blood pressure. He denies any complaints when questioned. His secretions are yellow and thick. Objective Last 24 Hrs of Vital Signs/I&O Vital Signs Date Time Temp Pulse Resp B/P Pulse O2 O2 Flow FiO2 Ox Delivery Rate 01/10 0911 108 102/0 01/10 0811 35 01/10 0800 99.4 118 20 106/68 91 Ventilator 35% 01/10 0800 91 Ventilator 35% 01/10 0609 35 01/10 0533 102 16 99/67 01/10 0400 96 Ventilator 35% 01/10 0258 35 01/10 0029 35 01/10 0000 96 Ventilator 35% 01/10 0000 97.6 108 19 140/90 96 Ventilator 35% 01/09 2246 35 01/09 2000 96 Ventilator 35% 01/09 1905 35 01/09 1700 96.7 114 16 103/73 01/09 1615 35 01/09 1600 96 Ventilator 35% 01/09 1600 96.7 104 16 97/64 96 Ventilator 35% 01/09 1435 40 01/09 1200 97 Ventilator 40% 01/09 1110 40 Intake & Output 01/10 1600 01/10 0800 01/10 0000 Intake Total 1908 1652 Output Total 195 220 Balance 1713 1432 Intake, IV 1128 932 Intake, Other 300 Intake, Tube 480 420 Feeding Intake, Tube 300 Irrigant Number 1 Bowel Movements Output, Urine 195 220 Physical Exam Other Physical Findings: He is arousable on the ventilator Lungs are clear Heart irregular rhythm with no murmur Abdomen is distended, nontender with positive bowel sounds Extremities 1+ edema both lower extremities; PICC in the right upper extremity with no inflammation at the site marked scrotal edema; Starr catheter remains in place Results Last 24 Hours of Lab Results: Laboratory Tests 01/10 01/10 0605 0600 Blood Gas pH (7.35 - 7.45 PH) 7.40 pCO2 (35 - 45 TORR) 40 pO2 (80 - 100 TORR) 62 L HCO3 (21 - 28 MEQ/L) 24 ABG O2 Sat (Measured) (>96.0 %) 91.0 L P-50 (Temp Corrected) N Carboxyhemoglobin (1.5 - 5.0 %) 2.0 O2 Concentration % 35% Respiration Rate (BPM) 16 O2 Delivery Method VENT Vent Mode AC Expiratory Pressure (CMH2O/P) 5 Tidal Volume (CC) 500 Pressure Support (CMH2O/P) 0 Coagulation APTT Cancelled Miscellaneous Phlebotomy Draw Site LEFT RADIAL 01/10 0557 Chemistry Sodium (137 - 145 mmol/L) 135 L Potassium (3.5 - 5.1 mmol/L) 3.9 Chloride (98 - 107 mmol/L) 102 Carbon Dioxide (22 - 30 mmol/L) 26 Anion Gap (5 - 16) 7 BUN (9 - 20 mg/dL) 15 Creatinine (0.7 - 1.2 mg/dL) 1.0 Estimated GFR (>60 ml/min) > 60 Glucose (65 - 99 mg/dL) 158 H Calcium (8.4 - 10.2 mg/dL) 8.1 L Phosphorus (2.5 - 4.5 mg/dL) 2.0 L Magnesium (1.6 - 2.3 mg/dL) 1.6 Total Bilirubin (0.2 - 1.3 mg/dL) 4.9 H Direct Bilirubin (< 0.4 mg/dL) 3.6 H AST (17 - 59 U/L) 75 H ALT (21 - 72 U/L) 54 Alkaline Phosphatase (< 127 U/L) 175 H Total Protein (6.3 - 8.2 g/dL) 5.5 L Albumin (3.5 - 5.0 g/dL) 1.9 L Coagulation PT (9.4 - 12.5 SEC) 23.9 H INR (0.90 - 1.17) 2.29 H APTT (25 - 37 SEC) 88 H Hematology CBC w Diff NO MAN DIFF REQ WBC (4.8 - 10.8 /CUMM) 10.1 RBC (4.70 - 6.10 /CUMM) 2.96 L Hgb (14.0 - 18.0 G/DL) 9.1 L Hct (42 - 52 %) 27.9 L MCV (80.0 - 94.0 FL) 94.3 H MCH (27.0 - 31.0 PG) 30.8 RDW (11.5 - 14.5 %) 19.0 H Plt Count (130 - 400 /CUMM) 171 MPV (7.4 - 10.4 FL) 7.6 Gran % (42.2 - 75.2 %) 77.0 H Lymphocytes % (20.5 - 51.1 %) 8.4 L Monocytes % (1.7 - 9.3 %) 10.4 H Eosinophils % (0 - 5 %) 3.9 Basophils % (0.0 - 2.0 %) 0.3 Absolute Granulocytes (1.4 - 6.5 /CUMM) 7.8 H Absolute Lymphocytes (1.2 - 3.4 /CUMM) 0.8 L Absolute Monocytes (0.10 - 0.60 /CUMM) 1.0 H Absolute Eosinophils (0.0 - 0.7 /CUMM) 0.4 Absolute Basophils (0.0 - 0.2 /CUMM) 0 PUBS MCHC (33.0 - 37.0 G/DL) 32.6 L Last 24 Hours of Esequiel Results: No recent cultures Recent Imaging Studies: Chest x-ray January 10, personally reviewed, reveals no change in the bibasilar opacities, pleural effusions and pulmonary congestion Right upper quadrant ultrasound January 09 reveals a physiologically distended gallbladder with no evidence of stones, sludge, polyps, wall thickening or pericholecystic fluid and with a normal common bile duct CT chest, abdomen and pelvis January 09 reveals moderate bilateral pleural effusions, with bilateral compressive atelectasis and patchy bilateral airspace opacities, similar to the previous study; layering stones/sludge seen in the gallbladder lumen, with no gallbladder wall thickening or biliary dilatation; increasing anasarca Assessment/Plan Impression: Stable, though still requiring Levophed for his blood pressure, with respiratory status continuing to improve on prn doses of Lasix for fluid overload, suggested on the recent CT scan and chest x-rays. He remains afebrile with white blood cell count normal off antibiotics, with MRSA isolated from the sputum culture, possibly representing colonization or perhaps a tracheobronchitis, with pneumonia unlikely given his overall improvement. His bilirubin remains elevated, mostly direct, possibly secondary to an ongoing biliary process status post inadvertent removal, prior to admission, of a cholecystostomy tube placed 2 months prior to admission for cholecystitis, but his imaging studies do not suggest any acute process. GI input noted and appreciated. Suggestion: 1. Await family meeting regarding overall level of care 2. Continue to follow off antibiotics pending above
--- NOTE | 2017-01-10 11:45 | PN- CRCU ---
Subjective HPI/Critical Care Issues: pt seen and examined on levophed fluid balance positive on fentanyl responsive to verbal stimuli ROS difficult to obtain given sedation/intubation Objective Current Medications: Current Medications Sig/Salud Start time Last Medication Dose Route Stop Time Status Admin Acetaminophen 650 MG Q6P PRN 12/27 0115 AC PO Allopurinol 100 MG DAILY 12/27 1000 AC 01/10 PO 0910 Amiodarone HCl 200 MG DAILY 01/10 1000 AC 01/10 PO 0911 Amiodarone HCl 400 MG Q12H 01/06 1900 DC 01/09 PO 0602 Bisacodyl 10 MG ONCE ONE 01/09 1230 DC 01/09 TN 01/09 1231 1246 Dextrose/Sodium 1,000 ML Q16H 01/07 1100 AC 01/10 Chloride IV 0330 Fentanyl Citrate 1,000 MCG Q13H 01/10 0945 AC Dextrose/Water 250 ML IV Fentanyl Citrate 1,000 MCG Q13H 01/08 1600 DC 01/10 Dextrose/Water 250 ML IV 0657 Finasteride 5 MG DAILY 12/27 1015 AC 01/08 PO 1008 Furosemide 40 MG ONCE ONE 01/10 0900 DC 01/10 IV 01/10 0901 1055 Heparin Sodium/ 25,000 UNIT Q24H 01/09 2200 AC 01/09 Dextrose IV 2347 Dextrose/Water 500 ML Heparin Sodium/ 25,000 UNIT Q24H 01/09 1830 CAN Dextrose IV Dextrose/Water 500 ML Magnesium Oxide 400 MG ONE ONE 01/10 0900 DC PO 01/10 0901 Magnesium Oxide 400 MG ONE ONE 01/10 0730 DC 01/10 PO 01/10 0731 0910 Magnesium Sulfate 1 GM Q2H 01/10 0730 DC Dextrose/Water 100 ML IV 01/10 1129 Norepinephrine 4 MG Q6H 01/10 0945 AC Sodium Chloride 250 ML IV Norepinephrine 4 MG Q4H 01/08 0500 DC 01/10 Sodium Chloride 250 ML IV 0533 Pantoprazole Sodium 40 MG DAILY 01/04 1000 AC 01/10 IV 0909 Phosphate 250 MG PC AND AT BEDTIME 01/10 0900 AC 01/10 PO 0911 Polyethylene Glycol 17 GM DAILY 12/27 1000 AC 01/10 PO 0912 Potassium Chloride 20 MEQ ONCE ONE 01/10 0900 CAN PO 01/10 0901 Potassium Chloride 20 MEQ ONCE ONE 01/10 0730 DC 01/10 PO 01/10 0731 0909 Potassium Phosphate 15 mMol ONE ONE 01/09 0745 DC 01/09 Dextrose/Water 250 ML IV 01/09 1148 1027 Senna/Docusate Sodium 1 TAB Q12P PRN 12/27 0130 AC PO Vital Signs & I&O Last 24 Hrs of Vitals and I&O: Vital Signs Date Time Temp Pulse Resp B/P Pulse O2 O2 Flow FiO2 Ox Delivery Rate 01/10 0911 108 102/0 01/10 0811 35 01/10 0800 99.4 118 20 106/68 91 Ventilator 35% 01/10 0800 91 Ventilator 35% 01/10 0609 35 01/10 0533 102 16 99/67 01/10 0400 96 Ventilator 35% 01/10 0258 35 01/10 0029 35 01/10 0000 96 Ventilator 35% 01/10 0000 97.6 108 19 140/90 96 Ventilator 35% 01/09 2246 35 01/09 2000 96 Ventilator 35% 01/09 1905 35 01/09 1700 96.7 114 16 103/73 01/09 1615 35 01/09 1600 96 Ventilator 35% 01/09 1600 96.7 104 16 97/64 96 Ventilator 35% 01/09 1435 40 01/09 1200 97 Ventilator 40% Intake & Output 01/10 1600 01/10 0800 01/10 0000 Intake Total 1908 1652 Output Total 195 220 Balance 1713 1432 Intake, IV 1128 932 Intake, Other 300 Intake, Tube 480 420 Feeding Intake, Tube 300 Irrigant Number 1 Bowel Movements Output, Urine 195 220 Exam Other Physical Findings: gen awake and alert heent proline cvs s1, s2 lungs ctab anteriorly abd obese, somewhat hard ext chronic changes significant scrotal edema Results Last 24 Hrs of Lab Results: Laboratory Tests 01/10/17 0605: pH 7.40, pCO2 40, pO2 62 L, HCO3 24, ABG O2 Sat (Measured) 91.0 L, P-50 (Temp Corrected) N, Carboxyhemoglobin 2.0, O2 Concentration % 35%, Respiration Rate 16 , O2 Delivery Method VENT, Vent Mode AC, Expiratory Pressure 5, Tidal Volume 500 , Pressure Support 0, Phlebotomy Draw Site LEFT RADIAL 01/10/17 0600: APTT Cancelled 01/10/17 0557: Anion Gap 7, Estimated GFR > 60, Glucose 158 H, Calcium 8.1 L, Phosphorus 2.0 L, Magnesium 1.6, Total Bilirubin 4.9 H, Direct Bilirubin 3.6 H, AST 75 H, ALT 54, Alkaline Phosphatase 175 H, Total Protein 5.5 L, Albumin 1.9 L, PT 23.9 H, INR 2.29 H, APTT 88 H, CBC w Diff NO MAN DIFF REQ, RBC 2.96 L, MCV 94.3 H, MCH 30.8, RDW 19.0 H, MPV 7.6, Gran % 77.0 H, Lymphocytes % 8.4 L, Monocytes % 10.4 H, Eosinophils % 3.9, Basophils % 0.3, Absolute Granulocytes 7.8 H, Absolute Lymphocytes 0.8 L, Absolute Monocytes 1.0 H, Absolute Eosinophils 0.4, Absolute Basophils 0, PUBS MCHC 32.6 L Impression/Plan Impression/Plan Impression/Plan: Impression 81 year old man * s/p cardiac arrest - vtach as underlying rhythm * shock - septic vs cardiogenic * hx AVR on coumadin * hx cholecystitis * MRSA in sputum * fluid overload, scrotal swelling, pleural effusions Plan - ID, cardiology, GI appreciated - discussed with Cayla (niece) regarding goals of care - will continue current management without any surgical or further IR intervention per family wishes - with respect to scrotal swelling and effusions, this is likely secondary to a positive fluid balance, which will be managed with lasix if BP can allow - MRSA in sputum most likely represents colonization given excellent respiratory status including 35% fio2 and improvement in wbc - continue heparin for AVR - family to come today in pm to visit - monitor hemodynamics - monitor ins/outs, electrolytes DVT prophylaxis at all times (hearpin gtt) TTS 35 min
[2017-01-10 16:00] VITALS: BP 106/0
--- NOTE | 2017-01-10 17:15 | PN- Cardiology ---
Subjective Subjective: * Patient remains intubated and sedated. * atrial fibrillation with controlled heart rate. * Levophed continues to be maintained for hemodynamic support. Objective Vital Signs and I&Os Vital Signs Date Time Temp Pulse Resp B/P Pulse O2 O2 Flow FiO2 Ox Delivery Rate 01/10 1643 35 01/10 1413 35 01/10 1200 96 Ventilator 35% 01/10 1136 35 01/10 0911 108 102/0 01/10 0811 35 01/10 0800 99.4 118 20 106/68 91 Ventilator 35% 01/10 0800 91 Ventilator 35% 01/10 0609 35 01/10 0533 102 16 99/67 01/10 0400 96 Ventilator 35% 01/10 0258 35 01/10 0029 35 01/10 0000 96 Ventilator 35% 01/10 0000 97.6 108 19 140/90 96 Ventilator 35% 01/09 2246 35 01/09 2000 96 Ventilator 35% 01/09 1905 35 Intake & Output 01/10 1600 01/10 0800 01/10 0000 01/09 1600 01/09 0800 01/09 0000 Intake Total 2070 1908 1652 1655 1692 1580 Output Total 1200 195 220 200 335 615 Balance 870 1713 1432 1455 1357 965 Intake, IV 1190 1128 538 243 4694 1110 Intake, Other 300 Intake, Tube 490 480 420 270 480 320 Feeding Intake, Tube 390 300 390 150 150 Irrigant Number 1 1 1 Bowel Movements Output, Urine 1200 195 220 200 335 615 Physical Exam: General: WD/ overweight male in NAD; intubated and sedated Heart: irregularly irregular with crisp valve sounds Lungs: no crackles or wheezing Extremities: 1+ bilateral leg edema Assessment/Plan Assessment/Plan * This patient has improved leg edema although bilateral pleural effusions and some degree of ascites is noted. It is reasonable to hold coumadin and begin IV heparin when INR drops below 2.0. This patient will likely benefit from thorocentesis when his INR has come down. There was no evidence for a pericardial effusion on his chest CT. * Keep potassium to 4-4.5. * Continue Amiodarone to 200mg PO once daily. * Wean off Fentanyl if possible and then try again to wean down Levophed. A systolic BP of 85mmHg is acceptable as long as his renal function remains normal. He may need to have his fluid removed by thoracentesis rather than by Lasix although it is understood that this will not improve issues with scrotal edema. Continue telemetry? Yes
[2017-01-10 20:25] LABS: ABSOLUTE BASOPHIL COUNT 0 /CUMM (0.0-0.2); ABSOLUTE EOSINOPHIL COUNT 0.3 /CUMM (0.0-0.7); ABSOLUTE GRANULOCYTE CT 11.4 /CUMM (1.4-6.5); ABSOLUTE MONOCYTE COUNT 1.4 /CUMM (0.10-0.60); BASOPHIL % 0.3 % (0.0-2.0); GRANULOCYTE % 80.8 % (42.2-75.2); MEAN CORPUSCULAR HGB 30.8 PG (27.0-31.0); MEAN CORPUSCULAR HGB CONC 32.4 G/DL (33.0-37.0); MEAN CORPUSCULAR VOLUME 95.2 FL (80.0-94.0); MEAN PLATELET VOLUME 7.7 FL (7.4-10.4); PLATELET COUNT 213 /CUMM (130-400); RBC DISTRIBUTION WIDTH 19.2 % (11.5-14.5); RED BLOOD CELL CT 3.16 /CUMM (4.70-6.10); WHITE BLOOD CELL COUNT 14.1 /CUMM (4.8-10.8)
[2017-01-10 20:33] LABS: PTT 72 SEC (25-37)
[2017-01-11] VITALS: BP 118/0
--- NOTE | 2017-01-11 01:02 | NUR ---
0000 PATIENT RECEIVED DROWSY BUT AROUSABLE TO NAME, FENTANYL DRIP INFUSING AT 25 MCG/HR, PATIENT ABLE TO FOLLOW SIMPLE COMMANDS, SKIN WARM AND DRY- ? SLIGHTLY JAUNDICED, INFANT TODDLER LEAD TEACHER ATRIAL FIB WITH HEART RATE 100-110'S/MIN, OCCASIONAL PVC'S NOTED, ETT TO VENTILATOR AT 35% FIO2- CONTINUOUS O2 SAT 95 TO 96%, ETS PRN WITH MODERATE AMTS OF THICK LANG SECRETIONS, OGT IN PLACE, PATENT- HOB ELEVATED, ABDOMEN SOFT, +BS- TOLERATING TF WELL- 4ML OBTAINED WITH GASTRIC RESIDUAL CHECK, HEPARIN DRIP AT 8.67 U/KG/HR- NEXT PTT DUE AT 0600, LEVOPHED DRIP DECREASED TO 9.1 MCGS/MIN FOR SBP 114/AUTOCUFF, 118/DOPLAR- SEE FREQUENT VS SHEET, RODAS TO GRAVITY WITH CLEAR ZEKE COLORED UO
--- NOTE | 2017-01-11 02:05 | NUR ---
0100 DR FUENTES MADE AWARE OF PVC'S, 1800 POTASSIUM 3.9, MAGNESIUM 1.5
[2017-01-11 05:59] LABS: ABSOLUTE BASOPHIL COUNT 0.1 /CUMM (0.0-0.2); ABSOLUTE EOSINOPHIL COUNT 0.3 /CUMM (0.0-0.7); ABSOLUTE GRANULOCYTE CT 10.7 /CUMM (1.4-6.5); ABSOLUTE LYMPH COUNT 1.1 /CUMM (1.2-3.4); ABSOLUTE MONOCYTE COUNT 1.4 /CUMM (0.10-0.60); BASOPHIL % 0.6 % (0.0-2.0); EOSINOPHIL % 2.2 % (0-5); GRANULOCYTE % 79.1 % (42.2-75.2); HEMATOCRIT 28.1 % (42-52); MEAN CORPUSCULAR HGB 30.7 PG (27.0-31.0); MEAN CORPUSCULAR HGB CONC 32.5 G/DL (33.0-37.0); MEAN CORPUSCULAR VOLUME 94.3 FL (80.0-94.0); MEAN PLATELET VOLUME 7.4 FL (7.4-10.4); PLATELET COUNT 208 /CUMM (130-400); RBC DISTRIBUTION WIDTH 19.2 % (11.5-14.5); RED BLOOD CELL CT 2.98 /CUMM (4.70-6.10); WHITE BLOOD CELL COUNT 13.6 /CUMM (4.8-10.8)
[2017-01-11 06:05] LABS: PT 21.7 SEC (9.4-12.5)
[2017-01-11 06:57] LABS: PTT 110 SEC (25-37)
--- NOTE | 2017-01-11 07:28 | PN- Resident CRCU ---
Subjective HPI/CRCU Issues: Patient seen and examined this morning. He was lying in bed in no acute distress, arousable, remains intubated. Remains on Levophed, fentanyl through PICC line. Overall fluid overloaded, chest x-ray this morning shows stable pleural effusion unchanged from yesterday, urine output good. Tmax of 100.1, the white count 13.6 from 14 yest, bilirubin has increased from 4.6-4.9-5.6 today, LDH high, reticulocyte count high, haptoglobin low, unsure if it is hemolytic on a picture because H&H has been low but stable Sputum has grown MRSA, CT chest did not show any evidence of pneumonia. Currently holding off on vancomycin. She was seen by industrial economist yesterday, recommendation of possible need of placement of cholecystostomy tube, A goals of care discussion was held with the family yesterday, they do not want any aggressive intervention at this time including color cystostomy tube placement or thoracocentesis. 24 Hour Events: PVCs Objective Vital Signs & I&O Last 8 Hrs of Vitals and I&O: Laboratory Tests 01/11/17 0545: PT 21.7 H, INR 2.08 H 01/11/17 0545: Anion Gap 6, Estimated GFR > 60, Glucose 163 H, Calcium 7.9 L, Phosphorus 2.2 L, Magnesium 1.6, Total Bilirubin 5.6 H, AST 91 H, ALT 61, Albumin 1.9 L, APTT 110 *H, CBC w Diff NO MAN DIFF REQ, RBC 2.98 L, MCV 94.3 H, MCH 30.7, RDW 19.2 H, MPV 7.4, Gran % 79.1 H, Lymphocytes % 8.0 L, Monocytes % 10.1 H, Eosinophils % 2.2, Basophils % 0.6, Absolute Granulocytes 10.7 H, Absolute Lymphocytes 1.1 L, Absolute Monocytes 1.4 H, Absolute Eosinophils 0.3, Absolute Basophils 0.1, PUBS MCHC 32.5 L 01/11/17 0530: pH 7.47 H, pCO2 34 L, pO2 84, HCO3 24, ABG O2 Sat (Measured) 95.0 L, Carboxyhemoglobin 1.8, O2 Concentration % .35, Respiration Rate 16, O2 Delivery Method VENT, Vent Mode AC, Expiratory Pressure 5, Tidal Volume 500, Phlebotomy Draw Site RIGHT RADIAL 03/28/17 1800: Anion Gap 10, Estimated GFR > 60, Glucose 168 H, Calcium 8.0 L, Phosphorus 2.1 L, Magnesium 1.5 L, Total Bilirubin 5.6 H, AST 103 H, ALT 62, Albumin 2.0 L , APTT 72 H, CBC w Diff NO MAN DIFF REQ, RBC 3.16 L, MCV 95.2 H, MCH 30.8, RDW 19.2 H, MPV 7.7, Gran % 80.8 H, Lymphocytes % 6.8 L, Monocytes % 10.1 H, Eosinophils % 2.0, Basophils % 0.3, Absolute Granulocytes 11.4 H, Absolute Lymphocytes 1.0 L, Absolute Monocytes 1.4 H, Absolute Eosinophils 0.3, Absolute Basophils 0, PUBS MCHC 32.4 L Vital Signs Date Time Temp Pulse Resp B/P Pulse O2 O2 Flow FiO2 Ox Delivery Rate 01/11 0839 35 01/11 0800 96 Ventilator 35% 01/11 0800 99.3 109 19 102/70 96 Ventilator 35% 01/11 0635 35 01/11 0400 96 Ventilator 35% 01/11 0356 111 20 94/56 01/11 0328 35 01/11 0119 35 01/11 0000 96 Ventilator 35% 01/11 0000 100.1 108 20 118/0 96 Ventilator 35% 01/10 2215 35 01/10 2000 96 Ventilator 35% 01/10 1950 35 01/10 1643 35 01/10 1600 94 Ventilator 35% 01/10 1600 97.7 106 16 106/0 94 Ventilator 35% 01/10 1413 35 01/10 1200 96 Ventilator 35% 01/10 1136 35 Intake & Output 01/11 1600 01/11 0800 01/11 0000 Intake Total 1526 1754 Output Total 250 530 Balance 1276 1224 Intake, IV 856 1101 Intake, Other 60 Intake, Tube 400 443 Feeding Intake, Tube 270 150 Irrigant Number 1 2 Bowel Movements Output, Urine 250 530 Patient 114.759 kg Weight Exam General Appearance: sedated, intubated Head: atraumatic, normal appearance Respiratory: b/l decreased breath sounds Cardiovascular: regular rate/rhythm Gastrointestinal: normal bowel sounds, distended Extremities: b/l 4+ edema upto groin IV Drips IV Drips: Fentanyl, Levophed, normal saline Nutrition Nutrition: NPO Current Medications: Current Medications Sig/Salud Start time Last Medication Dose Route Stop Time Status Admin Acetaminophen 650 MG Q6P PRN 12/27 0115 AC PO Allopurinol 100 MG DAILY 12/27 1000 AC 01/11 PO 0902 Amiodarone HCl 200 MG DAILY 01/10 1000 AC 01/11 PO 0902 Dextrose/Sodium 1,000 ML Q16H 01/07 1100 AC 01/10 Chloride IV 2019 Fentanyl Citrate 1,000 MCG Q13H 01/10 1600 AC Dextrose/Water 250 ML IV Fentanyl Citrate 1,000 MCG Q13H 01/10 0945 FL 01/10 Dextrose/Water 250 ML IV 1515 Fentanyl Citrate 1,000 MCG Q13H 01/08 1600 DC 01/10 Dextrose/Water 250 ML IV 0657 Finasteride 5 MG DAILY 12/27 1015 AC 01/08 PO 1008 Heparin Sodium/ 25,000 UNIT Q24H 01/09 2200 AC 01/10 Dextrose IV 1911 Dextrose/Water 500 ML Magnesium Sulfate 1 GM ONCE ONE 01/11 0145 FL 01/11 Dextrose/Water 100 ML IV 01/11 0244 0153 Norepinephrine 4 MG Q6H 01/10 0945 AC 01/11 Sodium Chloride 250 ML IV 0906 Norepinephrine 4 MG Q4H 01/08 0500 FL 01/10 Sodium Chloride 250 ML IV 0533 Pantoprazole Sodium 40 MG DAILY 01/04 1000 AC 01/11 IV 0902 Phosphate 250 MG PC AND AT BEDTIME 01/10 0900 AC 01/11 PO 0902 Polyethylene Glycol 17 GM DAILY 12/27 1000 AC 01/10 PO 0912 Potassium Chloride 20 MEQ ONCE ONE 01/11 0145 DC 01/11 PO 01/11 0146 0153 Senna/Docusate Sodium 1 TAB Q12P PRN 12/27 0130 AC PO Impression/Plan Impression/Problem List Impression: 81-year-old man was BIBA from [facility] after losing his cholecystotomy tube. Patient has multiple comorbid conditions significant for hypertension, dyslipidemia, "borderline" diabetes mellitus, peripheral vascular disease, gout, and CAD and Valvular disease S/P Aortic valve replacement w/ [place] valve and CABG 2 with SVGs to his LCx and RCA We are currently monitoring him for following conditions: Respiratory: bilateral pleural effusion: Post cardiac arrest intubated sedated; chest x-ray showed evidence of bilateral pleural effusion, for which he was given Lasix, sputum positive for MRSA, no repeat fever spike, white count stable, CT chest did not reveal any evidence of aspiration pneumonia. * We'll watch off antibiotics as per ID recommendations * Aspiration percausion * IV protonix * Head elevation * Obtain daily chest x-ray * Started on IV heparin as per cardio recs for possible thoracentesis, as per goals of care discussion with the family, they do not want thoracentesis. Infectious disease: Upon presentation septic shock with possible source of gallbladder. However repeat CT scan at these admissions did not show any inflammation of the gallbladder. Ultrasound documented gallstones without cholecystitis and choledocholithiasis. Elevated total bili and alkaline phosphatase which was a slightly increased compared to initial presentation. * Restrict ins and outs * PICC line in place , Right femoral removed, Off of Vasopressin,and amiodarone drip drip. Remains on fentanyl and Levophed , improved urine output. * Sputum culture grew MRSA, blood culture NGTD; urine culture NGTD * With consideration of cholecystitis and healthcare contact patient was given 1 dose of vancomycin and ceftazidime initially. Currently watching off of antibiotics * Seen by industrial economist yesterday, recommendation of possible need of placement of cholecystostomy tube, as per goals of care discussion with the family do not want. * Continue IV hydration with normal saline 125 MR per hour Cardiac Elevated troponin: Resolved. First troponin 0.69 and second troponin 0.72>> trended down . Possibly secondary to prolonged cardiac arrest and CPR. History of A. fib/ Post cardiac arrest secondary to V. tach: Warfarin was held and INR was corrected with fresh frozen plasma for removal of lodged guidewire. * No anticoagulation at the moment, * Amiodarone 200mg BID * Metoprolol 12.5 mg 3 times a day for rate control * ECHO-EF>60% * Cardio on board, will follow recs * Started on IV heparin as per cardio recs. Hematology Leukocytosis: Resolved. elevated WBC upon presentation with bands of 7 most considerable diagnosis is sepsis and septic shock. however, other reasonable causes for this finding could be acute distress and multiple doses of epinephrine injection. * Panculture NGTD * Patient received 1 dose of ceftazidime and vancomycin * For now follow off antibiotics Normochromic normocytic anemia-no source of blood loss. Stable Metabolic Mild respiratory acidosis possibly due to insufficient sedation and agitation. * Improved. * Daily ABG and adjust ventilator Anuria: Resolved. Prerenal versus renal versus post renal. Latest abdominopelvic CT scan did not show any hydronephrosis or obstruction. Age and had pulseless electrical activity with severe profound hypotension which required 2 pressors, either of which potentially could have caused ATN. * Maintain IV hydration with normal saline 125 in the upper outer * Considering maintaining CVP of 10-12 IV bolus fluids to reach the goal of 0.5 mL per KG per hour urine output Alimantory- NPO; consider tube feeds after 24 hours of hospitalization; and TPN after 7 days of ICU admission Neurology-patient is sedated and intubated; on fentanyl drip. DNR/DNI DVT prophylaxis: alps, Hold warfarin. On IV heparin. Pain-Fentanyl drip Problem List: 1. History of cardiac arrest 2. Bilateral pleural effusion Pain Ratin Tomorrow's Labs & Rationales: ICU bundle cbc Plan DVT/Prophylaxis: mechanical, pharmacological
--- NOTE | 2017-01-11 07:57 | RADIOLOGY REPORT ---
EXAMINATION: XR PORTABLE CHEST CLINICAL INFORMATION: Pleural effusion. Intubation. COMPARISON: 01/10/2017 TECHNIQUE: Portable AP view of the chest was obtained. FINDINGS: The endotracheal tube terminates 5.5 cm above the karan. Enteric tube is in place with the distal aspect not well visualized secondary to technique. Right-sided PICC line terminates over the lower SVC. Cardiac leads overlie the chest. Low lung volumes. Persistent small bilateral pleural effusions with bibasilar and perihilar opacities. This is similar to previous. No pneumothorax. The cardiomediastinal silhouette remains prominent. IMPRESSION: 1. Endotracheal tube terminating 5.5 cm above the karan. 2. No significant change in appearance of bilateral pleural effusions with airspace opacities most suggestive of pulmonary edema.
[2017-01-11 08:00] VITALS: BP 102/70
--- NOTE | 2017-01-11 10:52 | PN- CRCU ---
Subjective HPI/Critical Care Issues: pt seen and examined on levophed borderline hypotensive mrsa in sputum wbc elevated ros unobtainable given intubation Objective Current Medications: Current Medications Sig/Salud Start time Last Medication Dose Route Stop Time Status Admin Acetaminophen 650 MG Q6P PRN 12/27 0115 AC PO Allopurinol 100 MG DAILY 12/27 1000 AC 01/11 PO 0902 Amiodarone HCl 200 MG DAILY 01/10 1000 AC 01/11 PO 0902 Dextrose/Sodium 1,000 ML Q16H 01/07 1100 AC 01/10 Chloride IV 2019 Fentanyl Citrate 1,000 MCG Q13H 01/10 1600 AC Dextrose/Water 250 ML IV Fentanyl Citrate 1,000 MCG Q13H 01/10 0945 DC 01/10 Dextrose/Water 250 ML IV 1515 Finasteride 5 MG DAILY 12/27 1015 AC 01/08 PO 1008 Heparin Sodium/ 25,000 UNIT Q24H 01/09 2200 AC 01/10 Dextrose IV 1911 Dextrose/Water 500 ML Magnesium Sulfate 1 GM ONCE ONE 01/11 0145 DC 01/11 Dextrose/Water 100 ML IV 01/11 0244 0153 Norepinephrine 4 MG Q11H 01/11 0900 AC Sodium Chloride 250 ML IV Norepinephrine 4 MG Q6H 01/10 0945 DC 01/11 Sodium Chloride 250 ML IV 0906 Pantoprazole Sodium 40 MG DAILY 01/04 1000 AC 01/11 IV 0902 Phosphate 250 MG PC AND AT BEDTIME 01/10 0900 AC 01/11 PO 0902 Polyethylene Glycol 17 GM DAILY 12/27 1000 AC 01/10 PO 0912 Potassium Chloride 20 MEQ ONCE ONE 01/11 0145 DC 01/11 PO 01/11 0146 0153 Senna/Docusate Sodium 1 TAB Q12P PRN 12/27 0130 AC PO Vital Signs & I&O Last 24 Hrs of Vitals and I&O: Vital Signs Date Time Temp Pulse Resp B/P Pulse O2 O2 Flow FiO2 Ox Delivery Rate 01/11 0839 35 01/11 0800 96 Ventilator 35% 01/11 0800 99.3 109 19 102/70 96 Ventilator 35% 01/11 0635 35 01/11 0400 96 Ventilator 35% 01/11 0356 111 20 94/56 01/11 0328 35 01/11 0119 35 01/11 0000 96 Ventilator 35% 01/11 0000 100.1 108 20 118/0 96 Ventilator 35% 01/10 2215 35 01/11 2000 96 Ventilator 35% 01/10 1950 35 01/10 1643 35 01/10 1600 94 Ventilator 35% 01/10 1600 97.7 106 16 106/0 94 Ventilator 35% 01/10 1413 35 01/10 1200 96 Ventilator 35% 01/10 1136 35 Intake & Output 01/11 0800 01/11 0000 Intake Total 1526 1754 Output Total 250 530 Balance 1276 1224 Intake, IV 856 1101 Intake, Other 60 Intake, Tube 400 443 Feeding Intake, Tube 270 150 Irrigant Number 1 2 Bowel Movements Output, Urine 250 530 Patient 253 lb Weight Exam Other Physical Findings: gen arousable heent proline cvs s1, s2 lungs ctab anteriorly abd obese, somewhat hard ext chronic changes significant scrotal edema Results Last 24 Hrs of Lab Results: Laboratory Tests 01/11/17 0545: PT 21.7 H, INR 2.08 H 01/11/17 0545: Anion Gap 6, Estimated GFR > 60, Glucose 163 H, Calcium 7.9 L, Phosphorus 2.2 L, Magnesium 1.6, Total Bilirubin 5.6 H, AST 91 H, ALT 61, Albumin 1.9 L, APTT 110 *H, CBC w Diff NO MAN DIFF REQ, RBC 2.98 L, MCV 94.3 H, MCH 30.7, RDW 19.2 H, MPV 7.4, Gran % 79.1 H, Lymphocytes % 8.0 L, Monocytes % 10.1 H, Eosinophils % 2.2, Basophils % 0.6, Absolute Granulocytes 10.7 H, Absolute Lymphocytes 1.1 L, Absolute Monocytes 1.4 H, Absolute Eosinophils 0.3, Absolute Basophils 0.1, PUBS MCHC 32.5 L 01/11/17 0530: pH 7.47 H, pCO2 34 L, pO2 84, HCO3 24, ABG O2 Sat (Measured) 95.0 L, Carboxyhemoglobin 1.8, O2 Concentration % .35, Respiration Rate 16, O2 Delivery Method VENT, Vent Mode AC, Expiratory Pressure 5, Tidal Volume 500, Phlebotomy Draw Site RIGHT RADIAL 01/10/17 1800: Anion Gap 10, Estimated GFR > 60, Glucose 168 H, Calcium 8.0 L, Phosphorus 2.1 L, Magnesium 1.5 L, Total Bilirubin 5.6 H, AST 103 H, ALT 62, Albumin 2.0 L , APTT 72 H, CBC w Diff NO MAN DIFF REQ, RBC 3.16 L, MCV 95.2 H, MCH 30.8, RDW 19.2 H, MPV 7.7, Gran % 80.8 H, Lymphocytes % 6.8 L, Monocytes % 10.1 H, Eosinophils % 2.0, Basophils % 0.3, Absolute Granulocytes 11.4 H, Absolute Lymphocytes 1.0 L, Absolute Monocytes 1.4 H, Absolute Eosinophils 0.3, Absolute Basophils 0, PUBS MCHC 32.4 L Impression/Plan Impression/Plan Impression/Plan: Impression 81 year old man * s/p cardiac arrest - vtach as underlying rhythm * shock - septic vs cardiogenic * hx AVR on coumadin * hx cholecystitis * MRSA in sputum * fluid overload, scrotal swelling, pleural effusions Plan - ID, cardiology, GI appreciated - agree with adding vancomycin today given elevated wbc - discussed with Cayla (niece) regarding goals of care - will continue current management without any surgical or further IR intervention per family wishes - with respect to scrotal swelling and effusions, this is likely secondary to a positive fluid balance, which will be managed with lasix if BP can allow - MRSA in sputum most likely represents colonization given excellent respiratory status including 35% fio2 and improvement in wbc - continue heparin for AVR - family to come today in pm to visit - monitor hemodynamics - monitor ins/outs, electrolytes DVT prophylaxis at all times (hearpin gtt) TTS 35 min will re-evaluate goals of care at end of the week
--- NOTE | 2017-01-11 12:34 | PN- Infect Dx ---
Subjective Subjective: MAXIMUM TEMPERATURE 100.1. His blood pressure remains borderline on Levophed. He offers no complaints. Objective Last 24 Hrs of Vital Signs/I&O Vital Signs Date Time Temp Pulse Resp B/P Pulse O2 O2 Flow FiO2 Ox Delivery Rate 01/11 1200 96 Ventilator 35% 01/11 1148 35 01/11 0839 35 01/11 0800 96 Ventilator 35% 01/11 0800 99.3 109 19 102/70 96 Ventilator 35% 01/11 0635 35 01/11 0400 96 Ventilator 35% 01/11 0356 111 20 94/56 01/11 0328 35 01/11 0119 35 01/11 0000 96 Ventilator 35% 01/11 0000 100.1 108 20 118/0 96 Ventilator 35% 01/10 2215 35 01/10 2000 96 Ventilator 35% 01/10 1950 35 01/10 1643 35 01/10 1600 94 Ventilator 35% 01/10 1600 97.7 106 16 106/0 94 Ventilator 35% 01/10 1413 35 Intake & Output 01/11 1600 01/11 0800 01/11 0000 Intake Total 1526 1754 Output Total 250 530 Balance 1276 1224 Intake, IV 856 1101 Intake, Other 60 Intake, Tube 400 443 Feeding Intake, Tube 270 150 Irrigant Number 1 2 Bowel Movements Output, Urine 250 530 Patient 253 lb Weight Physical Exam Other Physical Findings: He is responsive on the ventilator Lungs scattered rhonchi bilaterally Heart irregular rhythm with no murmur Abdomen is distended, nontender with positive bowel sounds Extremities 1+ edema both lower extremities marked scrotal edema persists; Starr catheter remains in place Results Last 24 Hours of Lab Results: Laboratory Tests 01/11 01/11 0545 0545 Chemistry Sodium (137 - 145 mmol/L) 135 L Potassium (3.5 - 5.1 mmol/L) 4.2 Chloride (98 - 107 mmol/L) 101 Carbon Dioxide (22 - 30 mmol/L) 28 Anion Gap (5 - 16) 6 BUN (9 - 20 mg/dL) 16 Creatinine (0.7 - 1.2 mg/dL) 0.9 Estimated GFR (>60 ml/min) > 60 Glucose (65 - 99 mg/dL) 163 H Calcium (8.4 - 10.2 mg/dL) 7.9 L Phosphorus (2.5 - 4.5 mg/dL) 2.2 L Magnesium (1.6 - 2.3 mg/dL) 1.6 Total Bilirubin (0.2 - 1.3 mg/dL) 5.6 H AST (17 - 59 U/L) 91 H ALT (21 - 72 U/L) 61 Albumin (3.5 - 5.0 g/dL) 1.9 L Coagulation PT (9.4 - 12.5 SEC) 21.7 H INR (0.90 - 1.17) 2.08 H APTT (25 - 37 SEC) 110 *H Hematology CBC w Diff NO MAN DIFF REQ WBC (4.8 - 10.8 /CUMM) 13.6 H RBC (4.70 - 6.10 /CUMM) 2.98 L Hgb (14.0 - 18.0 G/DL) 9.1 L Hct (42 - 52 %) 28.1 L MCV (80.0 - 94.0 FL) 94.3 H MCH (27.0 - 31.0 PG) 30.7 RDW (11.5 - 14.5 %) 19.2 H Plt Count (130 - 400 /CUMM) 208 MPV (7.4 - 10.4 FL) 7.4 Gran % (42.2 - 75.2 %) 79.1 H Lymphocytes % (20.5 - 51.1 %) 8.0 L Monocytes % (1.7 - 9.3 %) 10.1 H Eosinophils % (0 - 5 %) 2.2 Basophils % (0.0 - 2.0 %) 0.6 Absolute Granulocytes (1.4 - 6.5 /CUMM) 10.7 H Absolute Lymphocytes (1.2 - 3.4 /CUMM) 1.1 L Absolute Monocytes (0.10 - 0.60 /CUMM) 1.4 H Absolute Eosinophils (0.0 - 0.7 /CUMM) 0.3 Absolute Basophils (0.0 - 0.2 /CUMM) 0.1 PUBS MCHC (33.0 - 37.0 G/DL) 32.5 L 01/11 01/10 0530 1800 Blood Gas pH (7.35 - 7.45 PH) 7.47 H pCO2 (35 - 45 TORR) 34 L pO2 (80 - 100 TORR) 84 HCO3 (21 - 28 MEQ/L) 24 ABG O2 Sat (Measured) (>96.0 %) 95.0 L Carboxyhemoglobin (1.5 - 5.0 %) 1.8 O2 Concentration % .35 Respiration Rate (BPM) 16 O2 Delivery Method VENT Vent Mode AC Expiratory Pressure (CMH2O/P) 5 Tidal Volume (CC) 500 Chemistry Sodium (137 - 145 mmol/L) 136 L Potassium (3.5 - 5.1 mmol/L) 3.8 Chloride (98 - 107 mmol/L) 100 Carbon Dioxide (22 - 30 mmol/L) 26 Anion Gap (5 - 16) 10 BUN (9 - 20 mg/dL) 15 Creatinine (0.7 - 1.2 mg/dL) 0.9 Estimated GFR (>60 ml/min) > 60 Glucose (65 - 99 mg/dL) 168 H Calcium (8.4 - 10.2 mg/dL) 8.0 L Phosphorus (2.5 - 4.5 mg/dL) 2.1 L Magnesium (1.6 - 2.3 mg/dL) 1.5 L Total Bilirubin (0.2 - 1.3 mg/dL) 5.6 H AST (17 - 59 U/L) 103 H ALT (21 - 72 U/L) 62 Albumin (3.5 - 5.0 g/dL) 2.0 L Coagulation APTT (25 - 37 SEC) 72 H Hematology CBC w Diff NO MAN DIFF REQ WBC (4.8 - 10.8 /CUMM) 14.1 H RBC (4.70 - 6.10 /CUMM) 3.16 L Hgb (14.0 - 18.0 G/DL) 9.7 L Hct (42 - 52 %) 30.0 L MCV (80.0 - 94.0 FL) 95.2 H MCH (27.0 - 31.0 PG) 30.8 RDW (11.5 - 14.5 %) 19.2 H Plt Count (130 - 400 /CUMM) 213 MPV (7.4 - 10.4 FL) 7.7 Gran % (42.2 - 75.2 %) 80.8 H Lymphocytes % (20.5 - 51.1 %) 6.8 L Monocytes % (1.7 - 9.3 %) 10.1 H Eosinophils % (0 - 5 %) 2.0 Basophils % (0.0 - 2.0 %) 0.3 Absolute Granulocytes (1.4 - 6.5 /CUMM) 11.4 H Absolute Lymphocytes (1.2 - 3.4 /CUMM) 1.0 L Absolute Monocytes (0.10 - 0.60 /CUMM) 1.4 H Absolute Eosinophils (0.0 - 0.7 /CUMM) 0.3 Absolute Basophils (0.0 - 0.2 /CUMM) 0 PUBS MCHC (33.0 - 37.0 G/DL) 32.4 L Miscellaneous Phlebotomy Draw Site RIGHT RADIAL Last 24 Hours of Esequiel Results: No new cultures Recent Imaging Studies: Chest x-ray January 11 reveals bilateral airspace opacities and pleural effusions unchanged from previous study Assessment/Plan Impression: Stable, though still requiring Levophed for his blood pressure, with a low-grade fever overnight and with an increase in his white blood cell count, though his respiratory status remains stable off antibiotics. His chest x-rays and CT scans revealed bilateral densities, which may be secondary to fluid overload, but with MRSA isolated from the sputum, cannot rule out a superimposed pulmonary infection, possibly tracheobronchitis versus pneumonia, particularly with his persistent hypotension and increasing white blood cell count. His bilirubin continues to increase, possibly secondary to an ongoing biliary process, given his history of cholecystitis and treatment with a cholecystostomy tube, which was inadvertently removed prior to admission, versus sepsis. Imaging, with repeat right upper quadrant ultrasound and CT scans have not revealed evidence for acute cholecystitis. Suggestion: 1. Await decision regarding overall level of care 2. Begin Vancomycin 1 g IV every 12 hours pending above
[2017-01-11 13:54] LABS: PTT 71 SEC (25-37)
[2017-01-11 16:14] VITALS: BP 98/64
--- NOTE | 2017-01-11 16:14 | PN- Cardiology ---
Subjective Subjective: * Patient remains intubated and sedated. * atrial fibrillation with controlled heart rate. * Levophed continues to be maintained for hemodynamic support but has been weaned down a bit. Objective Vital Signs and I&Os Vital Signs Date Time Temp Pulse Resp B/P Pulse O2 O2 Flow FiO2 Ox Delivery Rate 01/11 1600 96 Ventilator 35% 01/11 1551 100.2 01/11 1435 35 01/11 1200 96 Ventilator 35% 01/11 1148 35 01/11 0839 35 01/11 0800 96 Ventilator 35% 01/11 0800 99.3 109 19 102/70 96 Ventilator 35% 01/11 0635 35 01/11 0400 96 Ventilator 35% 01/11 0356 111 20 94/56 01/11 0328 35 01/11 0119 35 01/11 0000 96 Ventilator 35% 01/11 0000 100.1 108 20 118/0 96 Ventilator 35% 01/10 2215 35 01/10 2000 96 Ventilator 35% 01/10 1950 35 01/10 1643 35 Intake & Output 01/11 1600 01/11 0800 01/11 0000 01/10 1600 01/10 0800 01/10 0000 Intake Total 1660.4 1526 1754 2070 1908 1652 Output Total 250 647 015 6103 195 220 Balance 1410.4 1276 2525 769 8348 1432 Intake, IV 930.4 856 1101 1190 1128 932 Intake, Other 60 300 Intake, Tube 480 400 443 490 480 420 Feeding Intake, Tube 250 270 150 390 300 Irrigant Number 1 1 2 1 1 Bowel Movements Output, Urine 250 736 958 9178 195 220 Patient 253 lb Weight Physical Exam: General: WD/ overweight male in NAD; intubated and sedated Heart: irregularly irregular with crisp valve sounds Lungs: no crackles or wheezing Extremities: 1+ bilateral leg edema Assessment/Plan Assessment/Plan * This patient has improved leg edema although bilateral pleural effusions and some degree of ascites is noted. It is reasonable to hold coumadin and begin IV heparin when INR drops below 2.0. This patient will likely benefit from thorocentesis when his INR has come down. * Keep potassium to 4-4.5. * Continue Amiodarone to 200mg PO once daily. * Wean off Fentanyl if possible and then try again to wean down Levophed. A systolic BP of 85mmHg is acceptable as long as his renal function remains normal. He may need to have his fluid removed by thoracentesis rather than by Lasix although it is understood that this will not improve issues with scrotal edema. Continue telemetry? Yes
[2017-01-12] VITALS: BP 94/70
[2017-01-12 01:22] LABS: PTT 65 SEC (25-37)
[2017-01-12 06:19] LABS: PT 19.6 SEC (9.4-12.5)
[2017-01-12 06:22] LABS: ABSOLUTE BASOPHIL COUNT 0.1 /CUMM (0.0-0.2); ABSOLUTE EOSINOPHIL COUNT 0.3 /CUMM (0.0-0.7); ABSOLUTE GRANULOCYTE CT 11.7 /CUMM (1.4-6.5); ABSOLUTE MONOCYTE COUNT 1.6 /CUMM (0.10-0.60); BASOPHIL % 0.3 % (0.0-2.0); EOSINOPHIL % 2.3 % (0-5); GRANULOCYTE % 79.7 % (42.2-75.2); HEMATOCRIT 25.4 % (42-52); MEAN CORPUSCULAR HGB 30.8 PG (27.0-31.0); MEAN CORPUSCULAR VOLUME 96.3 FL (80.0-94.0); MEAN PLATELET VOLUME 8.1 FL (7.4-10.4); PLATELET COUNT 219 /CUMM (130-400); RBC DISTRIBUTION WIDTH 20.8 % (11.5-14.5); RED BLOOD CELL CT 2.64 /CUMM (4.70-6.10); WHITE BLOOD CELL COUNT 14.7 /CUMM (4.8-10.8)
--- NOTE | 2017-01-12 07:25 | PN- Resident CRCU ---
Subjective HPI/CRCU Issues: Patient seen and examined this morning. He was lying in bed in no acute distress, remains intubated. Remains on Levophed, fentanyl through PICC line. Overall fluid overloaded, chest x-ray this morning shows stable pleural effusion unchanged from yesterday, urine output adequate. Tmax of 100.1, the white count 13.6 from 14 >>14.7, bilirubin has increased from 4.6-4.9-5.6 today, Sputum has grown MRSA, CT chest did not show any evidence of pneumonia. She was started on vancomycin yesterday as per ID recommendation he had mild fever and increase in white count. She was seen by substitute teacher yesterday, recommendation of possible need of placement of cholecystostomy tube, A goals of care discussion was held with the family, they do not want any aggressive intervention at this time including cholecystostomy tube placement or thoracocentesis. Objective Vital Signs & I&O Last 8 Hrs of Vitals and I&O: Laboratory Tests 01/12/17 0440: Anion Gap 3 L, Estimated GFR > 60, Glucose 162 H, Calcium 8.0 L, Phosphorus 2.6, Magnesium 1.7, Total Bilirubin 5.6 H, AST 99 H, ALT 57, Albumin 1.9 L, PT 19.6 H, INR 1.88 H, CBC w Diff NO MAN DIFF REQ, RBC 2.64 L, MCV 96.3 H, MCH 30.8, RDW 20.8 H, MPV 8.1, Gran % 79.7 H, Lymphocytes % 6.9 L, Monocytes % 10.8 H, Eosinophils % 2.3, Basophils % 0.3, Absolute Granulocytes 11.7 H, Absolute Lymphocytes 1.0 L, Absolute Monocytes 1.6 H, Absolute Eosinophils 0.3 , Absolute Basophils 0.1, PUBS MCHC 32.0 L 01/12/17 0040: APTT 65 H 01/11/17 1243: APTT 71 H Vital Signs Date Time Temp Pulse Resp B/P Pulse O2 O2 Flow FiO2 Ox Delivery Rate 01/12 0900 104/60 01/12 0856 30 01/12 0800 94 Ventilator 30% 01/12 0800 98.6 116 24 78/0 93 Ventilator 30% 01/12 0623 30 01/12 0400 95 Ventilator 30% 01/12 0312 30 01/12 0025 30 01/12 0000 97.6 115 19 94/70 96 Ventilator 30% 01/12 0000 96 Ventilator 30% 01/11 2212 110 85/65 01/11 2205 30 01/11 2000 95 Ventilator 30% 01/11 1930 30 01/11 1630 35 01/11 1614 100.2 122 16 98/64 97 Ventilator 35% 01/11 1600 96 Ventilator 35% 01/11 1551 100.2 01/11 1435 35 01/11 1200 96 Ventilator 35% 01/11 1148 35 Intake & Output 01/12 1600 01/12 0800 01/12 0000 Intake Total 1543 1860 Output Total 200 250 Balance 1343 1610 Intake, IV 978 1095 Intake, Oral 0 Intake, Other 220 Intake, Tube 390 445 Feeding Intake, Tube 175 100 Irrigant Number 1 0 Bowel Movements Output, Urine 200 250 Exam General Appearance: intubated, lethargic Respiratory: decreased breath sounds Cardiovascular: regular rate/rhythm Gastrointestinal: normal bowel sounds Extremities: 4+edema upto groin Nutrition Nutrition: NPO Current Medications: Current Medications Sig/Salud Start time Last Medication Dose Route Stop Time Status Admin Acetaminophen 650 MG .STK-MED ONE 01/11 1545 DC PO 01/11 1546 Acetaminophen 650 MG Q6P PRN 12/27 0115 AC 01/11 PO 1551 Allopurinol 100 MG DAILY 12/27 1000 AC 01/11 PO 0902 Amiodarone HCl 200 MG DAILY 01/10 1000 AC 01/11 PO 0902 Dextrose/Sodium 1,000 ML Q16H 01/07 1100 AC 01/12 Chloride IV 0445 Fentanyl Citrate 1,000 MCG Q13H 01/10 1600 AC 01/11 Dextrose/Water 250 ML IV 2211 Finasteride 5 MG DAILY 12/27 1015 AC 01/08 PO 1008 Furosemide 40 MG ONCE ONE 01/12 0830 DC IV 01/12 0831 Heparin Sodium/ 25,000 UNIT Q24H 01/09 2200 AC 01/11 Dextrose IV 2000 Dextrose/Water 500 ML Magnesium Oxide 400 MG BID 01/12 1000 AC PO 01/12 2201 Magnesium Sulfate 1 GM ONCE ONE 01/12 0730 CAN Dextrose/Water 100 ML IV 01/12 0829 Magnesium Sulfate 1 GM ONCE ONE 01/11 1300 DC 01/11 Dextrose/Water 100 ML IV 01/11 1359 1253 Norepinephrine 4 MG Q11H 01/11 0900 AC 01/11 Sodium Chloride 250 ML IV 2212 Pantoprazole Sodium 40 MG DAILY 01/04 1000 AC 01/11 IV 0902 Phosphate 250 MG PC AND AT BEDTIME 01/10 0900 AC 01/11 PO 2201 Polyethylene Glycol 17 GM DAILY 12/27 1000 AC 01/10 PO 0912 Senna/Docusate Sodium 1 TAB Q12P PRN 12/27 0130 AC PO Vancomycin HCl 1,000 MG Q12 01/11 1340 AC 01/11 Sodium Chloride 250 ML IV 2204 Antibiotics Antibiotic: Vancomycin CXR Findings: 1. Endotracheal tube terminating 5.5 cm above the karan. 2. No significant change in appearance of bilateral pleural effusions with airspace opacities most suggestive of pulmonary susan Impression/Plan Impression/Problem List Impression: 81-year-old man was BIBA from [facility] after losing his cholecystotomy tube. Patient has multiple comorbid conditions significant for hypertension, dyslipidemia, "borderline" diabetes mellitus, peripheral vascular disease, gout, and CAD and Valvular disease S/P Aortic valve replacement w/ [employer] 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 * Continue vancomycin * Aspiration percausion * IV protonix * Head elevation * Obtain daily chest x-ray * Started on IV heparin as per cardio recs for possible thoracentesis, as per goals of care discussion with the family, they do not want thoracentesis. Infectious disease: Upon presentation septic shock with possible source of gallbladder. However repeat CT scan at these admissions did not show any inflammation of the gallbladder. Ultrasound documented gallstones without cholecystitis and choledocholithiasis. Elevated total bili and alkaline phosphatase which was a slightly increased compared to initial presentation. * Restrict ins and outs * PICC line in place , Right femoral removed, Off of Vasopressin,and amiodarone drip drip. Remains on fentanyl and Levophed , improved urine output. * Sputum culture grew MRSA, blood culture NGTD; urine culture NGTD * With consideration of cholecystitis and healthcare contact patient was given 1 dose of vancomycin and ceftazidime initially. Currently watching off of antibiotics * Seen by substitute teacher yesterday, recommendation of possible need of placement of cholecystostomy tube, as per goals of care discussion with the family do not want. * Continue IV hydration with normal saline 125 MR per hour Cardiac Elevated troponin: Resolved. First troponin 0.69 and second troponin 0.72>> trended down . Possibly secondary to prolonged cardiac arrest and CPR. History of A. fib/ Post cardiac arrest secondary to V. tach: Warfarin was held and INR was corrected with fresh frozen plasma for removal of lodged guidewire. * No anticoagulation at the moment, * Amiodarone 200mg BID * Metoprolol 12.5 mg 3 times a day for rate control * ECHO-EF>60% * Cardio on board, will follow recs * Started on IV heparin as per cardio recs. Hematology Leukocytosis: Resolved. elevated WBC upon presentation with bands of 7 most considerable diagnosis is sepsis and septic shock. however, other reasonable causes for this finding could be acute distress and multiple doses of epinephrine injection. * Panculture NGTD * Patient received 1 dose of ceftazidime and vancomycin * For now follow off antibiotics Normochromic normocytic anemia-no source of blood loss. Stable Metabolic Mild respiratory acidosis possibly due to insufficient sedation and agitation. * Improved. * Daily ABG and adjust ventilator Anuria: Resolved. Prerenal versus renal versus post renal. Latest abdominopelvic CT scan did not show any hydronephrosis or obstruction. Age and had pulseless electrical activity with severe profound hypotension which required 2 pressors, either of which potentially could have caused ATN. * Maintain IV hydration with normal saline 125 in the upper outer * Considering maintaining CVP of 10-12 IV bolus fluids to reach the goal of 0.5 mL per KG per hour urine output Alimantory- NPO; consider tube feeds after 24 hours of hospitalization; and TPN after 7 days of ICU admission Neurology-patient is sedated and intubated; on fentanyl drip. DNR/DNI DVT prophylaxis: alps, Hold warfarin. On IV heparin. Pain-Fentanyl drip Problem List: 1. Bilateral pleural effusion 2. History of cardiac arrest 3. Hypotension Pain Ratin Tomorrow's Labs & Rationales: icu bundle for lytes monitoring cbc for h&H monitoring Plan DVT/Prophylaxis: mechanical, pharmacological
[2017-01-12 08:00] VITALS: BP 78/0
[2017-01-12 09:00] VITALS: BP 104/60
--- NOTE | 2017-01-12 09:00 | NUR ---
Patient is sedated on a fentanyl gtt infusing at 25mcg/hr, SAS 3-4, He is easily arousable to name, can follow simple commands, and will occasionally shake head yes and no to questions. Soft bilateral wrist restraints in place. Afib on tele monitor, HR= 110-130's and will occasionally increase up to 150's. SBP at 0800 78/0 and levophed was titrated up per protocol and is currently infusing at 8mcg/min. Pulses + with doppler. Heparin gtt infusing per protocol with the next PTT due at 1300. Remains intubated with a #8 to the left at 22cm, large amounts of thick yellow secretions were suctioned from the ETT and Dr. Braden was notified. Mouth care provided. Vent settings currently AC 16/500/30/5. Lungs diminished at the bases and rhonchorous to the bilateral upper lobes. O2 sats 93-94%. Abdomen is distended and soft with hypoactive bowel sounds. INC of stool this morning. OGT in place with Jevity 1.5 infusing at a goal rate of 60mls\hr with 150ml water flushes every 8 hours- Residual 5mls at 0800. Starr in place draining clear francisco colored urine with approx 10-20mls of urine per hour. +3 scrotal edema dn +2 generalized edema is noted. Skin tears noted to bilateral upper extremities and is draining heavy amounts of serosangenous output- Heavy drainage dressings applied and BUE elevated. Right groin puncture site draining moderate SS drainage and dressing was changed at this time. OPAL PICC line WNL- D5NS infusing at 60mls/hr- IV vanco per order. Patient currently denies pain. Will continue to closely monitor patient.
--- NOTE | 2017-01-12 09:57 | PN- Infect Dx ---
Subjective Subjective: MAXIMUM TEMPERATURE 100.3. His blood pressure remains low, still requiring Levophed. Objective Last 24 Hrs of Vital Signs/I&O Vital Signs Date Time Temp Pulse Resp B/P Pulse O2 O2 Flow FiO2 Ox Delivery Rate 01/12 0900 104/60 01/12 0856 30 01/12 0800 94 Ventilator 30% 01/12 0800 98.6 116 24 78/0 93 Ventilator 30% 01/12 0623 30 01/12 0400 95 Ventilator 30% 01/12 0312 30 01/12 0025 30 01/12 0000 97.6 115 19 94/70 96 Ventilator 30% 01/12 0000 96 Ventilator 30% 01/11 2212 110 85/65 01/11 2205 30 01/11 2000 95 Ventilator 30% 01/11 1930 30 01/11 1630 35 01/11 1614 100.2 122 16 98/64 97 Ventilator 35% 01/11 1600 96 Ventilator 35% 01/11 1551 100.2 01/11 1435 35 01/11 1200 96 Ventilator 35% 01/11 1148 35 Intake & Output 01/12 1600 01/12 0800 01/12 0000 Intake Total 1543 1860 Output Total 200 250 Balance 1343 1610 Intake, IV 978 1095 Intake, Oral 0 Intake, Other 220 Intake, Tube 390 445 Feeding Intake, Tube 175 100 Irrigant Number 1 0 Bowel Movements Output, Urine 200 250 Physical Exam Other Physical Findings: He is responsive on the ventilator but not clearly following commands Lungs scattered rhonchi bilaterally Heart irregular rhythm with no murmur Abdomen distended, nontender with positive bowel sounds Extremities PICC in the right upper extremity with no inflammation at the site; trace edema both lower extremities scrotal edema persists; Starr catheter remains in place Results Last 24 Hours of Lab Results: Laboratory Tests 01/12 01/12 01/11 0440 0040 1243 Chemistry Sodium (137 - 145 mmol/L) 133 L Potassium (3.5 - 5.1 mmol/L) 4.6 Chloride (98 - 107 mmol/L) 103 Carbon Dioxide (22 - 30 mmol/L) 27 Anion Gap (5 - 16) 3 L BUN (9 - 20 mg/dL) 17 Creatinine (0.7 - 1.2 mg/dL) 0.9 Estimated GFR (>60 ml/min) > 60 Glucose (65 - 99 mg/dL) 162 H Calcium (8.4 - 10.2 mg/dL) 8.0 L Phosphorus (2.5 - 4.5 mg/dL) 2.6 Magnesium (1.6 - 2.3 mg/dL) 1.7 Total Bilirubin (0.2 - 1.3 mg/dL) 5.6 H AST (17 - 59 U/L) 99 H ALT (21 - 72 U/L) 57 Albumin (3.5 - 5.0 g/dL) 1.9 L Coagulation PT (9.4 - 12.5 SEC) 19.6 H INR (0.90 - 1.17) 1.88 H APTT (25 - 37 SEC) 65 H 71 H Hematology CBC w Diff NO MAN DIFF REQ WBC (4.8 - 10.8 /CUMM) 14.7 H RBC (4.70 - 6.10 /CUMM) 2.64 L Hgb (14.0 - 18.0 G/DL) 8.1 L Hct (42 - 52 %) 25.4 L MCV (80.0 - 94.0 FL) 96.3 H MCH (27.0 - 31.0 PG) 30.8 RDW (11.5 - 14.5 %) 20.8 H Plt Count (130 - 400 /CUMM) 219 MPV (7.4 - 10.4 FL) 8.1 Gran % (42.2 - 75.2 %) 79.7 H Lymphocytes % (20.5 - 51.1 %) 6.9 L Monocytes % (1.7 - 9.3 %) 10.8 H Eosinophils % (0 - 5 %) 2.3 Basophils % (0.0 - 2.0 %) 0.3 Absolute Granulocytes (1.4 - 6.5 /CUMM) 11.7 H Absolute Lymphocytes (1.2 - 3.4 /CUMM) 1.0 L Absolute Monocytes (0.10 - 0.60 /CUMM) 1.6 H Absolute Eosinophils (0.0 - 0.7 /CUMM) 0.3 Absolute Basophils (0.0 - 0.2 /CUMM) 0.1 PUBS MCHC (33.0 - 37.0 G/DL) 32.0 L Last 24 Hours of Esequiel Results: No new cultures Assessment/Plan Impression: Condition remains poor, with blood pressure still requiring Levophed and now with low-grade fevers and a further increase in his white blood cell count, begun on Vancomycin yesterday for MRSA isolated from the sputum, possibly representing a tracheobronchitis or pneumonia, though his respiratory status remains stable. His bilirubin remains elevated, possibly secondary to an ongoing biliary process, given his history of cholecystitis and recent cholecystostomy tube (though imaging has not suggested residual inflammation) versus sepsis. Discussion regarding avoiding any further intervention has been noted and will affect further workup. Suggestion: 1. Await decision regarding overall level of care 2. Continue Vancomycin pending above
--- NOTE | 2017-01-12 12:00 | NUR ---
At approx 1100 patients SBP noted to be in the 79/60 by autocuff and 86/0 with the doppler- Levophed titrated up per order and Dr. Dhruv Braden notified. Patient also received 1mg IV ativan per order for an SAS of 4- patients heart rate also 140's at this time and respiratory rate reaching as high as 30. BP at this time now 96/0 and levo gtt is infusing at 14mcg/min. Patient continues to deny pain. Plan is to discuss goals of care with pts niece- Pt remains a DNR/DNI with no invasive procedures. Will continue to closely monitor patient.
--- NOTE | 2017-01-12 12:01 | PN- CRCU ---
Subjective HPI/Critical Care Issues: pt seen and examined hypotensive levophed increased ros unobtainable, sedated, intubated Objective Current Medications: Current Medications Sig/Salud Start time Last Medication Dose Route Stop Time Status Admin Acetaminophen 650 MG .STK-MED ONE 01/11 1545 DC PO 01/11 1546 Acetaminophen 650 MG Q6P PRN 12/27 0115 AC 01/11 PO 1551 Allopurinol 100 MG DAILY 12/27 1000 AC 01/12 PO 1031 Amiodarone HCl 200 MG DAILY 01/10 1000 AC 01/12 PO 1032 Dextrose/Sodium 1,000 ML Q16H 01/07 1100 AC 01/12 Chloride IV 0445 Fentanyl Citrate 1,000 MCG Q13H 01/10 1600 AC 01/11 Dextrose/Water 250 ML IV 2211 Finasteride 5 MG DAILY 12/27 1015 AC 01/08 PO 1008 Furosemide 40 MG ONCE ONE 01/12 0830 CAN IV 01/12 0831 Heparin Sodium/ 25,000 UNIT Q24H 01/09 2200 AC 01/11 Dextrose IV 2000 Dextrose/Water 500 ML Lorazepam 2 MG ONCE ONE 01/12 1030 DC 01/12 IV 01/12 1031 1035 Magnesium Oxide 400 MG BID 01/12 1000 AC 01/12 PO 01/12 2201 1031 Magnesium Sulfate 1 GM ONCE ONE 01/12 0730 CAN Dextrose/Water 100 ML IV 01/12 0829 Magnesium Sulfate 1 GM ONCE ONE 01/11 1300 DC 01/11 Dextrose/Water 100 ML IV 01/11 1359 1253 Norepinephrine 4 MG Q11H 01/11 0900 AC 01/12 Sodium Chloride 250 ML IV 1030 Pantoprazole Sodium 40 MG DAILY 01/04 1000 AC 01/12 IV 1032 Phosphate 250 MG PC AND AT BEDTIME 01/10 0900 AC 01/12 PO 1030 Polyethylene Glycol 17 GM DAILY 12/27 1000 AC 01/10 PO 0912 Senna/Docusate Sodium 1 TAB Q12P PRN 12/27 0130 AC PO Vancomycin HCl 1,000 MG Q12 01/11 1340 AC 01/12 Sodium Chloride 250 ML IV 1033 Vital Signs & I&O Last 24 Hrs of Vitals and I&O: Vital Signs Date Time Temp Pulse Resp B/P Pulse O2 O2 Flow FiO2 Ox Delivery Rate 01/12 1108 30 01/12 1032 131.0 98/58 01/12 1030 131 98/58 01/12 0900 104/60 01/12 0856 30 01/12 0800 94 Ventilator 30% 01/12 0800 98.6 116 24 78/0 93 Ventilator 30% 01/12 0623 30 01/12 0400 95 Ventilator 30% 01/12 0312 30 01/12 0025 30 01/12 0000 97.6 115 19 94/70 96 Ventilator 30% 01/12 0000 96 Ventilator 30% 01/11 2212 110 85/65 01/11 2205 30 01/11 2000 95 Ventilator 30% 01/11 1930 30 01/11 1630 35 01/11 1614 100.2 122 16 98/64 97 Ventilator 35% 01/11 1600 96 Ventilator 35% 01/11 1551 100.2 01/11 1435 35 01/11 1200 96 Ventilator 35% Intake & Output 01/12 1600 01/12 0800 01/12 0000 Intake Total 1543 1860 Output Total 200 250 Balance 1343 1610 Intake, IV 978 1095 Intake, Oral 0 Intake, Other 220 Intake, Tube 390 445 Feeding Intake, Tube 175 100 Irrigant Number 1 0 Bowel Movements Output, Urine 200 250 Patient 254 lb Weight Exam Other Physical Findings: gen arousable heent ett cvs s1, s2 lungs transmitted, reduced at bases abd obese, somewhat hard ext chronic changes significant scrotal edema Results Last 24 Hrs of Lab Results: Laboratory Tests 01/12/17 0440: Anion Gap 3 L, Estimated GFR > 60, Glucose 162 H, Calcium 8.0 L, Phosphorus 2.6, Magnesium 1.7, Total Bilirubin 5.6 H, AST 99 H, ALT 57, Albumin 1.9 L, PT 19.6 H, INR 1.88 H, CBC w Diff NO MAN DIFF REQ, RBC 2.64 L, MCV 96.3 H, MCH 30.8, RDW 20.8 H, MPV 8.1, Gran % 79.7 H, Lymphocytes % 6.9 L, Monocytes % 10.8 H, Eosinophils % 2.3, Basophils % 0.3, Absolute Granulocytes 11.7 H, Absolute Lymphocytes 1.0 L, Absolute Monocytes 1.6 H, Absolute Eosinophils 0.3 , Absolute Basophils 0.1, PUBS MCHC 32.0 L 01/12/17 0040: APTT 65 H 03/29/17 1243: APTT 71 H Impression/Plan Impression/Plan Impression/Plan: Impression 81 year old man * s/p cardiac arrest - vtach as underlying rhythm * shock - septic vs cardiogenic * hx AVR on coumadin * hx cholecystitis * MRSA in sputum * fluid overload, scrotal swelling, pleural effusions Plan - ID, cardiology, GI appreciated - cont vancomycin - continue heparin for AVR - monitor hemodynamics - monitor ins/outs, electrolytes DVT prophylaxis at all times (hearpin gtt) TTS 35 min will continue family discussions
[2017-01-12 13:52] LABS: PTT 74 SEC (25-37)
[2017-01-12 16:00] VITALS: BP 87/57
--- NOTE | 2017-01-12 16:04 | RADIOLOGY REPORT ---
EXAMINATION: XR PORTABLE CHEST CLINICAL INFORMATION: Pleural effusion. Intubation. COMPARISON: X-ray chest 01/11/2017 and 01/10/2017. TECHNIQUE: Portable AP view of the chest was obtained. FINDINGS: The heart, great vessels, pulmonary vasculature and mediastinum are stable. There has been a prior median sternotomy. Support tubes and catheters are unchanged in position. In particular, an endotracheal tube tip is again seen in the vicinity of the thoracic inlet. There is a right pleural effusion with patchy right mid and lower lung field airspace disease. A small left pleural effusion is suspected. There is mild retrocardiac airspace disease. There is pulmonary vascular congestion. No pneumothorax is seen. There is no acute osseous abnormality. IMPRESSION: 1. There is cardiomegaly and pulmonary vascular congestion. 2. There is moderate patchy right middle lower lung field and retrocardiac airspace disease redemonstrated, likely atelectasis and/or infiltrate. Asymmetric congestive heart failure is considered significantly less likely. 3. There are bilateral pleural effusions, right greater than left.
--- NOTE | 2017-01-12 16:30 | NUR ---
PT SEDATED WITH FENTANYL GTT NOT FOLLOWING COMMANDS. BP DROPPED TO 286/DOP LEVOPHED GTT INCREASED PER PROTOCOL. WHEN MAX DOSE REACH DR. FORDE NOTIFIED AND ORDERS RECIEVED TO START VASOPRESSIN DRIP. 30 MINUTED LATER BP STILL REMAINS 80/DOP AND DR 120. THIS RN SPOKE WITH DR. FORDE REGARDING PATIENTS VITAL. ORDERS RECIEVED TO START NEOSYNPHRINE DRIP. NEOSYNPHRINE GTT STARTED AND TRITRATED PER PROTOCOL. AT 2049 NEOSYNPHRINE DRIP RWEACH MAX DOSE AND PT BP 84/58. DR. FORDE NOTIFIED AND HE STATED HE WOULD NOTIFY THE PATIENTS FAMILY. 2199 PT HR BEGAN TO RM DOWN THE 40'S AND THEN PT BECOME ASYTOLE. DR. DAVIS NOTIFIED. PT AT 2209. PT'S POA NOTIFIED BY DR. FORDE.
--- NOTE | 2017-01-12 20:44 | PN- Cardiology ---
Subjective Subjective: Remains intubated. Atrial fibrillation on the monitor. Her grafts him hypotensive earlier the need for increasing his Levophed and starting vasopressin and Johnnie-Synephrine. Objective Vital Signs and I&Os Vital Signs Date Time Temp Pulse Resp B/P Pulse O2 O2 Flow FiO2 Ox Delivery Rate 01/12 1935 30 01/12 1630 30 01/12 1600 96 Ventilator 30% 01/12 1600 98.9 126 22 87/57 96 Ventilator 30% 01/12 1511 119 95/73 01/12 1438 30 01/12 1200 97 Ventilator 30% 01/12 1108 30 01/12 1032 131.0 98/58 01/12 1030 131 98/58 01/12 0900 104/60 01/12 0856 30 01/12 0800 94 Ventilator 30% 01/12 0800 98.6 116 24 78/0 93 Ventilator 30% 01/12 0623 30 01/12 0400 95 Ventilator 30% 01/12 0312 30 01/12 0025 30 01/12 0000 97.6 115 19 94/70 96 Ventilator 30% 01/12 0000 96 Ventilator 30% 01/11 2212 110 85/65 01/11 2205 30 Intake & Output 01/12 1600 01/12 0800 01/12 0000 01/11 1600 01/11 0800 01/11 0000 Intake Total 1780 1543 1860 1660.4 1526 1754 Output Total 100 200 250 250 250 530 Balance 1680 1343 1610 1410.4 1276 1224 Intake, IV 4810 047 4216 930.4 856 1101 Intake, Oral 0 Intake, Other 220 60 Intake, Tube 460 390 445 480 400 443 Feeding Intake, Tube 300 175 100 250 270 150 Irrigant Number 1 1 0 1 1 2 Bowel Movements Output, Urine 100 200 250 250 250 530 Patient 254 lb 253 lb Weight Physical Exam: Well developed, obese chronically ill-appearing elderly male intubated. Vital signs: See above. Lungs: Crease breath sounds and occasional rhonchi. Heart: S1, S2 with appropriate mechanical valve sounds great 1-2/6 systolic murmur. Extremities: 1+ lower extremity edema Current Medications: Current Medications Sig/Salud Start time Last Medication Dose Route Stop Time Status Admin Acetaminophen 650 MG Q6P PRN 12/27 0115 AC 01/11 PO 1551 Allopurinol 100 MG DAILY 12/27 1000 AC 01/12 PO 1031 Amiodarone HCl 200 MG DAILY 01/10 1000 AC 01/12 PO 1032 Dextrose/Sodium 1,000 ML Q16H 01/07 1100 AC 01/12 Chloride IV 0445 Fentanyl Citrate 1,000 MCG Q13H 01/12 2200 AC Dextrose/Water 250 ML IV Fentanyl Citrate 1,000 MCG Q13H 01/10 1600 DC 01/11 Dextrose/Water 250 ML IV 2211 Finasteride 5 MG DAILY 12/27 1015 AC 01/08 PO 1008 Furosemide 40 MG ONCE ONE 01/12 0830 CAN IV 01/12 0831 Heparin Sodium/ 25,000 UNIT Q24H 01/09 2200 AC 01/11 Dextrose IV 2000 Dextrose/Water 500 ML Lorazepam 2 MG ONCE ONE 01/12 1030 CAN IV 01/12 1031 Magnesium Oxide 400 MG BID 01/12 1000 AC 01/12 PO 01/12 220 1031 Magnesium Sulfate 1 GM ONCE ONE 01/12 0730 CAN Dextrose/Water 100 ML IV 01/12 0829 Norepinephrine 4 MG Q5H 01/12 2030 AC Sodium Chloride 250 ML IV Norepinephrine 4 MG Q11H 01/11 0900 DC 01/12 Sodium Chloride 250 ML IV 1742 Pantoprazole Sodium 40 MG DAILY 01/04 1000 AC 01/12 IV 1032 Phenylephrine HCl 40 MG Q5H 01/12 2030 AC Sodium Chloride 250 ML IV Phenylephrine HCl 40 MG Q24H 01/12 1800 DC 01/12 Sodium Chloride 250 ML IV 1809 Phosphate 250 MG PC AND AT BEDTIME 01/10 0900 AC 01/12 PO 1742 Polyethylene Glycol 17 GM DAILY 12/27 1000 AC 01/10 PO 0912 Senna/Docusate Sodium 1 TAB Q12P PRN 12/27 0130 AC PO Vancomycin HCl 1,000 MG Q12 01/11 1340 AC 01/12 Sodium Chloride 250 ML IV 1033 Vasopressin 40 UNITS Q16H 01/12 1745 AC 01/12 Sodium Chloride 100 ML IV 1741 Results Last 48 Hrs of Labs/Mics: Laboratory Tests 01/12/17 1305: APTT 74 H 01/12/17 0440: Anion Gap 3 L, Estimated GFR > 60, Glucose 162 H, Calcium 8.0 L, Phosphorus 2.6, Magnesium 1.7, Total Bilirubin 5.6 H, AST 99 H, ALT 57, Albumin 1.9 L, PT 19.6 H, INR 1.88 H, CBC w Diff NO MAN DIFF REQ, RBC 2.64 L, MCV 96.3 H, MCH 30.8, RDW 20.8 H, MPV 8.1, Gran % 79.7 H, Lymphocytes % 6.9 L, Monocytes % 10.8 H, Eosinophils % 2.3, Basophils % 0.3, Absolute Granulocytes 11.7 H, Absolute Lymphocytes 1.0 L, Absolute Monocytes 1.6 H, Absolute Eosinophils 0.3 , Absolute Basophils 0.1, PUBS MCHC 32.0 L 01/12/17 0040: APTT 65 H 01/11/17 1243: APTT 71 H 01/11/17 0545: PT 21.7 H, INR 2.08 H 01/11/17 0545: Anion Gap 6, Estimated GFR > 60, Glucose 163 H, Calcium 7.9 L, Phosphorus 2.2 L, Magnesium 1.6, Total Bilirubin 5.6 H, AST 91 H, ALT 61, Albumin 1.9 L, APTT 110 *H, CBC w Diff NO MAN DIFF REQ, RBC 2.98 L, MCV 94.3 H, MCH 30.7, RDW 19.2 H, MPV 7.4, Gran % 79.1 H, Lymphocytes % 8.0 L, Monocytes % 10.1 H, Eosinophils % 2.2, Basophils % 0.6, Absolute Granulocytes 10.7 H, Absolute Lymphocytes 1.1 L, Absolute Monocytes 1.4 H, Absolute Eosinophils 0.3, Absolute Basophils 0.1, PUBS MCHC 32.5 L 01/11/17 0530: pH 7.47 H, pCO2 34 L, pO2 84, HCO3 24, ABG O2 Sat (Measured) 95.0 L, Carboxyhemoglobin 1.8, O2 Concentration % .35, Respiration Rate 16, O2 Delivery Method VENT, Vent Mode AC, Expiratory Pressure 5, Tidal Volume 500, Phlebotomy Draw Site RIGHT RADIAL Recent Imaging Studies: CXR (01/12/2017): 1. There is cardiomegaly and pulmonary vascular congestion. 2. There is moderate patchy right middle lower lung field and retrocardiac airspace disease redemonstrated, likely atelectasis and/or infiltrate. Asymmetric congestive heart failure is considered significantly less likely. 3. There are bilateral pleural effusions, right greater than left. Assessment/Plan Assessment/Plan Mr. Lowery has taken a turn for the worse with cardiogenic versus septic shock and had his levophed increased and subsequent to that vasopressin and Johnnie- Synephrine started. His chest x-ray is consistent with heart failure, but he has not received IV furosemide secondary to his hypotension. His systolic blood pressure remains in the high 70 mmHg range. Consider limited echocardiogram to reassess left ventricular function, given his hemodynamic instability. Need to notify his power of corporate financial analyst of his worsening clinical status. Hopefully, his blood pressure will improve and he can be diuresed further. Continue telemetry? Yes
--- NOTE | 2017-01-12 22:22 | Event Note ---
Event Note Event Note: We were alerted by nursing staff that there was no activity on the threat monitoring analyst. Patient was seen and examined at bedside. He was unresponsive. Bilateral pupils were fixed and dilated. Heart sounds and pulse was absent. Patient was subsequently extubated and pronounced at 10:10 PM.
--- NOTE | 2017-01-13 08:30 | Discharge Summary ---
Hospital Course Allergies: Coded Allergies: No Known Allergies (01/04/17) Discharge Instructions Medications at Discharge Discharge Medications: Stop taking the following medications: Acetaminophen (Acetaminophen) 325 MG CAPSULE ORAL Q4H as needed for PAIN/TEMP> 101 Warfarin Sodium (Coumadin) 5 MG TABLET ORAL DAILY Continue taking these medications: Allopurinol (Allopurinol) 100 MG TABLET 1 Tablet ORAL DAILY Aspirin (Ecotrin*) 81 MG TABLET. 1 Tablet ORAL DAILY Comments: PER [facility] Metoprolol Tartrate (Metoprolol Tartrate) 25 MG TABLET 0.5 Tablet ORAL TWICE DAILY Comments: PER [facility] Magnesium Hydroxide (Milk Of Magnesia) 400 MG/5 ML ORAL.SUSP 30 Milliliters ORAL DAILY as needed for CONSTIPATION Comments: PER [facility] IF NO BM IN 2 DAYS Bisacodyl (Bisacodyl) 10 MG SUPP.RECT 1 Suppository RECTAL Q2D as needed for CONSTIPATION Comments: PER [facility] IF MOM INEFFECTIVE Na Phos,M-B/Na Phos,Di-Ba (Fleet Enema) 19 GRAM-7 GRAM/118 ML ENEMA 1 Enema RECTAL Q2D as needed for CONSTIPATION Comments: PER [facility] IF DULCOLAX SUPP INEFFECTIVE Pantoprazole Sodium (Pantoprazole Sodium) 40 MG TABLET. 1 Tablet ORAL Q12H Comments: PER [facility] Polyethylene Glycol 3350 (Gavilax) 17 GRAM POWD.PACK 1 Packet ORAL DAILY Comments: PER [facility] MIXED WITH 240ML Potassium Chloride (Klor-Con 10) 10 MEQ TABLET.ER 1 Tablet ORAL DAILY Comments: PER [facility] Sennosides (Senna) 8.6 MG TABLET 1 Tablet ORAL Every night Comments: PER [facility] Nystatin (Nystop) 100,000 UNIT/GRAM POWDER 1 Application On the skin TWICE DAILY Comments: LAST FILLED 12/21/2016 FOR 14 DAYS PER [facility] Miconazole Nitrate (Inzo Antifungal) 2 % CREAM..G. 1 Application On the skin TWICE DAILY Comments: FOR 14 DAYS PER [facility] - DATE LAST FILLED STATES PROFILE ONLY Atorvastatin Calcium (Atorvastatin Calcium) 40 MG TABLET 1 Tablet ORAL DAILY Qty = 90 Comments: not on emr!!!!!!!! Start taking the following new medications: Warfarin Sodium (Jantoven) 4 MG TABLET 1 Tablet ORAL DAILY Qty = 7 No Refills The following medications have been changed: Old: Furosemide (Lasix) 40 MG TABLET 1 Tablet ORAL DAILY New: Furosemide (Lasix) 40 MG TABLET 1 Tablet ORAL TWICE DAILY Days = 30 Comments: PREVIOUSLY NOTED 80MG BID; PER MAR
--- NOTE | 2017-01-13 08:38 | Discharge Summary ---
Visit Information Visit Dates Admission Date: 12/26/16 Discharge Date: 01/12/17 Hospital Course Course Attending Physician: JAIDA CHURCHILL MD Primary Care Physician: LANEY AGOSTO,[facility] Course: This is a 81 -year-old gentleman with past medical history of coronary artery disease status post CABG in 1994, stent placement in 1999, aortic stenosis status post [facility] valve placement in 1994, atrial fibrillation, hypertension, CHF, recent acute cholecystitis status post percutaneous cholecystostomy tube came from nursing facility and 12/26/2016 with chief complaint of dislodged percutaneous cholecystotomy tube. His vitals on admission were stable, he was mildly tachypneic and was noted to have bilateral basilar crackles with decreased breath sounds. Chest x-ray showed bilateral pleural effusions. CT abdominal and pelvis without contrast was consistent with chest x-ray with bilateral pleural effusions, bibasilar atelectasis, gallstones in the gallbladder and small amount of stranding fluid around the gallbladder, and there was no bile duct agitation and changes status post partial colectomy. He was initially admitted to the telemetry floor. The plan for his dislodged percutaneous cholecystostomy was discussed with interventional radiology, however no intervention was planned. He was admitted to the telemetry floor for treatment of acute on chronic CHF, dislodgment of cholecystotomy tube, mild hematuria, dyspnea with bilateral pleural effusion. It was decided that patient would be treated conservatively and the cholecystotomy tube could not be placed back by IR. * Patient had few episodes of pauses while in telemetry, metoprolol was held, atropine was kept bedside and pacer pads were On the patient. He had mild hematuria during the hospital course which was thought to be secondary to traumatic insertion of the Starr as per urology. * On 01/04/2017 Code 3 was called at 12:39 AM. He was in ventricular fibrillation, he was defibrillated once, epinephrine was given at 1226, subsequent rhythms were non-shockable and patient received epinephrine again, patient was intubated stat, bicarbonate was given at 1231 along with amiodarone, female pulse was appreciated. * A central line was attempted, after failed attempt by housestaff, surgical PA was called to obtain the central line, and central line was obtained.There was a small complication with the guidewire was lost during the placement of the central line which was retrieved by IR the next day. * He was transferred to intensive care unit after 25 minutes of CPR. He was started on pressor support - levophed and was intubated and ventilated.He was found to be in septic shock with most likely source thought to be gallbladder however repeat CT scan did not show any evidence. * He was given 1 dose of vancomycin and ceftazidime. * He also had elevated troponins which was thought to be status post CPR and was thought to be secondary to demand ischemia. Troponin was trended untiill it continued to trend down. A * fter transfer to ICU, family discussion was held and his CODE STATUS was changed to DNR/DNI. He was kept on amiodarone drip initially for ventricular tachycardia.He was kept nothing by mouth, regular chest x-rays regular ABG were continued while watching the respiratory status. Intakes and outputs were continuously monitored and goal CVP of 10-12 was maintained. GI was reconsulted for elevated bilirubin however no intervention was recommended as CT scan didnot show any evidence of GB pathology He should continue to be on the Levophed drip for blood pressure support and fentanyl drip for sedation. He was followed off antibiotics. He received when necessary doses of Lasix for fluid overload. * MRSA was isolated from sputum culture, possibly ?Colonization versus a tracheobronchitis. As patient continued to be persistently on pressors and hypotensive with increasing white blood count with no evidence found on right upper quadrant ultrasound and CAT scan of any acute gallbladder pathology, he was began on vancomycin 1 g IV every 12. * There was a concern of patient's deteriorating status and there was a plan for a family meeting to discuss goals of care however on 01/12/2017 the supervisor dehydrogenation night staff was alerted by the nursing staff that patient did not have any activity on booster plant operator. Patient was seen and examined by the night float at bedside. He was found to be unresponsive, bilateral pupils were fixed and dilated, heart sounds and pulse were absent. Patient was subsequently extubated and pronounced at 10:10 PM on 01/12/2017. May his soul rest in peace. Complications: Event Note: Procedure Note - Central line complication. Date: 01/04/17 Name of procedure: Femoral central line placement While putting the central line the guide wire was lost and there was no visualization of the guidewire and was not seen sticking out of the right groin incision. At this time the procedure was stopped and Dr. Ed See was called immediately. Pressure was held over the right groin until hemostasis was obtained. Patients vital signs remained stable and there was no evidence of on the heart monitor of new arrythmias. A chest and an abdomen/pelvis xrays were ordered stat and Guide wire was retireved by IR next day. Event Note (CODE 3) Code 3 was called for Bandar Lowery at 1239 AM. Patient was being moved in bed and nurses witnessed him become unresponsive. Initial rhythm prior to arrival was ventricular tachycardia without a pulse that quickly went into ventricular fibrillation. On arrival to see patient, no pulse was appreciated and CPR was initiated. Attending physician Dr. Hannon present and ran the code. Rhythm showed ventricular fibrillation and patient was defibrillated once. Epinephrine was given at 1226. Subsequent rhythms were non-shockable and patient received epinephrine was again given at 1230. Patient was then intubated by anesthesia. NaHCO3 given at 1231 along with amiodarone. 1233 right femoral pulse appreciatd and monitor suggestive of afib with PVCs. Central line was attempted, however at 1241 again patient had no pulse. Repeat epi given at 1242. CPR continued intul 1245 when pulse was again appreciated. Due to spontaneous circulation, he was transferred to ICU for further management. Event note (patient pronounced) Night house staff was alerted by nursing staff that there was no activity on the booster plant operator. Patient was seen and examined at bedside. He was unresponsive. Bilateral pupils were fixed and dilated. Heart sounds and pulse was absent. Patient was subsequently extubated and pronounced at 10:10 PM. Allergies: Coded Allergies: No Known Allergies (01/04/17) Significant Procedures: Please see in patient reports Disposition Summary Disposition Principal Diagnosis: Septic shock on pressors Acute hypoxic respiratory failure, intubated and ventilated. Bilateral plueral effsion H/o A fib with RVR S/p CPR. Additional Diagnosis: normocytic normochromic anemia Respiratory acidosis Luecocytosis Discharge Disposition: Discharge Instructions General Discharge Information Code Status: Do Not Resucitate/Intubat Patient's Diet: npo Patient's Activity: .. Follow-Up Instructions/Appts: RIP Medications at Discharge Discharge Medications: Stop taking the following medications: Acetaminophen (Acetaminophen) 325 MG CAPSULE ORAL Q4H as needed for PAIN/TEMP> 101 Warfarin Sodium (Coumadin) 5 MG TABLET ORAL DAILY Continue taking these medications: Allopurinol (Allopurinol) 100 MG TABLET 1 Tablet ORAL DAILY Aspirin (Ecotrin*) 81 MG TABLET. 1 Tablet ORAL DAILY Comments: PER DEC Metoprolol Tartrate (Metoprolol Tartrate) 25 MG TABLET 0.5 Tablet ORAL TWICE DAILY Comments: PER DEC Magnesium Hydroxide (Milk Of Magnesia) 400 MG/5 ML ORAL.SUSP 30 Milliliters ORAL DAILY as needed for CONSTIPATION Comments: PER DEC IF NO BM IN 2 DAYS Bisacodyl (Bisacodyl) 10 MG SUPP.RECT 1 Suppository RECTAL Q2D as needed for CONSTIPATION Comments: PER DEC IF MOM INEFFECTIVE Na Phos,M-B/Na Phos,Di-Ba (Fleet Enema) 19 GRAM-7 GRAM/118 ML ENEMA 1 Enema RECTAL Q2D as needed for CONSTIPATION Comments: PER DEC IF DULCOLAX SUPP INEFFECTIVE Pantoprazole Sodium (Pantoprazole Sodium) 40 MG TABLET.DR 1 Tablet ORAL Q12H Comments: PER [facility] Polyethylene Glycol 3350 (Gavilax) 17 GRAM POWD.PACK 1 Packet ORAL DAILY Comments: PER DEC MIXED WITH 240ML Potassium Chloride (Klor-Con 10) 10 MEQ TABLET.ER 1 Tablet ORAL DAILY Comments: PER DEC Sennosides (Senna) 8.6 MG TABLET 1 Tablet ORAL Every night Comments: PER [facility] Nystatin (Nystop) 100,000 UNIT/GRAM POWDER 1 Application On the skin TWICE DAILY Comments: LAST FILLED 12/21/2016 FOR 14 DAYS PER [facility] Miconazole Nitrate (Inzo Antifungal) 2 % CREAM..G. 1 Application On the skin TWICE DAILY Comments: FOR 14 DAYS PER [facility] - DATE LAST FILLED STATES PROFILE ONLY Atorvastatin Calcium (Atorvastatin Calcium) 40 MG TABLET 1 Tablet ORAL DAILY Qty = 90 Comments: not on emr!!!!!!!! Start taking the following new medications: Warfarin Sodium (Jantoven) 4 MG TABLET 1 Tablet ORAL DAILY Qty = 7 No Refills The following medications have been changed: Old: Furosemide (Lasix) 40 MG TABLET 1 Tablet ORAL DAILY New: Furosemide (Lasix) 40 MG TABLET 1 Tablet ORAL TWICE DAILY Days = 30 Comments: PREVIOUSLY NOTED 80MG BID; PER DEC Copies To: LANEY AGOSTO,ARIADNA; ZHAO AGOSTO,JAIDA The following medications have been changed: Old: Furosemide (Lasix) 40 MG TABLET 1 Tablet ORAL DAILY New: Furosemide (Lasix) 40 MG TABLET 1 Tablet ORAL TWICE DAILY Days = 30 Comments: PREVIOUSLY NOTED 80MG BID; PER DEC Copies To: LANEY AGOSTO,ARIADNA; ZHAO AGOSTO,JAIDA
== END 2017-01-12 22:10 | disposition expired | DRG 291 ==
LOC: ENRESERVDT → ENRESERVTM → ERH 15:47 → 1NO 20:16 → ERHI 20:16 → CRI 20:16 → 1NO 22:29 → CRI 01-04 01:03
PROVIDERS: Emergency Medicine; Internal Medicine; Internal Medicine Cardiovascular Disease; Internal Medicine Critical Care Medicine; Internal Medicine Endocrinology, Diabetes & Metabolism; Internal Medicine Interventional Cardiology; Orthopaedic Surgery Orthopaedic Surgery of the Spine; Radiology Diagnostic Radiology; Student in an Organized Health Care Education/Training Program; ADMIT Internal Medicine Pulmonary Disease
PROC: 0BH17EZ Insertion of Endotracheal Airway into Trachea, Via Natural or Artificial Opening (ICD-10-PCS; principal; 2017-01-04)
PROC: 5A1955Z Respiratory Ventilation, Greater than 96 Consecutive Hours (ICD-10-PCS; 2017-01-04)
PROC: B519ZZA Fluoroscopy of Inferior Vena Cava, Guidance (ICD-10-PCS; 2017-01-04)
PROC: 06PY33Z Removal of Infusion Device from Lower Vein, Percutaneous Approach (ICD-10-PCS; 2017-01-04)
PROC: 06H033Z Insertion of Infusion Device into Inferior Vena Cava, Percutaneous Approach (ICD-10-PCS; 2017-01-04)
DX: I11.0 Hypertensive heart disease with heart failure (principal); J96.01 Acute respiratory failure with hypoxia; R65.21 Severe sepsis with septic shock; J96.02 Acute respiratory failure with hypercapnia; A41.9 Sepsis, unspecified organism; I47.2 Ventricular tachycardia; D68.32 Hemorrhagic disorder due to extrinsic circulating anticoagulants; E87.1 Hypo-osmolality and hyponatremia; R31.0 Gross hematuria; I48.91 Unspecified atrial fibrillation; I46.9 Cardiac arrest, cause unspecified; I49.01 Ventricular fibrillation; I50.33 Acute on chronic diastolic (congestive) heart failure; I87.2 Venous insufficiency (chronic) (peripheral); T45.515A Adverse effect of anticoagulants, initial encounter
CPT/HCPCS: 1NSP; 84133; 84300; 87184; CCU; 36415; 74000; 74176; 74177; 77001; 82436; 82570; 83010; 87040; 87070; 87086; 87147; 87389; 88305; 93005; 93010; 93306; 94799; C1894; C8929; J0461; J0696; J0713; J1642; J1644; J1720; J1940; J2060; J2250; J3010; J3370; J7040; J7042; J7060; P9017; Q9957